=== PATIENT | female | born 1945 | race Caucasian/White ===

== ENCOUNTER 2016-10-12 08:23 | Emergency (ER) | payer OTHER, BC ==
[~2016-10-12] VITALS: Ht 165.1 cm; Wt 35.6 kg
[~2016-10-12 08:23] MED LIST: CEPH500C2 PO; FERR1TAB23 PO; LISI-461 PO; ONDA4TAB10 SL; VERA180T10 PO
[2016-10-12 08:28] VITALS: TEMP 36.6; Ht 165.1 cm; Wt 35.6 kg
--- NOTE | 2016-10-12 08:36 | EMERGENCY ROOM VISIT NOTE ---
ED Visit Note First contact with patient: 08:31 CHIEF COMPLAINT: Suture removal HISTORY OF PRESENT ILLNESS: This 70-year-old female patient returns to the ED today for removal of sutures that were placed 13 days ago. There has been no swelling, redness, or drainage from the wound. The patient feels like the laceration is healing well. REVIEW OF SYSTEMS: A 6 system review of systems was completed with positives and pertinent negatives listed in the HPI. PMH: Unchanged from previous visit. ALLERGIES: Codeine, watermelon PHYSICAL EXAM: Vital Signs: Reviewed Nurse's notes, vital signs stable. GENERAL : This is a 70-year-old female, in no acute distress. SKIN: There is a sutured wound on the finger with no signs of infection. There is no erythema, swelling, or tenderness. EMERGENCY DEPARTMENT COURSE: 6 sutures were removed without any difficulty and there was no separation of the wound edges. She did not follow-up with orthopedics. The wound is without erythema, discharge, warmth. She has full range of motion of the finger and good strength. There is no tenderness. The patient was discharged home in good condition. DIAGNOSIS: Healing laceration and suture removal DISCHARGE INSTRUCTIONS AND TREATMENT: Wash any remaining crusts off of the wound today and resume your normal activities. Problem List Medical Problems: (1) Anemia, Unspecified Status: Chronic (2) Hx-Bronchogenic Malignan Status: Resolved (3) Hypertension Nos Status: Chronic Current/Historical Medications Scheduled Cephalexin Monohydrate (Keflex), 500 MG PO QID Ferrous Sulfate (Iron), 2 TABS PO DAILY Lisinopril (Zestril), 10 MG PO DAILY Verapamil Hcl (Verapamil Hcl Sa), 2 TAB PO DAILY Scheduled PRN Ondasetron Odt (Zofran Odt), 4 MG SL Q6H PRN for Nausea or Vomiting Allergies Coded Allergies: Watermelon (Verified Allergy, Unknown, `, 09/30/16) Codeine (Verified Adverse Reaction, Unknown, UPSET STOMACH, 09/30/16) Vital Signs Date Time Temp Pulse Resp B/P Pulse Ox O2 Delivery O2 Flow Rate FiO2 10/12/16 08:46 86 18 98 10/12/16 08:28 36.6 86 18 156/91 98 Room Air Departure Information Impression Primary Impression: Encounter for removal of sutures Dispostion Home / Self-Care Condition GOOD Referrals No Doctor, Assigned (PCP) Patient Instructions A Signature Page, [facility] Additional Instructions Wash any remaining crusts off of the wound today and resume your normal activities.
[2016-10-12 08:46] VITALS: BP 156/91; PULSE 86; O2SAT 98
== END 2016-10-12 08:44 | disposition home or self-care (01) ==
LOC: C.EDB 08:24 → C.EDA 08:44
DX: Z48.02 Encounter for removal of sutures (principal); I10 Essential (primary) hypertension

== ENCOUNTER → 2017-07-06 | Outpatient (CLI) | payer BC ==
[~2017-07-06] MED LIST changes: -CEPH500C2 PO
[2017-07-06 12:45] LABS: BASO % 0.6 %; BASO ABS # 0.02 K/uL (0-0.2); COMPLETE YES; EOS % 1.4 %; HEMATOCRIT 37.4 % (37-47); LYMPH ABS # 0.88 K/uL (1.2-3.4); MEAN CORPUSCULAR HEMOGLOBIN 28.7 pg (25-34); MEAN CORPUSCULAR HGB CONC 32.6 g/dl (32-36); MONO % 11.1 %; NEUT % 61.9 %; PLATELET COUNT 214 K/uL (130-400); RED BLOOD COUNT 4.25 M/uL (4.2-5.4); WHITE BLOOD COUNT 3.52 K/uL (4.8-10.8)
[2017-07-06 13:21] LABS: ALT/SGPT 17 U/L (12-78); BLOOD UREA NITROGEN 13 mg/dl (7-18); BUN/CREATININE RATIO 13.2 (10-20); CALCIUM 9.5 mg/dl (8.5-10.1); CARBON DIOXIDE 31 mmol/L (21-32); CHLORIDE 103 mmol/L (98-107); CHOLESTEROL 237 mg/dl (0-200); CREATININE 0.97 mg/dl (0.60-1.20); GLUCOSE 92 mg/dl (70-99); POTASSIUM 4.5 mmol/L (3.5-5.1); SODIUM 140 mmol/L (136-145); TRIGLYCERIDES 108 mg/dl (0-150); VERY LOW DENSITY LIPOPROT CALC 22 mg/dl
[2017-07-06 13:31] LABS: ALB/GLOB RATIO 1.2 (0.9-2); ALKALINE PHOSPHATASE 56 U/L (45-117); AST/SGOT 20 U/L (15-37); HDL CHOLESTEROL 118 mg/dl; LDL CHOLESTEROL CALCULATED 97 mg/dl
--- NOTE | 2017-07-11 11:17 | CODING QUERY MEDICAL NECESSITY ---
SUPPORTING DIAGNOSIS NEEDED A supporting diagnosis is required for the test/procedure performed on this patient in order for us to be reimbursed by the patient's insurance. Please provide a supporting diagnosis for the following test/procedure listed below next to the test name along with your signature. *If there is no additional diagnosis for this patient that would support the following test/procedure please document that below next to the test/procedure. Test(s)/Procedure(s) that require a supporting diagnosis: * VITAMIN D, 25-HYDROXY DIAGNOSIS: Provider Signature: Date: Thank you Rebeca Gil [employer] Once completed, please kindly fax back to [phone] For questions please call [phone]
== END | disposition home or self-care (01) ==
LOC: C.LABBFT 07:52
PROVIDERS: ATTEND Internal Medicine
DX: E04.2 Nontoxic multinodular goiter (principal); Q23.0 Congenital stenosis of aortic valve; D72.819 Decreased white blood cell count, unspecified

== ENCOUNTER → 2017-07-25 | Outpatient (CLI) | payer BC ==
--- NOTE | 2017-07-25 10:38 | DIAGNOSTIC IMAGING REPORT ---
Thyroid ultrasonography CLINICAL HISTORY: E04.2 Nontoxic multinodular [id number] COMPARISON STUDY: January 2013 FINDINGS: The right of the thyroid measures 44 x 16 x 12 mm. There is a 10 x 9 x 5 mm upper pole cystic nodule. There is a 4 mm partially cystic mid pole nodule. There is a 2 mm cystic lower pole nodule. The left lobe measures 41 x 15 x 8 mm. There is a 4 mm upper pole cystic nodule, and 4 mm upper pole hypoechoic nodule. IMPRESSION: Multinodular thyroid gland. There are no architecturally suspicious nodules. Electronically signed by: Wai Bailey M.D. 07/25/2017 10:37 AM Dictated Date/Time: 07/25/2017 10:35 AM
== END | disposition home or self-care (01) ==
LOC: C.ULTR 09:57
PROVIDERS: ATTEND Internal Medicine
DX: E04.2 Nontoxic multinodular goiter (principal)

== ENCOUNTER → 2017-09-05 | Outpatient (CLI) | payer BC | END | disposition home or self-care (01) | LOC: C.LABBFT 07:15 | PROVIDERS: ATTEND Internal Medicine | DX: Q23.0 Congenital stenosis of aortic valve (principal); E55.9 Vitamin D deficiency, unspecified ==

== ENCOUNTER → 2018-05-15 | Outpatient (CLI) | payer BC ==
[2018-05-15 12:47] LABS: BASO % 0.6 %; BASO ABS # 0.02 K/uL (0-0.2); EOS % 1.1 %; EOS ABS # 0.04 K/uL (0-0.5); HEMATOCRIT 37.2 % (37-47); HEMOGLOBIN 12.2 g/dL (12.0-16.0); IG# 0.01 K/uL (0.00-0.02); LYMPH % 20.4 %; LYMPH ABS # 0.73 K/uL (1.2-3.4); MEAN CELL VOLUME 85.9 fL (80-100); MEAN CORPUSCULAR HEMOGLOBIN 28.2 pg (25-34); MEAN CORPUSCULAR HGB CONC 32.8 g/dl (32-36); MEAN PLATELET VOLUME 10.1 fL (7.4-10.4); MONO % 13.7 %; MONO ABS # 0.49 K/uL (0.11-0.59); NEUT % 63.9 %; NEUT ABS # 2.28 K/uL (1.4-6.5); PLATELET COUNT 227 K/uL (130-400); RED CELL DISTRIBUTION WIDTH CV 12.8 % (11.5-14.5); RED CELL DISTRIBUTION WIDTH SD 40.8 fL (36.4-46.3); WHITE BLOOD COUNT 3.57 K/uL (4.8-10.8)
[2018-05-15 13:25] LABS: ALBUMIN 3.9 gm/dl (3.4-5.0); ALKALINE PHOSPHATASE 58 U/L (45-117); ALT/SGPT 17 U/L (12-78); AST/SGOT 17 U/L (15-37); BLOOD UREA NITROGEN 13 mg/dl (7-18); CALCIUM 9.3 mg/dl (8.5-10.1); CARBON DIOXIDE 34 mmol/L (21-32); CHOLESTEROL 246 mg/dl (0-200); CREATININE 0.85 mg/dl (0.60-1.20); GLUCOSE 81 mg/dl (70-99); LDL CHOLESTEROL CALCULATED 113 mg/dl; POTASSIUM 3.8 mmol/L (3.5-5.1); SODIUM 139 mmol/L (136-145); TOTAL PROTEIN 7.2 gm/dl (6.4-8.2)
== END | disposition home or self-care (01) ==
LOC: C.LABBFT 07:21
PROVIDERS: ATTEND Internal Medicine
DX: E78.5 Hyperlipidemia, unspecified (principal); D72.819 Decreased white blood cell count, unspecified; E55.9 Vitamin D deficiency, unspecified

== ENCOUNTER 2020-04-21 10:56 | Observation (INO) ==
--- NOTE | 2020-04-21 11:33 | Emergency Department Note ---
History of Present Illness General Chief complaint: Illness Stated complaint: Chest discomfort Time Seen by Provider: 04/21/20 11:19 Source: patient, family, RN notes reviewed and old records reviewed Mode of arrival: ambulatory Limitations: no limitations History of Present Illness Provider complaint: Chest pressure Onset (ago): hour(s) 2 Location: chest Radiation: back Severity: mild Pain Consistency: + now resolved Maximum Pain Intensity: 0 Current Pain Intensity: 3 Quality: + aching Relieved By: + immobilization Exacerbated By: + movement Associated symptoms: + denies other symptoms; no diaphoresis, no fever/chills, no nausea/vomiting and no shortness of breath Treatments prior to arrival: none This is a 74-year-old female with a history of aortic stenosis who presents the emergency department complaining of chest pain that occurred approximately 2 hours ago. The patient reports the chest pain continued for approximately 2 hours and went away on its own. She reports moving around made the pain worse however rest made the pain better. She is pain-free upon arrival to the emergency department. She describes the pain as a pressure that radiated into her back. She currently has no complaints denies any shortness of breath any fevers chills or any exposure to the virus. Home Medications Home Medications Medication Instructions Recorded Confirmed Type verapamil 180 mg tablet,extended 360 mg PO DAILY #60 tab 04/28/19 04/21/20 Rx release aspirin 81 mg tablet,delayed 81 mg PO DAILY tab 05/06/19 04/21/20 History release ferrous sulfate 325 mg (65 mg 325 mg PO DAILY tab 05/06/19 04/21/20 History iron) tablet lisinopril 10 mg tablet 10 mg PO DAILY #30 tab 02/16/20 04/21/20 Rx albuterol sulfate 90 mcg/actuation 2 puffs INH Q6H PRN #8 gm 03/10/20 04/21/20 Rx aerosol inhaler mirtazapine 7.5 mg tablet 7.5 mg PO DAILY #30 tab 03/10/20 04/21/20 Rx tiotropium bromide 18 mcg capsule 1 cap INHALATION DAILY #30 puffs 03/10/20 04/21/20 Rx with inhalation device pravastatin 10 mg tablet 10 mg PO DAILY #30 tab 04/05/20 04/21/20 Rx Allergies Allergy/AdvReac Type Severity Reaction Status Date / Time watermelon Allergy Unknown ` Verified 04/21/20 12:17 bupropion [From Wellbutrin] Allergy Verified 04/21/20 12:17 simvastatin Allergy Verified 04/21/20 12:17 alendronate sodium AdvReac Intermediate Nausea Verified 04/21/20 12:17 codeine AdvReac Unknown UPSET Verified 04/21/20 12:17 STOMACH atorvastatin AdvReac Verified 04/21/20 12:17 doxycycline AdvReac Verified 04/21/20 12:17 Sulfa (Sulfonamide AdvReac Verified 04/21/20 12:17 Antibiotics) sulfamethoxazole AdvReac Nausea Verified 04/21/20 12:17 [From Bactrim] trimethoprim [From Bactrim] AdvReac Nausea Verified 04/21/20 12:17 Past Med/Surg History Medical History Aortic stenosis due to bicuspid aortic valve (Acute) Bicuspid aortic valve (Acute) BMI less than 19,adult (Acute) Carotid bruit (Acute) COPD (chronic obstructive pulmonary disease) (Chronic) Fatigue (Acute) History of adenocarcinoma of lung Hyperlipidemia (Acute) Hypertension (Acute) Leukopenia (Acute) Mitral regurgitation (Acute) Nontoxic multinodular goiter (Acute) Osteoporosis (Chronic) Tricuspid regurgitation (Acute) Vitamin D deficiency (Acute) Surgical History History of tubal ligation 1977 S/P lobectomy of lung 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 Family History Father Myocardial infarction Hypertension Mother Vascular disorder Mother of supranuclear palsy Hypertension Denies family history of Ovarian cancer Prostate cancer Diabetes Breast cancer Colorectal cancer Social History Smoking Status: Former smoker Age Started Using Tobacco: 21; packs per day: 1; Cigarettes Per Day: 20; Second Hand Exposure: No; Hx Alcohol Use: Yes Alcohol Intake Frequency Comment: socially Hx Substance Use: No Preferred Language: Indonesian Visual Impairment: Partially Limited Hearing Ability: Normal Water Meter Reader Required: No Beliefs That Will Affect Care: None marital status: / Current Living Situation: Alone current occupational status: employed current occupation: works at [employer] doing [employer] and [employer] Other Information That Helps Us Care for You: No Feels Safe at Home: Yes Safety Concerns: Feels Safe At This Time Childhood Exposure to Second-Hand Smoke: No caffeine: Yes (coffee daily) Dental Care, Regularly: No Physical Activity Frequency: Daily Seatbelt Use: always Sunscreen Use: No Review of Systems A total of 10 systems reviewed and were otherwise negative Physical Exam Vital Signs Vital Signs - 24 hr 04/21/20 12:39 Pulse Rate [Apical] 85 Respiratory Rate 16 Blood Pressure [Right Arm] 118/78 Blood Pressure Mean [Right Arm] 91 VITAL SIGNS - Vital signs and nursing notes were reviewed. GENERAL - 74-year-old female appearing stated age who is in no acute distress. Communicates well with provider and answers questions appropriately. SKIN - Without rashes. HEAD - NC/AT. EYES - PERRL with EOMI bilaterally. Sclera anicteric. Palpebral conjunctiva pin k and moist with no injection noted. EARS - No deformities of external structures noted on gross examination bilaterally. No pain elicited with palpation of the tragus bilaterally. External auditory canals without discharge or otorrhea. Tympanic membranes pearly hardy without retraction or bulging. No fluid or purulent material visualized behind the TM. Handle of malleus, umbo, cone of light, pars tensa/flaccid all easily visualized. NOSE - Midline and without cyanosis. No epistaxis or purulent drainage noted. Septum midline without deviation or septal hematoma noted. MOUTH/OROPHARYNX - Without perioral cyanosis. Buccal mucosa pink and moist and without leukoplakia. Tongue midline with equal elevation of palate bilaterally. No tonsillar hypertrophy, erythema, or exudates noted. dentition noted. NECK - Neck with FROM. Supple to palpation. lymphadenopathy noted. No nuchal rigidity. LUNGS - Chest wall symmetric without accessory muscle use, intercostals retractions, or central cyanosis. Normal vesicular breath sounds CTA B/L. No wheezes, rales, or rhonchi appreciated. CARDIAC - RRR with S1/S2. No murmur, rubs, or gallops appreciated. ABDOMEN - Abdominal contour without pulsations or visible masses. BS normoactive all four quadrants. No tenderness, palpable masses, hepatosp lenomegaly, or ascites noted. EXTREMITIES - No clubbing or peripheral cyanosis. No pretibial edema present. +3/5 radial, posterior tibial, and dorsalis pedis pulses palpated throughout. +5/5 strength noted in UE/LE bilaterally. NEUROLOGIC - Cranial nerves II through XII grossly intact. Sensory intact to light touch throughout. Patellar reflexes +2/4. PSYCH - A&Ox3 and cooperates fully with examiner. Pt is very pleasant and interacts well with examiner. Course Administered Medications Aspirin (Ecotrin Ectab) 81 mg PO DAILY [facility] Stop: 05/22/20 08:59 Last Admin: 04/22/20 10:03 Dose: 81 mg Documented by: [id number] Ferrous Sulfate (Feosol) 325 mg PO DAILY [facility] Stop: 05/22/20 08:59 Last Admin: 04/22/20 10:03 Dose: 325 mg Documented by: [id number] Lisinopril (Zestril) 10 mg PO DAILY [facility] Stop: 05/22/20 08:59 Last Admin: 04/22/20 10:03 Dose: 10 mg Documented by: [id number] Mirtazapine (Remeron) 7.5 mg PO DAILY [facility] Stop: 05/22/20 08:59 Last Admin: 04/22/20 10:11 Dose: Not Given Documented by: [id number] Pravastatin Sodium (Pravachol) 10 mg PO DAILY [facility] Stop: 05/22/20 08:59 Last Admin: 04/22/20 10:03 Dose: 10 mg Documented by: [id number] Umeclidinium [place] (Incruse Ellipta) 1 puffs INH DAILY [facility]; Protocol Stop: 05/22/20 08:59 Last Admin: 04/22/20 10:04 Dose: 1 puffs Documented by: [id number] Verapamil HCl (Calan Sr) 360 mg PO DAILY [facility] Stop: 05/22/20 08:59 Last Admin: 04/22/20 10:03 Dose: 360 mg Documented by: [id number] Medical Decision Making Differential Diagnosis Cardiac ischemia, aortic dissection, pulmonary embolism, pneumothorax, pneumonia, pericarditis, myocarditis, esophageal rupture, GERD, cholecystitis, pancreatitis, musculoskeletal, as well as other pathologies. Medical Records Attestation: I reviewed the patient's medical records. Home Medications Current Medication List: was personally reviewed by me Laboratory Data Attestation: I reviewed the patient's lab results. Result diagrams: 04/21/20 11:15 04/22/20 05:46 Lab Results 04/21/20 04/21/20 04/21/20 Range/Units 11:15 11:15 11:15 WBC 6.31 (4.8-10.8) K/uL RBC 4.62 (4.2-5.4) M/uL Hgb 13.6 (12.0-16.0) g/dL Hct 41.3 (37-47) % MCV 89.4 (80-100) fL MCH 29.4 (25-34) pg MCHC 32.9 (32-36) g/dL RDW Std Deviation 40.2 (36.4-46.3) fL RDW Coeff of Sarah 12.3 (11.5-14.5) % Plt Count 294 (130-400) K/uL MPV 9.6 (7.4-10.4) fL Immature Gran % (Auto) 0.2 % Neut % (Auto) 79.9 % Lymph % (Auto) 12.7 % [place] % (Auto) 6.8 % Eos % (Auto) 0.2 % Baso % (Auto) 0.2 % Neut # (Auto) 5.05 (1.4-6.5) K/uL Lymph # (Auto) 0.80 L (1.2-3.4) K/uL [place] # (Auto) 0.43 (0.11-0.59) K/uL Eos # (Auto) 0.01 (0-0.5) K/uL Baso # (Auto) 0.01 (0-0.2) K/uL Immature Gran # (Auto) 0.01 (0.00-0.02) K/uL PT 10.3 (9.0-12.0) Seconds INR 1.0 (0.9-1.1) APTT 24.1 (21.0-31.0) Seconds PTT Ratio 0.9 D-Dimer < 190 (0-500) ug/L FEU Sodium 139 (136-145) mmol/L Potassium 3.6 (3.5-5.1) mmol/L Chloride 101 (98-107) mmol/L Carbon Dioxide 32 (21-32) mmol/L Anion Gap 6.0 (3-11) BUN 8 (7-18) mg/dl Creatinine 0.98 (0.6-1.2) mg/dl Est Cr Clr Drug Dosing 29.4 ml/min Est GFR ( Amer) 65.9 Est GFR (Non-Af Amer) 56.8 BUN/Creatinine Ratio 8.3 L (10-20) Glucose 139 H (70-99) mg/dl Calcium 9.8 (8.5-10.1) mg/dl Total Bilirubin 0.8 (0.2-1) mg/dl AST 22 (15-37) U/L ALT 32 (12-78) U/L Alkaline Phosphatase 83 (45-117) U/L Total Creatine Kinase 55 (26-192) U/L CK-MB (CK-2) < 1.0 (0.5-3.6) ng/ml CK/CKMB % Calc TNP Troponin I < 0.015 (0-0.045) ng/ml Total Protein 8.5 H (6.4-8.2) gm/dl Albumin 4.5 (3.4-5.0) gm/dl Globulin 4.0 (2.5-4.0) gm/dl Albumin/Globulin Ratio 1.1 (0.9-2) Lipase 121 (73-393) U/L 04/21/20 Range/Units 13:10 WBC (4.8-10.8) K/uL RBC (4.2-5.4) M/uL Hgb (12.0-16.0) g/dL Hct (37-47) % MCV (80-100) fL MCH (25-34) pg MCHC (32-36) g/dL RDW Std Deviation (36.4-46.3) fL RDW Coeff of Sarah (11.5-14.5) % Plt Count (130-400) K/uL MPV (7.4-10.4) fL Immature Gran % (Auto) % Neut % (Auto) % Lymph % (Auto) % [place] % (Auto) % Eos % (Auto) % Baso % (Auto) % Neut # (Auto) (1.4-6.5) K/uL Lymph # (Auto) (1.2-3.4) K/uL [place] # (Auto) (0.11-0.59) K/uL Eos # (Auto) (0-0.5) K/uL Baso # (Auto) (0-0.2) K/uL Immature Gran # (Auto) (0.00-0.02) K/uL PT (9.0-12.0) Seconds INR (0.9-1.1) APTT (21.0-31.0) Seconds PTT Ratio D-Dimer (0-500) ug/L FEU Sodium (136-145) mmol/L Potassium (3.5-5.1) mmol/L Chloride (98-107) mmol/L Carbon Dioxide (21-32) mmol/L Anion Gap (3-11) BUN (7-18) mg/dl Creatinine (0.6-1.2) mg/dl Est Cr Clr Drug Dosing ml/min Est GFR ( Amer) Est GFR (Non-Af Amer) BUN/Creatinine Ratio (10-20) Glucose (70-99) mg/dl Calcium (8.5-10.1) mg/dl Total Bilirubin (0.2-1) mg/dl AST (15-37) U/L ALT (12-78) U/L Alkaline Phosphatase (45-117) U/L Total Creatine Kinase (26-192) U/L CK-MB (CK-2) (0.5-3.6) ng/ml CK/CKMB % Calc Troponin I < 0.015 (0-0.045) ng/ml Total Protein (6.4-8.2) gm/dl Albumin (3.4-5.0) gm/dl Globulin (2.5-4.0) gm/dl Albumin/Globulin Ratio (0.9-2) Lipase (73-393) U/L Imaging Data Radiologist's Impression: [facility], [facility] [phone] XRay Report Patient: REMINGTON FRIAS EAdmit Date: 04/21/20 MR#: [id number] PLUM Acct ID:[id number]: Date: [address] [place] [address] Zip: [id number] [id number] Age: 74Location: ED Sex: F Room/Bed: Att Phy:Diagnosis: Chest discomfort Priscila Phy: Shawn Garcia MDService Date: 04/21/20 Fam Phy:Interpreting Phy: Michael Franco Admit Phy: Ordering Phy: Jose Scruggs MD cc: ~ XR chest 1V portable HISTORY: 74 years-old Female Chest Pain acute atypical chest pain COMPARISON: Chest radiograph 09/14/2014 TECHNIQUE: Portable AP view of the chest FINDINGS: Cardiomediastinal and hilar silhouettes are unchanged. The patient is rotated towards the left. Chronic right lung volume loss with chronic pleural thickening of the right lung apex with findings suggestive of prior upper lobectomy. Calcific granuloma of the lateral left midlung. Mild chronic interstitial coarsening. Hazy opacity within the left perihilar distribution measures up to approximately 2.5 cm. Degenerative changes of the shoulders and spine. IMPRESSION: 1. Chronic findings as above without acute process. 2. 2.5 cm ill-defined opacity of the left perihilar distribution is suggestive of summation density. Airspace disease or pulmonary nodule are considered less likely. As a precautionary measure, a chest CT could be considered. ACT 112: Negative or not required by law. The above report was generated using voice recognition software. It may contain grammatical, syntax or spelling errors. Electronically signed by: Randall Franco M.D. 04/21/2020 12:03 PM Dictated: 04/21/20 1200 Transcribed: 04/21/20 1200 ECG Data Attestation: I personally reviewed and interpreted this ECG as follows: Indication: + chest pain Rate (beats per minute): 92 Rhythm: + normal sinus ECG [place]: + Normal ECG ST segments: no ST depression and no ST elevation ECG Findings: + Q waves (Septal) Comparison ECG Date: no prior available MDM Narrative Patient was seen and evaluated as above in room. Review was performed of nursing notes and vital signs. I did review pertinent previous visits and patient history. After obtaining a thorough history and physical examination the above w ork up was performed. This is a 74-year-old female who presents emergency department complaining of chest pain. The patient is currently pain-free however she is complicated with a bicuspid aortic valve and aortic stenosis. Based on these risk factors I did discuss the case with the hospitalist service who did agree to admit the patient. Patient and family are in agreement with the treatment plan. An order was placed for continuous cardiac monitoring. The monitor shows a rate of 106 with NS rhythm. The patient was evaluated during the global COVID-19 pandemic, and that diagnosis was suspected/considered upon their initial presentation. Their evaluation, treatment and testing was consistent with current guidelines for patients who present with complaints or symptoms that may be related to COVID- 19. Impression & Plan Chest pain, Bicuspid aortic valve, Aortic stenosis due to bicuspid aortic valve Discharge Plan Visit Data *Final* Discharge Date/Time: 04/21/20 15:04 Chief Complaint: Illness Stated Complaint: Chest discomfort ED Provider: Jose Scruggs Discharge Problem: Chest pain, Bicuspid aortic valve, Aortic stenosis due to bicuspid aortic valve Patient Disposition: Admitted As Inpatient Condition: Good Discharge Instructions Interventions: ED Discharge Assessment Last Done: 04/21/20 15:04 Discharge Problem: Chest pain Qualifiers: Chest pain type: unspecified Qualified Code(s): R07.9 - Chest pain, unspecified
[2020-04-21 11:44] LABS: Basophils # (auto) 0.01 K/uL (0-0.2); Basophils % (auto) 0.2 %; Eosinophils # (auto) 0.01 K/uL (0-0.5); Eosinophils % (auto) 0.2 %; Hematocrit (blood only) 41.3 % (37-47); Hemoglobin 13.6 g/dL (12.0-16.0); Immature Granulocytes # (auto) 0.01 K/uL (0.00-0.02); Immature Granulocytes % (auto) 0.2 %; Lymphocytes % (auto) 12.7 %; Mean Corpuscular Hemoglobin 29.4 pg (25-34); Mean Corpuscular Hgb Conc 32.9 g/dL (32-36); Mean Corpuscular Volume 89.4 fL (80-100); Mean Platelet Volume 9.6 fL (7.4-10.4); Monocytes # (auto) 0.43 K/uL (0.11-0.59); Monocytes % (auto) 6.8 %; Neutrophils # (auto) 5.05 K/uL (1.4-6.5); Neutrophils % (auto) 79.9 %; Platelet Count 294 K/uL (130-400); RDW Coefficient of Variation 12.3 % (11.5-14.5); RDW Standard Deviation 40.2 fL (36.4-46.3); Red Blood Count 4.62 M/uL (4.2-5.4); White Blood Count 6.31 K/uL (4.8-10.8)
[2020-04-21 11:54] LABS: Alanine Aminotransferase 32 U/L (12-78); Albumin Level 4.5 gm/dl (3.4-5.0); Aspartate Aminotransferase 22 U/L (15-37); BUN Creatinine Ratio 8.3 (10-20); Blood Urea Nitrogen 8 mg/dl (7-18); Calcium 9.8 mg/dl (8.5-10.1); Carbon Dioxide 32 mmol/L (21-32); Chloride 101 mmol/L (98-107); Creatinine Clr Calc Pharmacy 29.4 ml/min; Est GFR (African American) 65.9; Est GFR (Non-African American) 56.8; Glucose 139 mg/dl (70-99); Lipase 121 U/L (73-393); Potassium 3.6 mmol/L (3.5-5.1); Sodium 139 mmol/L (136-145)
[2020-04-21 11:56] LABS: D Dimer < 190 ug/L FEU (0-500); Partial Thromboplastin Ratio 0.9; Partial Thromboplastin Time 24.1 Seconds (21.0-31.0); Prothrombin Time 10.3 Seconds (9.0-12.0)
[2020-04-21 11:59] LABS: Albumin Globulin Ratio 1.1 (0.9-2); Alkaline Phosphatase 83 U/L (45-117); Bilirubin,Total 0.8 mg/dl (0.2-1); Creatine Kinase 55 U/L (26-192); Creatine Kinase MB < 1.0 ng/ml (0.5-3.6); Total Protein 8.5 gm/dl (6.4-8.2); Troponin I < 0.015 ng/ml (0-0.045)
--- NOTE | 2020-04-21 12:05 | XRay Report ---
XR chest 1V portable HISTORY: 74 years-old Female Chest Pain acute atypical chest pain COMPARISON: Chest radiograph 09/14/2014 TECHNIQUE: Portable AP view of the chest FINDINGS: Cardiomediastinal and hilar silhouettes are unchanged. The patient is rotated towards the left. Chron ic right lung volume loss with chronic pleural thickening of the right lung apex with findings sugges tive of prior upper lobectomy. Calcific granuloma of the lateral left midlung. Mild chronic interstit ial coarsening. Hazy opacity within the left perihilar distribution measures up to approximately 2.5 cm. Degenerative changes of the shoulders and spine. IMPRESSION: 1. Chronic findings as above without acute process. 2. 2.5 cm ill-defined opacity of the left perihilar distribution is suggestive of summation density. Airspace disease or pulmonary nodule are considered less likely. As a precautionary measure, a chest CT could be considered. ACT 112: Negative or not required by law. The above report was generated using voice recognition software. It may contain grammatical, syntax o r spelling errors. Electronically signed by: Randall Franco M.D. 04/21/2020 12:03 PM
--- NOTE | 2020-04-21 12:50 | Electrocardiogram Report ---
Test Reason : Blood Pressure : / mmHG Vent. Rate : 092 BPM Atrial Rate : 092 BPM P-R Int : 158 ms QRS Dur : 076 ms QT Int : 348 ms P-R-T Axes : 074 048 058 degrees QTc Int : 430 ms Poor data quality, interpretation may be adversely affected Normal sinus rhythm RSR' or QR pattern in V1 suggests right ventricular conduction delay Otherwise Normal ECG Confirmed by Leonard Phillip ([id number]) on 04/21/2020 12:49:28 PM Referred By: Confirmed By:Leonard Phillip
--- NOTE | 2020-04-21 14:07 | Electrocardiogram Report ---
Test Reason : Blood Pressure : / mmHG Vent. Rate : 077 BPM Atrial Rate : 077 BPM P-R Int : 158 ms QRS Dur : 076 ms QT Int : 410 ms P-R-T Axes : 076 059 066 degrees QTc Int : 463 ms Normal sinus rhythm RSR' or QR pattern in V1 suggests right ventricular conduction delay Otherwise Normal ECG When compared with ECG of 21-APR-2020 11:01, No significant change was found Confirmed by Leonard Phillip ([id number]) on 04/21/2020 2:07:18 PM Referred By: REFERRED SELF Confirmed By:Leonard Phillip
--- NOTE | 2020-04-21 14:30 | History & Physical Report ---
Date of Service April 21, 2020 Assessment & Plan (1) Chest pain, rule out acute myocardial infarction: d-dimer negative Since chest pain free at present, atypical chest pain and non-exertional will hold off full ACS treatment at present. If troponin at 9 PM negative no need for lipid panel and HbA1c in a.m. HEART score 5 Serial troponins EKG with dynamic changes in septal leads Repeat TTE given progression of aortic stenosis on that echocardiogram - aortic stenosis Consult cardiology (2) Aortic stenosis due to bicuspid aortic valve: ?cause of CP above Given lack of symptoms (CP, SOBOE, dizziness) outside of this episode suspect and non-exertional nature suspect this is unlikely (3) BMI less than 19,adult: No recent weight loss. Similar weight her whole life. Denies history of anorexia or bulimia. (4) Hypertension: Continue verapamil ER 360 mg p.o. daily, lisinopril 10 mg PO daily (5) COPD (chronic obstructive pulmonary disease): No acute exacerbation Continue usual maintenance inhalers tiotropium (6) Abnormal CXR: 2.5 cm ill-defined opacity in the left perihilar distribution suggestive of summation density. Given Hx lung cancer in 2002 recommend outpatient follow up with Dr Vu to determine follow-up CXR versus CT chest. I do not suspect this is related to her current chest pain. Admission and Anticipated Discharge Date Admission Date: 04/21/2020 History of Present Illness Chief Complaint: Chest pain Primary Care Provider: Shawn Garcia MD Helen Casarez is a 74-year-old female who presents to the ER with an episode of chest pressure which occurred at rest. Chest pressure severity 8/10, occurred at approximately 9 AM, lasted for 2 hours, sudden onset and suddenly resolved. Nonexertional. No worse with food. She does have occasional heartburn which she cannot really describe to me although she this chest pain is something completely new for her. Allergies Allergy/AdvReac Type Severity Reaction Status Date / Time watermelon Allergy Unknown ` Verified 04/21/20 12:17 bupropion [From Wellbutrin] Allergy Verified 04/21/20 12:17 simvastatin Allergy Verified 04/21/20 12:17 alendronate sodium AdvReac Intermediate Nausea Verified 04/21/20 12:17 codeine AdvReac Unknown UPSET Verified 04/21/20 12:17 STOMACH atorvastatin AdvReac Verified 04/21/20 12:17 doxycycline AdvReac Verified 04/21/20 12:17 Sulfa (Sulfonamide AdvReac Verified 04/21/20 12:17 Antibiotics) sulfamethoxazole AdvReac Nausea Verified 04/21/20 12:17 [From Bactrim] trimethoprim [From Bactrim] AdvReac Nausea Verified 04/21/20 12:17 Home Medications Home Medications Medication Instructions Recorded Confirmed Type verapamil 180 mg tablet,extended 360 mg PO DAILY #60 tab 04/28/19 04/21/20 Rx release aspirin 81 mg tablet,delayed 81 mg PO DAILY tab 05/06/19 04/21/20 History release ferrous sulfate 325 mg (65 mg 325 mg PO DAILY tab 05/06/19 04/21/20 History iron) tablet lisinopril 10 mg tablet 10 mg PO DAILY #30 tab 02/16/20 04/21/20 Rx albuterol sulfate 90 mcg/actuation 2 puffs INH Q6H PRN #8 gm 03/10/20 04/21/20 Rx aerosol inhaler mirtazapine 7.5 mg tablet 7.5 mg PO DAILY #30 tab 03/10/20 04/21/20 Rx tiotropium bromide 18 mcg capsule 1 cap INHALATION DAILY #30 puffs 03/10/20 04/21/20 Rx with inhalation device pravastatin 10 mg tablet 10 mg PO DAILY #30 tab 04/05/20 04/21/20 Rx Past Med/Surg History Medical History (Updated 04/21/20 @ 14:29 by Main Kenyon MD) Aortic stenosis due to bicuspid aortic valve (Acute) Bicuspid aortic valve (Acute) BMI less than 19,adult (Acute) Carotid bruit (Acute) COPD (chronic obstructive pulmonary disease) (Chronic) Fatigue (Acute) History of adenocarcinoma of lung Hyperlipidemia (Acute) Hypertension (Acute) Leukopenia (Acute) Mitral regurgitation (Acute) Nontoxic multinodular goiter (Acute) Osteoporosis (Chronic) Tricuspid regurgitation (Acute) Vitamin D deficiency (Acute) Surgical History (Updated 01/26/20 @ 12:27 by Kathie Siddiqui) History of tubal ligation 1976 S/P lobectomy of lung 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 Family History (Updated 01/26/20 @ 12:29 by Kathie Siddiqui) Father Myocardial infarction Hypertension Mother Vascular disorder Mother of supranuclear palsy Hypertension Denies family history of Ovarian cancer Prostate cancer Diabetes Breast cancer Colorectal cancer Social History (Updated 03/10/20 @ 15:09 by Vannesa Matias MA) Smoking Status: Former smoker Age Started Using Tobacco: 21; packs per day: 1; Cigarettes Per Day: 20; Second Hand Exposure: No; Hx Alcohol Use: Yes Alcohol Intake Frequency Comment: socially Hx Substance Use: No Preferred Language: Kyrgyz Visual Impairment: Partially Limited Hearing Ability: Normal Wrapper Selector Required: No Beliefs That Will Affect Care: None marital status: / Current Living Situation: Alone current occupational status: employed current occupation: works at [employer] doing [employer] and [employer] Other Information That Helps Us Care for You: No Feels Safe at Home: Yes Safety Concerns: Feels Safe At This Time Childhood Exposure to Second-Hand Smoke: No caffeine: Yes (coffee daily) Dental Care, Regularly: No Physical Activity Frequency: Daily Seatbelt Use: always Sunscreen Use: No Review of Systems Review of Systems: All systems reviewed & are unremarkable except as noted in HPI & below Physical Exam Constitutional: + thin and + frail appearing; no acute distress Eyes: PERRL, conjunctivae normal, anicteric sclerae ENMT: external ear and nose normal, oropharynx normal Neck: trachea midline Respiratory: normal respiratory effort, lungs clear to auscultation Cardiovascular: Rate/Rhythm: regular rate and regular rhythm Heart Sounds: + murmur (NAM) Extremities: normal capillary refill; no calf tenderness and no pedal edema Gastrointestinal (Abdomen): Inspection/Auscultation: abdomen normal to inspection and normal bowel sounds; abdomen not distended Percussion/Palpation: abdomen soft; abdomen nontender, no guarding and abdomen not rigid Musculoskeletal: no cyanosis or clubbing, extremities motor strength 5/5 Skin: no rashes, warm and dry Neurologic: moves all extremities and awake; not confused Psychiatric: A+Ox3, euthymic affect Genitourinary: no CVA tenderness Lymphatic: no cervical or axillary lymphadenopathy Results & Data Results & Data ([facility]) Vital Signs (Past 12 Hours) Vital Signs Temp Pulse Pulse Resp BP BP Pulse Ox 04/21/20 12:39 85 16 118/78 04/21/20 11:07 37.0 C 95 H 20 151/78 H 97 Diagnostic Findings XR chest 1V portable IMPRESSION: 1. Chronic findings as above without acute process. 2. 2.5 cm ill-defined opacity of the left perihilar distribution is suggestive of summation density. Airspace disease or pulmonary nodule are considered less likely. As a precautionary measure, a chest CT could be considered ECG Indication: chest pain Rate (beats per minute): 77 Rhythm: normal sinus Findings: + other (Right ventricular conduction delay) Comparison ECG Date: from (January 02, 2002) Change: no significant change Code Status & VTE Plan Code Status Full VTE Prophylaxis Plan VTE Prophylaxis will be ordered: No PG Care Time/CCT Total # of Minutes Spent Total Time Spent with Patient: Total time spent is greater than 50% in coordination of care (as documented) at patient's floor/unit and/or counseling patient: Coding Level of Care Code 80106 OBS Care - Level 3 Diagnoses Chest pain, rule out acute myocardial infarction R07.9 Aortic stenosis due to bicuspid aortic valve Q23.0; Q23.1 BMI less than 19,adult Z68.1 Hypertension I10 COPD (chronic obstructive pulmonary disease) J44.9 Abnormal CXR R93.89
[2020-04-22 06:41] LABS: BUN Creatinine Ratio 12.2 (10-20); Blood Urea Nitrogen 10 mg/dl (7-18); Calcium 9.5 mg/dl (8.5-10.1); Carbon Dioxide 32 mmol/L (21-32); Chloride 105 mmol/L (98-107); Creatinine Clr Calc Pharmacy 34.9 ml/min; Est GFR (African American) 84.2; Est GFR (Non-African American) 72.6; Glucose 95 mg/dl (70-99); Potassium 3.7 mmol/L (3.5-5.1); Sodium 142 mmol/L (136-145)
[2020-04-22 06:45] LABS: Troponin I < 0.015 ng/ml (0-0.045)
[2020-04-22] MEDS ORDERED: UMECLIDINIUM BROMIDE 62.5MCG/BLISTER 7 PUFFS/INHALER INH SCH (09:00)
[2020-04-22] MEDS ORDERED: FERROUS SULFATE 325 MG TAB PO SCH (09:00)
[2020-04-22] MEDS ORDERED: PRAVASTATIN SOD 10 MG TAB PO SCH (09:00)
[2020-04-22] MEDS ORDERED: MIRTAZAPINE TAB 15 MG TAB PO SCH (09:00)
[2020-04-22] MEDS ORDERED: ASPIRIN 81 MG ECTAB PO SCH (09:00)
[2020-04-22] MEDS ORDERED: VERAPAMIL HCL 180 MG TABCR PO SCH (09:00)
[2020-04-22] MEDS ORDERED: lisinopriL 10 MG TAB PO SCH (09:00)
--- NOTE | 2020-04-22 10:22 | XCELERA ---
[id number]
--- NOTE | 2020-04-22 15:58 | Discharge Summary ---
Date of Service April 22, 2020 Admission HPI Per Admitting Provider Helen Casarez is a 74-year-old female who presents to the ER with an episode of chest pressure which occurred at rest. Chest pressure severity 8/10, occurred at approximately 9 AM, lasted for 2 hours, sudden onset and suddenly resolved. Nonexertional. No worse with food. She does have occasional heartburn which she cannot really describe to me although she this chest pain is something completely new for her. Principal Diagnosis Atypical chest pain Discharge Exam Constitutional WD/WN, vitals as above Eyes PERRL, conjunctivae normal, anicteric sclerae ENMT external ear and nose normal, oropharynx normal Neck trachea midline, no thyromegaly Respiratory normal respiratory effort, lungs clear to auscultation Cardiovascular Rate/Rhythm: regular rhythm and + tachycardic Heart Sounds: normal S1 and normal S2; no murmur Vessels: no JVD Extremities: normal capillary refill; no edema Gastrointestinal (Abdomen) normal bowel sounds, soft, nontender, no hepatosplenomegaly Musculoskeletal no cyanosis or clubbing, extremities motor strength 5/5 Skin no rashes, warm and dry Neurologic patellar DTR's 2+ bilat, sensation intact and PERRL, EOMI, accommodation nl, no face palsy, no dysarthria Psychiatric A+Ox3, euthymic affect Lymphatic no cervical or axillary lymphadenopathy Discharge Data Allergies Allergy/AdvReac Type Severity Reaction Status Date / Time watermelon Allergy Unknown ` Verified 04/21/20 12:17 bupropion [From Wellbutrin] Allergy Verified 04/21/20 12:17 simvastatin Allergy Verified 04/21/20 12:17 alendronate sodium AdvReac Intermediate Nausea Verified 04/21/20 12:17 codeine AdvReac Unknown UPSET Verified 04/21/20 12:17 STOMACH atorvastatin AdvReac Verified 04/21/20 12:17 doxycycline AdvReac Verified 04/21/20 12:17 Sulfa (Sulfonamide AdvReac Verified 04/21/20 12:17 Antibiotics) sulfamethoxazole AdvReac Nausea Verified 04/21/20 12:17 [From Bactrim] trimethoprim [From Bactrim] AdvReac Nausea Verified 04/21/20 12:17 Consultations 04/21/20 12:14 ED Decision to Admit Stat Hospital Course (1) Chest pain, rule out acute myocardial infarction: d-dimer negative atypical chest pain and non-exertional, happened in the morning while at rest, last 2 hours troponin negative x 3 sets echocardiogram with moderate , preserved EF, no wall motion abnormalities patient wants to go home, she feels fine discussed that she should follow up with her PCP if stress test desired, cardiology recommends Lexiscan nuclear stress her LV is already hyperdynamic so stress echo would be difficult to interpret (2) Aortic stenosis due to bicuspid aortic valve: moderate on echo unlikely the cause of her symptoms monitor with routine echo (3) BMI less than 19,adult: No recent weight loss. Similar weight her whole life. Denies history of anorexia or bulimia. (4) Hypertension: Continue verapamil ER 360 mg p.o. daily, lisinopril 10 mg PO daily (5) COPD (chronic obstructive pulmonary disease): No acute exacerbation Continue usual maintenance inhalers tiotropium (6) Abnormal CXR: 2.5 cm ill-defined opacity in the left perihilar distribution suggestive of summation density patient says that this has been followed for years, she saw Dr Vu in the past defer any further testing to outpatient setting, she does not want CT chest at this time, just wants to go Total Time Total Time Spent Total Time Spent (In Minutes): 25 Total Time Includes: Examination of the Patient, Discharge Planning and Medication Reconciliation Discharge Plan Discharge Items Patient Disposition: Home - Self-Care Reason For Visit: chest pain Discharge Diagnosis: chest pain, no evidence of acute OR bicuspid aortic valve Condition on Discharge: Good Goals: follow up with PCP if symptoms persist consider outpatient stress test, cardiology would recommend nuclear stress test Activity: Resume your previous activity Non-emergency contact: Primary Care Provider Call non-emergency contact if: you have any medication questions and your symptoms worsen Follow-up/Referrals: Shane Garcia MD [Primary Care Provider] - (one week) Diet: Heart Healthy Addtl Attending Provider Instructions: Medications: no changes Chest pain: occurred at rest, atypical for angina type pain troponin negative for three sets, rules out acute coronary syndrome no ischemic changes on EKG echo with hyperdynamic left ventricle and moderate bicuspid aortic valve, similar to prior echo if you would have further chest pain, cardiology recommends a nuclear stress test, Lexiscan Chest x-ray abnormality: history of such follow up with Dr. Garcia, no need for further work up at this time Pending Studies at Discharge: No Stand-Alone Forms: My [facility], Smoking Cessation Medications and DC Order Prescriptions: Continued lisinopril 10 mg tablet 10 mg PO DAILY Qty: 30 RF: 5 pravastatin 10 mg tablet 10 mg PO DAILY Qty: 30 RF: 5 ferrous sulfate 325 mg (65 mg iron) tablet 325 mg PO DAILY RF: 0 aspirin 81 mg tablet,delayed release (DR/EC) 81 mg PO DAILY RF: 0 albuterol sulfate [Ventolin HFA] 90 mcg/actuation HFA aerosol inhaler 2 puffs INH Q6H PRN (Reason: shortness of breath or wheezing) Qty: 8 RF: 6 tiotropium bromide 18 mcg capsule, w/inhalation device 1 cap inhalation DAILY Qty: 30 RF: 11 mirtazapine 7.5 mg tablet 7.5 mg PO DAILY Qty: 30 RF: 6 No Action verapamil 180 mg tablet extended release 360 mg PO DAILY Qty: 180 RF: 3 Discharge Orders: Discharge Order (Routine); Ordered 04/22/20 Ordered By: Salvador Rodriguez Admission Data Admit Date/Time: 04/21/20 14:26 Attending Provider: Salvador Rodriguez Admit Provider: Main Kenyon Primary Care Provider: Shane Garcia Other Providers: Main Kenyon Other Interventions: Discharge Summary Assessment (RN) Last Done: 04/22/20 10:34 DC Date/Time DO NOT enter until pt leaves facility: 04/22/20 12:00 Coding Level of Care Code 11171 OBS Care - Discharge Diagnoses Chest pain, rule out acute myocardial infarction R07.9 Aortic stenosis due to bicuspid aortic valve Q23.0; Q23.1 BMI less than 19,adult Z68.1 Hypertension I10 COPD (chronic obstructive pulmonary disease) J44.9 Abnormal CXR R93.89
== END 2020-04-22 12:00 | disposition home or self-care (01) ==
LOC: ED 10:56 → 2E 10:56 → SUATTDRO 14:26 → 2E 15:04
DX: Z79.899 Other long term (current) drug therapy; Z90.2 Acquired absence of lung [part of]; J44.9 Chronic obstructive pulmonary disease, unspecified; Z88.8 Allergy status to other drugs, medicaments and biological substances; I10 Essential (primary) hypertension; R07.89 Other chest pain; I35.0 Nonrheumatic aortic (valve) stenosis; Z87.891 Personal history of nicotine dependence; Z88.1 Allergy status to other antibiotic agents; Z88.2 Allergy status to sulfonamides; M81.0 Age-related osteoporosis without current pathological fracture; Z85.118 Personal history of other malignant neoplasm of bronchus and lung; E78.5 Hyperlipidemia, unspecified; Z91.018 Allergy to other foods; Z79.82 Long term (current) use of aspirin; I34.0 Nonrheumatic mitral (valve) insufficiency

== ENCOUNTER 2022-08-17 04:21 | Inpatient (IN) ==
--- NOTE | 2022-08-17 05:10 | Emergency Department Note ---
Impression & Plan Lower gastrointestinal hemorrhage, External hemorrhoid, thrombosed ED Provider Note CHIEF COMPLAINT: Rectal bleeding HISTORY OF PRESENT ILLNESS: This 76-year-old female patient presents to the emergency department with complaints of rectal bleeding. The patient states that she has a history of a rectal prolapse but she is uncertain if this is a problem currently. She got up to go to the bathroom in the middle the night and did have a bowel movement. She noticed a lot of blood in the toilet after each urge to push. Patient denies any pain at the rectum or in the abdomen. She denies any nausea or vomiting. She has not had any recent fevers. Patient states she is a "blood cancer survivor" and is not currently taking chemotherapy. Patient does not currently take any anticoagulation. REVIEW OF SYSTEMS: A review of systems was performed with positives and pertinent negatives listed in the history of present illness. 10 systems were reviewed and are otherwise negative. ALLERGIES: see below MEDICATIONS: see below PMH: see below SOCIAL HISTORY: see below DDx: Diverticulosis, AVM, coagulopathy, colitis, inflammatory bowel disease, malignancy, Antoinette-Branham tear, esophagitis, peptic ulcer disease, variceal bleed, gastritis, epistaxis, fissure, hemorrhoids, as well as other pathologies. PHYSICAL EXAM: Vital signs reviewed. General: Chronically ill-appearing 76 yo female, in no significant distress. HEENT: No scleral icterus, PERRLA, neck supple. MMM Cardiovascular: Regular rate and rhythm, no extra sounds. Pulmonary: Clear to auscultation bilaterally, normal work of breathing. Abdomen: Soft, nontender, nondistended, positive bowel sounds. Musculoskeletal: Atraumatic, no peripheral edema. Neurologic: Patient awake alert and oriented x 3 Rectal: + external hemorrhoids, small thrombosed hemorrhoids x 2 w ulceration. Dark red venous blood on ИВАН, no clear melana, no pain or mass palpated Skin: Warm, dry, no rash EMERGENCY DEPARTMENT COURSE/MDM: This patient was evaluated and appeared to be in no significant distress. IV access was obtained and laboratory work was drawn. Patient's physical examination reveals a chronically debilitated older woman with positive blood on digital rectal exam. Patient did receive IV hydration. IV Protonix was initiated. CT imaging of the abdomen pelvis was performed. And reveals evidence of active extravasation of contrast into the rectum. Patient's hemoglobin is 12.5. Patient was informed of the findings. She will be evaluated by the hospitalist service for further management. Of note the patient was given her daily medications for markedly elevated blood pressure including losartan and verapamil. MONITORING: An order for cardiac monitoring was placed and the patient is noted to be in a sinus tachycardia at 112 beats per minute. RADIOLOGY: See below EKG: sinus tachycardia 108 bpm, biatrial enlargement, possible inferior infarct. ST and T wave abnormality, consider lateral infarct. When compared to April 21, 2020, borderline criteria for inferior infarct are now present, serial changes of evolving anterior infarct are present. 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 Family History Father Myocardial infarction Hypertension Mother Vascular disorder Mother of supranuclear palsy Hypertension Denies family history of Ovarian cancer Prostate cancer Diabetes Breast cancer Colorectal cancer Social History Smoking Status: Never smoker Age Started Using Tobacco: 21; Age Quit Using Tobacco: 55; packs per day: 1; Cigarettes Per Day: 20; Second Hand Exposure: No; Hx Alcohol Use: Yes Alcohol type: wine Alcohol Intake Frequency: Monthly or Less Alcohol Intake Frequency Comment: socially Hx Substance Use: No Preferred Language: Scottish Visual Impairment: Partially Limited Hearing Ability: Normal Booth Usher Required: No Beliefs That Will Affect Care: None marital status: / Current Living Situation: Alone current occupational status: employed 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 Feels Safe at Home: Yes Childhood Exposure to Second-Hand Smoke: No caffeine: No (Decaf Coffee ) Dental Care, Regularly: No Physical Activity Frequency: Does not Exercise Seatbelt Use: always Sunscreen Use: No Assistive Devices: Glasses Allergies Allergies Allergy/AdvReac Type Severity Reaction Status Date / Time watermelon Allergy Unknown ` Verified 08/17/22 06:41 bupropion [From Wellbutrin] Allergy Verified 08/17/22 06:41 simvastatin Allergy Verified 08/17/22 06:41 alendronate sodium AdvReac Intermediate Nausea Verified 08/17/22 06:41 ibandronate sodium AdvReac Mild Gastrointestinal Verified 08/17/22 06:41 [From Boniva] Upset codeine AdvReac Unknown UPSET Verified 08/17/22 06:41 STOMACH atorvastatin AdvReac Verified 08/17/22 06:41 doxycycline AdvReac Verified 08/17/22 06:41 Sulfa (Sulfonamide AdvReac Verified 08/17/22 06:41 Antibiotics) sulfamethoxazole AdvReac Nausea Verified 08/17/22 06:41 [From Bactrim] trimethoprim [From Bactrim] AdvReac Nausea Verified 08/17/22 06:41 Home Meds Home Medications Medication Instructions Recorded Confirmed aspirin 81 mg tablet,delayed 81 mg PO DAILY 05/06/19 08/17/22 release ascorbic acid (vitamin C) 500 mg 500 mg PO DAILY 08/17/22 08/17/22 tablet cholecalciferol (vitamin D3) 25 25 mcg PO DAILY 08/17/22 08/17/22 mcg (1,000 unit) tablet (Vitamin D3) ferrous sulfate 325 mg (65 mg 325 mg PO 2XWK 08/17/22 08/17/22 iron) tablet Previous Rx's Medication Instructions Recorded albuterol sulfate 90 mcg/actuation 2 puff inhalation Q6H PRN 03/11/21 aerosol inhaler (Ventolin HFA) shortness of breath or wheezing #8 grams tiotropium bromide 18 mcg capsule 1 cap inhalation DAILY #30 04/20/21 with inhalation device inhalations verapamil 180 mg tablet,extended 360 mg PO DAILY #180 tabs 04/05/22 release pravastatin 20 mg tablet 20 mg PO DAILY #90 tabs 06/16/22 valsartan 160 mg tablet 160 mg PO BID #60 tabs 07/20/22 Results & Data (ED) Vital Signs Vital Signs - 24 hr 08/17/22 04:24 08/17/22 05:16 08/17/22 04:45 Temperature 36.5 C Temperature Source Oral Pulse Rate 109 H 112 H 104 H Pulse Rate [Apical] Pulse Rate from SpO2 Sensor 104 H Respiratory Rate 16 30 H 38 H Respiratory Effort / Characteristics Non-Labored Spontaneous Respiratory Depth Normal Blood Pressure 194/102 H Blood Pressure [Right Arm] Blood Pressure Mean 132 Blood Pressure Mean [Right Arm] Pulse Oximetry 93 91 96 Oxygen Delivery Method Room Air Room Air Sepsis Recent Fever Within 48 Hours No Sepsis New/Unexplained Change in Mental Status No Sepsis Action Taken by Nursing No Action Required 08/17/22 05:32 08/17/22 05:50 08/17/22 06:21 Temperature Temperature Source Pulse Rate 113 H 98 H Pulse Rate [Apical] 109 H Pulse Rate from SpO2 Sensor 99 H Respiratory Rate 31 H 21 Respiratory Effort / Characteristics Non-Labored Spontaneous Respiratory Depth Normal Blood Pressure 182/107 H Blood Pressure [Right Arm] 192/105 H Blood Pressure Mean 132 Blood Pressure Mean [Right Arm] 134 Pulse Oximetry 93 96 Oxygen Delivery Method Room Air Sepsis Recent Fever Within 48 Hours Sepsis New/Unexplained Change in Mental Status Sepsis Action Taken by [facility] Medications Current Medication List: was personally reviewed by me Laboratory Data Attestation: I reviewed the patient's lab results. Result diagrams: 08/17/22 05:27 08/17/22 05:27 Lab Results 08/17/22 08/17/22 08/17/22 Range/Units 05:27 05:27 05:27 WBC 7.15 (4.8-10.8) K/ul RBC 4.21 (3.93-5.22) M/uL Hgb 12.5 (12.0-16.0) g/dl Hct 37.8 (34.1-44.9) % MCV 89.8 (80.0-100.0) fL MCH 29.7 (25.0-34.0) pg MCHC 33.1 (32.0-36.0) g/dL RDW Std Deviation 39.7 (36.4-46.3) fL RDW Coeff of Sarah 12.2 (11.5-14.5) % Plt Count 240 (130-400) K/uL MPV 9.3 L (9.4-12.3) fL Immature Gran % (Auto) 0.1 % Neut % (Auto) 87.5 % Lymph % (Auto) 6.6 % Faulk % (Auto) 5.5 % Eos % (Auto) 0.0 % Baso % (Auto) 0.3 % Neut # (Auto) 6.26 (1.4-6.5) K/uL Lymph # (Auto) 0.47 L (1.2-3.4) K/uL Faulk # (Auto) 0.39 (0.24-0.82) K/uL Eos # (Auto) 0.00 (0-0.50) K/uL Baso # (Auto) 0.02 (0-0.2) K/uL Immature Gran # (Auto) 0.01 (0.00-0.02) K/uL PT 10.3 (9.0-12.0) Seconds INR 1.0 (0.9-1.1) APTT 23.4 (21.0-31.0) Seconds PTT Ratio 0.9 Sodium (136-145) mmol/L Potassium (3.5-5.1) mmol/L Chloride (98-107) mmol/L Carbon Dioxide (21-32) mmol/L Anion Gap (3-11) BUN (6-23) mg/dl Creatinine (0.6-1.2) mg/dl Est Cr Clr Drug Dosing ml/min Est GFR ( Amer) ml/min Est GFR (Non-Af Amer) ml/min BUN/Creatinine Ratio (10-20) Glucose (70-99(Fasting)) mg/dl Calcium (8.5-10.1) mg/dl Total Bilirubin (0.2-1.0) mg/dl AST (13-39) U/L ALT (7-52) U/L Alkaline Phosphatase (34-104) U/L Total Protein (6.0-8.3) gm/dl Albumin (3.4-5.0) gm/dl Globulin (2.5-4.0) gm/dl Albumin/Globulin Ratio (0.9-2) SARS-CoV-2, RNA, NAAT (NEGATIVE) Blood Type B Positive Antibody Screen NEGATIVE Crossmatch See Detail 08/17/22 08/17/22 Range/Units 05:27 05:28 WBC (4.8-10.8) K/ul RBC (3.93-5.22) M/uL Hgb (12.0-16.0) g/dl Hct (34.1-44.9) % MCV (80.0-100.0) fL MCH (25.0-34.0) pg MCHC (32.0-36.0) g/dL RDW Std Deviation (36.4-46.3) fL RDW Coeff of Sarah (11.5-14.5) % Plt Count (130-400) K/uL MPV (9.4-12.3) fL Immature Gran % (Auto) % Neut % (Auto) % Lymph % (Auto) % Faulk % (Auto) % Eos % (Auto) % Baso % (Auto) % Neut # (Auto) (1.4-6.5) K/uL Lymph # (Auto) (1.2-3.4) K/uL Faulk # (Auto) (0.24-0.82) K/uL Eos # (Auto) (0-0.50) K/uL Baso # (Auto) (0-0.2) K/uL Immature Gran # (Auto) (0.00-0.02) K/uL PT (9.0-12.0) Seconds INR (0.9-1.1) APTT (21.0-31.0) Seconds PTT Ratio Sodium 138 (136-145) mmol/L Potassium 3.4 L (3.5-5.1) mmol/L Chloride 99 (98-107) mmol/L Carbon Dioxide 33 H (21-32) mmol/L Anion Gap 6 (3-11) BUN 11 (6-23) mg/dl Creatinine 0.55 L (0.6-1.2) mg/dl Est Cr Clr Drug Dosing 45.5 ml/min Est GFR ( Amer) 105.6 ml/min Est GFR (Non-Af Amer) 91.1 ml/min BUN/Creatinine Ratio 20.0 (10-20) Glucose 117 H (70-99(Fasting)) mg/dl Calcium 9.4 (8.5-10.1) mg/dl Total Bilirubin 0.6 (0.2-1.0) mg/dl AST 17 (13-39) U/L ALT 11 (7-52) U/L Alkaline Phosphatase 53 (34-104) U/L Total Protein 7.2 (6.0-8.3) gm/dl Albumin 4.4 (3.4-5.0) gm/dl Globulin 2.8 (2.5-4.0) gm/dl Albumin/Globulin Ratio 1.6 (0.9-2) SARS-CoV-2, RNA, NAAT NEGATIVE (NEGATIVE) Blood Type Antibody Screen Crossmatch Administered Medications Sodium Chloride (Nss 1000ml) 1,000 mls @ 125 mls/hr IV .Q8H STA Stop: 08/17/22 13:15 Last Admin: 08/17/22 05:36 Dose: 125 mls/hr Documented By: CATHLEEN Discontinued Medications Pantoprazole Sodium 80 mg/ (Dextrose) 100 mls @ 400 mls/hr IV NOW ONE Stop: 08/17/22 05:30 Last Infusion: 08/17/22 06:47 Dose: 0 mls/hr Documented By: Admin: 08/17/22 06:09 Dose: 400 mls/hr Documented By: CATHLEEN Pantoprazole Sodium 40 mg/ (Dextrose) 100 mls @ 20 mls/hr IV Q5H POLLY Stop: 08/17/22 10:29 Last Admin: 08/17/22 06:43 Dose: Not Given Documented By: CATHLEEN Ioversol (Optiray 350 100ml) 100 ml IV ONCE ONE Stop: 08/17/22 06:33 Last Admin: 08/17/22 06:32 Dose: 84 ml Documented By: ALE Valsartan (Valsartan 80 Mg Tab) 160 mg PO NOW STA Stop: 08/17/22 06:30 Last Admin: 08/17/22 06:45 Dose: 160 mg Documented By: CATHLEEN Verapamil HCl (Verapamil Hcl 180 Mg Tabcr) 360 mg PO NOW STA Stop: 08/17/22 06:28 Last Admin: 08/17/22 06:45 Dose: 360 mg Documented By: CATHLEEN Imaging Data Radiologist's Impression: Abdomen/Pelvis CT 08/17/22 05:17 CT abd pelvis IV con only CLINICAL HISTORY: GIB TECHNIQUE: Helical axial images of the abdomen and pelvis were obtained and displayed. Automated dose lowering techniques and/or adjustment according to patient size were utilized for this exam. This exam was performed with intravenous contrast. CT DOSE: 240.92 mGy.cm COMPARISON: Comparison is made to CT abdomen pelvis 03/05/2012 FINDINGS: Lower chest: Bibasilar atelectasis versus scarring is seen. Liver: Subcentimeter hypodensities in the liver are too small to characterize. Gallbladder and biliary tree: No calcified gallstones. Normal caliber wall. No intra- or extrahepatic biliary ductal dilation. Pancreas: Unremarkable, no focal lesions. Spleen: Unremarkable. Adrenals: Unremarkable. Kidneys and ureters: Multiple hypodensities are seen measuring up to 11 mm in the right kidney. This measures slightly greater than simple fluid density. Bladder: Unremarkable. Reproductive organs: Unremarkable. Bowel: Partially liquid contents are noted in the rectum. The appendix is not clearly seen. A few prominent foci of hyperdensity are noted in the rectum. Lymph nodes Retroperitoneal: Unremarkable. Pelvic: Unremarkable. Mesenteric: Unremarkable. Peritoneum: Normal. Vessels: Atherosclerotic calcifications are seen. Abdominal wall: Unremarkable. Bones: Degenerative changes in the visualized spine. Chronic deformity of the ribs noted. 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 IMPRESSION: 1. Within the limits of a nonangiographic study, there is a radiodensity in the rectum which may be due to extravasated IV contrast. The origin of active extravasation cannot be visualized 2. Multiple renal hypodensities are favored to represent cysts but demonstrate greater than simple fluid density, follow-up nonemergent renal ultrasound is recommended. 3. Additional findings as above. ACT 112: Negative or not required by law. Electronically signed by: Salvador Omalley M.D. 08/17/2022 7:24 AM Prescription Drug Monitoring [place] Drug Monitoring Program reviewed and no issues identified Blood Pressure Blood Pressure Findings: Elevated blood pressure Blood Pressure Disposition: further management by hospitalist Head Trauma GCS Score: 15 Discharge Plan Visit Data Chief Complaint: Rectal Bleed Stated Complaint: RECTAL BLEEDING ED Provider: Savana Bautista Discharge Problem: Lower gastrointestinal hemorrhage, External hemorrhoid, thrombosed Forms Stand Alone Forms: [facility] Prescriptions Prescriptions: No Action tiotropium bromide 18 mcg capsule, w/inhalation device 1 cap inhalation DAILY Qty: 30 5RF verapamil 180 mg tablet extended release 360 mg PO DAILY Qty: 180 3RF pravastatin 20 mg tablet 20 mg PO DAILY Qty: 90 3RF albuterol sulfate [Ventolin HFA] 90 mcg/actuation HFA aerosol inhaler 2 puff INH Q6H PRN (Reason: shortness of breath or wheezing) Qty: 8 6RF aspirin 81 mg tablet,delayed release (DR/EC) 81 mg PO DAILY valsartan 160 mg tablet 160 mg PO BID Qty: 60 5RF ascorbic acid (vitamin C) 500 mg Tablet 500 mg PO DAILY ferrous sulfate 325 mg (65 mg iron) Tablet 325 mg PO 2XWK cholecalciferol (vitamin D3) [Vitamin D3] 25 mcg (1,000 unit) Tablet 25 mcg PO DAILY Referrals Referrals: Shawn Garcia MD [Primary Care Provider] -
[2022-08-17] MEDS ORDERED: SODIUM CHLORIDE 0.9% 1000ML 1,000 ML IV STA (05:16)
[2022-08-17] MEDS ORDERED: PANTOprazole 80 MG in DEXTROSE 5% 100 ML IV ONE (05:16)
[2022-08-17] MEDS ORDERED: PANTOprazole 40 MG in DEXTROSE 5% 100 ML IV SCH (05:30)
[2022-08-17 05:44] LABS: Basophils # (auto) 0.02 K/uL (0-0.2); Basophils % (auto) 0.3 %; Hematocrit (blood only) 37.8 % (34.1-44.9); Hemoglobin 12.5 g/dl (12.0-16.0); Immature Granulocytes # (auto) 0.01 K/uL (0.00-0.02); Immature Granulocytes % (auto) 0.1 %; Lymphocytes # (auto) 0.47 K/uL (1.2-3.4); Lymphocytes % (auto) 6.6 %; Mean Corpuscular Hemoglobin 29.7 pg (25.0-34.0); Mean Corpuscular Hgb Conc 33.1 g/dL (32.0-36.0); Mean Corpuscular Volume 89.8 fL (80.0-100.0); Mean Platelet Volume 9.3 fL (9.4-12.3); Monocytes # (auto) 0.39 K/uL (0.24-0.82); Monocytes % (auto) 5.5 %; Neutrophils # (auto) 6.26 K/uL (1.4-6.5); Neutrophils % (auto) 87.5 %; Platelet Count 240 K/uL (130-400); RDW Coefficient of Variation 12.2 % (11.5-14.5); RDW Standard Deviation 39.7 fL (36.4-46.3); Red Blood Count 4.21 M/uL (3.93-5.22); White Blood Count 7.15 K/ul (4.8-10.8)
[2022-08-17 06:02] LABS: Partial Thromboplastin Ratio 0.9; Partial Thromboplastin Time 23.4 Seconds (21.0-31.0); Prothrombin Time 10.3 Seconds (9.0-12.0)
[2022-08-17 06:12] LABS: Albumin Globulin Ratio 1.6 (0.9-2); Albumin Level 4.4 gm/dl (3.4-5.0); Bilirubin,Total 0.6 mg/dl (0.2-1.0); Calcium 9.4 mg/dl (8.5-10.1); Creatinine Clr Calc Pharmacy 45.5 ml/min; Est GFR (African American) 105.6 ml/min; Est GFR (Non-African American) 91.1 ml/min; Globulin 2.8 gm/dl (2.5-4.0); Potassium 3.4 mmol/L (3.5-5.1); Total Protein 7.2 gm/dl (6.0-8.3)
[2022-08-17] MEDS ORDERED: VERAPAMIL HCL 180 MG TABCR PO STA (06:27)
[2022-08-17] MEDS ORDERED: VALSARTAN 80 MG TAB PO STA (06:29)
[2022-08-17] MEDS ORDERED: OPTIRAY 350 100ml IV ONE ×2 (06:32→17:40)
--- NOTE | 2022-08-17 07:26 | CT Scan Report ---
CT abd pelvis IV con only CLINICAL HISTORY: GIB TECHNIQUE: Helical axial images of the abdomen and pelvis were obtained and displayed. Automated dose lowering techniques and/or adjustment according to patient size were utilized for this exam. This e xam was performed with intravenous contrast. CT DOSE: 240.92 mGy.cm COMPARISON: Comparison is made to CT abdomen pelvis 03/05/2012 FINDINGS: Lower chest: Bibasilar atelectasis versus scarring is seen. Liver: Subcentimeter hypodensities in the liver are too small to characterize. Gallbladder and biliary tree: No calcified gallstones. Normal caliber wall. No intra- or extrahepatic biliary ductal dilation. Pancreas: Unremarkable, no focal lesions. Spleen: Unremarkable. Adrenals: Unremarkable. Kidneys and ureters: Multiple hypodensities are seen measuring up to 11 mm in the right kidney. This measures slightly greater than simple fluid density. Bladder: Unremarkable. Reproductive organs: Unremarkable. Bowel: Partially liquid contents are noted in the rectum. The appendix is not clearly seen. A few pro minent foci of hyperdensity are noted in the rectum. Lymph nodes Retroperitoneal: Unremarkable. Pelvic: Unremarkable. Mesenteric: Unremarkable. Peritoneum: Normal. Vessels: Atherosclerotic calcifications are seen. Abdominal wall: Unremarkable. Bones: Degenerative changes in the visualized spine. Chronic deformity of the ribs noted. 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 IMPRESSION: 1. Within the limits of a nonangiographic study, there is a radiodensity in the rectum which may be due to extravasated IV contrast. The origin of active extravasation cannot be visualized 2. Multiple renal hypodensities are favored to represent cysts but demonstrate greater than simple f luid density, follow-up nonemergent renal ultrasound is recommended. 3. Additional findings as above. ACT 112: Negative or not required by law. Electronically signed by: Salvador Omalley M.D. 08/17/2022 7:24 AM
[2022-08-17] MEDS ORDERED: SODIUM CHLORIDE 0.9% 250 ML IV PRN (07:31)
--- NOTE | 2022-08-17 08:39 | History & Physical Report ---
Date of Service August 17, 2022 Assessment & Plan (1) Lower gastrointestinal hemorrhage: Plan: 76 yo F Hx NSCLC s/p RUL resection, HTN, HLD, severe aortic stenosis, COPD admitted for lower GI bleed. Presented with several bloody BMs since 1am today. Hemodynamically stable, mildly tachycardic. Hgb 12.5; trend H/H q6h. Patient typed and screened, consented. GIB nuclear medicine scan performed: focal uptake in the rectum compatible with active GI bleed. GI consulted and appreciate recommendations -> sigmoidoscopy performed which revealed partially obstructive bleeding recto-sigmoid mass, likely malignant. General Surgery consulted for evaluation for possible tumor resection. CT Chest ordered to evaluate for metastasis. NSS at 80cc/hr (patient's BMI is 13.5 so this would be maintenance rate). Tele for cardiac monitoring. H/H q6h; transfuse if large volume blood loss or Hgb <7. (2) Severe aortic stenosis: Plan: History of, as such patient is fairly preload dependent. IV fluids as above for GIB. (3) Hypertension: Plan: Holding antihypertensives for now in the setting of acute GI bleed; normotensive at this time regardless. (4) Hyperlipidemia: Plan: Continue pravastatin. (5) COPD (chronic obstructive pulmonary disease): Plan: Continue daily tiotropium bromide with albuterol INH as needed for wheezing/SOB. Plan FULL CODE Clear liquid diet holding chemoppx for DVT given low risk and active GI bleeding TELE status History of Present Illness Chief Complaint: rectal bleeding Primary Care Provider: Shawn Garcia MD 76 yo F Hx NSCLC s/p RUL resection, HTN, HLD, severe aortic stenosis, COPD presented to ER for BRBPR large volume in toilet around 1am this morning. Hemodynamically stable in ER with Hgb 12.5. CTAP revealed evidence of active extravasation of contrast into the rectum. ИВАН in ER with large volume of venous blood, noted external hemorrhoids. Patient was given Protonix and IV fluids and type/crossed. Hospitalist service consulted for probably lower GI bleed. On my interview patient reports history of hemorrhoids with some scant blood on toilet paper in the past. She denies having colonoscopy in the past. She denies any complaints in hospital bed during interview save for rectal bleeding. Allergies Allergy/AdvReac Type Severity Reaction Status Date / Time watermelon Allergy Unknown ` Verified 08/17/22 06:41 bupropion [From Wellbutrin] Allergy Verified 08/17/22 06:41 simvastatin Allergy Verified 08/17/22 06:41 alendronate sodium AdvReac Intermediate Nausea Verified 08/17/22 06:41 ibandronate sodium AdvReac Mild Gastrointestinal Verified 08/17/22 06:41 [From Boniva] Upset codeine AdvReac Unknown UPSET Verified 08/17/22 06:41 STOMACH atorvastatin AdvReac Verified 08/17/22 06:41 doxycycline AdvReac Verified 08/17/22 06:41 Sulfa (Sulfonamide AdvReac Verified 08/17/22 06:41 Antibiotics) sulfamethoxazole AdvReac Nausea Verified 08/17/22 06:41 [From Bactrim] trimethoprim [From Bactrim] AdvReac Nausea Verified 08/17/22 06:41 Home Medications Medication Instructions Recorded Confirmed Type aspirin 81 mg tablet,delayed 81 mg PO DAILY 05/06/19 08/17/22 History release albuterol sulfate 90 mcg/actuation 2 puff inhalation Q6H PRN 03/11/21 08/17/22 Rx aerosol inhaler (Ventolin HFA) shortness of breath or wheezing #8 grams tiotropium bromide 18 mcg capsule 1 cap inhalation DAILY #30 04/20/21 08/17/22 Rx with inhalation device inhalations verapamil 180 mg tablet,extended 360 mg PO DAILY #180 tabs 04/05/22 08/17/22 Rx release pravastatin 20 mg tablet 20 mg PO DAILY #90 tabs 06/16/22 08/17/22 Rx valsartan 160 mg tablet 160 mg PO BID #60 tabs 07/20/22 08/17/22 Rx ascorbic acid (vitamin C) 500 mg 500 mg PO DAILY 08/17/22 08/17/22 History tablet cholecalciferol (vitamin D3) 25 25 mcg PO DAILY 08/17/22 08/17/22 History mcg (1,000 unit) tablet (Vitamin D3) ferrous sulfate 325 mg (65 mg 325 mg PO 2XWK 08/17/22 08/17/22 History iron) tablet Past Med/Surg History Medical History Aortic stenosis due to bicuspid aortic valve BMI less than 19,adult Carotid artery plaque Carotid bruit COPD (chronic obstructive pulmonary disease) Fatigue History of adenocarcinoma of lung Hyperlipidemia Hypertension Insomnia Leukopenia Mitral regurgitation Nontoxic multinodular goiter Osteoporosis Tricuspid regurgitation Upper respiratory infection Vitamin D deficiency Surgical History History of tubal ligation 1976 S/P lobectomy of lung 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 Family History Father Myocardial infarction Hypertension Mother Vascular disorder Mother of supranuclear palsy Hypertension Denies family history of Ovarian cancer Prostate cancer Diabetes Breast cancer Colorectal cancer Social History (Updated 08/17/22 @ 13:29 by Nga Calle DO) Smoking Status: Former smoker Age Started Using Tobacco: 21; Age Quit Using Tobacco: 55; packs per day: 1; Cigarettes Per Day: 20; Second Hand Exposure: No; Do You Dip or Chew Tobacco: No; Tobacco Cessation Education Requested by Patient: No Hx Alcohol Use: No Hx Substance Use: No Preferred Language: Argentine Communication Ability: Effective Visual Impairment: Partially Limited Hearing Ability: Normal Academic Department Chair Required: No Beliefs That Will Affect Care: None marital status: / Current Living Situation: Alone current occupational status: employed current occupation: works at [employer] doing [employer] and [employer] Other Information That Helps Us Care for You: No Feels Safe at Home: Yes Safety Concerns: Feels Safe At This Time Childhood Exposure to Second-Hand Smoke: No caffeine: No (Decaf Coffee ) Dental Care, Regularly: No Physical Activity Frequency: Does not Exercise Seatbelt Use: always Sunscreen Use: No Assistive Devices: None Review of Systems Review of Systems: All systems reviewed & are unremarkable except as noted in HPI & below Constitutional: no fever, no chills and no malaise Eyes: no blind spots and no diplopia Ear, Nose, Mouth, Throat: no nasal congestion and no epistaxis Respiratory: no cough and no dyspnea Cardiovascular: no chest pain, no palpitations and no edema Gastrointestinal: + blood in stools; no abdominal pain, no constipation and no diarrhea/loose stools Genitourinary: no dysuria and no hematuria Musculoskeletal: no back pain and no neck pain Integumentary: no rash and no skin ulcer Neurologic: no localized weakness and no loss of sensation Psychiatric: no behavioral changes and no confusion Endocrine: no fatigue, no polydipsia and no polyuria Hematologic / Lymphatic: no easy bleeding and no easy bruising Physical Exam Constitutional: well developed and + thin; no acute distress Eyes: PERRL, conjunctivae normal, anicteric sclerae ENMT: external ear and nose normal, oropharynx normal Neck: trachea midline, no thyromegaly Respiratory: normal respiratory effort lungs clear to auscultation in all ibrahim with breath sounds absent in right upper lung field Cardiovascular: RRR, no murmur, no edema Gastrointestinal (Abdomen): normal bowel sounds, soft, nontender, no hepatosplenomegaly Musculoskeletal: no cyanosis or clubbing, extremities motor strength 5/5 Skin: no rashes, warm and dry Neurologic: AAOx3, normal speech. Bilateral UE, LE, and face without sensory or motor deficits. No pronator drift. No tremor. Psychiatric: A+Ox3, euthymic affect Results & Data Results & Data ([facility]) Vital Signs (Past 12 Hours) Vital Signs Temp Pulse Pulse Resp BP BP Pulse Ox 08/17/22 06:21 109 H 21 192/105 H 96 08/17/22 05:50 98 H 31 H 182/107 H 93 08/17/22 05:32 113 H 08/17/22 04:45 104 H 38 H 96 08/17/22 05:16 112 H 30 H 91 08/17/22 04:24 36.5 C 109 H 16 194/102 H 93 O2 Del Method 08/17/22 06:21 Room Air 08/17/22 05:50 08/17/22 05:32 08/17/22 04:45 08/17/22 05:16 Room Air 08/17/22 04:24 Room Air PG Care Time/CCT Total # of Minutes Spent Total Time Spent with Patient: Total time spent is greater than 50% in coordination of care (as documented) at patient's floor/unit and/or counseling patient: Coding Level of Care Code 63725 Initial Inpt Care Lvl 3 Diagnoses Lower gastrointestinal hemorrhage K92.2 Severe aortic stenosis I35.0 Hypertension I10 Hyperlipidemia E78.5 COPD (chronic obstructive pulmonary disease) J44.9
[2022-08-17] MEDS ORDERED: ACETAMINOPHEN 325 MG TAB PO PRN (08:57)
[2022-08-17 09:25] LABS: Hematocrit (blood only) 37.9 % (34.1-44.9); Hemoglobin 12.5 g/dl (12.0-16.0)
--- NOTE | 2022-08-17 09:34 | Gastrointestinal Consultation ---
Date of Consultation August 17, 2022 Assessment & Plan (1) Lower gastrointestinal hemorrhage: Diff dx: hemorrhoids vs stasis ulcer vs diverticular bleed vs mass vs other. -NPO. -GIB scan for further evaluation. -Monitor H&H. -If no acute findings or significant drop in H&H, will arrange outpatient colonoscopy. Thank you for allowing us to participate in the care of this patient. If you have any questions or concerns, please do not hesitate to contact us. Supervising Physician Co-Signing Physician Notes I personally evaluated the patient and agree with the findings as documented by YOKASTA Mcnally Exam: Constitutional: WD/WN, vitals as above General: EOM intact bilaterally Neck: normal visual inspection Respiratory: normal respiratory effort, lungs clear to auscultation Cardiovascular: RRR, no murmur, no edema Gastrointestinal: abdomennormal to inspection, nondistended, soft, nontender, no hepatosplenomegaly Musculoskeletal: no cyanosis, head normal to inspection Skin: no rashes, warm and dry Neurologic: moves all extremities Psychiatric: A and O x3, euthymic affect bleeding scan is positive localizing to rectum. plan for flex sig today to further evaluate, fleet enema x 1 now. History of Present Illness Reason for Consultation: GIB Requesting Physician: Dr. Calle Attending Physician: Nga Calle DO History of Present Illness Patient is a 76 y.o. female with a history of lung CA, COPD HTN, HLD and Depression admitted with bright red blood per rectum. She was evaluated in the [facility] on 06/21/22 with similar complaints. At that time, she was found to have a rectal prolapse that was reduced in the ER. She reports she was doing well after that visit with the exception that she chronically suffers from constipation. She returned the hospital with bright red blood per rectum that was dripping in the bowl. No rectal pain. Denies any n/v, abdominal pain, f/c or other GI complaints. She is hemodynamically stable. CT a/p reviewed and question of IV contrast extravasation within the rectum. She has never had a screening or diagnostic colonoscopy in the past. Allergies Allergy/AdvReac Type Severity Reaction Status Date / Time watermelon Allergy Unknown ` Verified 08/17/22 06:41 bupropion [From Wellbutrin] Allergy Verified 08/17/22 06:41 simvastatin Allergy Verified 08/17/22 06:41 alendronate sodium AdvReac Intermediate Nausea Verified 08/17/22 06:41 ibandronate sodium AdvReac Mild Gastrointestinal Verified 08/17/22 06:41 [From Boniva] Upset codeine AdvReac Unknown UPSET Verified 08/17/22 06:41 STOMACH atorvastatin AdvReac Verified 08/17/22 06:41 doxycycline AdvReac Verified 08/17/22 06:41 Sulfa (Sulfonamide AdvReac Verified 08/17/22 06:41 Antibiotics) sulfamethoxazole AdvReac Nausea Verified 08/17/22 06:41 [From Bactrim] trimethoprim [From Bactrim] AdvReac Nausea Verified 08/17/22 06:41 Home Medications Medication Instructions Recorded Confirmed Type aspirin 81 mg tablet,delayed 81 mg PO DAILY 05/06/19 08/17/22 History release albuterol sulfate 90 mcg/actuation 2 puff inhalation Q6H PRN 03/11/21 08/17/22 Rx aerosol inhaler (Ventolin HFA) shortness of breath or wheezing #8 grams tiotropium bromide 18 mcg capsule 1 cap inhalation DAILY #30 04/20/21 08/17/22 Rx with inhalation device inhalations verapamil 180 mg tablet,extended 360 mg PO DAILY #180 tabs 04/05/22 08/17/22 Rx release pravastatin 20 mg tablet 20 mg PO DAILY #90 tabs 06/16/22 08/17/22 Rx valsartan 160 mg tablet 160 mg PO BID #60 tabs 07/20/22 08/17/22 Rx ascorbic acid (vitamin C) 500 mg 500 mg PO DAILY 08/17/22 08/17/22 History tablet cholecalciferol (vitamin D3) 25 25 mcg PO DAILY 08/17/22 08/17/22 History mcg (1,000 unit) tablet (Vitamin D3) ferrous sulfate 325 mg (65 mg 325 mg PO 2XWK 08/17/22 08/17/22 History iron) tablet Patient History Medical History Aortic stenosis due to bicuspid aortic valve BMI less than 19,adult Carotid artery plaque Carotid bruit COPD (chronic obstructive pulmonary disease) Fatigue History of adenocarcinoma of lung Hyperlipidemia Hypertension Insomnia Leukopenia Mitral regurgitation Nontoxic multinodular goiter Osteoporosis Tricuspid regurgitation Upper respiratory infection Vitamin D deficiency Surgical History History of tubal ligation 1977 S/P lobectomy of lung 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 Family History Father Myocardial infarction Hypertension Mother Vascular disorder Mother of supranuclear palsy Hypertension Denies family history of Ovarian cancer Prostate cancer Diabetes Breast cancer Colorectal cancer Social History (Updated 08/17/22 @ 13:29 by Nga Calle DO) Smoking Status: Former smoker Age Started Using Tobacco: 21; Age Quit Using Tobacco: 55; packs per day: 1; Cigarettes Per Day: 20; Second Hand Exposure: No; Do You Dip or Chew Tobacco: No; Tobacco Cessation Education Requested by Patient: No Hx Alcohol Use: No Hx Substance Use: No Preferred Language: Bruneian Communication Ability: Effective Visual Impairment: Partially Limited Hearing Ability: Normal 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 Beliefs That Will Affect Care: None marital status: / Current Living Situation: Alone current occupational status: employed current occupation: works at [employer] doing [employer] and [employer] Other Information That Helps Us Care for You: No Feels Safe at Home: Yes Safety Concerns: Feels Safe At This Time Childhood Exposure to Second-Hand Smoke: No caffeine: No (Decaf Coffee ) Dental Care, Regularly: No Physical Activity Frequency: Does not Exercise Seatbelt Use: always Sunscreen Use: No Assistive Devices: None Review of Systems Constitutional: as per Subjective / HPI Respiratory: no cough and no dyspnea Cardiovascular: no chest pain and no palpitations Gastrointestinal: as per Subjective / HPI Physical Exam Constitutional: WD/WN, vitals as above + thin Eyes: EOM intact bilaterally Neck: normal visual inspection Respiratory: normal respiratory effort; no cough Auscultation: + breath sounds absent (right upper lobe, CTA in remainder of lobes) Gastrointestinal (Abdomen): Inspection/Auscultation: normal bowel sounds; abdomen not distended Percussion/Palpation: abdomen soft; abdomen nontender Musculoskeletal: Extremities: extremities normal to inspection Skin: warm and dry Psychiatric: A+Ox3, euthymic affect Results & Data ([facility]) Vital Signs (Past 12 Hours) Vital Signs Temp Pulse Pulse Resp BP BP Pulse Ox 08/17/22 09:20 08/17/22 08:00 132/73 08/17/22 07:31 186/129 H 08/17/22 06:51 112 H 18 08/17/22 06:50 109 H 08/17/22 06:40 103 H 96 08/17/22 06:38 192/105 H 08/17/22 06:38 108 H 21 95 08/17/22 06:36 85 L 08/17/22 06:00 95 H 95 08/17/22 06:00 178/106 H 08/17/22 06:21 109 H 21 192/105 H 96 08/17/22 05:50 98 H 31 H 182/107 H 93 08/17/22 05:32 113 H 08/17/22 04:45 104 H 38 H 96 08/17/22 05:16 112 H 30 H 91 08/17/22 04:24 36.5 C 109 H 16 194/102 H 93 O2 Del Method 08/17/22 09:20 Room Air 08/17/22 08:00 08/17/22 07:31 08/17/22 06:51 08/17/22 06:50 08/17/22 06:40 08/17/22 06:38 08/17/22 06:38 08/17/22 06:36 08/17/22 06:00 08/17/22 06:00 08/17/22 06:21 Room Air 08/17/22 05:50 08/17/22 05:32 08/17/22 04:45 08/17/22 05:16 Room Air 08/17/22 04:24 Room Air Diagnostic Findings Laboratory Results WBC 7.15 K/ul (4.8-10.8) 08/17/22 05:27 RBC 4.21 M/uL (3.93-5.22) 08/17/22 05:27 Hgb 12.5 g/dl (12.0-16.0) 08/17/22 08:56 Hct 37.9 % (34.1-44.9) 08/17/22 08:56 MCV 89.8 fL (80.0-100.0) 08/17/22 05:27 MCH 29.7 pg (25.0-34.0) 08/17/22 05:27 MCHC 33.1 g/dL (32.0-36.0) 08/17/22 05:27 RDW Std Deviation 39.7 fL (36.4-46.3) 08/17/22 05:27 RDW Coeff of Sarah 12.2 % (11.5-14.5) 08/17/22 05:27 Plt Count 240 K/uL (130-400) 08/17/22 05:27 MPV 9.3 fL (9.4-12.3) L 08/17/22 05:27 Immature Gran % (Auto) 0.1 % 08/17/22 05:27 Neut % (Auto) 87.5 % 08/17/22 05:27 Lymph % (Auto) 6.6 % 08/17/22 05:27 Cooke % (Auto) 5.5 % 08/17/22 05:27 Eos % (Auto) 0.0 % 08/17/22 05:27 Baso % (Auto) 0.3 % 08/17/22 05:27 Neut # (Auto) 6.26 K/uL (1.4-6.5) 08/17/22 05:27 Lymph # (Auto) 0.47 K/uL (1.2-3.4) L 08/17/22 05:27 Cooke # (Auto) 0.39 K/uL (0.24-0.82) 08/17/22 05:27 Eos # (Auto) 0.00 K/uL (0-0.50) 08/17/22 05:27 Baso # (Auto) 0.02 K/uL (0-0.2) 08/17/22 05:27 Immature Gran # (Auto) 0.01 K/uL (0.00-0.02) 08/17/22 05:27 PT 10.3 Seconds (9.0-12.0) 08/17/22 05:27 INR 1.0 (0.9-1.1) 08/17/22 05:27 APTT 23.4 Seconds (21.0-31.0) 08/17/22 05:27 PTT Ratio 0.9 08/17/22 05:27 Sodium 138 mmol/L (136-145) 08/17/22 05:27 Potassium 3.4 mmol/L (3.5-5.1) L 08/17/22 05:27 Chloride 99 mmol/L (98-107) 08/17/22 05:27 Carbon Dioxide 33 mmol/L (21-32) H 08/17/22 05:27 Anion Gap 6 (3-11) 08/17/22 05:27 BUN 11 mg/dl (6-23) 08/17/22 05:27 Creatinine 0.55 mg/dl (0.6-1.2) L 08/17/22 05:27 Est Cr Clr Drug Dosing 45.5 ml/min 08/17/22 05:27 Est GFR ( Amer) 105.6 ml/min 08/17/22 05:27 Est GFR (Non-Af Amer) 91.1 ml/min 08/17/22 05:27 BUN/Creatinine Ratio 20.0 (10-20) 08/17/22 05:27 Glucose 117 mg/dl (70-99(Fasting)) H 08/17/22 05:27 Calcium 9.4 mg/dl (8.5-10.1) 08/17/22 05:27 Total Bilirubin 0.6 mg/dl (0.2-1.0) 08/17/22 05:27 AST 17 U/L (13-39) 08/17/22 05:27 ALT 11 U/L (7-52) 08/17/22 05:27 Alkaline Phosphatase 53 U/L (34-104) 08/17/22 05:27 Total Protein 7.2 gm/dl (6.0-8.3) 08/17/22 05:27 Albumin 4.4 gm/dl (3.4-5.0) 08/17/22 05:27 Globulin 2.8 gm/dl (2.5-4.0) 08/17/22 05:27 Albumin/Globulin Ratio 1.6 (0.9-2) 08/17/22 05:27 SARS-CoV-2, RNA, NAAT NEGATIVE (NEGATIVE) 08/17/22 05:28 Blood Type B Positive 08/17/22 05:27 Antibody Screen NEGATIVE 08/17/22 05:27 Crossmatch See Detail 08/17/22 05:27 Impressions Abdomen/Pelvis CT 08/17/22 05:17 CT abd pelvis IV con only CLINICAL HISTORY: GIB TECHNIQUE: Helical axial images of the abdomen and pelvis were obtained and displayed. Automated dose lowering techniques and/or adjustment according to patient size were utilized for this exam. This exam was performed with intravenous contrast. CT DOSE: 240.92 mGy.cm COMPARISON: Comparison is made to CT abdomen pelvis 03/05/2012 FINDINGS: Lower chest: Bibasilar atelectasis versus scarring is seen. Liver: Subcentimeter hypodensities in the liver are too small to characterize. Gallbladder and biliary tree: No calcified gallstones. Normal caliber wall. No intra- or extrahepatic biliary ductal dilation. Pancreas: Unremarkable, no focal lesions. Spleen: Unremarkable. Adrenals: Unremarkable. Kidneys and ureters: Multiple hypodensities are seen measuring up to 11 mm in the right kidney. This measures slightly greater than simple fluid density. Bladder: Unremarkable. Reproductive organs: Unremarkable. Bowel: Partially liquid contents are noted in the rectum. The appendix is not c learly seen. A few prominent foci of hyperdensity are noted in the rectum. Lymph nodes Retroperitoneal: Unremarkable. Pelvic: Unremarkable. Mesenteric: Unremarkable. Peritoneum: Normal. Vessels: Atherosclerotic calcifications are seen. Abdominal wall: Unremarkable. Bones: Degenerative changes in the visualized spine. Chronic deformity of the ribs noted. 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 IMPRESSION: 1. Within the limits of a nonangiographic study, there is a radiodensity in the rectum which may be due to extravasated IV contrast. The origin of active extravasation cannot be visualized 2. Multiple renal hypodensities are favored to represent cysts but demonstrate greater than simple fluid density, follow-up nonemergent renal ultrasound is recommended. 3. Additional findings as above. ACT 112: Negative or not required by law. Electronically signed by: Salvador Omalley M.D. 08/17/2022 7:24 AM PG Care Time/CCT Total # of Minutes Spent Total Time Spent with Patient: Total time spent is greater than 50% in coordination of care (as documented) at patient's floor/unit and/or counseling patient: Coding Level of Care Code 94078 Initial Inpt Care Lvl 3 Diagnoses Lower gastrointestinal hemorrhage K92.2
--- NOTE | 2022-08-17 12:20 | Electrocardiogram Report ---
Test Reason : Blood Pressure : / mmHG Vent. Rate : 108 BPM Atrial Rate : 108 BPM P-R Int : 152 ms QRS Dur : 072 ms QT Int : 366 ms P-R-T Axes : 073 030 064 degrees QTc Int : 490 ms Poor data quality, interpretation may be adversely affected Sinus tachycardia Biatrial enlargement Abnormal ECG When compared with ECG of 21-APR-2020 13:15, HR has increased by 31 bpm Incomplete right bundle branch block no longer present Confirmed by Josue Arriaga ([id number]) on 08/17/2022 12:20:06 PM Referred By: REFERRED SELF Confirmed By:Josue Arriaga
--- NOTE | 2022-08-17 12:51 | Nuclear Medicine Report ---
NM GI bleeding CLINICAL HISTORY: Rectal bleeding TECHNIQUE: Following the intravenous injection of 26.6 mCi of Tc-99m tagged autologous RBCs, planar i mages of the abdomen were obtained over the course of one hour. COMPARISON: Comparison is made to CT abdomen pelvis 08/17/2022 FINDINGS: Expected radiopharmaceutical uptake is seen in the liver, spleen and blood pool. There is accumulation of radiotracer in the rectum. No more proximal accumulation is seen. IMPRESSION: Focal uptake in the rectum compatible with active GI bleed. ACT 112: Negative or not required by law. Electronically signed by: Salvador Omalley M.D. 08/17/2022 12:48 PM
[2022-08-17] MEDS ORDERED: ALBUTEROL HFA 8 GM INHALER INH PRN (13:15)
[2022-08-17] MEDS: SODIUM CHLORIDE 0.9% 1000ML 1,000 ML IV SCH (13:29)
[2022-08-17] MEDS ORDERED: SOD PHOSPHATE/SOD BIPHOSPHATE ENEMA 132 ML BTL PR STA (14:18)
[2022-08-17] MEDS ORDERED: PROPOFOL IV EMULSION 10 MG/ML 20 ML VIAL IV ONE (15:39)
[2022-08-17] MEDS ORDERED: LIDOCAINE 2% MPF LOCAL 5 ML VIAL INFIL ONE (15:40)
--- NOTE | 2022-08-17 16:01 | Anesthesiology Consultation ---
Date of Service August 17, 2022 Assessment & Plan (1) Encounter for pre-operative examination: Chart Review Chart Review: Acceptable Risk for Surgery and Patient NOT seen in Pre Admission Testing Consults Requested none History Surgery Operation Date: 08/17/22 18:00 Proposed Procedures p Flexible Sigmoidoscopy Dr. Suha Borden MD Height/Weight Height: 5 ft 5 in Weight: 36.7 kg Allergies Allergy/AdvReac Type Severity Reaction Status Date / Time watermelon Allergy Unknown ` Verified 08/17/22 06:41 bupropion [From Wellbutrin] Allergy Verified 08/17/22 06:41 simvastatin Allergy Verified 08/17/22 06:41 alendronate sodium AdvReac Intermediate Nausea Verified 08/17/22 06:41 ibandronate sodium AdvReac Mild Gastrointestinal Verified 08/17/22 06:41 [From Boniva] Upset codeine AdvReac Unknown UPSET Verified 08/17/22 06:41 STOMACH atorvastatin AdvReac Verified 08/17/22 06:41 doxycycline AdvReac Verified 08/17/22 06:41 Sulfa (Sulfonamide AdvReac Verified 08/17/22 06:41 Antibiotics) sulfamethoxazole AdvReac Nausea Verified 08/17/22 06:41 [From Bactrim] trimethoprim [From Bactrim] AdvReac Nausea Verified 08/17/22 06:41 Medications Home Medications Medication Instructions Recorded Confirmed Last Taken aspirin 81 mg tablet,delayed 81 mg PO DAILY 05/06/19 08/17/22 08/16/22 release albuterol sulfate 90 mcg/actuation 2 puff inhalation Q6H PRN 03/11/21 08/17/22 Unknown aerosol inhaler (Ventolin HFA) shortness of breath or wheezing #8 grams tiotropium bromide 18 mcg capsule 1 cap inhalation DAILY #30 04/20/21 08/17/22 08/16/22 with inhalation device inhalations verapamil 180 mg tablet,extended 360 mg PO DAILY #180 tabs 04/05/22 08/17/22 08/16/22 release pravastatin 20 mg tablet 20 mg PO DAILY #90 tabs 06/16/22 08/17/22 08/16/22 valsartan 160 mg tablet 160 mg PO BID #60 tabs 07/20/22 08/17/22 08/16/22 ascorbic acid (vitamin C) 500 mg 500 mg PO DAILY 08/17/22 08/17/22 08/16/22 tablet cholecalciferol (vitamin D3) 25 25 mcg PO DAILY 08/17/22 08/17/22 08/16/22 mcg (1,000 unit) tablet (Vitamin D3) ferrous sulfate 325 mg (65 mg 325 mg PO 2XWK 08/17/22 08/17/22 08/14/22 iron) tablet Active Medications Generic Name Dose Route Start Last Admin Trade Name Milton PRN Reason Stop Dose Admin Sodium Chloride 1,000 mls @ 80 mls/hr 08/17/22 13:30 08/17/22 13:29 Nss 1000ml IV 09/18/22 13:29 80 mls/hr .[id number] POLLY Administration Past Medical History Medical History Aortic stenosis due to bicuspid aortic valve BMI less than 19,adult Carotid artery plaque Carotid bruit COPD (chronic obstructive pulmonary disease) Fatigue History of adenocarcinoma of lung Hyperlipidemia Hypertension Insomnia Leukopenia Mitral regurgitation Nontoxic multinodular goiter Osteoporosis Tricuspid regurgitation Upper respiratory infection Vitamin D deficiency Past Family History Family History Father Myocardial infarction Hypertension Mother Vascular disorder Mother of supranuclear palsy Hypertension Denies family history of Ovarian cancer Prostate cancer Diabetes Breast cancer Colorectal cancer Past Surgical History Surgical History History of tubal ligation 1977 S/P lobectomy of lung 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 Social History Smoking Status: Former smoker tobacco type: cigarettes Smoking cigarettes per day: 20 Do You Dip or Chew Tobacco: No Hx Alcohol Use: No Alcohol type: wine alcohol intake frequency: holidays/special occasions only Hx Substance Use: No Physical Exam Vital Signs Last Vital Signs Temp 36.8 C 08/17/22 15:42 Pulse 77 08/17/22 15:42 Resp 20 08/17/22 15:42 BP 135/75 08/17/22 15:42 Pulse Ox 95 08/17/22 15:42 O2 Del Method 08/17/22 15:42 FiO2 21 08/17/22 12:46 Testing Laboratory Results 08/17/22 08:56 08/17/22 05:27 PT 10.3 Seconds (9.0-12.0) 08/17/22 05:27 INR 1.0 (0.9-1.1) 08/17/22 05:27 APTT 23.4 Seconds (21.0-31.0) 08/17/22 05:27 Blood Type B Positive 08/17/22 05:27 Antibody Screen NEGATIVE 08/17/22 05:27 Electrocardiogram Date: 08/17/22 DICTATED BY:Josue Arriaga MD Test Reason : Blood Pressure : / mmHG Vent. Rate : 108 BPM Atrial Rate : 108 BPM P-R Int : 152 ms QRS Dur : 072 ms QT Int : 366 ms P-R-T Axes : 073 030 064 degrees QTc Int : 490 ms Poor data quality, interpretation may be adversely affected Sinus tachycardia Biatrial enlargement Abnormal ECG When compared with ECG of 21-APR-2020 13:15, HR has increased by 31 bpm Incomplete right bundle branch block no longer presen Echocardiogram Echo: EF > 70% No RWMA Moderate
[2022-08-17] MEDS ORDERED: ONDANSETRON INJ 2 MG/ML 2 ML VIAL ONE (16:26)
--- NOTE | 2022-08-17 16:29 | GI REPORT ---
Patient Name: Helen Casarez Procedure Date: 08/17/2022 4:12 PM Date of : 1945 Admit Type: Inpatient Age: 76 Gender: Female Attending MD: Deepak Borden MD, Procedure: Flexible Sigmoidoscopy Providers: Deepak Borden MD Referring MD: Nga Calle Do Indications: Hematochezia, Abnormal CT of the GI tract Medicines: Monitored Anesthesia Care Complications: No immediate complications. Estimated blood loss: None. Estimated Blood Loss: Estimated blood loss: none. Procedure: Pre-Anesthesia Assessment: - Prior Anticoagulants: The patient has taken no anticoagulant or antiplatelet agents. - ASA Grade Assessment: II - A patient with mild systemic disease. After obtaining informed consent, the endoscope was passed under direct vision. Throughout the procedure, the patient's blood pressure, pulse, and oxygen saturations were monitored continuously. The Endoscope was introduced through the anus and advanced to the sigmoid colon. The flexible sigmoidoscopy was accomplished without difficulty. The patient tolerated the procedure well. The quality of the bowel preparation was fair. Findings: A frond-like/villous partially obstructing large mass was found in the recto-sigmoid colon. Oozing was present. Red blood was found in the rectum and rectosigmoid but not in the sigmoid colon proximal to the mass, consistent with the mass as being the source of the bleeding. Impression: - Preparation of the colon was fair. - Likely malignant partially obstructing tumor in the recto-sigmoid colon. - Blood in the rectum. - No specimens collected. Recommendation: - [facility]. - Clear liquid diet today. -surgery consult for resection -obtain CT chest to further evaluate for metastatic disease - Await pathology results. Deepak Borden MD 08/17/2022 4:28:51 PM This report has been signed electronically. Note Initiated On: 08/17/2022 4:12 PM Number of Addenda: 0 I attest to the content of the Intraoperative Record and orders documented therein, exceptions below {[id number]}
[2022-08-17 18:07] LABS: Hematocrit (blood only) 33.4 % (34.1-44.9); Hemoglobin 10.9 g/dl (12.0-16.0)
--- NOTE | 2022-08-17 18:16 | Anesthesiology Progress Note ---
Date of Service August 17, 2022 Anesthesia Post Procedure Vital Signs Vital Signs: Temp Pulse Pulse Resp BP BP BP 08/17/22 17:00 72 20 134/72 08/17/22 16:43 73 18 132/72 104/62 08/17/22 16:29 75 16 104/62 104/62 08/17/22 15:58 37 C 18 156/67 H 08/17/22 15:42 36.8 C 77 20 135/75 08/17/22 15:14 82 08/17/22 12:46 36.8 C 22 115/77 08/17/22 09:48 91 H 08/17/22 09:20 08/17/22 09:04 36.8 C 100 H 18 127/87 08/17/22 08:00 132/73 08/17/22 07:31 186/129 H 08/17/22 06:51 112 H 18 08/17/22 06:50 109 H 08/17/22 06:40 103 H 08/17/22 06:38 192/105 H 08/17/22 06:38 108 H 21 08/17/22 06:36 08/17/22 06:00 95 H 08/17/22 06:00 178/106 H 08/17/22 06:21 109 H 21 192/105 H 08/17/22 05:50 98 H 31 H 182/107 H 08/17/22 05:32 113 H 08/17/22 04:45 104 H 38 H 08/17/22 05:16 112 H 30 H 08/17/22 04:24 36.5 C 109 H 16 194/102 H Pulse Ox O2 Del Method FiO2 08/17/22 17:00 93 Room Air 08/17/22 16:43 95 Room Air 08/17/22 16:29 95 Room Air 08/17/22 15:58 93 Room Air 08/17/22 15:42 95 Room Air 08/17/22 15:14 08/17/22 12:46 95 Room Air 21 08/17/22 09:48 08/17/22 09:20 Room Air 08/17/22 09:04 94 Room Air 08/17/22 08:00 08/17/22 07:31 08/17/22 06:51 08/17/22 06:50 08/17/22 06:40 96 08/17/22 06:38 08/17/22 06:38 95 08/17/22 06:36 85 L 08/17/22 06:00 95 08/17/22 06:00 08/17/22 06:21 96 Room Air 08/17/22 05:50 93 08/17/22 05:32 08/17/22 04:45 96 08/17/22 05:16 91 Room Air 08/17/22 04:24 93 Room Air Transfer of Care Handoff Completed per policy Notes Mental Status: alert / awake / arousable and participated in evaluation Patient Amnestic to Procedure: Yes Nausea / Vomiting: adequately controlled Pain: adequately controlled Airway Patency, RR, SpO2: stable & adequate BP & HR: stable & adequate Hydration State: stable & adequate Anesthetic Complications: no major complications apparent and Pt Satisfied with anesthetic care
--- NOTE | 2022-08-18 00:45 | Surgery Consultation ---
Date of Consultation August 18, 2022 Assessment & Plan (1) Colonic mass: Plan Partially obstructing mass in recto-sigmoid colon with evidence of active bleeding. 1. Will obtain pre-albumin due to patient's low body weight, poor appetite, to asses for ability to heal from surgery 2. Case reviewed with Dr. Sigala, he will evaluate her later this morning. The patient will need additional workup. Supervising Physician Co-Signing Physician Notes Patient seen and examined, labs image reviewed, agree with above. 76-year-old female with history of lung cancer status post right upper lobectomy, severe presented with lower GI bleed. CT scan showed extravasation and nuclear med study showed extravasation as well. She had sigmoidoscopy which showed a rectosigmoid cancer. Her CT of the abdomen was somewhat limited due to lack of oral contrast, however did not show any metastatic disease. CT of the chest did show a spiculated mass highly concerning for neoplasm. She has a BMI of 14, however she states that she has always been like this and her nutritional labs are surprisingly good. On exam she is afebrile with stable vitals. Her abdomen is soft, nontender, nondistended. She is cachectic appearing. Digital rectal exam with palpable tumor approximately 6 cm into the rectum at the rectal fold. Slight downtrend in hematocrit but likely dilutional with fluids following her initial bleeding. Nutrition labs normal. Personally reviewed and interpreted the CT scan and agree with the assessment of some extravasation of contrast and believe I can see the tumor in the mid to upper rectum. No evidence of metastatic disease at this time. But she does have a spiculated lesion in her lung which could be primary or metastatic. 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 May not be a candidate for surgery at this facility Patient is hesitant to go home as she is concerned she will bleed again Surgery will follow peripherally, Dr. Baxter covering over the weekend History of Present Illness Attending Physician: Nga Calle, DO History of Present Illness Helen is being seen in consultation for likely malignant partially obstructing tumor in the recto-sigmoid colon that was seen today on flexible sigmoidoscopy. She presented to the ED today with concerns of bright red rectal bleeding. She notes her symptoms started in the middle of the night, when she noticed significant blood on the toilet paper when wiping and in the toilet. She has been seen in the ED with similar complaints in the past, treated for rectal prolapse. She reports no rectal pain and denies any n/v, abdominal pain, f/c or other GI complaints. She is hemodynamically stable. CT a/p reviewed and question of IV contrast extravasation within the rectum. She has never had a colonoscopy. She denies any change in bowel habits, weight loss or change in appetite. She does admit to poor appetite due to living alone. 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 She has past history of tobacco abuse, quit age 55. Allergies Allergy/AdvReac Type Severity Reaction Status Date / Time watermelon Allergy Unknown ` Verified 08/17/22 06:41 bupropion [From Wellbutrin] Allergy Verified 08/17/22 06:41 simvastatin Allergy Verified 08/17/22 06:41 alendronate sodium AdvReac Intermediate Nausea Verified 08/17/22 06:41 ibandronate sodium AdvReac Mild Gastrointestinal Verified 08/17/22 06:41 [From Boniva] Upset codeine AdvReac Unknown UPSET Verified 08/17/22 06:41 STOMACH atorvastatin AdvReac Verified 08/17/22 06:41 doxycycline AdvReac Verified 08/17/22 06:41 Sulfa (Sulfonamide AdvReac Verified 08/17/22 06:41 Antibiotics) sulfamethoxazole AdvReac Nausea Verified 08/17/22 06:41 [From Bactrim] trimethoprim [From Bactrim] AdvReac Nausea Verified 08/17/22 06:41 Home Medications Medication Instructions Recorded Confirmed Type aspirin 81 mg tablet,delayed 81 mg PO DAILY 05/06/19 08/17/22 History release albuterol sulfate 90 mcg/actuation 2 puff inhalation Q6H PRN 03/11/21 08/17/22 Rx aerosol inhaler (Ventolin HFA) shortness of breath or wheezing #8 grams tiotropium bromide 18 mcg capsule 1 cap inhalation DAILY #30 04/20/21 08/17/22 Rx with inhalation device inhalations verapamil 180 mg tablet,extended 360 mg PO DAILY #180 tabs 04/05/22 08/17/22 Rx release pravastatin 20 mg tablet 20 mg PO DAILY #90 tabs 06/16/22 08/17/22 Rx valsartan 160 mg tablet 160 mg PO BID #60 tabs 07/20/22 08/17/22 Rx ascorbic acid (vitamin C) 500 mg 500 mg PO DAILY 08/17/22 08/17/22 History tablet cholecalciferol (vitamin D3) 25 25 mcg PO DAILY 08/17/22 08/17/22 History mcg (1,000 unit) tablet (Vitamin D3) ferrous sulfate 325 mg (65 mg 325 mg PO 2XWK 08/17/22 08/17/22 History iron) tablet Patient History Medical History Aortic stenosis due to bicuspid aortic valve BMI less than 19,adult Carotid artery plaque Carotid bruit COPD (chronic obstructive pulmonary disease) Fatigue History of adenocarcinoma of lung Hyperlipidemia Hypertension Insomnia Leukopenia Mitral regurgitation Nontoxic multinodular goiter Osteoporosis Tricuspid regurgitation Upper respiratory infection Vitamin D deficiency Surgical History History of tubal ligation 1977 S/P lobectomy of lung 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 Family History Father Myocardial infarction Hypertension Mother Vascular disorder Mother of supranuclear palsy Hypertension Denies family history of Ovarian cancer Prostate cancer Diabetes Breast cancer Colorectal cancer Social History (Updated 08/17/22 @ 13:29 by Nga Calle DO) Smoking Status: Former smoker Age Started Using Tobacco: 21; Age Quit Using Tobacco: 55; packs per day: 1; Cigarettes Per Day: 20; Second Hand Exposure: No; Do You Dip or Chew Tobacco: No; Tobacco Cessation Education Requested by Patient: No Hx Alcohol Use: No Hx Substance Use: No Preferred Language: Swedish Communication Ability: Effective Visual Impairment: Partially Limited Hearing Ability: Normal 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 Internship Required: No Beliefs That Will Affect Care: None marital status: / Current Living Situation: Alone current occupational status: employed current occupation: works at [employer] doing [employer] and [employer] Other Information That Helps Us Care for You: No Feels Safe at Home: Yes Safety Concerns: Feels Safe At This Time Childhood Exposure to Second-Hand Smoke: No caffeine: No (Decaf Coffee ) Dental Care, Regularly: No Physical Activity Frequency: Does not Exercise Seatbelt Use: always Sunscreen Use: No Assistive Devices: None Review of Systems Review of Systems: All systems reviewed & are unremarkable except as noted in HPI & below Physical Exam Physical Exam: Temp Pulse Resp BP Pulse Ox O2 Del Method FiO2 36.5 C 78 18 133/75 98 21 08/18/22 02:54 08/18/22 02:54 08/18/22 02:54 08/18/22 02:54 08/18/22 02:54 08/18/22 02:54 08/17/22 12:46 Constitutional: + thin and + frail appearing; no acute distress Eyes: PERRL, conjunctivae normal, anicteric sclerae Respiratory: normal respiratory effort, lungs clear to auscultation Cardiovascular: RRR, no murmur, no edema Gastrointestinal (Abdomen): normal bowel sounds, soft, nontender, no hepatosplenomegaly Musculoskeletal: no cyanosis or clubbing, extremities motor strength 5/5 Psychiatric: A+Ox3, euthymic affect Results & Data ([facility]) Vital Signs (Past 12 Hours) Vital Signs Temp Pulse Pulse Resp BP BP Pulse Ox 08/17/22 23:41 80 08/17/22 19:35 08/17/22 22:27 36.7 C 79 18 138/76 90 08/17/22 19:27 36.6 C 72 18 150/81 H 93 08/17/22 17:00 72 20 134/72 93 08/17/22 16:43 73 18 132/72 104/62 95 08/17/22 16:29 75 16 104/62 104/62 95 08/17/22 15:58 37 C 18 156/67 H 93 08/17/22 15:42 36.8 C 77 20 135/75 95 08/17/22 15:14 82 08/17/22 12:46 36.8 C 22 115/77 95 O2 Del Method FiO2 08/17/22 23:41 08/17/22 19:35 Room Air 08/17/22 22:27 Room Air 08/17/22 19:27 Room Air 08/17/22 17:00 Room Air 08/17/22 16:43 Room Air 08/17/22 16:29 Room Air 08/17/22 15:58 Room Air 08/17/22 15:42 Room Air 08/17/22 15:14 08/17/22 12:46 Room Air 21 Laboratory Results Lab Results 08/17/22 08/17/22 08/17/22 Range/Units 05:16 05:27 05:27 WBC 7.15 (4.8-10.8) K/ul RBC 4.21 (3.93-5.22) M/uL Hgb 12.5 (12.0-16.0) g/dl Hct 37.8 (34.1-44.9) % MCV 89.8 (80.0-100.0) fL MCH 29.7 (25.0-34.0) pg MCHC 33.1 (32.0-36.0) g/dL RDW Std Deviation 39.7 (36.4-46.3) fL RDW Coeff of Sarah 12.2 (11.5-14.5) % Plt Count 240 (130-400) K/uL MPV 9.3 L (9.4-12.3) fL Immature Gran % (Auto) 0.1 % Neut % (Auto) 87.5 % Lymph % (Auto) 6.6 % [place] % (Auto) 5.5 % Eos % (Auto) 0.0 % Baso % (Auto) 0.3 % Neut # (Auto) 6.26 (1.4-6.5) K/uL Lymph # (Auto) 0.47 L (1.2-3.4) K/uL [place] # (Auto) 0.39 (0.24-0.82) K/uL Eos # (Auto) 0.00 (0-0.50) K/uL Baso # (Auto) 0.02 (0-0.2) K/uL Immature Gran # (Auto) 0.01 (0.00-0.02) K/uL PT (9.0-12.0) Seconds INR (0.9-1.1) APTT (21.0-31.0) Seconds PTT Ratio Sodium (136-145) mmol/L Potassium (3.5-5.1) mmol/L Chloride (98-107) mmol/L Carbon Dioxide (21-32) mmol/L Anion Gap (3-11) BUN (6-23) mg/dl Creatinine (0.6-1.2) mg/dl Est Cr Clr Drug Dosing ml/min Est GFR ( Amer) ml/min Est GFR (Non-Af Amer) ml/min BUN/Creatinine Ratio (10-20) Glucose (70-99(Fasting)) mg/dl Calcium (8.5-10.1) mg/dl Total Bilirubin (0.2-1.0) mg/dl AST (13-39) U/L ALT (7-52) U/L Alkaline Phosphatase (34-104) U/L Total Protein (6.0-8.3) gm/dl Albumin (3.4-5.0) gm/dl Globulin (2.5-4.0) gm/dl Albumin/Globulin Ratio (0.9-2) POC Stool Occult Blood Cancelled SARS-CoV-2, RNA, NAAT (NEGATIVE) Blood Type B Positive Blood Type Recheck Antibody Screen NEGATIVE Crossmatch See Detail 08/17/22 08/17/22 08/17/22 Range/Units 05:27 05:27 05:28 WBC (4.8-10.8) K/ul RBC (3.93-5.22) M/uL Hgb (12.0-16.0) g/dl Hct (34.1-44.9) % MCV (80.0-100.0) fL MCH (25.0-34.0) pg MCHC (32.0-36.0) g/dL RDW Std Deviation (36.4-46.3) fL RDW Coeff of Sarah (11.5-14.5) % Plt Count (130-400) K/uL MPV (9.4-12.3) fL Immature Gran % (Auto) % Neut % (Auto) % Lymph % (Auto) % [place] % (Auto) % Eos % (Auto) % Baso % (Auto) % Neut # (Auto) (1.4-6.5) K/uL Lymph # (Auto) (1.2-3.4) K/uL [place] # (Auto) (0.24-0.82) K/uL Eos # (Auto) (0-0.50) K/uL Baso # (Auto) (0-0.2) K/uL Immature Gran # (Auto) (0.00-0.02) K/uL PT 10.3 (9.0-12.0) Seconds INR 1.0 (0.9-1.1) APTT 23.4 (21.0-31.0) Seconds PTT Ratio 0.9 Sodium 138 (136-145) mmol/L Potassium 3.4 L (3.5-5.1) mmol/L Chloride 99 (98-107) mmol/L Carbon Dioxide 33 H (21-32) mmol/L Anion Gap 6 (3-11) BUN 11 (6-23) mg/dl Creatinine 0.55 L (0.6-1.2) mg/dl Est Cr Clr Drug Dosing 45.5 ml/min Est GFR ( Amer) 105.6 ml/min Est GFR (Non-Af Amer) 91.1 ml/min BUN/Creatinine Ratio 20.0 (10-20) Glucose 117 H (70-99(Fasting)) mg/dl Calcium 9.4 (8.5-10.1) mg/dl Total Bilirubin 0.6 (0.2-1.0) mg/dl AST 17 (13-39) U/L ALT 11 (7-52) U/L Alkaline Phosphatase 53 (34-104) U/L Total Protein 7.2 (6.0-8.3) gm/dl Albumin 4.4 (3.4-5.0) gm/dl Globulin 2.8 (2.5-4.0) gm/dl Albumin/Globulin Ratio 1.6 (0.9-2) POC Stool Occult Blood SARS-CoV-2, RNA, NAAT NEGATIVE (NEGATIVE) Blood Type Blood Type Recheck Antibody Screen Crossmatch 08/17/22 08/17/22 08/17/22 Range/Units 08:56 08:56 17:57 WBC (4.8-10.8) K/ul RBC (3.93-5.22) M/uL Hgb 12.5 10.9 L (12.0-16.0) g/dl Hct 37.9 33.4 L (34.1-44.9) % MCV (80.0-100.0) fL MCH (25.0-34.0) pg MCHC (32.0-36.0) g/dL RDW Std Deviation (36.4-46.3) fL RDW Coeff of Sarah (11.5-14.5) % Plt Count (130-400) K/uL MPV (9.4-12.3) fL Immature Gran % (Auto) % Neut % (Auto) % Lymph % (Auto) % [place] % (Auto) % Eos % (Auto) % Baso % (Auto) % Neut # (Auto) (1.4-6.5) K/uL Lymph # (Auto) (1.2-3.4) K/uL [place] # (Auto) (0.24-0.82) K/uL Eos # (Auto) (0-0.50) K/uL Baso # (Auto) (0-0.2) K/uL Immature Gran # (Auto) (0.00-0.02) K/uL PT (9.0-12.0) Seconds INR (0.9-1.1) APTT (21.0-31.0) Seconds PTT Ratio Sodium (136-145) mmol/L Potassium (3.5-5.1) mmol/L Chloride (98-107) mmol/L Carbon Dioxide (21-32) mmol/L Anion Gap (3-11) BUN (6-23) mg/dl Creatinine (0.6-1.2) mg/dl Est Cr Clr Drug Dosing ml/min Est GFR ( Amer) ml/min Est GFR (Non-Af Amer) ml/min BUN/Creatinine Ratio (10-20) Glucose (70-99(Fasting)) mg/dl Calcium (8.5-10.1) mg/dl Total Bilirubin (0.2-1.0) mg/dl AST (13-39) U/L ALT (7-52) U/L Alkaline Phosphatase (34-104) U/L Total Protein (6.0-8.3) gm/dl Albumin (3.4-5.0) gm/dl Globulin (2.5-4.0) gm/dl Albumin/Globulin Ratio (0.9-2) POC Stool Occult Blood SARS-CoV-2, RNA, NAAT (NEGATIVE) Blood Type Blood Type Recheck B Positive Antibody Screen Crossmatch 08/18/22 Range/Units 00:43 WBC (4.8-10.8) K/ul RBC (3.93-5.22) M/uL Hgb 10.1 L (12.0-16.0) g/dl Hct 31.1 L (34.1-44.9) % MCV (80.0-100.0) fL MCH (25.0-34.0) pg MCHC (32.0-36.0) g/dL RDW Std Deviation (36.4-46.3) fL RDW Coeff of Sarah (11.5-14.5) % Plt Count (130-400) K/uL MPV (9.4-12.3) fL Immature Gran % (Auto) % Neut % (Auto) % Lymph % (Auto) % [place] % (Auto) % Eos % (Auto) % Baso % (Auto) % Neut # (Auto) (1.4-6.5) K/uL Lymph # (Auto) (1.2-3.4) K/uL [place] # (Auto) (0.24-0.82) K/uL Eos # (Auto) (0-0.50) K/uL Baso # (Auto) (0-0.2) K/uL Immature Gran # (Auto) (0.00-0.02) K/uL PT (9.0-12.0) Seconds INR (0.9-1.1) APTT (21.0-31.0) Seconds PTT Ratio Sodium (136-145) mmol/L Potassium (3.5-5.1) mmol/L Chloride (98-107) mmol/L Carbon Dioxide (21-32) mmol/L Anion Gap (3-11) BUN (6-23) mg/dl Creatinine (0.6-1.2) mg/dl Est Cr Clr Drug Dosing ml/min Est GFR ( Amer) ml/min Est GFR (Non-Af Amer) ml/min BUN/Creatinine Ratio (10-20) Glucose (70-99(Fasting)) mg/dl Calcium (8.5-10.1) mg/dl Total Bilirubin (0.2-1.0) mg/dl AST (13-39) U/L ALT (7-52) U/L Alkaline Phosphatase (34-104) U/L Total Protein (6.0-8.3) gm/dl Albumin (3.4-5.0) gm/dl Globulin (2.5-4.0) gm/dl Albumin/Globulin Ratio (0.9-2) POC Stool Occult Blood SARS-CoV-2, RNA, NAAT (NEGATIVE) Blood Type Blood Type Recheck Antibody Screen Crossmatch Diagnostic Findings Flexible Sigmoidoscopy A frond-like/villous partially obstructing large mass was found in the recto-sigmoid colon. Oozing was present. Red blood was found in the rectum and rectosigmoid but not in the sigmoid colon proximal to the mass, consistent with the mass as being the source of the bleeding. NM GI Bleed: IMPRESSION: Focal uptake in the rectum compatible with active GI bleed. ABD/Pelvis CT IMPRESSION: 1. Within the limits of a nonangiographic study, there is a radiodensity in the rectum which may be due to extravasated IV contrast. The origin of active extravasation cannot be visualized 2. Multiple renal hypodensities are favored to represent cysts but demonstrate greater than simple fluid density, follow-up nonemergent renal ultrasound is recommended. 3. Additional findings as above. PG Care Time/CCT Total # of Minutes Spent Total Time Spent with Patient: Total time spent is greater than 50% in coordination of care (as documented) at patient's floor/unit and/or counseling patient: Coding Level of Care Code 63284 Inpt Consult Level 4 Diagnoses Colonic mass K63.89
[2022-08-18] MEDS: SODIUM CHLORIDE 0.9% 1000ML 1,000 ML IV SCH ×2 (00:54→15:37)
[2022-08-18 01:40] LABS: Hematocrit (blood only) 31.1 % (34.1-44.9); Hemoglobin 10.1 g/dl (12.0-16.0)
[2022-08-18 06:28] LABS: Basophils # (auto) 0.01 K/uL (0-0.2); Basophils % (auto) 0.2 %; Eosinophils # (auto) 0.01 K/uL (0-0.50); Eosinophils % (auto) 0.2 %; Hematocrit (blood only) 31.5 % (34.1-44.9); Hemoglobin 10.3 g/dl (12.0-16.0); Immature Granulocytes # (auto) 0.01 K/uL (0.00-0.02); Immature Granulocytes % (auto) 0.2 %; Lymphocytes # (auto) 0.57 K/uL (1.2-3.4); Lymphocytes % (auto) 11.4 %; Mean Corpuscular Hemoglobin 29.9 pg (25.0-34.0); Mean Corpuscular Hgb Conc 32.7 g/dL (32.0-36.0); Mean Corpuscular Volume 91.3 fL (80.0-100.0); Mean Platelet Volume 9.2 fL (9.4-12.3); Monocytes # (auto) 0.46 K/uL (0.24-0.82); Monocytes % (auto) 9.2 %; Neutrophils # (auto) 3.95 K/uL (1.4-6.5); Neutrophils % (auto) 78.8 %; Platelet Count 209 K/uL (130-400); RDW Coefficient of Variation 12.4 % (11.5-14.5); RDW Standard Deviation 41.1 fL (36.4-46.3); Red Blood Count 3.45 M/uL (3.93-5.22); White Blood Count 5.01 K/ul (4.8-10.8)
--- NOTE | 2022-08-18 07:21 | Hospitalist Progress Note ---
Date of Service August 18, 2022 Assessment & Plan (1) Lower gastrointestinal hemorrhage: Plan: 76 yo F Hx NSCLC s/p RUL resection, HTN, HLD, severe aortic stenosis, COPD admitted for lower GI bleed. Presented with several bloody BMs since 1am today. Hemodynamically stable, mildly tachycardic. Hgb 12.5 ->10.3; trend H/H daily. Patient typed and screened, consented. Transfuse if large volume blood loss or Hgb <7. GIB nuclear medicine scan performed: focal uptake in the rectum compatible with active GI bleed. GI consulted and appreciate recommendations -> sigmoidoscopy performed which revealed partially obstructive bleeding recto-sigmoid mass, likely malignant. NSS at 80cc/hr stopped as she is tolerating PO intake well and no further bleeding. Tele for cardiac monitoring. Daily CBC. (2) Colonic mass: Plan: Likely cause of #1, see above. Sigmoidoscopy with partially obstructing recto-sigmoid mass. Biopsy performed with pathology pending. General Surgery consulted for evaluation for possible tumor resection -> suspect patient may need neoadjuvant therapy before resection of tumor. [facility] [place]; no indication for transfer at this time as not emergent, follow up outpatient. CT Chest ordered to evaluate for metastasis -> likely no mets, however see problem #3. Heme/Onc and Rad/Onc consulted for problems #2 and #3. CEA level pending. MRI Pelvis pending. (3) Lung mass: Plan: Patient has a history of NSCLC in remission since RUL resection in 2003. CT Chest this admission to evaluate for metastasis revealed 3.2 cm spiculated LLL mass. Will ultimately need need biopsy of mass for further clarification if primary cancer vs. resurgence of previous NSCLC. (4) NSCLC of right lung: Plan: History of RUL NSCLC s/p resection in 2003; remission since that time. see above (5) Severe aortic stenosis: Plan: History of, as such patient is fairly preload dependent. Cardiology consulted given possible upcoming surgery and appreciate recommendations: Will need repeat Echo prior to surgery, however, as patient is asymptomatic and aortic valve area is 0.7 cm, unlikely to recommend an aortic valve replacement surgery prior to colorectal surgery. (6) Hypertension: Plan: On admit antihypertensives were held for acute GI bleed; resumed valsartan and verapamil today. (7) Hyperlipidemia: Plan: Continue pravastatin. (8) COPD (chronic obstructive pulmonary disease): Plan: Continue daily tiotropium bromide with albuterol INH as needed for wheezing/SOB. Plan FULL CODE Clear liquid diet holding chemoppx given GI bleeding; ambulate on demand TELE status Admission and Anticipated Discharge Date Admission Date: August 17, 2022 Subjective Patient without any acute events overnight, and did not have any bloody bowel movements since admission. In fact, she denies having had any bowel movements since admission. She is extremely fearful of going home without some resolution of her colonic mass, as she is worried that she will go home, start bleeding, and end right back up in the hospital undergoing the same evaluation and treatment. Review of Systems Constitutional: no fever, no chills and no malaise Respiratory: no cough and no dyspnea Cardiovascular: no chest pain, no palpitations and no edema Gastrointestinal: + blood in stools; no abdominal pain, no constipation and no diarrhea/loose stools Genitourinary: no dysuria and no hematuria Neurologic: no localized weakness and no loss of sensation Psychiatric: no behavioral changes and no confusion Physical Exam Constitutional: well developed and + thin; no acute distress Eyes: PERRL, conjunctivae normal, anicteric sclerae ENMT: external ear and nose normal, oropharynx normal Neck: trachea midline, no thyromegaly Respiratory: normal respiratory effort, lungs clear to auscultation Cardiovascular: RRR, no murmur, no edema Gastrointestinal (Abdomen): normal bowel sounds, soft, nontender, no hepatosplenomegaly Musculoskeletal: no cyanosis or clubbing, extremities motor strength 5/5 Skin: no rashes, warm and dry Psychiatric: A+Ox3, euthymic affect Results & Data Results & Data ([facility]) Vital Signs (Past 12 Hours) Vital Signs Temp Pulse Pulse Resp BP Pulse Ox O2 Del Method 08/18/22 02:54 36.5 C 78 18 133/75 98 Room Air 08/17/22 23:41 80 08/17/22 19:35 Room Air 08/17/22 22:27 36.7 C 79 18 138/76 90 Room Air 08/17/22 19:27 36.6 C 72 18 150/81 H 93 Room Air PG Care Time/CCT Total # of Minutes Spent Total Time Spent with Patient: Total time spent is greater than 50% in coordination of care (as documented) at patient's floor/unit and/or counseling patient: Coding Level of Care Code 42999 Subseq Hosp Care Lvl 3 Diagnoses Lower gastrointestinal hemorrhage K92.2 Colonic mass K63.89 Lung mass R91.8 NSCLC of right lung C34.91 Severe aortic stenosis I35.0 Hypertension I10 Hyperlipidemia E78.5 COPD (chronic obstructive pulmonary disease) J44.9
[2022-08-18] MEDS: ASCORBIC ACID 500 MG TAB PO SCH (07:30)
[2022-08-18] MEDS: PRAVASTATIN SOD 20 MG TAB PO SCH (07:30)
[2022-08-18] MEDS: CHOLECALCIFEROL 1,000 UNITS 25 MCG TAB PO SCH (07:30)
[2022-08-18] MEDS: UMECLIDINIUM BROMIDE 62.5MCG/BLISTER 7 PUFFS/INHALER INH SCH (07:31)
[2022-08-18 07:56] LABS: BUN Creatinine Ratio 15.9 (10-20); Calcium 8.6 mg/dl (8.5-10.1); Creatinine Clr Calc Pharmacy 45.9 ml/min; Est GFR (Non-African American) 87.1 ml/min; Potassium 3.6 mmol/L (3.5-5.1)
[2022-08-18] MEDS ORDERED: hydrALAZINE HCL 20 MG/ML VIAL IV PRN (08:09)
[2022-08-18] MEDS ORDERED: VALSARTAN 80 MG TAB PO STA (08:25)
--- NOTE | 2022-08-18 08:26 | CT Scan Report ---
CT SCAN OF THE CHEST WITH IV CONTRAST CLINICAL HISTORY: Metastatic survey. History of lung cancer. COMPARISON STUDY: Chest x-ray dated 06/11/2020. Chest CT dated 03/05/2012. TECHNIQUE: Following the IV administration of 98 cc of Optiray 350, CT scan of the thorax was perform ed from the thoracic inlet to the upper abdomen. Images are reviewed in the axial, sagittal, and james nal planes. IV contrast was administered without complication. A dose lowering technique was utilize d adhering to the principles of ALARA. CT DOSE: 172.63 mGy.cm FINDINGS: Thyroid: Imaged portions of the thyroid gland are normal in size and attenuation. Thoracic aorta: There is atherosclerotic calcification of the thoracic aorta, which is normal in timoteo erlinda and demonstrates standard 3-vessel arch anatomy. No dissection is seen. Pulmonary vasculature: The main pulmonary arteries are dilated suggesting pulmonary artery hypertensi on. There are no filling defects identified in the central pulmonary vessels to indicate pulmonary em bolus. Note that this examination was not protocoled for evaluation of the pulmonary arteries. Heart: The heart is mildly enlarged and without pericardial effusion. Lungs and pleural spaces: Advanced emphysema is noted. Fibrotic change in loculated fluid is again se en in the right apex. There is volume loss in the right lung. The trachea and central airways are bean ar. There is a 3.2 x 2.3 x 2.9 cm spiculated mass in the superior segment of the left lower lobe seen on image #73. No additional pulmonary lesion is identified. There are scattered calcified granulomas . Mediastinum: There is no mediastinal lymphadenopathy. Meche: Clear. Axillae: There is no axillary lymphadenopathy. Upper abdomen: Partially visualized upper abdominal viscera is within normal limits. Skeletal structures: The skeletal structures are osteopenic. Chronic deformity of the right-sided rib s is similar to previous. Degenerative change and scoliosis is noted in the thoracic spine. No lytic or blastic bony lesions are seen. Soft tissues: The patient is cachectic. IMPRESSION: 1. There is a 3.2 cm spiculated mass in the superior segment of the left lower lobe. Neoplasm is the diagnosis of exclusion. 2. No additional findings are identified to suggest metastatic disease in the thorax. 3. Emphysema and chronic parenchymal changes as above. 4. There is no airspace consolidation typical for pneumonia. 5. Additional findings as above. ACT 112: Positive. There are findings on this exam that require communication between the performing entity and the patient following Patient Test Result Information Act ([place] Act 112) guidelines. Electronically signed by: Gwyn Cline M.D. 08/18/2022 8:24 AM
[2022-08-18] MEDS ORDERED: LORazepam 0.5 MG TAB PO ONE (13:16)
--- NOTE | 2022-08-18 14:56 | Cardiology Consultation ---
Date of Consultation August 18, 2022 Assessment & Plan (1) Severe aortic stenosis: (2) Carotid artery plaque: (3) Hyperlipidemia: (4) Hypertension: Plan 1. Severe aortic stenosis: On her echocardiogram several months ago her aortic valve area was about 0.7 cm but she had no symptoms to suggest symptomatic disease. At this point I do not see any reason to alter our approach, if she needs surgery in the near future we can get another echocardiogram but from the chart I cannot tell when that might be planned. I do not think we need another echocardiogram now but we should do one preop. Unless changes are seen on the echocardiogram or she has development of symptoms I do not think invasive evaluation is necessary at this time. 2. Carotid disease: She does have documented but nonobstructive carotid disease suggesting that she does have atherosclerosis. She has other risk factors for atherosclerosis. She could have coronary disease but does not have any symptoms, we could consider catheterization for evaluation of her coronary anatomy and her valve prior to surgery but that might depend on the timing of the surgery and unless we anticipate aortic valve surgery in the near future I do not think we should do that. For now I would continue risk factor modifi cation for atherosclerosis. That would include aspirin and pravastatin as well as blood pressure control. 3. Dyslipidemia: The last LDL that I see was in March of this year and it was just over 100, her HDL was 100. Her non-HDL cholesterol was 133. Although perhaps not ideal control with her documented atherosclerosis I would probably continue her current regimen for now. 4. Hypertension: Her blood pressure is markedly elevated, at home she takes losartan 160 mg twice daily and verapamil 360 mg daily, here these appear to have been ordered and then discontinued. They will be restarted now. History of Present Illness Reason for Consultation: Severe Attending Physician: Nga Calle, History of Present Illness This is a 78-year-old woman who is followed in our office by Dr. Rainey for aortic stenosis. She also has a history of lung cancer and has had a right upper lobectomy. In 2007 she was identified as having a bicuspid aortic valve and has had echocardiography every several years since. In 2019 she had hyperdynamic left ventricular systolic function and a valve area of 1.1 cm and a mean aortic valve gradient of 26 mmHg. A more recent echocardiogram done May 15, 2022 showed normal left ventricular function, moderate left ventricular hypertrophy and a calculated aortic valve area of 0.71 cm. When last seen in the office on June 15, 2022 she had no symptoms related to the aortic stenosis and no signs of heart failure. At that time Dr. Rainey discussed treatment options including surgical or transaortic valve replacement however with no symptoms it was felt that it should not be performed at that time. She has been seen several times in the emergency room since June for GI bleeding. She presented on August 17, 2022 with rectal bleeding, she was hemodynamically stable and her hemoglobin was 12.5 on presentation. A nuclear bleeding scan noted focal uptake in the rectum compatible with active GI bleed. Sigmoidoscopy suggested a rectosigmoid mass which was likely malignant and appeared to be the cause of bleeding. Surgical consultation was performed and was felt that she did not need urgent surgery. At the time of my evaluation she reiterated that she felt well, having no symptoms of dyspnea on exertion, exertional chest discomfort, lightheadedness, dizziness, presyncope or syncope. She has noticed no change in her exercise ability. Allergies Allergy/AdvReac Type Severity Reaction Status Date / Time watermelon Allergy Unknown ` Verified 08/17/22 06:41 bupropion [From Wellbutrin] Allergy Verified 08/17/22 06:41 simvastatin Allergy Verified 08/17/22 06:41 alendronate sodium AdvReac Intermediate Nausea Verified 08/17/22 06:41 ibandronate sodium AdvReac Mild Gastrointestinal Verified 08/17/22 06:41 [From Boniva] Upset codeine AdvReac Unknown UPSET Verified 08/17/22 06:41 STOMACH atorvastatin AdvReac Verified 08/17/22 06:41 doxycycline AdvReac Verified 08/17/22 06:41 Sulfa (Sulfonamide AdvReac Verified 08/17/22 06:41 Antibiotics) sulfamethoxazole AdvReac Nausea Verified 08/17/22 06:41 [From Bactrim] trimethoprim [From Bactrim] AdvReac Nausea Verified 08/17/22 06:41 Home Medications Medication Instructions Recorded Confirmed Type aspirin 81 mg tablet,delayed 81 mg PO DAILY 05/06/19 08/17/22 History release albuterol sulfate 90 mcg/actuation 2 puff inhalation Q6H PRN 03/11/21 08/17/22 Rx aerosol inhaler (Ventolin HFA) shortness of breath or wheezing #8 grams tiotropium bromide 18 mcg capsule 1 cap inhalation DAILY #30 04/20/21 08/17/22 Rx with inhalation device inhalations verapamil 180 mg tablet,extended 360 mg PO DAILY #180 tabs 04/05/22 08/17/22 Rx release pravastatin 20 mg tablet 20 mg PO DAILY #90 tabs 06/16/22 08/17/22 Rx valsartan 160 mg tablet 160 mg PO BID #60 tabs 07/20/22 08/17/22 Rx ascorbic acid (vitamin C) 500 mg 500 mg PO DAILY 08/17/22 08/17/22 History tablet cholecalciferol (vitamin D3) 25 25 mcg PO DAILY 08/17/22 08/17/22 History mcg (1,000 unit) tablet (Vitamin D3) ferrous sulfate 325 mg (65 mg 325 mg PO 2XWK 08/17/22 08/17/22 History iron) tablet Patient History Medical History Aortic stenosis due to bicuspid aortic valve BMI less than 19,adult Carotid artery plaque Carotid bruit COPD (chronic obstructive pulmonary disease) Fatigue History of adenocarcinoma of lung Hyperlipidemia Hypertension Insomnia Leukopenia Mitral regurgitation Nontoxic multinodular goiter Osteoporosis Tricuspid regurgitation Upper respiratory infection Vitamin D deficiency Surgical History History of tubal ligation 1977 S/P lobectomy of lung 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 Family History Father Myocardial infarction Hypertension Mother Vascular disorder Mother of supranuclear palsy Hypertension Denies family history of Ovarian cancer Prostate cancer Diabetes Breast cancer Colorectal cancer Social History Smoking Status: Former smoker Age Started Using Tobacco: 21; Age Quit Using Tobacco: 55; packs per day: 1; Cigarettes Per Day: 20; Second Hand Exposure: No; Do You Dip or Chew Tobacco: No; Tobacco Cessation Education Requested by Patient: No Hx Alcohol Use: No Hx Substance Use: No Preferred Language: Guinean Communication Ability: Effective Visual Impairment: Partially Limited Hearing Ability: Normal Decker Operator Required: No Beliefs That Will Affect Care: None marital status: / Current Living Situation: Alone current occupational status: employed current occupation: works at [employer] doing [employer] and [employer] Other Information That Helps Us Care for You: No Feels Safe at Home: Yes Safety Concerns: Feels Safe At This Time Childhood Exposure to Second-Hand Smoke: No caffeine: No (Decaf Coffee ) Dental Care, Regularly: No Physical Activity Frequency: Does not Exercise Seatbelt Use: always Sunscreen Use: No Assistive Devices: None Review of Systems Review of Systems: All systems reviewed & are unremarkable except as noted in HPI & below Physical Exam Physical Exam: Constitutional: Alert, cooperative and in no distress. HEENT: Unremarkable Neck: No jugular venous distention, carotid pulses are normal and equal bilaterally with bilateral transmitted murmur. Pulmonary: Crackles at bases on auscultation bilaterally. Cardiac: Regular rhythm with a grade 3/6 crescendo decrescendo murmur at the base, no gallop or rub. Abdomen: Soft, nontender with normal bowel sounds. Extremities: No edema. Distal pulses intact. Neurologic: No focal findings. Gait was not tested. Skin: No rash, ecchymoses or petechiae. Results & Data ([facility]) Vital Signs (Past 12 Hours) Vital Signs Temp Pulse Pulse Resp BP BP Pulse Ox 08/18/22 11:47 36.7 C 93 H 18 171/103 H 93 08/18/22 09:38 89 08/18/22 08:28 08/18/22 08:27 87 187/98 H 08/18/22 07:33 37.3 C 95 H 18 174/96 H 93 08/18/22 02:54 36.5 C 78 18 133/75 98 O2 Del Method 08/18/22 11:47 Room Air 08/18/22 09:38 08/18/22 08:28 Room Air 08/18/22 08:27 08/18/22 07:33 Room Air 08/18/22 02:54 Room Air Laboratory Results CBC 08/17/22 08/18/22 08/18/22 Range/Units 17:57 00:43 06:09 WBC 5.01 (4.8-10.8) K/ul RBC 3.45 L (3.93-5.22) M/uL Hgb 10.9 L 10.1 L 10.3 L (12.0-16.0) g/dl Hct 33.4 L 31.1 L 31.5 L (34.1-44.9) % Plt Count 209 (130-400) K/uL Neut # (Auto) 3.95 (1.4-6.5) K/uL Lymph # (Auto) 0.57 L (1.2-3.4) K/uL [place] # (Auto) 0.46 (0.24-0.82) K/uL Eos # (Auto) 0.01 (0-0.50) K/uL Baso # (Auto) 0.01 (0-0.2) K/uL Comprehensive Metabolic Panel 08/18/22 Range/Units 06:12 Sodium 139 (136-145) mmol/L Potassium 3.6 (3.5-5.1) mmol/L Chloride 103 (98-107) mmol/L Carbon Dioxide 32 (21-32) mmol/L BUN 10 (6-23) mg/dl Creatinine 0.63 (0.6-1.2) mg/dl Glucose 103 H (70-99(Fasting)) mg/dl Calcium 8.6 (8.5-10.1) mg/dl Intake and Output 08/17/22 08/18/22 08/18/22 22:59 06:59 14:59 Intake Total 400 / 2396.666 1013.333 / 2396.666 1418 / 1418 Output Total Balance 399 / 2395.666 1013.333 / 2395.666 1418 / 1418 Intake: IV 913.333 / 1896.666 528 / 528 Sodium Chloride 0.9% 1000ML 1, 913.333 / 913.333 528 / 528 000 ml @ 80 mls/hr IV .[id number] POLLY Rx#:[id number] Oral 400 / 500 100 / 500 890 / 890 Output: # Bowel Movements Other: # Unmeasured Voids 1 6 Weight 36.7 kg 38.3 kg Weight Measurement Method Built in [facility] PG Care Time/CCT Total # of Minutes Spent Total Time Spent with Patient: Total time spent is greater than 50% in coordination of care (as documented) at patient's floor/unit and/or counseling patient: Coding Level of Care Code 74185 Initial Inpt Care Lvl 3 Diagnoses Severe aortic stenosis I35.0 Carotid artery plaque I65.29 Hyperlipidemia E78.5 Hypertension I10
--- NOTE | 2022-08-18 15:19 | Radiation OncologyConsultation ---
Date of Consultation August 18, 2022 Assessment & Plan (1) Lung mass: Assessment: 76-year-old female with a prior history of adenocarcinoma of the right upper lobe status post right upper lobectomy by Dr. Rodriguez in 2001. She has a long smoking history but quit in 2001. She now has a new lesion in the left lower lobe measuring 3.2 x 2.3 x 2.9 cm consistent with a probable lung primary. Recommendations: 1. Recommend pulmonary referral for evaluation and recommendations on obtaining tissue verification and evaluation of mediastinum and hilar status. 2. Recommend MRI of the brain if lung biopsy positive. 3. Recommend evaluation by pulmonary surgeon to see if lobectomy is an option assuming cancer diagnosis is obtained. 4. Recommend referral to medical oncology. Treatment Options: 1. If this is a lung primary and there is evidence of either a mediastinal lymph node patient could be treated by either surgery or chemoradiation. 2. If this is a lung primary with no evidence of mediastinal or hilar lymph nodes the patient could potentially be treated by surgery or stereotactic radiation. (2) Colonic mass: Assessment: 76-year-old female who presented with rectal bleeding. On s igmoidoscopy she was found to have a rectosigmoid mass that reportedly was clinically palpable at 6 cm. Biopsy was taken and results are pending. Clinically consistent with a rectosigmoid carcinoma. Recommendations: 1. Medical oncology referral for treatment recommendations and staging work-up. 2. MRI of the liver which has been ordered and pending. 3. Colonoscopy to evaluate remainder of the colon. 4. Consideration of staging PET CT scan. Treatment Options: 1. Assuming rectal cancer diagnosis treatment options would include preoper ative chemoradiation. 2. This would be followed by surgical evaluation for possible low anterior resection. History of Present Illness Reason for Consultation: Rectal sigmoid mass with rectal bleeding Attending Physician: Nga Calle DO History of Present Illness Ms. Araujo is a 76-year-old female who presented yesterday morning with rectal bleeding. She has a prior history of right lung cancer treated with s urgery. She was a smoker for many years but quit at the time of her lung surgery. 12/19/2001. Dr. Rodriguez and FNA of a right upper lobe lung mass following presentation of an enlarging spiculated right upper lobe lung mass. Pathology revealed malignant cells consistent with poorly differentiated non-small cell carcinoma favoring adenocarcinoma. 01/30/2002. Dr. Rodriguez performed a right upper lobectomy. Final path confirmed a 3.3 x 2.0 cm adenocarcinoma intermediate grade with no invasion of the pleura and no evidence of lymph node involvement with benign hilar lymph node. 11 lymph nodes were sampled and negative. Pathologic stage was stage I. No adjuvant therapy was recommended. 06/21/2022. Patient presented to the emergency department with complaint of rectal bleeding. Examination at that time revealed soft flesh-colored hemorrhoids present with no active bleeding. A rectal prolapse was present and was easily manually reduced. 08/17/2022. Patient presented to the emergency department with complaint of significant rectal bleeding having Woken up early in the morning. She relayed having to have a bowel movement and noted a lot of blood in the toilet bowl after feeling an urge to push. She denied any abdominal pain. Rectal exam at that time showed external hemorrhoids, small thrombosed hemorrhoids x2 with ulceration. There was dark red venous blood on ИВАН with no mass palpable. 08/17/2022. Patient undergoes CT of the abdomen and pelvis. This revealed partially liquid contents noted in the rectum with a few prominent foci of hyperdensity within the rectum. Patient was admitted for further evaluation. Patient underwent a nuclear medicine GI bleeding study which showed focal uptake in the rectum compatible bowl with a active GI bleed.. 08/17/2022. Patient undergoes a flexible sigmoidoscopy. This revealed a frond- like villous partially obstructing large mass at the rectosigmoid colon. Oozing was present. Red blood was found in the rectum and rectosigmoid but not in the sigmoid colon proximal to the mass. This was consistent with the mass as being the source of the bleeding. This was felt to be a malignant partially obstructing tumor. Biopsies were taken and results are pending. CT of the chest was recommended for further staging. 08/17/2022. Patient undergoes CT of the chest with IV contrast. This revealed a 3.2 x 2.3 x 2.9 cm spiculated mass in the superior segment of the left lower lobe no additional pulmonary lesions were appreciated. No obvious mediastinal lymphadenopathy was noted. No axillary lymphadenopathy was noted. The shira were clear. The skeletal structures are osteopenic with a chronic deformity of the right sided ribs but no lytic or blastic lesions appreciated. This was felt to be neoplasm until excluded. 08/18/2022. Patient is seen by Dr. Sigala. Digital rectal examination was performed. This revealed a palpable tumor at approximately 6 cm into the rectum at the rectal fold. Clinically consistent with a rectal cancer. The patient's hemoglobin was stable and there was no need for emergency surgery or for transfusion at this time. Given the patient's status he felt the patient may be better served by transfer to a [facility] and recommended additional staging procedures. 08/18/2022. Patient seen in radiation oncology for evaluation and discussion of potential treatment options and further staging work-up. This chart was completed in part utilizing [employer] Speech Voice Recognition software. Grammatical errors, random word insertions, pronoun errors and incomplete sentences are occasional consequence of this system due to software limitations, ambient noise and hardware issues. Any formal questions or concerns about the content, text or information contained within the body of this dictation should be directly addressed to the provider for clarification. Jose Rafael Velasquez MD Department of Radiation Oncology [facility] and [facility] Allergies Allergy/AdvReac Type Severity Reaction Status Date / Time watermelon Allergy Unknown ` Verified 08/17/22 06:41 bupropion [From Wellbutrin] Allergy Verified 08/17/22 06:41 simvastatin Allergy Verified 08/17/22 06:41 alendronate sodium AdvReac Intermediate Nausea Verified 08/17/22 06:41 ibandronate sodium AdvReac Mild Gastrointestinal Verified 08/17/22 06:41 [From Boniva] Upset codeine AdvReac Unknown UPSET Verified 08/17/22 06:41 STOMACH atorvastatin AdvReac Verified 08/17/22 06:41 doxycycline AdvReac Verified 08/17/22 06:41 Sulfa (Sulfonamide AdvReac Verified 08/17/22 06:41 Antibiotics) sulfamethoxazole AdvReac Nausea Verified 08/17/22 06:41 [From Bactrim] trimethoprim [From Bactrim] AdvReac Nausea Verified 08/17/22 06:41 Home Medications Medication Instructions Recorded Confirmed Type aspirin 81 mg tablet,delayed 81 mg PO DAILY 05/06/19 08/17/22 History release albuterol sulfate 90 mcg/actuation 2 puff inhalation Q6H PRN 03/11/21 08/17/22 Rx aerosol inhaler (Ventolin HFA) shortness of breath or wheezing #8 grams tiotropium bromide 18 mcg capsule 1 cap inhalation DAILY #30 04/20/21 08/17/22 Rx with inhalation device inhalations verapamil 180 mg tablet,extended 360 mg PO DAILY #180 tabs 04/05/22 08/17/22 Rx release pravastatin 20 mg tablet 20 mg PO DAILY #90 tabs 06/16/22 08/17/22 Rx valsartan 160 mg tablet 160 mg PO BID #60 tabs 07/20/22 08/17/22 Rx ascorbic acid (vitamin C) 500 mg 500 mg PO DAILY 08/17/22 08/17/22 History tablet cholecalciferol (vitamin D3) 25 25 mcg PO DAILY 08/17/22 08/17/22 History mcg (1,000 unit) tablet (Vitamin D3) ferrous sulfate 325 mg (65 mg 325 mg PO 2XWK 08/17/22 08/17/22 History iron) tablet Patient History Medical History Aortic stenosis due to bicuspid aortic valve BMI less than 19,adult Carotid artery plaque Carotid bruit COPD (chronic obstructive pulmonary disease) Fatigue History of adenocarcinoma of lung Hyperlipidemia Hypertension Insomnia Leukopenia Mitral regurgitation Nontoxic multinodular goiter Osteoporosis Tricuspid regurgitation Upper respiratory infection Vitamin D deficiency Surgical History History of tubal ligation 1977 S/P lobectomy of lung 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 Family History Father Myocardial infarction Hypertension Mother Vascular disorder Mother of supranuclear palsy Hypertension Denies family history of Ovarian cancer Prostate cancer Diabetes Breast cancer Colorectal cancer Social History Smoking Status: Former smoker Age Started Using Tobacco: 21; Age Quit Using Tobacco: 55; packs per day: 1; Cigarettes Per Day: 20; Second Hand Exposure: No; Do You Dip or Chew Tobacco: No; Tobacco Cessation Education Requested by Patient: No Hx Alcohol Use: No Hx Substance Use: No Preferred Language: Croatian Communication Ability: Effective Visual Impairment: Partially Limited Hearing Ability: Normal Mobile Marketing Specialist Required: No Beliefs That Will Affect Care: None marital status: / Current Living Situation: Alone current occupational status: employed current occupation: works at [employer] doing [employer] Other Information That Helps Us Care for You: No Feels Safe at Home: Yes Safety Concerns: Feels Safe At This Time Childhood Exposure to Second-Hand Smoke: No caffeine: No (Decaf Coffee ) Dental Care, Regularly: No Physical Activity Frequency: Does not Exercise Seatbelt Use: always Sunscreen Use: No Assistive Devices: None Review of Systems Review of Systems: All systems reviewed & are unremarkable except as noted in HPI & below Physical Exam Constitutional: Patient is an extremely thin 76-year-old female who is lying at rest in the bed and appears to be in no acute distress. Eyes: Sclera white conjunctive a pink. ENMT: Oral cavity unremarkable. Neck: No palpable cervical or supraclavicular adenopathy. Trachea is midline no thyroid enlargement noted. Respiratory: Patient had adequate air movement which is clear to auscultation and percussion. Cardiovascular: Patient has regular rhythm with a grade 4 holosystolic murmur. Gastrointestinal (Abdomen): Abdomen is soft nontender no masses and no organomegaly appreciated. Musculoskeletal: Patient is has full range of motion with no extremity weakness appreciated. Skin: Warm and dry with no rashes appreciated. Neurologic: PERRL, EOMI, accommodation nl, no face palsy, no dysarthria Psychiatric: A+Ox3, euthymic affect Lymphatic: There is no palpable cervical, supraclavicular, axillary or inguinal adenopathy appreciated. Results (Rad Onc) Laboratory Results: were reviewed and pertinent findings noted in HPI Pathology Results: were reviewed and pertinent findings noted in HPI Imaging Studies: were reviewed and pertinent findings noted in HPI Time Spent Attending This documentation has been prepared in full by Dr. Velasquez. I have personally reviewed the services described and have reviewed the documentation to ensure its accuracy. I spent 35 minutes with direct face to face interaction with the patient which included obtaining clinical information, recommending a plan of action and answering questions. I spent 30 minutes reviewing her chart, pathology and preparation of this document. PHILLIP
[2022-08-18] MEDS ORDERED: LORazepam 0.5 MG TAB ONE (17:48)
[2022-08-18] MEDS ORDERED: GADOBUTROL 65ML VIAL IV ONE (19:13)
[2022-08-18] MEDS: VALSARTAN 80 MG TAB PO SCH (20:10)
[2022-08-19 06:38] LABS: Basophils # (auto) 0.03 K/uL (0-0.2); Basophils % (auto) 0.6 %; Eosinophils # (auto) 0.03 K/uL (0-0.50); Eosinophils % (auto) 0.6 %; Hematocrit (blood only) 34.4 % (34.1-44.9); Hemoglobin 11.5 g/dl (12.0-16.0); Immature Granulocytes # (auto) 0.01 K/uL (0.00-0.02); Immature Granulocytes % (auto) 0.2 %; Lymphocytes # (auto) 0.59 K/uL (1.2-3.4); Lymphocytes % (auto) 11.8 %; Mean Corpuscular Hemoglobin 30.3 pg (25.0-34.0); Mean Corpuscular Hgb Conc 33.4 g/dL (32.0-36.0); Mean Corpuscular Volume 90.8 fL (80.0-100.0); Neutrophils # (auto) 3.92 K/uL (1.4-6.5); Neutrophils % (auto) 78.8 %; Platelet Count 226 K/uL (130-400); RDW Coefficient of Variation 12.1 % (11.5-14.5); RDW Standard Deviation 40.2 fL (36.4-46.3); Red Blood Count 3.79 M/uL (3.93-5.22); White Blood Count 4.98 K/ul (4.8-10.8)
[2022-08-19 07:10] LABS: BUN Creatinine Ratio 14.5 (10-20); Creatinine Clr Calc Pharmacy 51.9 ml/min; Est GFR (African American) 105.6 ml/min; Est GFR (Non-African American) 91.1 ml/min; Potassium 3.3 mmol/L (3.5-5.1)
--- NOTE | 2022-08-19 07:58 | Billing Data ---
Date of Service August 18, 2022 Coding Level of Care Code 11139 Prolonged Care (int'l)
--- NOTE | 2022-08-19 08:00 | Communication Note ---
Date of Service: August 18, 2022 To clarify progress note from today 08/18/2022: Over 60 minutes of time spent between 8:00AM and 2:00PM spent in collaboration of care including speaking with [facility] transfer center, communicating with general surgery and heme/onc consult services, and communicating test results and planning with patient.
[2022-08-19] MEDS: VALSARTAN 80 MG TAB PO SCH (08:03)
--- NOTE | 2022-08-19 08:03 | Hospitalist Progress Note ---
Date of Service August 19, 2022 Assessment & Plan (1) Lower gastrointestinal hemorrhage: Plan: 76 yo F Hx NSCLC s/p RUL resection, HTN, HLD, severe aortic stenosis, COPD admitted for lower GI bleed. Presented with several bloody BMs since 1am on 08/17. Has become tachycardic overnight, though no other symptoms save for continued bloody BMs. Hgb 12.5 ->10.3 on day of transfer. GIB nuclear medicine scan performed: focal uptake in the rectum compatible with active GI bleed. GI consulted and appreciate recommendations -> sigmoidoscopy performed which revealed partially obstructive bleeding recto-sigmoid mass, likely malignant. Tele for cardiac monitoring. Daily CBC. (2) Colonic mass: Plan: Likely cause of #1, see above. Sigmoidoscopy with partially obstructing recto-sigmoid mass. Biopsy performed with pathology pending. General Surgery consulted for evaluation for possible tumor resection -> suspect patient may need neoadjuvant therapy before resection of tumor given location. CT Chest ordered to evaluate for metastasis -> likely no mets, however see problem #3. Heme/Onc and Rad/Onc consulted for problems #2 and #3. CEA level elevated to 3.1. MRI Pelvis shows mass lesion in the upper rectum as detailed above. This likely involves the muscularis propria without clear extension into the mesorectal fascia (3) Lung mass: Plan: Patient has a history of NSCLC in remission since RUL resection in 2003. CT Chest this admission to evaluate for metastasis revealed 3.2 cm spiculated LLL mass. Will ultimately need need biopsy of mass for further clarification if primary cancer vs. resurgence of previous NSCLC. (4) NSCLC of right lung: Plan: History of RUL NSCLC s/p resection in 2003; remission since that time. see above (5) Severe aortic stenosis: Plan: History of, as such patient is fairly preload dependent. Cardiology consulted given possible upcoming surgery and appreciate recommendations: Will need repeat Echo prior to surgery, however, as patient is asymptomatic and aortic valve area is 0.7 cm, unlikely to recommend an aortic valve replacement surgery prior to colorectal surgery. (6) Hypertension: Plan: On admit antihypertensives were held for acute GI bleed; resumed valsartan and verapamil today. (7) Hyperlipidemia: Plan: Continue pravastatin. (8) COPD (chronic obstructive pulmonary disease): Plan: Continue daily tiotropium bromide with albuterol INH as needed for wheezing/SOB. Plan FULL CODE Clear liquid diet holding chemoppx given GI bleeding; ambulate on demand TELE status Admission and Anticipated Discharge Date Admission Date: August 17, 2022 Subjective Overnight patient had 2 bowel movements with blood with some clots passed. She was sinus in the 80s with blood pressures in the 150-160s systolic range. With some mild tachycardia overnight as well. Patient has no other complaints, such as shortness of breath, chest pain, abdominal pain, nausea, vomiting. She is tolerating a full liquid diet okay this morning. Review of Systems Constitutional: + malaise; no fever and no chills Eyes: no blind spots and no diplopia Ear, Nose, Mouth, Throat: no nasal congestion and no epistaxis Respiratory: no cough and no dyspnea Cardiovascular: no chest pain, no palpitations and no edema Gastrointestinal: + blood in stools; no abdominal pain, no constipation and no diarrhea/loose stools Genitourinary: no dysuria and no hematuria Musculoskeletal: no back pain and no neck pain Integumentary: no rash and no skin ulcer Neurologic: no localized weakness and no loss of sensation Psychiatric: no behavioral changes and no confusion Endocrine: no fatigue, no polydipsia and no polyuria Hematologic / Lymphatic: no easy bleeding and no easy bruising Physical Exam Constitutional: well developed and + thin; no acute distress Eyes: PERRL, conjunctivae normal, anicteric sclerae ENMT: external ear and nose normal, oropharynx normal Neck: trachea midline, no thyromegaly Respiratory: normal respiratory effort, lungs clear to auscultation Cardiovascular: RRR, no murmur, no edema Gastrointestinal (Abdomen): normal bowel sounds, soft, nontender, no hepatosplenomegaly Musculoskeletal: no cyanosis or clubbing, extremities motor strength 5/5 Skin: no rashes, warm and dry Psychiatric: A+Ox3, euthymic affect Results & Data Results & Data ([facility]) Vital Signs (Past 12 Hours) Vital Signs Temp Pulse Resp BP Pulse Ox O2 Del Method 08/19/22 07:06 36.7 C 89 18 166/100 H 94 Room Air 08/19/22 03:26 36.8 C 89 18 173/100 H 94 Room Air 08/18/22 22:59 36.9 C 85 18 159/91 H 91 Room Air 08/18/22 20:08 37.0 C 90 18 150/98 H 92 Room Air PG Care Time/CCT Total # of Minutes Spent Total Time Spent with Patient: Total time spent is greater than 50% in coordination of care (as documented) at patient's floor/unit and/or counseling patient: Coding Diagnoses Lower gastrointestinal hemorrhage K92.2 Colonic mass K63.89 Lung mass R91.8 NSCLC of right lung C34.91 Severe aortic stenosis I35.0 Hypertension I10 Hyperlipidemia E78.5 COPD (chronic obstructive pulmonary disease) J44.9
[2022-08-19] MEDS: ASCORBIC ACID 500 MG TAB PO SCH (08:04)
[2022-08-19] MEDS: PRAVASTATIN SOD 20 MG TAB PO SCH (08:04)
[2022-08-19] MEDS: CHOLECALCIFEROL 1,000 UNITS 25 MCG TAB PO SCH (08:04)
[2022-08-19] MEDS: UMECLIDINIUM BROMIDE 62.5MCG/BLISTER 7 PUFFS/INHALER INH SCH (08:04)
--- NOTE | 2022-08-19 08:27 | Magnetic Resonance Report ---
MRI OF THE PELVIS COMBO CLINICAL HISTORY: Rectal carcinoma. COMPARISON STUDY: Pelvic CT dated 08/17/2022. TECHNIQUE: MRI of the pelvis is performed utilizing various T1 and T2-weighted sequences in the axial , sagittal, and coronal planes. Contrast enhanced sequences are acquired following the IV administrat ion of 3.8 cc of Gadavist. The examination is compromised by motion artifact. FINDINGS: There is approximately 3.5 cm mass lesion suggested in the upper rectum, best seen on axial image #21 and coronal image #22. This is located approximately 8 cm above the anal verge. This likel y extends into the muscularis propria. This does not clearly extend beyond the rectum into the mesore ctal fossa. No perirectal lymphadenopathy is seen. There is no evidence of upstream colonic obstructi on. No destructive bony lesions are seen in the pelvis. The bladder, uterus, and adnexa are normal as visualized. 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 There is no free fluid in the cul-de-sac. IMPRESSION: 1. Motion compromised examination. 2. Mass lesion in the upper rectum as detailed above. This likely involves the muscularis propria wit hout clear extension into the mesorectal fascia. No surrounding lymphadenopathy is identified. Electronically signed by: Gwyn Cline M.D. 08/19/2022 8:25 AM
[2022-08-19] MEDS ORDERED: VERAPAMIL HCL 180 MG TABCR PO SCH (09:00)
--- NOTE | 2022-08-19 09:00 | Oncology Consultation ---
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 Colonoscopy revealed sigmoid colon mass for which pathology is pending. CEA was 3.1. Staging CT chest incidentally revealed 3.2 cm spiculated left lower lobe mass. Based on imaging, suspect that she has 2 separate primary malignancies. -If sigmoid colon biopsy confirms malignancy as expected, she will need surgical evaluation for colon resection. Final pathology from colon resection will determine whether or not she would benefit from adjuvant systemic therapy -She will also need tissue sampling of left lower lobe lung mass to determine if this is a separate lung malignancy or less likely metastatic disease from colon malignancy. Based on imaging, would suspect that CT-guided biopsy would be higher yield for tissue sampling. Will defer to pulmonology regarding whether tissue sample via bronchoscopy/EBUS would be beneficial. If biopsy of lung lesion confirms primary lung malignancy, she would need evaluation by thoracic surgeon to determine whether she would be a good candidate for surgery in the setting of severe aortic stenosis and prior history of right upper lobectomy. If she is not a candidate for surgery, options would be SBRT or chemoradiation treatment for lung primary. On the other hand, if she has metastatic colon cancer, she would benefit from systemic therapy as well as resection of oligometastatic disease. -If patient is deemed too high surgical risk at [facility] and bleeding persists, she will benefit from transfer to tertiary center for surgical resection of colon mass as well as IR guided lung biopsy. -Recommend checking iron studies and if this demonstrates iron deficiency, she would benefit from IV Venofer to optimize labs prior to surgery. Discussed the above with patient. She was given the opportunity to ask questions which indicated were answered to her satisfaction. Oncology will continue following patient peripherally while in the hospital. Please feel free to call if you have any further questions History of Present Illness Reason for Consultation: Likely primary colon and primary lung ca Attending Physician: Nga Calle, DO History of Present Illness Ms. Araujo is a very pleasant 76-year-old female with medical history of adenocarcinoma of the right lung for which she is s/p right upper lobectomy in 2001. She also has a history of severe aortic stenosis. She presented to [facility] with GI bleeding. CT abdomen and pelvis on 08/17/2022 revealed radiodensity in the rectum as well as multiple renal hypodensities favored to represent cysts. CT chest also obtained on 08/17/2022 revealed 3.2 cm spiculated mass in the superior segment of the left lower lobe with no additional findings to suggest metastatic disease in the thorax. Sigmoidoscopy performed by Dr. Borden on 08/17/2022 revealed Likely malignant partially obstructing tumor in the recto-sigmoid colon which was biopsied with pathology pending at the time of today's evaluation. Pelvic MRI on 08/18/2022 revealed mass lesion in the upper rectum likely involving the muscularis propria without clear extension into the mesorectal fascia with no surrounding lymphadenopathy identified. She complains of hematochezia and constipation. Denies chest pain, shortness of breath, abdominal pain, nausea, vomiting, significant weight loss, palpable lymphadenopathy or any other issues. She states that she quit smoking in 2001. Denies family history of malignancy Allergies Allergy/AdvReac Type Severity Reaction Status Date / Time watermelon Allergy Unknown ` Verified 08/17/22 06:41 bupropion [From Wellbutrin] Allergy Verified 08/17/22 06:41 simvastatin Allergy Verified 08/17/22 06:41 alendronate sodium AdvReac Intermediate Nausea Verified 08/17/22 06:41 ibandronate sodium AdvReac Mild Gastrointestinal Verified 08/17/22 06:41 [From Boniva] Upset codeine AdvReac Unknown UPSET Verified 08/17/22 06:41 STOMACH atorvastatin AdvReac Verified 08/17/22 06:41 doxycycline AdvReac Verified 08/17/22 06:41 Sulfa (Sulfonamide AdvReac Verified 08/17/22 06:41 Antibiotics) sulfamethoxazole AdvReac Nausea Verified 08/17/22 06:41 [From Bactrim] trimethoprim [From Bactrim] AdvReac Nausea Verified 08/17/22 06:41 Home Medications Medication Instructions Recorded Confirmed Type aspirin 81 mg tablet,delayed 81 mg PO DAILY 05/06/19 08/17/22 History release albuterol sulfate 90 mcg/actuation 2 puff inhalation Q6H PRN 03/11/21 08/17/22 Rx aerosol inhaler (Ventolin HFA) shortness of breath or wheezing #8 grams tiotropium bromide 18 mcg capsule 1 cap inhalation DAILY #30 04/20/21 08/17/22 Rx with inhalation device inhalations verapamil 180 mg tablet,extended 360 mg PO DAILY #180 tabs 04/05/22 08/17/22 Rx release pravastatin 20 mg tablet 20 mg PO DAILY #90 tabs 06/16/22 08/17/22 Rx valsartan 160 mg tablet 160 mg PO BID #60 tabs 07/20/22 08/17/22 Rx ascorbic acid (vitamin C) 500 mg 500 mg PO DAILY 08/17/22 08/17/22 History tablet cholecalciferol (vitamin D3) 25 25 mcg PO DAILY 08/17/22 08/17/22 History mcg (1,000 unit) tablet (Vitamin D3) ferrous sulfate 325 mg (65 mg 325 mg PO 2XWK 08/17/22 08/17/22 History iron) tablet Patient History Medical History Aortic stenosis due to bicuspid aortic valve BMI less than 19,adult Carotid artery plaque Carotid bruit COPD (chronic obstructive pulmonary disease) Fatigue History of adenocarcinoma of lung Hyperlipidemia Hypertension Insomnia Leukopenia Mitral regurgitation Nontoxic multinodular goiter Osteoporosis Tricuspid regurgitation Upper respiratory infection Vitamin D deficiency Surgical History History of tubal ligation 1977 S/P lobectomy of lung 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 Family History Father Myocardial infarction Hypertension Mother Vascular disorder Mother of supranuclear palsy Hypertension Denies family history of Ovarian cancer Prostate cancer Diabetes Breast cancer Colorectal cancer Social History Smoking Status: Former smoker Age Started Using Tobacco: 21; Age Quit Using Tobacco: 55; packs per day: 1; Cigarettes Per Day: 20; Second Hand Exposure: No; Do You Dip or Chew Tobacco: No; Tobacco Cessation Education Requested by Patient: No Hx Alcohol Use: No Hx Substance Use: No Preferred Language: Palestinian Communication Ability: Effective Visual Impairment: Partially Limited Hearing Ability: Normal Banana Loader Required: No Beliefs That Will Affect Care: None marital status: / Current Living Situation: Alone current occupational status: employed current occupation: works at [employer] doing [address] and [employer] Other Information That Helps Us Care for You: No Feels Safe at Home: Yes Safety Concerns: Feels Safe At This Time Childhood Exposure to Second-Hand Smoke: No caffeine: No (Decaf Coffee ) Dental Care, Regularly: No Physical Activity Frequency: Does not Exercise Seatbelt Use: always Sunscreen Use: No Assistive Devices: None Review of Systems Review of Systems: All systems reviewed & are unremarkable except as noted in HPI & below Physical Exam Constitutional: WD/WN, vitals as above Eyes: PERRL, conjunctivae normal, anicteric sclerae Respiratory: normal respiratory effort, lungs clear to auscultation Cardiovascular: Rate/Rhythm: regular rate and regular rhythm Heart Sounds: + murmur Gastrointestinal (Abdomen): normal bowel sounds, soft, nontender, no hepatosplenomegaly Musculoskeletal: no cyanosis or clubbing, extremities motor strength 5/5 Skin: no rashes, warm and dry Results & Data ([facility]) Vital Signs (Past 12 Hours) Vital Signs Temp Pulse Resp BP Pulse Ox O2 Del Method 08/19/22 08:00 Room Air 08/19/22 07:06 36.7 C 89 18 166/100 H 94 Room Air 08/19/22 03:26 36.8 C 89 18 173/100 H 94 Room Air 08/18/22 22:59 36.9 C 85 18 159/91 H 91 Room Air Laboratory Results CEA of 3.1 Results Complete Blood Count Results: RBC 3.79 M/uL (3.93-5.22) L 08/19/22 WBC 4.98 K/ul (4.8-10.8) 08/19/22 Hgb 11.5 g/dl (12.0-16.0) L 08/19/22 Hct 34.4 % (34.1-44.9) 08/19/22 Plt Count 226 K/uL (130-400) 08/19/22
--- NOTE | 2022-08-19 09:01 | Pulmonary Consultation ---
Date of Consultation August 19, 2022 Assessment & Plan (1) Lung mass: (2) Colonic mass: (3) NSCLC of right lung: (4) COPD (chronic obstructive pulmonary disease): Plan CT chest 08/17/2022 personally reviewed: 2.3 x 2.9 x 3.2 cm left lower lobe superior segment opacity, centrilobular emphysema Right apical pleural scarring, bronchiectasis of the right middle lobe Mediastinal shift to the right No significant mediastinal lymphadenopathy -- Left lower lobe pulmonary mass No mediastinal lymphadenopathy appreciated on the CT chest Patient also has rectal mass It could be mets from the rectal mass or it could be primary lung cancer especially in a patient who was a smoker -- COPD Not in exacerbation Continue with Anoro Plan: Given no mediastinal lymph adenopathy and the mass seeming to be easily accessible with CT. CT-guided biopsy would be preferred There is a small airway going into the pulmonary mass, navigational bronchoscopy could be thought of but it will be difficult to reach I did speak with Dr Stoner from Anesthesiology who said it would be okay if need be for the patient to be under general anesthesia with patient's severe aortic stenosis MRI of the brain ordered to rule out mets Case was discussed with Dr. Garcia Please note the above document was generated using voice recognition software. It may contain grammatical, syntax or spelling errors.Any formal questions or concerns about the content, text or information contained within the body of this dictation should be directly addressed to the provider for clarification. History of Present Illness Attending Physician: Nga Calle DO History of Present Illness 76-year-old female presented to the hospital because of bright red blood per rectum Past medical history: Non-small cell lung cancer status post right upper lobe resection, hypertension, dyslipidemia, severe aortic stenosis, COPD At the time of examination patient was not in any acute distress She denied any chest pain, no shortness of breath Denies any coughing. No hemoptysis Has been compliant with her inhalers. Denies any fever or chills No unintentional weight loss No headache, no blurry vision No nausea vomiting She did have a bowel movement today with very minimal hematochezia. No dysuria. Social history: Greater than [id number] smoking history quit in 2001 which is 20 years ago Allergies Allergy/AdvReac Type Severity Reaction Status Date / Time watermelon Allergy Unknown ` Verified 08/17/22 06:41 bupropion [From Wellbutrin] Allergy Verified 08/17/22 06:41 simvastatin Allergy Verified 08/17/22 06:41 alendronate sodium AdvReac Intermediate Nausea Verified 08/17/22 06:41 ibandronate sodium AdvReac Mild Gastrointestinal Verified 08/17/22 06:41 [From Boniva] Upset codeine AdvReac Unknown UPSET Verified 08/17/22 06:41 STOMACH atorvastatin AdvReac Verified 08/17/22 06:41 doxycycline AdvReac Verified 08/17/22 06:41 Sulfa (Sulfonamide AdvReac Verified 08/17/22 06:41 Antibiotics) sulfamethoxazole AdvReac Nausea Verified 08/17/22 06:41 [From Bactrim] trimethoprim [From Bactrim] AdvReac Nausea Verified 08/17/22 06:41 Home Medications Medication Instructions Recorded Confirmed Type aspirin 81 mg tablet,delayed 81 mg PO DAILY 05/06/19 08/17/22 History release albuterol sulfate 90 mcg/actuation 2 puff inhalation Q6H PRN 03/11/21 08/17/22 Rx aerosol inhaler (Ventolin HFA) shortness of breath or wheezing #8 grams tiotropium bromide 18 mcg capsule 1 cap inhalation DAILY #30 04/20/21 08/17/22 Rx with inhalation device inhalations verapamil 180 mg tablet,extended 360 mg PO DAILY #180 tabs 04/05/22 08/17/22 Rx release pravastatin 20 mg tablet 20 mg PO DAILY #90 tabs 06/16/22 08/17/22 Rx valsartan 160 mg tablet 160 mg PO BID #60 tabs 07/20/22 08/17/22 Rx ascorbic acid (vitamin C) 500 mg 500 mg PO DAILY 08/17/22 08/17/22 History tablet cholecalciferol (vitamin D3) 25 25 mcg PO DAILY 08/17/22 08/17/22 History mcg (1,000 unit) tablet (Vitamin D3) ferrous sulfate 325 mg (65 mg 325 mg PO 2XWK 08/17/22 08/17/22 History iron) tablet Patient History Medical History Aortic stenosis due to bicuspid aortic valve BMI less than 19,adult Carotid artery plaque Carotid bruit COPD (chronic obstructive pulmonary disease) Fatigue History of adenocarcinoma of lung Hyperlipidemia Hypertension Insomnia Leukopenia Mitral regurgitation Nontoxic multinodular goiter Osteoporosis Tricuspid regurgitation Upper respiratory infection Vitamin D deficiency Surgical History History of tubal ligation 1977 S/P lobectomy of lung 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 Family History Father Myocardial infarction Hypertension Mother Vascular disorder Mother of supranuclear palsy Hypertension Denies family history of Ovarian cancer Prostate cancer Diabetes Breast cancer Colorectal cancer Social History Smoking Status: Former smoker Age Started Using Tobacco: 21; Age Quit Using Tobacco: 55; packs per day: 1; Cigarettes Per Day: 20; Second Hand Exposure: No; Do You Dip or Chew Tobacco: No; Tobacco Cessation Education Requested by Patient: No Hx Alcohol Use: No Hx Substance Use: No Preferred Language: New Zealander Communication Ability: Effective Visual Impairment: Partially Limited Hearing Ability: Normal Check Cashier Required: No Beliefs That Will Affect Care: None marital status: / Current Living Situation: Alone current occupational status: employed current occupation: works at [employer] doing [employer] and [employer] Other Information That Helps Us Care for You: No Feels Safe at Home: Yes Safety Concerns: Feels Safe At This Time Childhood Exposure to Second-Hand Smoke: No caffeine: No (Decaf Coffee ) Dental Care, Regularly: No Physical Activity Frequency: Does not Exercise Seatbelt Use: always Sunscreen Use: No Assistive Devices: None Review of Systems Review of Systems: All systems reviewed & are unremarkable except as noted in HPI & below Physical Exam Physical Exam: Constitutional: No acute distress HEENT: EOMI, PERRLA, frail-appearing Respiratory system: Decreased air entry bilaterally, no wheeze, rhonchi, mild crackles bilateral lower lobes CVS: S1-S2 positive, 3 out of 6 systolic murmur appreciated best at aorta Abdomen: Soft, nontender, nondistended, positive bowel sounds x4 Extremities: +2 pulses bilaterally radialis/ dorsalis pedis, no cyanosis, no edema Neuro: Awake alert oriented x3 Psych: Normal mood and affect G/U: No [place] Skin: no rashes, warm and dry Lymphatic: no cervical or axillary lymphadenopathy Results & Data Results & Data ([facility]) Vital Signs (Past 12 Hours) Vital Signs Temp Pulse Resp BP Pulse Ox O2 Del Method 08/19/22 08:00 Room Air 08/19/22 07:06 36.7 C 89 18 166/100 H 94 Room Air 08/19/22 03:26 36.8 C 89 18 173/100 H 94 Room Air 08/18/22 22:59 36.9 C 85 18 159/91 H 91 Room Air Laboratory Results 08/19/22 06:29 08/19/22 06:29 PG Care Time/CCT Total # of Minutes Spent Total Time Spent with Patient: Total time spent is greater than 50% in coordination of care (as documented) at patient's floor/unit and/or counseling patient: Coding Level of Care Code 07976 Initial Inpt Care Lvl 3 Diagnoses Lung mass R91.8 Colonic mass K63.89 NSCLC of right lung C34.91 COPD (chronic obstructive pulmonary disease) J44.9
[2022-08-19] MEDS ORDERED: POTASSIUM CHLORIDE CRTAB 20 MEQ TABCR PO STA (09:54)
[2022-08-19 11:33] LABS: Ferritin 47.1 ng/ml (8-388)
[2022-08-19 11:34] VITALS: BP 163/96; PULSE 93; TEMP 98.8; O2SAT 92
--- NOTE | 2022-08-19 17:36 | Discharge Summary ---
Discharge Summary Date of Service August 19, 2022 Admission HPI Per Admitting Provider 76 yo F Hx NSCLC s/p RUL resection, HTN, HLD, severe aortic stenosis, COPD presented to ER for BRBPR large volume in toilet around 1am this morning. Hemodynamically stable in ER with Hgb 12.5. CTAP revealed evidence of active extravasation of contrast into the rectum. ИВАН in ER with large volume of venous blood, noted external hemorrhoids. Patient was given Protonix and IV fluids and type/crossed. Hospitalist service consulted for probably lower GI bleed. On my interview patient reports history of hemorrhoids with some scant blood on toilet paper in the past. She denies having colonoscopy in the past. She denies any complaints in hospital bed during interview save for rectal bleeding. Admission Exam Per Admitting Provider Constitutional: well developed and + thin; no acute distress Eyes: PERRL, conjunctivae normal, anicteric sclerae ENMT: external ear and nose normal, oropharynx normal Neck: trachea midline, no thyromegaly Respiratory: normal respiratory effort lungs clear to auscultation in all ibrahim with breath sounds absent in right upper lung field Cardiovascular: RRR, no murmur, no edema Gastrointestinal (Abdomen): normal bowel sounds, soft, nontender, no hepatosplenomegaly Musculoskeletal: no cyanosis or clubbing, extremities motor strength 5/5 Skin: no rashes, warm and dry Neurologic: AAOx3, normal speech. Bilateral UE, LE, and face without sensory or motor deficits. No pronator drift. No tremor. Psychiatric: A+Ox3, euthymic affect Principal Dx & Hospital Course #1 = Principal Diagnosis (1) Lower gastrointestinal hemorrhage: 76 yo F Hx NSCLC s/p RUL resection, HTN, HLD, severe aortic stenosis, COPD admitted for lower GI bleed. Lower gastrointestinal hemorrhage: Presented with several bloody BMs since 1am on 08/17. Has become tachycardic overnight, though no other symptoms save for continued bloody BMs. Hgb baseline ~13 ->10.3 on day of transfer. Iron and ferritin levels normal. GIB nuclear medicine scan performed: focal uptake in the rectum compatible with active GI bleed. GI consulted and appreciate recommendations -> sigmoidoscopy performed which revealed partially obstructive bleeding recto-sigmoid mass, likely malignancy. Due to continued bleeding with blood clots, and now some compensatory tachycardia despite conservative measures, and given bleeding is secondary to rectal mass, requires transfer to tertiary care for colorectal intervention to stop the bleeding. Telemetry for cardiac monitoring. (2) Colonic mass: Cause of #1, see above. Sigmoidoscopy with partially obstructing recto-sigmoid mass. Biopsy performed with pathology pending. CEA level elevated to 3.1. CT Chest ordered to evaluate for metastasis -> likely no mets, however see problem #3. MRI Pelvis shows mass lesion in the upper rectum with involvement of the muscularis propria without clear extension into the mesorectal fascia. Heme/Onc and Rad/Onc consulted for problems #2 and #[address]. Dr[address] Gillian Garcia aware of patient and will follow in outpatient setting; will need appointment on discharge from tertiary center. General Surgery consulted for evaluation for possible tumor resection -> due to location of mass and comorbidities, surgical recommends colorectal surgery evaluation and higher level of care at tertiary center. [facility] accepted patient for transfer, accepting physician Dr. Mendez with Hospitalist service. (3) Lung mass: Patient has a history of NSCLC in remission since RUL resection in 2003. CT Chest this admission to evaluate for metastasis revealed 3.2 cm spiculated LLL mass, with malignancy the diagnosis of exclusion. Will ultimately need need biopsy of mass for further clarification if primary cancer vs. resurgence of previous NSCLC; likely core biopsy by IR in the future. MRI Brain can be considered to rule out metastasis. (4) NSCLC of right lung: History of RUL NSCLC s/p resection in 2003; remission since that time. see above (5) Severe aortic stenosis: History of, as such patient is fairly preload dependent. Cardiology consulted given possible upcoming surgery and appreciate recommendations: Echocardiogram 05/2022 showed severe valvular aortic stenosis with moderate aortic calcification, aortic valve area of 0.7 cm. Given that patient is asymptomatic and aortic valve area is 0.7 cm, Cardiology is unlikely to recommend an aortic valve replacement surgery prior to colorectal surgery, especially given that the colorectal surgery for actively bleeding mass is an urgent problem at this time. (6) Hypertension: On admit antihypertensives were held for acute GI bleed. (7) Hyperlipidemia: Continue pravastatin. (8) COPD (chronic obstructive pulmonary disease): Continue daily tiotropium bromide with albuterol INH as needed for wheezing/SOB. Plan Plan- Transfer to [facility] for evaluation by colorectal surgery and continued care Patient is FULL CODE Discharge Exam Constitutional well developed and + thin; no acute distress Respiratory normal respiratory effort, lungs clear to auscultation Cardiovascular RRR, no murmur, no edema Gastrointestinal (Abdomen) normal bowel sounds, soft, nontender, no hepatosplenomegaly Skin no rashes, warm and dry Psychiatric A+Ox3, euthymic affect Updated Medication List Medication Instructions Recorded Confirmed Type aspirin 81 mg tablet,delayed 81 mg PO DAILY 05/06/19 08/17/22 History release albuterol sulfate 90 mcg/actuation 2 puff inhalation Q6H PRN 03/11/21 08/17/22 Rx aerosol inhaler (Ventolin HFA) shortness of breath or wheezing #8 grams tiotropium bromide 18 mcg capsule 1 cap inhalation DAILY #30 04/20/21 08/17/22 Rx with inhalation device inhalations verapamil 180 mg tablet,extended 360 mg PO DAILY #180 tabs 04/05/22 08/17/22 Rx release pravastatin 20 mg tablet 20 mg PO DAILY #90 tabs 06/16/22 08/17/22 Rx valsartan 160 mg tablet 160 mg PO BID #60 tabs 07/20/22 08/17/22 Rx ascorbic acid (vitamin C) 500 mg 500 mg PO DAILY 08/17/22 08/17/22 History tablet cholecalciferol (vitamin D3) 25 25 mcg PO DAILY 08/17/22 08/17/22 History mcg (1,000 unit) tablet (Vitamin D3) ferrous sulfate 325 mg (65 mg 325 mg PO 2XWK 08/17/22 08/17/22 History iron) tablet Hospital Stay Data Consultations 08/17/22 07:41 ED Decision to Admit Stat 08/17/22 07:50 Consult Gastroenterology Routine 08/17/22 17:02 Consult General Surgery Routine 08/18/22 13:09 Consult Cardiology Routine 08/18/22 13:10 Consult Radiation Oncology Routine 08/19/22 07:11 Consult Oncology Routine 08/19/22 08:03 Consult Pulmonology Routine 08/19/22 13:10 Burn CD for patient Stat Procedures Performed Operation Date: 08/17/22 18:00 Actual Procedures p Colonoscopy Biopsy Cytology - Deepak Borden MD Diagnostic Imagining Performed 08/17/22 05:17 CT Abd and Pelvis [CT abd pelvis IV con only] Stat 08/17/22 17:01 CT chest diagnostic w con Routine 08/18/22 12:50 MRI Pelvis [MR pelvis wo/w con] Routine Pending Results Patient Have Any Pending Studies at Discharge: Yes (recctosigmoid mass biopsy pathology) Discharge Instructions Given to Patient (Per Discharging Provider) 76 yo F Hx NSCLC s/p RUL resection, HTN, HLD, severe aortic stenosis, COPD adm itted for lower GI bleed. Lower gastrointestinal hemorrhage: Presented with several bloody BMs since 1am on 08/17. CTAP showed active extravasation of contrast into rectum consistent with active GI bleed. Hemodynamically stable at time of transfer, save for mild tachycardic. Hgb baseline ~13 ->10.3 on day of transfer. GIB nuclear medicine scan performed: focal uptake in the rectum compatible with active GI bleed. GI consulted and appreciate recommendations -> sigmoidoscopy performed which revealed partially obstructive bleeding recto-sigmoid mass, likely malignancy. Due to continued bleeding despite conservative measures, and given bleeding is secondary to mass/local infiltration, requires transfer to tertiary care for colorectal intervention to stop the bleeding. Tele for cardiac monitoring. Daily CBC. Colonic mass: Cause of #1, see above. Sigmoidoscopy with partially obstructing recto-sigmoid mass. Biopsy performed with pathology pending. CEA level elevated to 3.1. CT Chest ordered to evaluate for metastasis -> likely no mets, however see problem #3. MRI Pelvis shows mass lesion in the upper rectum with involvement of the muscularis propria without clear extension into the mesorectal fascia. Heme/Onc and Rad/Onc consulted for problems #2 and #3. Dr. Gillian Garcia aware of patient and will follow in outpatient setting; will need appointment. General Surgery consulted for evaluation for possible tumor resection -> due to location, comorbidities, service feels patient needs colorectal surgery and higher level of care at tertiary center. Lung mass: Patient has a history of NSCLC in remission since RUL resection in 2003. CT Chest this admission to evaluate for metastasis revealed 3.2 cm spiculated LLL mass, with malignancy the diagnosis of exclusion. Will ultimately need need biopsy of mass for further clarification if primary cancer vs. resurgence of previous NSCLC; likely core biopsy by IR in the future. NSCLC of right lung: History of RUL NSCLC s/p resection in 2003; remission since that time. see above Severe aortic stenosis: History of, as such patient is fairly preload dependent. Cardiology consulted given possible upcoming surgery and appreciate recomm endations: Echocardiogram 05/2022 showed severe valvular aortic stenosis with moderate aortic calcification, aortic valve area of 0.7 cm. May need repeat Echo prior to surgery, however, as patient is asymptomatic and aortic valve area is 0.7 cm, unlikely to recommend an aortic valve replacement surgery prior to colorectal surgery, especially given that the colorectal surgery for actively bleeding mass is an urgent problem at this time. Hypertension: On admit antihypertensives were held for acute GI bleed. Hyperlipidemia: Continue pravastatin. COPD (chronic obstructive pulmonary disease): Continue daily tiotropium bromide with albuterol INH as needed for wheezing/SOB. Plan- Transfer to [facility] for evaluation by colorectal surgery and continued care Patient is FULL CODE Total Time Total Time Spent Total Time Spent (In Minutes): 45 min Coding Level of Care Code D/C DAY MANAGEMENT >30 MINS Diagnoses Lower gastrointestinal hemorrhage K92.2 Colonic mass K63.89 Lung mass R91.8 NSCLC of right lung C34.91 Severe aortic stenosis I35.0 Hypertension I10 Hyperlipidemia E78.5 COPD (chronic obstructive pulmonary disease) J44.9
== END 2022-08-19 14:51 | disposition short-term general hospital (02) | DRG 375 ==
LOC: ED 04:21 → 2E 07:50

== ENCOUNTER 2022-10-05 08:31 | Inpatient (IN) ==
[2022-10-05] MEDS ORDERED: ALBUT/IPRATROP 3MG/0.5MG NEB 3 ML VIAL NEB STA (08:59)
[2022-10-05 09:23] LABS: Basophils # (auto) 0.03 K/uL (0-0.2); Basophils % (auto) 0.4 %; Eosinophils # (auto) 0.01 K/uL (0-0.50); Eosinophils % (auto) 0.1 %; Hematocrit (blood only) 38.6 % (34.1-44.9); Hemoglobin 12.3 g/dl (12.0-16.0); Immature Granulocytes # (auto) 0.03 K/uL (0.00-0.02); Immature Granulocytes % (auto) 0.4 %; Lymphocytes % (auto) 3.6 %; Mean Corpuscular Hgb Conc 31.9 g/dL (32.0-36.0); Mean Corpuscular Volume 94.1 fL (80.0-100.0); Mean Platelet Volume 9.4 fL (9.4-12.3); Monocytes # (auto) 1.05 K/uL (0.24-0.82); Monocytes % (auto) 12.6 %; Neutrophils # (auto) 6.92 K/uL (1.4-6.5); Neutrophils % (auto) 82.9 %; Platelet Count 248 K/uL (130-400); RDW Coefficient of Variation 12.9 % (11.5-14.5); RDW Standard Deviation 44.5 fL (36.4-46.3); White Blood Count 8.34 K/ul (4.8-10.8)
--- NOTE | 2022-10-05 09:25 | XRay Report ---
XR chest 1V portable CLINICAL HISTORY: Dyspnea. Lung cancer. COMPARISON STUDY: Chest radiograph June 11, 2020. Chest CT August 17, 2022. FINDINGS: Left suprahilar mass-like abnormality corresponds to the suspicious lesion on chest CT of N ember 2021. Right apical airspace opacity and volume loss is chronic. There are small bilateral pleural effusions. No pneumothorax. Mild interstitial pulmonary edema is present. There is moderate cardiomegaly. Calcified lingular granuloma is incidentally noted. IMPRESSION: 1. Interstitial pulmonary edema with small bilateral pleural effusions. Cardiomegaly. 2. Left suprahilar mass-like abnormality which corresponds to [facility] This is likely malignant. ACT 112: Negative or not required by law. Electronically signed by: Jose Manuel Bhagat M.D. 10/05/2022 9:24 AM
[2022-10-05 10:08] LABS: Albumin Globulin Ratio 1.3 (0.9-2); Albumin Level 4.1 gm/dl (3.4-5.0); BUN Creatinine Ratio 14.5 (10-20); Bilirubin,Total 0.9 mg/dl (0.2-1.0); Calcium 9.3 mg/dl (8.5-10.1); Creatinine Clr Calc Pharmacy 50.9 ml/min; Est GFR (African American) 101.5 ml/min; Est GFR (Non-African American) 87.6 ml/min; Globulin 3.1 gm/dl (2.5-4.0); Potassium 2.8 mmol/L (3.5-5.1); Total Protein 7.2 gm/dl (6.0-8.3)
[2022-10-05 10:38] LABS: Influenza A virus by PCR Negative (Neg); Influenza B virus by PCR Negative (Neg); RSV by PCR Negative (Neg)
[2022-10-05] MEDS ORDERED: POTASSIUM CHLORIDE CRTAB 20 MEQ TABCR PO ONE (10:45)
[2022-10-05 10:55] LABS: SARS CoV2 RNA(COVID-19) Ceph POSITIVE (Negative)
[2022-10-05] MEDS ORDERED: dexAMETHasone 6 MG in SYRINGE 0 ML IV ONE (11:15)
--- NOTE | 2022-10-05 11:23 | History & Physical Report ---
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 Allergies Allergy/AdvReac Type Severity Reaction Status Date / Time watermelon Allergy Unknown ` Verified 09/28/22 09:49 bupropion [From Wellbutrin] Allergy Verified 09/28/22 09:49 simvastatin Allergy Verified 09/28/22 09:49 alendronate sodium AdvReac Intermediate Nausea Verified 09/28/22 09:49 ibandronate sodium AdvReac Mild Gastrointestinal Verified 09/28/22 09:49 [From Boniva] Upset codeine AdvReac Unknown UPSET Verified 09/28/22 09:49 STOMACH atorvastatin AdvReac Verified 09/28/22 09:49 doxycycline AdvReac Verified 09/28/22 09:49 Sulfa (Sulfonamide AdvReac Verified 09/28/22 09:49 Antibiotics) sulfamethoxazole AdvReac Nausea Verified 09/28/22 09:49 [From Bactrim] trimethoprim [From Bactrim] AdvReac Nausea Verified 09/28/22 09:49 Home Medications Medication Instructions Recorded Confirmed Type aspirin 81 mg tablet,delayed 81 mg PO DAILY 05/06/19 09/28/22 History release verapamil 180 mg tablet,extended 360 mg PO DAILY #180 tabs 04/05/22 09/28/22 Rx release pravastatin 20 mg tablet 20 mg PO DAILY #90 tabs 06/16/22 09/28/22 Rx valsartan 160 mg tablet 160 mg PO BID #60 tabs 07/20/22 09/28/22 Rx ascorbic acid (vitamin C) 500 mg 500 mg PO DAILY 08/17/22 09/28/22 History tablet cholecalciferol (vitamin D3) 25 25 mcg PO DAILY 08/17/22 09/28/22 History mcg (1,000 unit) tablet (Vitamin D3) ferrous sulfate 325 mg (65 mg 325 mg PO 2XWK 08/17/22 09/28/22 History iron) tablet mupirocin 2 % topical ointment 1 applic topical DAILY #22 grams 09/18/22 09/28/22 Rx albuterol sulfate 90 mcg/actuation 2 puff inhalation Q6H PRN 09/28/22 09/28/22 Rx aerosol inhaler (Ventolin HFA) shortness of breath or wheezing #8 grams tiotropium bromide 18 mcg capsule 1 cap inhalation DAILY #30 09/28/22 09/28/22 Rx with inhalation device inhalations Past Med/Surg History Medical History Aortic stenosis due to bicuspid aortic valve BMI less than 19,adult Carotid artery plaque Carotid bruit COPD (chronic obstructive pulmonary disease) Fatigue History of adenocarcinoma of lung Hyperlipidemia Hypertension Insomnia Leukopenia Mitral regurgitation Nontoxic multinodular goiter Osteoporosis Tricuspid regurgitation Upper respiratory infection Vitamin D deficiency Surgical History History of tubal ligation 1977 S/P lobectomy of lung 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 Family History Father Myocardial infarction Hypertension Mother Vascular disorder Mother of supranuclear palsy Hypertension Denies family history of Ovarian cancer Prostate cancer Diabetes Breast cancer Colorectal cancer Social History Smoking Status: Former smoker Age Started Using Tobacco: 21; Age Quit Using Tobacco: 55; packs per day: 1; Cigarettes Per Day: 20; Second Hand Exposure: No; Hx Alcohol Use: No Hx Substance Use: No Preferred Language: E[place] Communication Ability: Effective Visual Impairment: Partially Limited Hearing Ability: Normal Splitter Head Required: No Beliefs That Will Affect Care: None marital status: / Current Living Situation: Alone current occupational status: employed 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 Feels Safe at Home: Yes Childhood Exposure to Second-Hand Smoke: No caffeine: No (Decaf Coffee ) Dental Care, Regularly: No Physical Activity Frequency: Does not Exercise Seatbelt Use: always Sunscreen Use: No Assistive Devices: None Results & Data Results & Data ([facility]) Vital Signs (Past 12 Hours) Vital Signs Temp Pulse Resp BP Pulse Ox O2 Del Method O2 Flow Rate 10/05/22 09:47 87 L Room Air 10/05/22 08:52 97 Nasal Cannula 3 10/05/22 08:46 97 Nasal Cannula 3 10/05/22 08:46 Nasal Cannula 3 10/05/22 08:46 37.1 C 99 H 16 132/80 80 L Room Air PG Care Time/CCT Total # of Minutes Spent Total Time Spent with Patient: Total time spent is greater than 50% in coordination of care (as documented) at patient's floor/unit and/or counseling patient: Coding
--- NOTE | 2022-10-05 11:28 | History & Physical Report ---
Date of Service October 05, 2022 Assessment & Plan (1) COVID-19: Plan: - 1 day of SOB, dry cough, tested positive 10/05 in ED. - Hypoxic to 80s on RA, now > 95% on RA. - CXR: Interstitial pulmonary edema with small bilateral pleural effusions. Cardiomegaly. Left suprahilar mass-like abnormality which corresponds to the suspicious lesion on chest CT of August 17, 2022. This is likely malignant. - Will treat with IV dexamethasone and remdesivir given her hypoxia, onset of symptoms < 5 days ago. - 20 mg IV Lasix ordered for interstitial edema noted. - D dimer ordered given hypoxia, tachycardia, elevated trop, and history fo cancer making PE within the differential--if wnl, will defer further workup. However, if elevated will obtain chest CT per PE protocol. - Isolation precautions. - Supportive care. (2) Elevated troponin: Plan: - HS trop 49, patient without chest pain/pressure and EKG without St segment or T wave changes--suspect demand ischemia from hypoxia, underlying mod/severe . - Will trend, obtain limited view echo for wma. (3) Hypokalemia: Plan: - 2.8, will replete and recheck in AM. (4) Severe aortic stenosis: Plan: - Echo 05/22: LV size, wall motion, systolic function normal. moderate LVH. diastolic dysfunction grade II. mod-severe . - CXR with interstitial edema, small b/l effusions. - 20 IV Lasix ordered, as above. - Watch volume status closely. - limited view echo ordered given elevated troponin. (5) Adenocarcinoma of left lung: Plan: - History fo R lobe adenocarcinoma s/p lobectomy in 2001, now with new adenocarcinoma in left lung. - [place] not to be a candidate for surgery given prior lobectomy, emphysema, severe . - Has seen dr. Garcia. PET scan scheduled for next Sunday, 10/11 and brain MRI 10/19. (6) COPD (chronic obstructive pulmonary disease): Plan: - Continue home inhalers, home O2. - DuoNeb scheduled/prn for COVID supportive care. (7) Hypertension: Plan: - Continue valsartan, verapamil. (8) Hyperlipidemia: Plan: - Continue pravastatin. Plan - Admit to medicine with telemetry. - SCDs, Lovenox for VTE ppx. - Full Code. History of Present Illness Chief Complaint: SOB x 1 day Primary Care Provider: Shawn Garcia MD Helen Araujo is a 76-year-old female with a past medical history significant for COPD, adenocarcinoma of right lung s/p right upper lobectomy in 2001, newly diagnosed left lung adenocarcinoma, severe , hypertension, hyperlipidemia, iron deficiency anemia who is presenting today with worsening SOB and a dry cough over the past day. She has no other complaints. She does have a history of COPD and recently diagnosed left lung cancer, but has previously been able to do her daily activities without any shortness of breath as long as she uses her inhalers as prescribed. She works part-time at a local grocery store, but has no known sick contacts. She did not have any chest pain, palpitations, fever/chills, myalgias, fatigue, weakness, headache. On presentation, SpO2 is in the 80s on room air, borderline tachycardic at 99, otherwise vital signs within normal limits. Positive for COVID-19. Labs notable for potassium of 2.8 troponin 49. CXR shows interstitial pulmonary edema with small bilateral pleural effusions, cardiomegaly, and a left suprahilar masslike abnormality which corresponds to a suspicious lesion seen on chest CT from August 2022, likely malignant. Allergies Allergy/AdvReac Type Severity Reaction Status Date / Time watermelon Allergy Unknown ` Verified 09/28/22 09:49 bupropion [From Wellbutrin] Allergy Verified 09/28/22 09:49 simvastatin Allergy Verified 09/28/22 09:49 alendronate sodium AdvReac Intermediate Nausea Verified 09/28/22 09:49 ibandronate sodium AdvReac Mild Gastrointestinal Verified 09/28/22 09:49 [From Boniva] Upset codeine AdvReac Unknown UPSET Verified 09/28/22 09:49 STOMACH atorvastatin AdvReac Verified 09/28/22 09:49 doxycycline AdvReac Verified 09/28/22 09:49 Sulfa (Sulfonamide AdvReac Verified 09/28/22 09:49 Antibiotics) sulfamethoxazole AdvReac Nausea Verified 09/28/22 09:49 [From Bactrim] trimethoprim [From Bactrim] AdvReac Nausea Verified 09/28/22 09:49 Home Medications Medication Instructions Recorded Confirmed Type aspirin 81 mg tablet,delayed 81 mg PO DAILY 05/06/19 09/28/22 History release verapamil 180 mg tablet,extended 360 mg PO DAILY #180 tabs 04/05/22 09/28/22 Rx release pravastatin 20 mg tablet 20 mg PO DAILY #90 tabs 06/16/22 09/28/22 Rx valsartan 160 mg tablet 160 mg PO BID #60 tabs 07/20/22 09/28/22 Rx ascorbic acid (vitamin C) 500 mg 500 mg PO DAILY 08/17/22 09/28/22 History tablet cholecalciferol (vitamin D3) 25 25 mcg PO DAILY 08/17/22 09/28/22 History mcg (1,000 unit) tablet (Vitamin D3) ferrous sulfate 325 mg (65 mg 325 mg PO 2XWK 08/17/22 09/28/22 History iron) tablet mupirocin 2 % topical ointment 1 applic topical DAILY #22 grams 09/18/22 09/28/22 Rx albuterol sulfate 90 mcg/actuation 2 puff inhalation Q6H PRN 09/28/22 09/28/22 Rx aerosol inhaler (Ventolin HFA) shortness of breath or wheezing #8 grams tiotropium bromide 18 mcg capsule 1 cap inhalation DAILY #30 09/28/22 09/28/22 Rx with inhalation device inhalations Past Med/Surg History Medical History Aortic stenosis due to bicuspid aortic valve BMI less than 19,adult Carotid artery plaque Carotid bruit COPD (chronic obstructive pulmonary disease) Fatigue History of adenocarcinoma of lung Hyperlipidemia Hypertension Insomnia Leukopenia Mitral regurgitation Nontoxic multinodular goiter Osteoporosis Tricuspid regurgitation Upper respiratory infection Vitamin D deficiency Surgical History History of tubal ligation 1977 S/P lobectomy of lung 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 Family History Father Myocardial infarction Hypertension Mother Vascular disorder Mother of supranuclear palsy Hypertension Denies family history of Ovarian cancer Prostate cancer Diabetes Breast cancer Colorectal cancer Social History Smoking Status: Former smoker Age Started Using Tobacco: 21; Age Quit Using Tobacco: 55; packs per day: 1; Cigarettes Per Day: 20; Second Hand Exposure: No; Hx Alcohol Use: No Hx Substance Use: No Preferred Language: Wolof Communication Ability: Effective Visual Impairment: Partially Limited Hearing Ability: Normal Medication Specialist Required: No Beliefs That Will Affect Care: None marital status: / Current Living Situation: Alone current occupational status: employed current occupation: works at [employer] doing [employer] and [employer] Feels Safe at Home: Yes Childhood Exposure to Second-Hand Smoke: No caffeine: No (Decaf Coffee ) Dental Care, Regularly: No Physical Activity Frequency: Does not Exercise Seatbelt Use: always Sunscreen Use: No Assistive Devices: None Review of Systems Review of Systems: Constitutional: No fever/chills, weakness, fatigue, myalgias, anorexia, night sweats Eyes: No diplopia, no worsening or blurred vision ENT: normal hearing, no trouble swallowing Respiratory: SOB with exertion, cough x 1 day; no sputum, dyspnea at rest Cardiovascular: No chest pain, tightness or palpitations Abdomen: No pain, nausea, vomiting, diarrhea or constipation : Denies dysuria, hematuria, increased urgency/frequency, urinary retention Musculoskeletal: No joint pain, calf pain, swelling Neurologic: No weakness, numbness/tingling, or balance problems Psychiatric: No anxiety or depression Skin: No rash or itch Physical Exam Physical Exam: General: awake, alert, no apparent distress Head: Normocephalic, atraumatic ENT: PERRL, EOMI, no pharyngeal exudate, mucous membranes moist Chest: decreased breath sounds at b/l lung bases and RUL; Cardiac: systolic murmur appreciated; Regular rate and rhythm, no JVD, normal peripheral pulses, good capillary refill Abdominal: NABS x 4 quadrants, soft, nontender to palpation, no rebound, guarding or tenderness Extremities: Normal inspection, no peripheral edema or erythema, calfs nontender to palpation Psych: Normal mood and affect Neuro: AAO x 3, strength intact bilaterally and rated 5/5, no motor deficits, speech is clear, no peripheral sensory deficits Skin: no rash or erythema Results & Data Results & Data ([facility]) Vital Signs (Past 12 Hours) Vital Signs Temp Pulse Resp BP Pulse Ox O2 Del Method O2 Flow Rate 10/05/22 09:47 87 L Room Air 10/05/22 08:52 97 Nasal Cannula 3 10/05/22 08:46 97 Nasal Cannula 3 10/05/22 08:46 Nasal Cannula 3 10/05/22 08:46 37.1 C 99 H 16 132/80 80 L Room Air Laboratory Results Abnormal lab results 10/05/22 10/05/22 10/05/22 Range/Units 08:43 08:43 09:16 MCHC 31.9 L (32.0-36.0) g/dL Neut # (Auto) 6.92 H (1.4-6.5) K/uL Lymph # (Auto) 0.30 L (1.2-3.4) K/uL [place] # (Auto) 1.05 H (0.24-0.82) K/uL Immature Gran # (Auto) 0.03 H (0.00-0.02) K/uL Potassium 2.8 L (3.5-5.1) mmol/L Carbon Dioxide 33 H (21-32) mmol/L Glucose 119 H (70-99(Fasting)) mg/dl Troponin I High Sens 49.0 H (0-14) pg/ml SARS-CoV-2 (PCR) POSITIVE A* (Negative) Diagnostic Findings Chest X-Ray 10/05/22 08:43 XR chest 1V portable CLINICAL HISTORY: Dyspnea. Lung cancer. COMPARISON STUDY: Chest radiograph June 11, 2020. Chest CT August 17, 2022. FINDINGS: Left suprahilar mass-like abnormality corresponds to the suspicious lesion on chest CT of August 17, 2022. Right apical airspace opacity and volume loss is chronic. There are small bilateral pleural effusions. No pneumothorax. Mild interstitial pulmonary edema is present. There is moderate cardiomegaly. Calcified lingular granuloma is incidentally noted. IMPRESSION: 1. Interstitial pulmonary edema with small bilateral pleural effusions. Ca rdiomegaly. 2. Left suprahilar mass-like abnormality which corresponds to the suspicious lesion on chest CT of August 17, 2022. This is likely malignant. ACT 112: Negative or not required by law. Electronically signed by: Jose Manuel Bhagat M.D. 10/05/2022 9:24 AM ECG Additional Comments: Poor data quality, interpretation may be adversely affected Normal sinus rhythm with sinus arrhythmia Cannot rule out Anterior infarct (cited on or before 05-OCT-2022) Abnormal ECG When compared with ECG of 17-AUG-2022 04:36, Borderline criteria for Inferior infarct are no longer Present Serial changes of evolving Anterior infarct Present. Code Status & VTE Plan Code Status Full Code. PG Care Time/CCT Total # of Minutes Spent Total Time Spent with Patient: Total time spent is greater than 50% in coordination of care (as documented) at patient's floor/unit and/or counseling patient: Coding Level of Care Code 78373 INT INP/OBS CARE 3/75MIN Diagnoses COVID-19 U07.1 Elevated troponin R77.8 Hypokalemia E87.6 Severe aortic stenosis I35.0 Adenocarcinoma of left lung C34.92 COPD (chronic obstructive pulmonary disease) J44.9 Hypertension I10 Hyperlipidemia E78.5
--- NOTE | 2022-10-05 11:31 | Emergency Department Note ---
Impression & Plan COPD (chronic obstructive pulmonary disease), History of adenocarcinoma of lung, Mass of left lung, COVID-19 ED Provider Note CHIEF COMPLAINT: Shortness of breath HISTORY OF PRESENT ILLNESS: This 76-year-old female patient with a history of lung cancer status post lobectomy presents to the emergency department with complaints of increased shortness of breath over the last several days. Patient states she has a remote history of right lobectomy 20+ years ago but was recently diagnosed with a left upper lobe tumor. She has seen oncology and is due to have an MRI of her head and will follow back up with oncology for treatment plan. Patient states she uses Spiriva at home otherwise does not use nebulizers. She has been informed that she has COPD in the past but states she does not really have issues. This is the first that she has barely been short of breath. She denies any recent cough or mucus production. She denies any fevers. REVIEW OF SYSTEMS: Please see above. ALLERGIES: Sulfa, doxycycline, atorvastatin, codeine, Boniva, alendronate, Wellbutrin, watermelon MEDICATIONS: Albuterol, vitamin C, aspirin 81 mg, vitamin D3, iron, pravastatin, tiotropium bromide, valsartan, verapamil PMH: COPD, lung cancer SOCIAL HISTORY: , former smoker DDx: Reactive airway disease, pneumonia, pneumothorax, COPD, CHF, infections, cardiac ischemia, pulmonary embolism, musculoskeletal, gastrointestinal, as well as other pathologies. PHYSICAL EXAM: Vital signs reviewed. General: Chronically ill-appearing, thin and frail 76-year-old female, in no significant distress. HEENT: No scleral icterus, PERRLA, neck supple. Dry mucous membranes Cardiovascular: Regular rate and rhythm, no extra sounds. Pulmonary: Diminished breath sounds on the right upper, crackles to the left upper Abdomen: Soft, nontender, nondistended, positive bowel sounds. Musculoskeletal: Atraumatic, no peripheral edema. Neurologic: Patient awake alert and oriented x 3 Skin: Warm, dry, no rash EMERGENCY DEPARTMENT COURSE/MDM: External medical records were reviewed. IV access was obtained and laboratory work was drawn. The patient was hydrated with normal saline solution. She was given IV Decadron and DuoNeb treatments. Chest x-ray was performed and reveals no evidence of congestive failure but there is postsurgical change consistent with her lobectomy, left perihilar mass and left pleural effusion. Laboratory work reveals a hypokalemia and positive COVID. Patient's potassium was repleted orally. Patient's case was discussed with the hospitalist service as the patient will require further management of her COPD exacerbation and assessment of her perihilar mass. Patient was made aware of the plan and agreed. MONITORING: An order for cardiac monitoring was placed and the patient is noted to be in a normal sinus rhythm at 99 beats per minute. RADIOLOGY: Chest x-ray to my interpretation reveals changes consistent with emphysema, postsurgical changes noted to the right upper lung field status post lobectomy with appropriate mediastinal shift. Elevation in the left perihilar region concerning for mass. Consolidation at the left lung base consistent with pleural effusion. Otherwise deferred to rads over read. EKG: To my interpretation reveals a normal sinus rhythm at 85 bpm. Premature atrial complexes are noted, prolonged QTC at 519. 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 When compared to previous dated August 17, 2022, PACs are now noted. QTC has lengthened. 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 Family History Father Myocardial infarction Hypertension Mother Vascular disorder Mother of supranuclear palsy Hypertension Denies family history of Ovarian cancer Prostate cancer Diabetes Breast cancer Colorectal cancer Social History Smoking Status: Former smoker Age Started Using Tobacco: 21; Age Quit Using Tobacco: 55; packs per day: 1; Cigarettes Per Day: 20; Second Hand Exposure: No; Hx Alcohol Use: Yes Alcohol type: wine Alcohol Intake Frequency: Monthly or Less Alcohol Intake Frequency Comment: socially Hx Substance Use: No Preferred Language: Indonesian Communication Ability: Effective Visual Impairment: Partially Limited Hearing Ability: Normal Pet Care Associate Required: No Beliefs That Will Affect Care: None marital status: / Current Living Situation: Alone current occupational status: employed current occupation: works at [employer] doing [employer] and [employer] Feels Safe at Home: Yes Childhood Exposure to Second-Hand Smoke: No caffeine: No (Decaf Coffee ) Dental Care, Regularly: No Physical Activity Frequency: Does not Exercise Seatbelt Use: always Sunscreen Use: No Assistive Devices: None Allergies Allergies Allergy/AdvReac Type Severity Reaction Status Date / Time watermelon Allergy Unknown ` Verified 10/11/22 13:57 bupropion [From Wellbutrin] Allergy Verified 10/11/22 13:57 simvastatin Allergy Verified 10/11/22 13:57 alendronate sodium AdvReac Intermediate Nausea Verified 10/11/22 13:57 ibandronate sodium AdvReac Mild Gastrointestinal Verified 10/11/22 13:57 [From Boniva] Upset codeine AdvReac Unknown UPSET Verified 10/11/22 13:57 STOMACH atorvastatin AdvReac Verified 10/11/22 13:57 doxycycline AdvReac Verified 10/11/22 13:57 Sulfa (Sulfonamide AdvReac Verified 10/11/22 13:57 Antibiotics) sulfamethoxazole AdvReac Nausea Verified 10/11/22 13:57 [From Bactrim] trimethoprim [From Bactrim] AdvReac Nausea Verified 10/11/22 13:57 Home Meds Home Medications Medication Instructions Recorded Confirmed aspirin 81 mg tablet,delayed 81 mg PO DAILY 05/06/19 10/11/22 release ascorbic acid (vitamin C) 500 mg 500 mg PO DAILY 08/17/22 10/11/22 tablet cholecalciferol (vitamin D3) 25 25 mcg PO DAILY 08/17/22 10/11/22 mcg (1,000 unit) tablet (Vitamin D3) ferrous sulfate 325 mg (65 mg 325 mg PO 2XWK 08/17/22 10/11/22 iron) tablet Previous Rx's Medication Instructions Recorded verapamil 180 mg tablet,extended 360 mg PO DAILY #180 tabs 04/05/22 release pravastatin 20 mg tablet 20 mg PO DAILY #90 tabs 06/16/22 valsartan 160 mg tablet 160 mg PO BID #60 tabs 07/20/22 mupirocin 2 % topical ointment 1 applic topical DAILY #22 grams 09/18/22 albuterol sulfate 90 mcg/actuation 2 puff inhalation Q6H PRN 09/28/22 aerosol inhaler (Ventolin HFA) shortness of breath or wheezing #8 grams tiotropium bromide 18 mcg capsule 1 cap inhalation DAILY #30 09/28/22 with inhalation device inhalations dexamethasone 6 mg tablet 6 mg PO DAILY #8 tabs 10/06/22 Results & Data (ED) Vital Signs Vital Signs - 24 hr 10/05/22 08:46 10/05/22 08:46 10/05/22 08:46 Temperature 37.1 C Temperature Source Oral Pulse Rate 99 H Respiratory Rate 16 Blood Pressure 132/80 Blood Pressure Mean 97 Pulse Oximetry 80 L 97 Oxygen Delivery Method Room Air Nasal Cannula Nasal Cannula Oxygen Flow Rate 3 3 Sepsis Recent Fever Within 48 Hours No Sepsis New/Unexplained Change in Mental Status N/A Sepsis Action Taken by Nursing No Action Required 10/05/22 08:52 10/05/22 09:47 Temperature Temperature Source Pulse Rate Respiratory Rate Blood Pressure Blood Pressure Mean Pulse Oximetry 97 87 L Oxygen Delivery Method Nasal Cannula Room Air Oxygen Flow Rate 3 Sepsis Recent Fever Within 48 Hours Sepsis New/Unexplained Change in Mental Status Sepsis Action Taken by Care Home Medications Current Medication List: was personally reviewed by me Laboratory Data Attestation: I reviewed the patient's lab results. 10/06/22 02:23 10/06/22 02:23 Lab Results 10/05/22 10/05/22 10/05/22 Range/Units 08:43 08:43 09:16 WBC 8.34 (4.8-10.8) K/ul RBC 4.10 (3.93-5.22) M/uL Hgb 12.3 (12.0-16.0) g/dl Hct 38.6 (34.1-44.9) % MCV 94.1 (80.0-100.0) fL MCH 30.0 (25.0-34.0) pg MCHC 31.9 L (32.0-36.0) g/dL RDW Std Deviation 44.5 (36.4-46.3) fL RDW Coeff of Sarah 12.9 (11.5-14.5) % Plt Count 248 (130-400) K/uL MPV 9.4 (9.4-12.3) fL Immature Gran % (Auto) 0.4 % Neut % (Auto) 82.9 % Lymph % (Auto) 3.6 % [place] % (Auto) 12.6 % Eos % (Auto) 0.1 % Baso % (Auto) 0.4 % Neut # (Auto) 6.92 H (1.4-6.5) K/uL Lymph # (Auto) 0.30 L (1.2-3.4) K/uL [place] # (Auto) 1.05 H (0.24-0.82) K/uL Eos # (Auto) 0.01 (0-0.50) K/uL Baso # (Auto) 0.03 (0-0.2) K/uL Immature Gran # (Auto) 0.03 H (0.00-0.02) K/uL Sodium 141 (136-145) mmol/L Potassium 2.8 L (3.5-5.1) mmol/L Chloride 99 (98-107) mmol/L Carbon Dioxide 33 H (21-32) mmol/L Anion Gap 9 (3-11) BUN 9 (6-23) mg/dl Creatinine 0.62 (0.6-1.2) mg/dl Est Cr Clr Drug Dosing 50.9 ml/min Est GFR ( Amer) 101.5 ml/min Est GFR (Non-Af Amer) 87.6 ml/min BUN/Creatinine Ratio 14.5 (10-20) Glucose 119 H (70-99(Fasting)) mg/dl Calcium 9.3 (8.5-10.1) mg/dl Magnesium 2.0 (1.7-2.4) mg/dl Total Bilirubin 0.9 (0.2-1.0) mg/dl AST 16 (13-39) U/L ALT 9 (7-52) U/L Alkaline Phosphatase 69 (34-104) U/L Troponin I High Sens 49.0 H (0-14) pg/ml Total Protein 7.2 (6.0-8.3) gm/dl Albumin 4.1 (3.4-5.0) gm/dl Globulin 3.1 (2.5-4.0) gm/dl Albumin/Globulin Ratio 1.3 (0.9-2) SARS-CoV-2 (PCR) POSITIVE A* (Negative) Influenza Type A (PCR) Negative (Neg) Influenza Type B (PCR) Negative (Neg) RSV (RT-PCR) Negative (Neg) Administered Medications Discontinued Medications Albuterol (Albut/Ipratrop 3mg/0.5mg Neb 3 Ml Vial) 3 ml NEB NOW STA; Protocol Stop: 10/05/22 09:00 Last Admin: 10/05/22 09:31 Dose: 3 ml Documented By: MELISSA Albuterol (Albut/Ipratrop 3mg/0.5mg Neb 3 Ml Vial) 3 ml INH Q6R POLLY Stop: 11/04/22 14:22 Last Admin: 10/06/22 13:24 Dose: 3 ml Documented By: Admin: 10/06/22 07:50 Dose: 3 ml Documented By: Admin: 10/06/22 00:36 Dose: 3 ml Documented By: JUAN DIEGO Admin: 10/05/22 17:48 Dose: 3 ml Documented By: Admin: 10/05/22 15:18 Dose: 3 ml Documented By: ALBERTINA Ascorbic Acid (Ascorbic Acid 500 Mg Tab) 500 mg PO DAILY [facility] Stop: 11/05/22 08:59 Last Admin: 10/06/22 09:10 Dose: 500 mg Documented By: ROSALIE Aspirin (Aspirin 81 Mg Ectab) 81 mg PO DAILY [facility] Stop: 11/05/22 08:59 Last Admin: 10/06/22 09:11 Dose: 81 mg Documented By: ROSALIE Dexamethasone (Dexamethasone Sod Inj 4 Mg/Ml Vial) Confirm Administered Dose 8 mg .ROUTE .STK-MED ONE Stop: 10/05/22 12:49 Last Admin: 10/05/22 12:56 Dose: 6 mg Documented By: PETER Enoxaparin Sodium (Enoxaparin Inj 40 Mg/0.4 Ml Syr) 40 mg SQ Q24H [facility] Stop: 11/04/22 14:22 Last Admin: 10/05/22 19:18 Dose: Not Given Documented By: MONIQUE Furosemide (Furosemide Inj 20 Mg/2 Ml Vial) 20 mg IV ONE ONE Stop: 10/05/22 11:56 Last Admin: 10/05/22 12:26 Dose: 20 mg Documented By: GROVER Dexamethasone 6 mg/ Syringe 1.5 mls @ 1 mls/min IV ONE ONE Stop: 10/05/22 11:16 Last Admin: 10/05/22 12:57 Dose: Not Given Documented By: PETER Remdesivir 200 mg/ Sodium (Chloride) 250 mls @ 125 mls/hr IV TODAY@1500 ONE; Protocol Stop: 10/05/22 16:59 Last Infusion: 10/05/22 19:18 Dose: 0 mls/hr Documented By: Admin: 10/05/22 15:55 Dose: 125 mls/hr Documented By: PETER Remdesivir 100 mg/ Sodium (Chloride) 250 mls @ 250 mls/hr IV Q24H POLLY Stop: 10/09/22 12:59 Last Infusion: 10/06/22 12:00 Dose: 0 mls/hr Documented By: Admin: 10/06/22 11:25 Dose: 250 mls/hr Documented By: ROSALIE Dexamethasone 6 mg/ Syringe 1.5 mls @ 1 mls/min IV DAILY [facility] Stop: 10/16/22 08:59 Last Admin: 10/06/22 09:07 Dose: 1 mls/min Documented By: ROSALIE Mupirocin (Mupirocin 2% Oint 22 Gm Tube) 1 appln TOP DAILY [facility] Stop: 11/05/22 08:59 Last Admin: 10/06/22 09:09 Dose: Not Given Documented By: ROSALIE Potassium Chloride (Potassium Chloride Crtab 20 Meq Tabcr) 40 meq PO NOW ONE Stop: 10/05/22 10:46 Last Admin: 10/05/22 11:10 Dose: 40 meq Documented By: PETER Potassium Chloride (Potassium Chloride Crtab 20 Meq Tabcr) 20 meq PO BID POLLY Stop: 10/07/22 20:59 Last Admin: 10/06/22 09:10 Dose: 20 meq Documented By: Admin: 10/05/22 20:49 Dose: 20 meq Documented By: SHERI Umeclidinium [place] (Umeclidinium [place] 62.5mcg/Blister 7 Puffs/Inhaler) 1 puffs INH DAILY [facility] Stop: 11/05/22 08:59 Last Admin: 10/06/22 09:09 Dose: 1 puffs Documented By: ROSALIE Valsartan (Valsartan 80 Mg Tab) 160 mg PO BID POLLY Stop: 11/04/22 20:59 Last Admin: 10/06/22 09:18 Dose: 160 mg Documented By: Admin: 10/05/22 20:46 Dose: 160 mg Documented By: SHERI Verapamil HCl (Verapamil Hcl 180 Mg Tabcr) 360 mg PO DAILY [facility] Stop: 11/05/22 08:59 Last Admin: 10/06/22 09:10 Dose: 360 mg Documented By: ROSALIE Vitamin D (Cholecalciferol 1,000 Units 25 Mcg Tab) 1,000 units PO DAILY PO[facility] Stop: 11/05/22 08:59 Last Admin: 10/06/22 09:11 Dose: 1,000 units Documented By: ROSALIE Imaging Data Radiologist's Impression: Chest X-Ray 10/05/22 08:43 XR chest 1V portable CLINICAL HISTORY: Dyspnea. Lung cancer. COMPARISON STUDY: Chest radiograph June 11, 2020. Chest CT August 17, 2022. FINDINGS: Left suprahilar mass-like abnormality corresponds to the suspicious lesion on chest CT of August 17, 2022. Right apical airspace opacity and volume loss is chronic. There are small bilateral pleural effusions. No pneumothorax. Mild interstitial pulmonary edema is present. There is moderate cardiomegaly. Calcified lingular granuloma is incidentally noted. IMPRESSION: 1. Interstitial pulmonary edema with small bilateral pleural effusions. Cardiomegaly. 2. Left suprahilar mass-like abnormality which corresponds to the suspicious lesion on chest CT of August 17, 2022. This is likely malignant. ACT 112: Negative or not required by law. Electronically signed by: Jose Manuel Bhagat M.D. 10/05/2022 9:24 AM Blood Pressure Blood Pressure Findings: Elevated blood pressure Blood Pressure Disposition: further management by hospitalist Discharge Plan Visit Data Chief Complaint: Shortness of Breath/Dyspnea ED Provider: Savana Bautista Discharge Problem: COPD (chronic obstructive pulmonary disease), History of adenocarcinoma of lung, Mass of left lung, COVID-19 Patient Disposition: Admitted As Inpatient Discharge Instructions Interventions: ED Discharge Assessment Last Done: 10/05/22 20:12 : COPD (chronic obstructive pulmonary disease) Qualifiers: COPD type: COPD with acute exacerbation Qualified Code(s): J44.1 - Chronic obstructive pulmonary disease with (acute) exacerbation
[2022-10-05] MEDS ORDERED: FUROSEMIDE INJ 20 MG/2 ML VIAL IV ONE (11:55)
[2022-10-05 12:21] LABS: Appearance Urine Clear (Clear); Bacteria Urine Automated Negative (Negative); Bilirubin Urine Negative (Negative); Blood Urine Negative (Negative); Color Urine Dark Yellow; Epithelial Cell Urine Auto >30 /lpf (0-5); Glucose Urine UA Negative (Negative); Ketones Urine Trace (Negative); Leukocyte Esterase Urine Trace (Negative); Nitrite Urine Negative (Negative); Urobilinogen Urine Negative (Negative); pH Urine 7.5 (4.5-7.5)
[2022-10-05 12:27] LABS: Protein Urine 1+ (Negative)
[2022-10-05 12:44] LABS: D Dimer 380 ug/L FEU (0-500)
[2022-10-05 12:44] LABS: Mucus Urine Present (None Prsent)
[2022-10-05] MEDS ORDERED: DEXAMETHASONE SOD INJ 4 MG/ML VIAL ONE (12:48)
[2022-10-05 12:50] LABS: Cast Urine Automated 0 /lpf (0-5)
[2022-10-05] MEDS ORDERED: ALBUT/IPRATROP 3MG/0.5MG NEB 3 ML VIAL NEB PRN (14:23)
[2022-10-05] MEDS ORDERED: ACETAMINOPHEN 325 MG TAB PO PRN (14:23)
[2022-10-05] MEDS ORDERED: ALUMINUM/MAGNESIUM SUSP 30 ML UDC PO PRN (14:23)
[2022-10-05] MEDS ORDERED: POLYETHYLENE (MIRALAX) 17 GM PACK PO PRN (14:23)
[2022-10-05] MEDS ORDERED: ENOXAPARIN INJ 40 MG/0.4 ML SYR SQ SCH (14:23)
[2022-10-05] MEDS ORDERED: REMDESIVIR 200 MG in SODIUM CHLORIDE 0.9% 210 ML IV ONE (15:00)
[2022-10-05] MEDS: ALBUT/IPRATROP 3MG/0.5MG NEB 3 ML VIAL INH SCH ×2 (15:18→17:48)
--- NOTE | 2022-10-05 17:40 | XCELERA ---
[id number]
[2022-10-05] MEDS: VALSARTAN 80 MG TAB PO SCH (20:46)
[2022-10-05] MEDS: POTASSIUM CHLORIDE CRTAB 20 MEQ TABCR PO SCH (20:49)
[2022-10-06] MEDS: ALBUT/IPRATROP 3MG/0.5MG NEB 3 ML VIAL INH SCH ×3 (00:36→13:24)
[2022-10-06 03:16] LABS: Albumin Level 3.5 gm/dl (3.4-5.0); BUN Creatinine Ratio 21.7 (10-20); Bilirubin Direct 0.2 mg/dl (0-0.2); Bilirubin,Total 0.7 mg/dl (0.2-1.0); Creatinine Clr Calc Pharmacy 50.1 ml/min; Est GFR (African American) 102.6 ml/min; Est GFR (Non-African American) 88.5 ml/min; Potassium 4.1 mmol/L (3.5-5.1); Total Protein 6.2 gm/dl (6.0-8.3)
[2022-10-06 03:33] LABS: Hematocrit (blood only) 34.1 % (34.1-44.9); Immature Granulocytes # (auto) 0.01 K/uL (0.00-0.02); Immature Granulocytes % (auto) 0.3 %; Lymphocytes # (auto) 0.13 K/uL (1.2-3.4); Lymphocytes % (auto) 4.2 %; Mean Corpuscular Hemoglobin 30.4 pg (25.0-34.0); Mean Corpuscular Hgb Conc 32.3 g/dL (32.0-36.0); Mean Corpuscular Volume 94.2 fL (80.0-100.0); Mean Platelet Volume 9.7 fL (9.4-12.3); Monocytes # (auto) 0.25 K/uL (0.24-0.82); Monocytes % (auto) 8.1 %; Neutrophils # (auto) 2.71 K/uL (1.4-6.5); Neutrophils % (auto) 87.4 %; Platelet Count 213 K/uL (130-400); RDW Coefficient of Variation 12.9 % (11.5-14.5); Red Blood Count 3.62 M/uL (3.93-5.22)
--- NOTE | 2022-10-06 05:20 | Electrocardiogram Report ---
Test Reason : Blood Pressure : / mmHG Vent. Rate : 085 BPM Atrial Rate : 085 BPM P-R Int : 130 ms QRS Dur : 070 ms QT Int : 436 ms P-R-T Axes : 092 084 089 degrees QTc Int : 519 ms Poor data quality, interpretation may be adversely affected Normal sinus rhythm Premature atrial complexes Cannot rule out Anterior infarct (cited on or before 05-OCT-2022) Prolonged QT Abnormal ECG When compared with ECG of 17-AUG-2022 04:36, Premature atrial complexes are now Present QT has lengthened Confirmed by Olayinka Kc ([id number]) on 10/06/2022 5:20:16 AM Referred By: REFERRED SELF Confirmed By:Olayinka Kc
[2022-10-06] MEDS ORDERED: ASPIRIN 81 MG ECTAB PO SCH (09:00)
[2022-10-06] MEDS ORDERED: UMECLIDINIUM BROMIDE 62.5MCG/BLISTER 7 PUFFS/INHALER INH SCH (09:00)
[2022-10-06] MEDS ORDERED: CHOLECALCIFEROL 1,000 UNITS 25 MCG TAB PO SCH (09:00)
[2022-10-06] MEDS ORDERED: ASCORBIC ACID 500 MG TAB PO SCH (09:00)
[2022-10-06] MEDS ORDERED: VERAPAMIL HCL 180 MG TABCR PO SCH (09:00)
[2022-10-06] MEDS ORDERED: MUPIROCIN 2% OINT 22 GM TUBE TOP SCH (09:00)
[2022-10-06] MEDS ORDERED: dexAMETHasone 6 MG in SYRINGE 0 ML IV SCH (09:00)
[2022-10-06] MEDS: POTASSIUM CHLORIDE CRTAB 20 MEQ TABCR PO SCH (09:10)
[2022-10-06] MEDS: VALSARTAN 80 MG TAB PO SCH (09:18)
[2022-10-06] MEDS ORDERED: REMDESIVIR 100 MG in SODIUM CHLORIDE 0.9% 230 ML IV SCH (12:00)
--- NOTE | 2022-10-06 15:04 | Discharge Summary ---
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 She has no other complaints. She does have a history of COPD and recently diagnosed left lung cancer, but has previously been able to do her daily activities without any shortness of breath as long as she uses her inhalers as prescribed. She works part-time at a local grocery store, but has no known sick contacts. She did not have any chest pain, palpitations, fever/chills, myalgias, fatigue, weakness, headache. On presentation, SpO2 is in the 80s on room air, borderline tachycardic at 99, otherwise vital signs within normal limits. Positive for COVID-19. Labs notable for potassium of 2.8 troponin 49. CXR shows interstitial pulmonary edema with small bilateral pleural effusions, cardiomegaly, and a left suprahilar masslike abnormality which corresponds to a suspicious lesion seen on chest CT from August 2022, likely malignant. Principal Diagnosis COVID 19 Discharge Exam General: awake, alert, no apparent distress Head: Normocephalic, atraumatic ENT: PERRL, EOMI, no pharyngeal exudate, mucous membranes moist Chest: CTA B/L Cardiac: systolic murmur appreciated; Regular rate and rhythm, no JVD, normal peripheral pulses, good capillary refill Abdominal: NABS x 4 quadrants, soft, nontender to palpation, no rebound, guarding or tenderness Extremities: Normal inspection, no peripheral edema or erythema, calfs nontender to palpation Psych: Normal mood and affect Neuro: AAO x 3, strength intact bilaterally and rated 5/5, no motor deficits, speech is clear, no peripheral sensory deficits Skin: no rash or erythema Discharge Data Allergies Allergy/AdvReac Type Severity Reaction Status Date / Time watermelon Allergy Unknown ` Verified 09/28/22 09:49 bupropion [From Wellbutrin] Allergy Verified 09/28/22 09:49 simvastatin Allergy Verified 09/28/22 09:49 alendronate sodium AdvReac Intermediate Nausea Verified 09/28/22 09:49 ibandronate sodium AdvReac Mild Gastrointestinal Verified 09/28/22 09:49 [From Boniva] Upset codeine AdvReac Unknown UPSET Verified 09/28/22 09:49 STOMACH atorvastatin AdvReac Verified 09/28/22 09:49 doxycycline AdvReac Verified 09/28/22 09:49 Sulfa (Sulfonamide AdvReac Verified 09/28/22 09:49 Antibiotics) sulfamethoxazole AdvReac Nausea Verified 09/28/22 09:49 [From Bactrim] trimethoprim [From Bactrim] AdvReac Nausea Verified 09/28/22 09:49 Consultations 10/05/22 12:58 ED Decision to Admit Stat Hospital Course (1) COVID-19: - 1 day of SOB, dry cough, tested positive 10/05 in ED. - Hypoxic to 80s on RA, now > 95% on RA. - CXR: Interstitial pulmonary edema with small bilateral pleural effusions. Cardiomegaly. Left suprahilar mass-like abnormality which corresponds to the suspicious lesion on chest CT of August 17, 2022. This is likely malignant. - Will treat with IV dexamethasone and remdesivir given her hypoxia, onset of symptoms < 5 days ago. - 20 mg IV Lasix ordered for interstitial edema noted. - D dimer ordered given hypoxia, tachycardia, elevated trop, and history fo cancer making PE within the differential--if wnl, will defer further workup. However, if elevated will obtain chest CT per PE protocol. - Isolation precautions. - Supportive care. On 10/06 Patient improved on dexamethasone/ remdesevir. Patient had loose stools over night but this has subsided today. Will continue decaron fro a total of 10 days. Patient may return to work on 10/14. Patient will require 2 liters on ambulation. recommend followup with PCP> (2) Elevated troponin: - HS trop 49, patient without chest pain/pressure and EKG without St segment or T wave changes--suspect demand ischemia from hypoxia, underlying mod/severe . - echo completed. Patient should followup with cardiology to discuss treatment for severe aortic stenosis. (3) Hypokalemia: - 2.8, will replete and recheck in AM. (4) Severe aortic stenosis: - Echo 05/22: LV size, wall motion, systolic function normal. moderate LVH. diastolic dysfunction grade II. mod-severe . - CXR with interstitial edema, small b/l effusions. - 20 IV Lasix ordered, as above. - Watch volume status closely. - limited view echo completed. (5) Adenocarcinoma of left lung: - History fo R lobe adenocarcinoma s/p lobectomy in 2001, now with new adenocarcinoma in left lung. - [place] not to be a candidate for surgery given prior lobectomy, emphysema, severe . - Has seen dr. Garcia. PET scan scheduled for next Sunday, 10/11 and brain MRI 10/19. (6) COPD (chronic obstructive pulmonary disease): - Continue home inhalers, home O2. - DuoNeb scheduled/prn for COVID supportive care. (7) Hypertension: - Continue valsartan, verapamil. (8) Hyperlipidemia: - Continue pravastatin. (9) Low BMI: Underweight with BMI 14.6 76 yo female with hx R lung adenocarcinoma, now with L lung adenocarcinoma. Rev iew of geospatial developer consult notes pt is only 70% of IBW and is classified as underweight (BMI 14.6) Treatment: geospatial developer consult, boost breeze bid btwn meals, smaller more frequent meals, repleted lytes Plan - Admit to medicine with telemetry. - SCDs, Lovenox for VTE ppx. - Full Code. Total Time Total Time Spent Total Time Spent (In Minutes): 35 Discharge Plan Discharge Items Patient Disposition: Home - Self-Care Reason For Visit: COVID Discharge Diagnosis: COVID Activity: Resume your previous activity Non-emergency contact: Primary Care Provider Call non-emergency contact if: you have any medication questions Follow-up/Referrals: Shawn Garcia MD [Primary Care Provider] - 10/11/22 2:00 pm Diet: Regular Addtl Attending Provider Instructions: Coronavirus disease 2019 (COVID-19) is a virus that causes a respiratory illness. It is caused by a coronavirus called 2019 novel coronavirus (2019- nCoV). There are many types of coronavirus. Coronaviruses are a very common cause of bronchitis. They may sometimes cause lung infection(pneumonia). Symptoms can range from mild to severe respiratory illness. These viruses are also foundin some animals. COVID-19 was first found in people in [facility], in late 2018. In 2020, several cases of COVID-19 have been confirmed in the [place] Public health officials are working to find the source. How the virus spreads is not yet fully known. It may be spread through droplets of fluid that a person coughs or sneezes into the air. It may be spread if you touch a surface with virus on it, such as a handle or object, and then touch your mouth. What are the symptoms of COVID-19? Some people have no symptoms or mild symptoms. Symptoms may appear 2 to 14 days after contact with the virus. Symptoms can include: Fever Coughing Trouble breathing What are possible complications from COVID-19? In many cases, this virus can cause infection (pneumonia) in both lungs. In some cases, this can cause . This is rare as we now know how to treat COVID. Please take your decadron every day for 8 days as this will help prevent you from getting sicker. Follow all instructions from your healthcare provider. Dont leave your home, except to get medical care. As you quarantine until Sunday PM. Dont go to work, school, or public areas. Dont use public transport or taxis. Stay away from other people in your home. Have them wear face masks around you. Dont share household items or food. Wear a face mask if you can. This includes at home or in a medical facility. Cover your face with a tissue when you cough or sneeze. Throw the tissue away. Wash your hands. Wash your hands often. You can go out to public with a Mask on Sunday in the PM. You can return to work on Sunday in the afternoon. When to call your healthcare provider Call your healthcare provider: If you have been diagnosed with COVID-19 and your symptoms are worse Pending Studies at Discharge: No Stand-Alone Forms: My [facility], Work/School Release, Smoking Cessation Medications and DC Order Prescriptions: New dexamethasone 6 mg tablet 6 mg PO DAILY Qty: 8 0RF Rx Instructions: Take first dose on 10/06/22 Continued verapamil 180 mg tablet extended release 360 mg PO DAILY Qty: 180 3RF mupirocin 2 % ointment 1 applic topical DAILY Qty: 22 0RF Rx Instructions: Apply to area of the left wrist daily with dressing changes until healed. pravastatin 20 mg tablet 20 mg PO DAILY Qty: 90 3RF albuterol sulfate [Ventolin HFA] 90 mcg/actuation HFA aerosol inhaler 2 puff INH Q6H PRN (Reason: shortness of breath or wheezing) Qty: 8 6RF tiotropium bromide 18 mcg capsule, w/inhalation device 1 cap inhalation DAILY Qty: 30 5RF aspirin 81 mg tablet,delayed release (DR/EC) 81 mg PO DAILY valsartan 160 mg tablet 160 mg PO BID Qty: 60 5RF ascorbic acid (vitamin C) 500 mg Tablet 500 mg PO DAILY ferrous sulfate 325 mg (65 mg iron) Tablet 325 mg PO 2XWK cholecalciferol (vitamin D3) [Vitamin D3] 25 mcg (1,000 unit) Tablet 25 mcg PO DAILY Discharge Orders: Discharge Order (Routine); Ordered 10/06/22 Ordered By: Jonathan Jain/Other Patient Handouts: Disinfecting Your Home of COVID-19, How COVID-19 Spreads, COVID-19 Home Care, Understanding Oxygen Therapy, Using Oxygen Safely, Traveling with Oxygen, Using an Oxygen Tank at Home, Oxygen Supplemental Admission Data Admit Date/Time: 10/05/22 11:34 Attending Provider: Jonathan Rodríguez Admit Provider: Michael Santa Primary Care Provider: Shawn Garcia Other Providers: Destin Chanel Other Interventions: Discharge Summary Assessment (RN) Last Done: 10/06/22 13:11 Coding Level of Care Code HOSP INP/OBS DISCH >30 MIN Diagnoses COVID-19 U07.1 Elevated troponin R77.8 Hypokalemia E87.6 Severe aortic stenosis I35.0 Adenocarcinoma of left lung C34.92 COPD (chronic obstructive pulmonary disease) J44.9 Hypertension I10 Hyperlipidemia E78.5 Low BMI
[2022-10-06] MEDS ORDERED: FERROUS SULFATE 325 MG TAB PO SCH (20:00)
[2022-10-06] MEDS ORDERED: PRAVASTATIN SOD 20 MG TAB PO SCH (21:00)
== END 2022-10-06 14:05 | disposition home or self-care (01) | DRG 178 ==
LOC: ED 08:31 → EDINP 11:34 → SUATTDRO 11:34 → 2N 20:12
DX: U07.1 COVID-19; Z68.1 Body mass index [BMI] 19.9 or less, adult; Q23.1 Congenital insufficiency of aortic valve; Z85.118 Personal history of other malignant neoplasm of bronchus and lung; C34.92 Malignant neoplasm of unspecified part of left bronchus or lung; R79.89 Other specified abnormal findings of blood chemistry; E87.6 Hypokalemia; E78.5 Hyperlipidemia, unspecified; Z88.2 Allergy status to sulfonamides; R63.6 Underweight; I10 Essential (primary) hypertension; D50.9 Iron deficiency anemia, unspecified; Z87.891 Personal history of nicotine dependence; Z88.5 Allergy status to narcotic agent; Z79.899 Other long term (current) drug therapy; I08.0 Rheumatic disorders of both mitral and aortic valves; Z79.82 Long term (current) use of aspirin; Z88.8 Allergy status to other drugs, medicaments and biological substances; Z88.1 Allergy status to other antibiotic agents; Z91.018 Allergy to other foods; J44.9 Chronic obstructive pulmonary disease, unspecified

== ENCOUNTER 2023-01-15 05:00 | Inpatient (IN) ==
[2023-01-15] MEDS ORDERED: ALBUT/IPRATROP 3MG/0.5MG NEB 3 ML VIAL NEB STA (05:28)
[2023-01-15] MEDS ORDERED: methylPREDNISolone 125 MG/2 ML VIAL IV STA (05:28)
[2023-01-15 05:47] LABS: Basophils # (auto) 0.03 K/uL (0-0.2); Basophils % (auto) 0.5 %; Eosinophils # (auto) 0.05 K/uL (0-0.50); Eosinophils % (auto) 0.8 %; Hematocrit (blood only) 38.1 % (37.0-47.0); Immature Granulocytes # (auto) 0.02 K/uL (0.01-0.20); Immature Granulocytes % (auto) 0.3 %; Lymphocytes # (auto) 0.32 K/uL (1.2-3.4); Lymphocytes % (auto) 5.3 %; Mean Corpuscular Hemoglobin 30.4 pg (25.0-34.0); Mean Corpuscular Hgb Conc 31.5 g/dL (32.0-36.0); Mean Corpuscular Volume 96.5 fL (80.0-100.0); Mean Platelet Volume 8.4 fL (9.4-12.4); Monocytes # (auto) 0.48 K/uL (0.11-0.59); Monocytes % (auto) 7.9 %; Neutrophils # (auto) 5.17 K/uL (1.40-6.50); Neutrophils % (auto) 85.2 %; Platelet Count 303 K/uL (130-400); RDW Coefficient of Variation 13.3 % (11.5-14.5); RDW Standard Deviation 47.5 fL (36.4-46.3); Red Blood Count 3.95 M/uL (4.20-5.40); White Blood Count 6.07 K/ul (4.8-10.8)
[2023-01-15 05:57] LABS: Albumin Globulin Ratio 1.3 (0.9-2); Albumin Level 3.9 gm/dl (3.4-5.0); BUN Creatinine Ratio 16.2 (10-20); Bilirubin,Total 0.7 mg/dl (0.2-1.0); Calcium 9.2 mg/dl (8.6-10.3); Creatinine Clr Calc Pharmacy 47.9 ml/min; Est GFR (African American) 97.8 ml/min; Est GFR (Non-African American) 84.4 ml/min; Globulin 2.9 gm/dl (2.5-4.0); Potassium 3.9 mmol/L (3.5-5.1); Total Protein 6.8 gm/dl (6.0-8.3)
[2023-01-15 06:04] LABS: Troponin I High Sensitivity 40.2 pg/ml (0-14)
[2023-01-15 06:06] LABS: Partial Thromboplastin Ratio 0.8; Partial Thromboplastin Time 23.3 Seconds (21.0-31.0); Prothrombin Time 10.3 Seconds (9.0-12.0)
--- NOTE | 2023-01-15 06:38 | Emergency Department Note ---
Impression & Plan Acute respiratory distress, Hypoxia, Congestive heart failure, Severe aortic stenosis ED Provider Note Name: REMINGTON FRIAS Age: 77 Sex: F Arrives Via: Ambulance Informant: Patient, Family ED Provider: Alirio Angelo MD Chief Complaint: shortness of breath Impression: As per impressions above Medical Decision Makin-year-old female with extensive past medical history including lung cancer and severe aortic stenosis along with reported COPD but she denies any significant asthma/COPD issues. Patient arrives for worsening shortness of breath over the last few days if not few weeks. She has pitting edema in her legs but she appears cachectic and actually somewhat malnutrition. She is hypoxic. Her chest x-ray is consistent with some congestive failure. She has a harsh systolic murmur. Setting of her past medical history and we will plan on hospitalizing for gentle diuresis management. Patient and family comfortable with this. At this time patient does not appear to be septic I do not feel this is infectious etiology at this time. Prior Medical Record and Triage/Nursing Notes reviewed by Me External chart review by me including previous hospitalization and discharge summaries. Differentials:CHF, pneumonia, reactive airway, cardiac ischemia, PE, multiple other pathologies considered. Vital Signs: reviewed and remarkable for Hypoxia on RA Interventions: NC O2 Labs:Reviewed and remarkable for elevated BNP Imagin view chest x-ray. As per my interpretation. Bilateral congestive findings without overt pulmonary edema. There is a mass in the left upper lung which appears similar to previous chest x-ray. Right pleural effusion has resolved. EKG:As per my interpretation. Indication shortness of breath. Sinus tach 123 bpm. No ectopy nor ischemia. Cardiac/Tele Monitoring: Cardiac Monitoring: An Order was placed for continuous cardiac monitoring. The monitor shows a rate of 120 with a normal sinus rhythm. Consults:Hospitalist Plan: Disposition:Hospitalization. Condition: Fair History of Present Illness:77-year-old female arrives for evaluation of shortness of breath. Patient with 4 to 5 days of worsening shortness of breath associated with increasing bilateral leg swelling. She notes she can even walk to the bathroom without severe dyspnea. Oxygen has been dropping to the 60s despite 2 L nasal cannula at home. This morning she was so short of breath she could not lay flat so she came into the ER. She denies any specific chest pain, nausea, vomiting, fevers, chills, cough, headache, abdominal pain, urinary/bowel symptoms, back pain or other concerning signs or symptoms. No recent falls, trauma, injuries. No recent infectious symptoms since she had COVID 4 months ago. No recent antibiotics. She was seen by her relocation coordinator last month and told her severe aortic stenosis was getting need repair. Patient has been taking increased doses of her Lasix at home. Past Medical History:Patient has a documented history of COPD but denies any previous COPD hospitalizations. She does have a history of lung cancer with radiation to the left upper lobe last month as well as 20 years ago having a right upper lobe removed Home Medications:See Below Allergies:See Below Vitals:Blood Pressure: 169/108, Pulse 92, RR 21, T 37.1C, O2 100% on 2L (77% on walking to bathroom) Physical Exam: GENERAL: Patient is tired appearing and in mild distress. EYES: No scleral icterus, unremarkable pupils. RESPIRATORY: Moderate dyspnea with crackles at bases no significant wheezing appreciated. CARDIOVASCULAR: Systolic murmur GASTROINTESTINAL: Abdomen soft, non-tender, no peritonitis. EXTREMITIES: Normal motion all extremities, no cyanosis. Bilateral lower leg pitting edema. NEUROLOGIC: Alert and oriented SKIN: No rash, no jaundice, no diaphoresis. PSYCH: Appropriate GCS: 15 ED Course: Times/Reassessments: Patient breathing comfortably on nasal cannula O2. She does get hypoxic with ambulation but otherwise is stable. Agreeable to hospitalization Alirio Angelo MD Past Med/Surg History Medical History Aortic stenosis due to bicuspid aortic valve BMI less than 19,adult Carotid artery plaque Carotid bruit COPD (chronic obstructive pulmonary disease) Fatigue History of adenocarcinoma of lung Hyperlipidemia Hypertension Insomnia Leukopenia Mitral regurgitation Nontoxic multinodular goiter Osteoporosis Tricuspid regurgitation Upper respiratory infection Vitamin D deficiency Surgical History History of tubal ligation S/P lobectomy of lung Family History Father Myocardial infarction Hypertension Mother Vascular disorder Mother of supranuclear palsy Hypertension Denies family history of Ovarian cancer Prostate cancer Diabetes Breast cancer Colorectal cancer Social History Smoking Status: Former smoker Age Started Using Tobacco: 21; Age Quit Using Tobacco: 55; packs per day: 1; Cigarettes Per Day: 20; Second Hand Exposure: No; Do You Dip or Chew Tobacco: No; Tobacco Cessation Education Requested by Patient: No Hx Alcohol Use: Yes Alcohol type: wine Alcohol Intake Frequency: Monthly or Less Alcohol Intake Frequency Comment: socially Hx Substance Use: No Preferred Language: Montserratian Communication Ability: Effective Visual Impairment: Partially Limited Hearing Ability: Normal Bulb Grader Required: No Beliefs That Will Affect Care: None marital status: / Current Living Situation: Alone current occupational status: employed current occupation: works at [employer] doing [employer] and [employer] Other Information That Helps Us Care for You: No Feels Safe at Home: Yes Childhood Exposure to Second-Hand Smoke: No caffeine: No (Decaf Coffee ) Dental Care, Regularly: No Physical Activity Frequency: Does not Exercise Seatbelt Use: always Sunscreen Use: No Assistive Devices: None Allergies Allergies Allergy/AdvReac Type Severity Reaction Status Date / Time watermelon Allergy Unknown ` Verified 12/19/22 11:03 bupropion [From Wellbutrin] Allergy Verified 12/19/22 11:03 simvastatin Allergy Verified 12/19/22 11:03 alendronate sodium AdvReac Intermediate Nausea Verified 12/19/22 11:03 ibandronate sodium AdvReac Mild Gastrointestinal Verified 12/19/22 11:03 [From Boniva] Upset codeine AdvReac Unknown UPSET Verified 12/19/22 11:03 STOMACH atorvastatin AdvReac Verified 12/19/22 11:03 doxycycline AdvReac Verified 12/19/22 11:03 Sulfa (Sulfonamide AdvReac Verified 12/19/22 11:03 Antibiotics) sulfamethoxazole AdvReac Nausea Verified 12/19/22 11:03 [From Bactrim] trimethoprim [From Bactrim] AdvReac Nausea Verified 12/19/22 11:03 Home Meds Home Medications Medication Instructions Recorded Confirmed aspirin 81 mg tablet,delayed 81 mg PO DAILY 05/06/19 12/19/22 release ascorbic acid (vitamin C) 500 mg 500 mg PO DAILY 08/17/22 12/19/22 tablet cholecalciferol (vitamin D3) 25 25 mcg PO DAILY 08/17/22 12/19/22 mcg (1,000 unit) tablet (Vitamin D3) ferrous sulfate 325 mg (65 mg 325 mg PO 2XWK 08/17/22 12/19/22 iron) tablet Previous Rx's Medication Instructions Recorded verapamil 180 mg tablet,extended 360 mg PO DAILY #180 tabs 04/05/22 release pravastatin 20 mg tablet 20 mg PO DAILY #90 tabs 06/16/22 albuterol sulfate 90 mcg/actuation 2 puff inhalation Q6H PRN 09/28/22 aerosol inhaler (Ventolin HFA) shortness of breath or wheezing #8 grams tiotropium bromide 18 mcg capsule 1 cap inhalation DAILY #30 09/28/22 with inhalation device inhalations furosemide 20 mg tablet (Lasix) 20 mg PO DAILY #30 tabs 12/25/22 potassium chloride 20 mEq 20 meq PO DAILY #30 tabs 12/25/22 tablet,extended release valsartan 160 mg tablet 160 mg PO BID #60 tabs 01/08/23 Results & Data (ED) Vital Signs Vital Signs - 24 hr 01/15/23 05:23 01/15/23 04:49 01/15/23 05:00 Temperature 37.1 C Temperature Source Oral Pulse Rate 99 H 90 Pulse Rate from SpO2 Sensor Respiratory Rate 24 Blood Pressure 169/108 H Blood Pressure Mean 128 Pulse Oximetry 98 Oxygen Delivery Method Nasal Cannula Nasal Cannula Oxygen Flow Rate 2 3 Sepsis Recent Fever Within 48 Hours No Sepsis New/Unexplained Change in Mental Status No Sepsis Action Taken by Nursing No Action Required 01/15/23 05:38 01/15/23 05:41 01/15/23 06:08 Temperature Temperature Source Pulse Rate 90 Pulse Rate from SpO2 Sensor Respiratory Rate Blood Pressure Blood Pressure Mean Pulse Oximetry 76 L 99 100 Oxygen Delivery Method Room Air Nasal Cannula Nasal Cannula Oxygen Flow Rate 2 2 Sepsis Recent Fever Within 48 Hours Sepsis New/Unexplained Change in Mental Status Sepsis Action Taken by Nursing 01/15/23 06:00 01/15/23 06:10 01/15/23 06:30 Temperature Temperature Source Pulse Rate 92 H 94 H 103 H Pulse Rate from SpO2 Sensor 93 H 99 H 101 H Respiratory Rate 21 31 H 33 H Blood Pressure 157/101 H Blood Pressure Mean 119 Pulse Oximetry 100 100 100 Oxygen Delivery Method Nasal Cannula Nasal Cannula Nasal Cannula Oxygen Flow Rate 2 2 2 Sepsis Recent Fever Within 48 Hours Sepsis New/Unexplained Change in Mental Status Sepsis Action Taken by Nursing Laboratory Data 01/15/23 05:22 01/15/23 05:22 Lab Results 01/15/23 01/15/23 01/15/23 Range/Units 05:22 05:22 05:22 WBC 6.07 (4.8-10.8) K/ul RBC 3.95 L (4.20-5.40) M/uL Hgb 12.0 (12.0-16.0) g/dl Hct 38.1 (37.0-47.0) % MCV 96.5 (80.0-100.0) fL MCH 30.4 (25.0-34.0) pg MCHC 31.5 L (32.0-36.0) g/dL RDW Std Deviation 47.5 H (36.4-46.3) fL RDW Coeff of Sarah 13.3 (11.5-14.5) % Plt Count 303 (130-400) K/uL MPV 8.4 L (9.4-12.4) fL Immature Gran % (Auto) 0.3 % Neut % (Auto) 85.2 % Lymph % (Auto) 5.3 % Crane % (Auto) 7.9 % Eos % (Auto) 0.8 % Baso % (Auto) 0.5 % Neut # (Auto) 5.17 (1.40-6.50) K/uL Lymph # (Auto) 0.32 L (1.2-3.4) K/uL Crane # (Auto) 0.48 (0.11-0.59) K/uL Eos # (Auto) 0.05 (0-0.50) K/uL Baso # (Auto) 0.03 (0-0.2) K/uL Immature Gran # (Auto) 0.02 (0.01-0.20) K/uL PT 10.3 (9.0-12.0) Seconds INR 1.0 (0.9-1.1) APTT 23.3 (21.0-31.0) Seconds PTT Ratio 0.8 Sodium 137 (136-145) mmol/L Potassium 3.9 (3.5-5.1) mmol/L Chloride 98 (98-107) mmol/L Carbon Dioxide 32 (21-32) mmol/L Anion Gap 7 (3-11) BUN 11 (6-23) mg/dl Creatinine 0.68 (0.6-1.2) mg/dl Est Cr Clr Drug Dosing 47.9 ml/min Est GFR ( Amer) 97.8 ml/min Est GFR (Non-Af Amer) 84.4 ml/min BUN/Creatinine Ratio 16.2 (10-20) Glucose 101 H (70-99(Fasting)) mg/dl Calcium 9.2 (8.6-10.3) mg/dl Magnesium 2.0 (1.7-2.4) mg/dl Total Bilirubin 0.7 (0.2-1.0) mg/dl AST 14 (13-39) U/L ALT 7 (7-52) U/L Alkaline Phosphatase 58 (34-104) U/L Troponin I High Sens 40.2 H (0-14) pg/ml B-Natriuretic Peptide (0-100) pg/ml Total Protein 6.8 (6.0-8.3) gm/dl Albumin 3.9 (3.4-5.0) gm/dl Globulin 2.9 (2.5-4.0) gm/dl Albumin/Globulin Ratio 1.3 (0.9-2) SARS-CoV-2 (PCR) (Negative) 01/15/23 01/15/23 Range/Units 05:22 05:25 WBC (4.8-10.8) K/ul RBC (4.20-5.40) M/uL Hgb (12.0-16.0) g/dl Hct (37.0-47.0) % MCV (80.0-100.0) fL MCH (25.0-34.0) pg MCHC (32.0-36.0) g/dL RDW Std Deviation (36.4-46.3) fL RDW Coeff of Sarah (11.5-14.5) % Plt Count (130-400) K/uL MPV (9.4-12.4) fL Immature Gran % (Auto) % Neut % (Auto) % Lymph % (Auto) % Crane % (Auto) % Eos % (Auto) % Baso % (Auto) % Neut # (Auto) (1.40-6.50) K/uL Lymph # (Auto) (1.2-3.4) K/uL Crane # (Auto) (0.11-0.59) K/uL Eos # (Auto) (0-0.50) K/uL Baso # (Auto) (0-0.2) K/uL Immature Gran # (Auto) (0.01-0.20) K/uL PT (9.0-12.0) Seconds INR (0.9-1.1) APTT (21.0-31.0) Seconds PTT Ratio Sodium (136-145) mmol/L Potassium (3.5-5.1) mmol/L Chloride (98-107) mmol/L Carbon Dioxide (21-32) mmol/L Anion Gap (3-11) BUN (6-23) mg/dl Creatinine (0.6-1.2) mg/dl Est Cr Clr Drug Dosing ml/min Est GFR ( Amer) ml/min Est GFR (Non-Af Amer) ml/min BUN/Creatinine Ratio (10-20) Glucose (70-99(Fasting)) mg/dl Calcium (8.6-10.3) mg/dl Magnesium (1.7-2.4) mg/dl Total Bilirubin (0.2-1.0) mg/dl AST (13-39) U/L ALT (7-52) U/L Alkaline Phosphatase (34-104) U/L Troponin I High Sens (0-14) pg/ml B-Natriuretic Peptide 2285 H (0-100) pg/ml Total Protein (6.0-8.3) gm/dl Albumin (3.4-5.0) gm/dl Globulin (2.5-4.0) gm/dl Albumin/Globulin Ratio (0.9-2) SARS-CoV-2 (PCR) NEGATIVE (Negative) Administered Medications Ascorbic Acid (Ascorbic Acid 500 Mg Tab) 500 mg PO DAILY [facility] Stop: 02/14/23 09:29 Last Admin: 01/15/23 10:03 Dose: 500 mg Documented By: FREDO Aspirin (Aspirin 81 Mg Ectab) 81 mg PO DAILY POLLY Stop: 02/14/23 09:29 Last Admin: 01/15/23 10:32 Dose: 81 mg Documented By: FREDO Enoxaparin Sodium (Enoxaparin Inj 30 Mg/0.3 Ml Syr) 30 mg SQ Q24H POLLY Stop: 02/14/23 09:12 Last Admin: 01/15/23 10:04 Dose: 30 mg Documented By: FREDO Furosemide (Furosemide 20 Mg Tab) 20 mg PO DAILY POLLY Stop: 02/14/23 09:29 Last Admin: 01/15/23 10:02 Dose: 20 mg Documented By: FREDO Potassium Chloride (Potassium Chloride Crtab 20 Meq Tabcr) 20 meq PO DAILY POLLY Stop: 02/14/23 09:29 Last Admin: 01/15/23 10:02 Dose: 20 meq Documented By: FREDO Valsartan (Valsartan 80 Mg Tab) 160 mg PO BID POLLY Stop: 02/14/23 10:19 Last Admin: 01/15/23 11:07 Dose: 160 mg Documented By: FREDO Verapamil HCl (Verapamil Hcl 180 Mg Tabcr) 360 mg PO DAILY POLLY Stop: 02/14/23 10:19 Last Admin: 01/15/23 11:07 Dose: 360 mg Documented By: FREDO Vitamin D (Cholecalciferol 1,000 Units 25 Mcg Tab) 1,000 units PO DAILY POLLY Stop: 02/14/23 08:59 Last Admin: 01/15/23 10:32 Dose: 1,000 units Documented By: FREDO Discontinued Medications Albuterol (Albut/Ipratrop 3mg/0.5mg Neb 3 Ml Vial) 3 ml NEB NOW STA; Protocol Stop: 01/15/23 05:29 Last Admin: 01/15/23 05:51 Dose: 3 ml Documented By: VINCENT Furosemide (Furosemide Inj 20 Mg/2 Ml Vial) 20 mg IV ONE ONE Stop: 01/15/23 08:21 Last Admin: 01/15/23 08:40 Dose: 20 mg Documented By: MARISEL Furosemide (Furosemide 40 Mg/4 Ml Vial) Confirm Administered Dose 40 mg IV .STK-MED ONE Stop: 01/15/23 08:38 Last Admin: 01/15/23 08:39 Dose: Not Given Documented By: MARISEL Methylprednisolone (Methylprednisolone 125 Mg/2 Ml Vial) 125 mg IV NOW STA Stop: 01/15/23 05:29 Last Admin: 01/15/23 05:51 Dose: 125 mg Documented By: VINCENT Potassium Chloride (Potassium Chloride Crtab 20 Meq Tabcr) 20 meq PO NOW STA Stop: 01/15/23 08:21 Last Admin: 01/15/23 10:01 Dose: 20 meq Documented By: FREDO Imaging Data Radiologist's Impression: Chest X-Ray 01/15/23 05:05 XR chest 1V portable CLINICAL HISTORY: Dyspnea. Lung cancer. COMPARISON STUDY: Chest CT August 17, 2022. Chest radiograph October 05, 2022. FINDINGS: There is no pneumothorax. Trace bilateral pleural effusions persist. There is persistent interstitial thickening. Right apical opacity with volume loss is unchanged. This is chronic. The known mass within the superior segment left lower lobe is largely obscured on this examination. Cardiomegaly is unchanged. IMPRESSION: 1. Cardiomegaly with suspected mild interstitial pulmonary edema and trace bilateral pleural effusions, similar to prior exam. 2. Known mass within the superior segment of the left lower lobe better depicted on prior chest CT. This is largely obscured by the left hilum. ACT 112: Negative or not required by law. Electronically signed by: Jose Manuel Bhagat M.D. 01/15/2023 7:16 AM Discharge Plan Visit Data Chief Complaint: Shortness of Breath/Dyspnea Stated Complaint: LOW O2 SATS ED Provider: Alirio Angelo Discharge Problem: Acute respiratory distress, Hypoxia, Congestive heart failure, Severe aortic stenosis Patient Disposition: Admitted As Inpatient Discharge Instructions Interventions: ED Discharge Assessment Last Done: 01/15/23 09:07 Congestive heart failure Qualifiers: Heart failure type: unspecified Heart failure chronicity: acute on chronic Qualified Code(s): I50.9 - Heart failure, unspecified
--- NOTE | 2023-01-15 07:18 | XRay Report ---
XR chest 1V portable CLINICAL HISTORY: Dyspnea. Lung cancer. COMPARISON STUDY: Chest CT August 17, 2022. Chest radiograph October 05, 2022. FINDINGS: There is no pneumothorax. Trace bilateral pleural effusions persist. There is persistent in terstitial thickening. Right apical opacity with volume loss is unchanged. This is chronic. The known mass within the superior segment left lower lobe is largely obscured on this examination. Cardiomega ly is unchanged. IMPRESSION: 1. Cardiomegaly with suspected mild interstitial pulmonary edema and trace bilateral pleural effusion s, similar to prior exam. 2. Known mass within the superior segment of the left lower lobe better depicted on prior chest CT. T his is largely obscured by the left hilum. ACT 112: Negative or not required by law. Electronically signed by: Jose Manuel Bhagat M.D. 01/15/2023 7:16 AM
[2023-01-15] MEDS ORDERED: FUROSEMIDE INJ 20 MG/2 ML VIAL IV ONE (08:20)
[2023-01-15] MEDS ORDERED: POTASSIUM CHLORIDE CRTAB 20 MEQ TABCR PO STA (08:20)
--- NOTE | 2023-01-15 08:25 | History & Physical Report ---
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 Pt has received duoneb, steroids, and lasix. Hypoxia and respirations have improved and pt is hemodynamically stable. -Admit patient to [facility] with telemetry for acute CHF exacerbation, BNP at greater than 2000. -Chest x-ray showing cardiomegaly and vascular congestion -20 mg of IV Lasix given, followed by 20 mill equivalents of potassium -Suspect due to mild fluid overload due to HFpEF exacerbation and limited ventilation given right upper lobectomy in left lower lobe lung mass. -Accurate I's and O's -Supplemental oxygen as needed -Incentive spirometry -Has a history of COPD, however, do not feel that this is the underlying cause given exam and smoking cessation 20 years ago. (2) Aortic stenosis due to bicuspid aortic valve: Plan: -Recent cardiology visit approximately [address] Rainey -To be evaluated for TAVR by [facility] referral has been placed per latest cardiology note (3) (HFpEF) heart failure with preserved ejection fraction: Plan: -As above -Typically takes 20 mg of Lasix daily followed by 20 mill equivalents of potassium -LAst echo in October 2022 showing normal left ventricular size and systolic function. EF of 55 to 60%. No wall motion abnormalities. Severe aortic stenosis, mild mitral regurgitation, mild pulmonary hypertension. -Continue valsartan (4) Acute exacerbation of CHF (congestive heart failure): Plan: -As above (5) Hypertension: Plan: - Continue valsartan, verapamil (6) Hyperlipidemia: Plan: - Continue pravastatin (7) COPD (chronic obstructive pulmonary disease): Plan: -continue tiotropium and albuterol as needed (8) Prediabetes: Plan: - Noted, no insulin needed at this time (9) Adenocarcinoma of left lung: Plan: - As above, follow-up CT in January (10) Elevated troponin: Plan: -Suspect secondary to demand ischemia with CHF exacerbation -We will trend with a repeat troponin at approximately 11 AM Plan Disposition: Admit to [facility] with telemetry for CHF exacerbation Diet: Low-sodium/heart healthy DVT prophylaxis: Lovenox CODE STATUS: Full code History of Present Illness Chief Complaint: Dyspnea Primary Care Provider: Shawn Garcia MD Patient is a 77-year-old female with past medical history of hypertension, hyperlipidemia, COPD, prediabetes, severe aortic stenosis, HFpEF with latest echo being October 2022 with an EF of 55 to 60%, history of adenocarcinoma, 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 Patient reports that she typically takes Lasix 20 mg every day as well as potassium, however, she feels that her swelling had continued to increase regardless of a ctually using these medications. She has oxygen at home because she was discharged in October with COVID-19 and was given home oxygen after failing a two-step. Because of her dyspnea she has been using oxygen at home which seems to make her symptoms better. She came to the ED because she could not even lie flat without feeling short of breath and decided that was the indicator to come seek treatment. Did not take any additional Lasix doses. Of note patient was recently being treated for left lower lobe adenocarcinoma of the lung with radiation oncology. She required 5 rounds of radiation which they feel should be adequate treatment for the tumor. She has a CT scan of her chest scheduled in January to check for progression. Otherwise eating and drinking well. No nausea or vomiting. Patient states that she monitors her sodium intake and denies any additional salt use and limits things like soup. Her hydration mostly consists of coffee, tea, and hunter ernst. Minimal plain water intake. No chest pain at this time. Otherwise no complaints. Allergies Allergy/AdvReac Type Severity Reaction Status Date / Time watermelon Allergy Unknown ` Verified 12/19/22 11:03 bupropion [From Wellbutrin] Allergy Verified 12/19/22 11:03 simvastatin Allergy Verified 12/19/22 11:03 alendronate sodium AdvReac Intermediate Nausea Verified 12/19/22 11:03 ibandronate sodium AdvReac Mild Gastrointestinal Verified 12/19/22 11:03 [From Boniva] Upset codeine AdvReac Unknown UPSET Verified 12/19/22 11:03 STOMACH atorvastatin AdvReac Verified 12/19/22 11:03 doxycycline AdvReac Verified 12/19/22 11:03 Sulfa (Sulfonamide AdvReac Verified 12/19/22 11:03 Antibiotics) sulfamethoxazole AdvReac Nausea Verified 12/19/22 11:03 [From Bactrim] trimethoprim [From Bactrim] AdvReac Nausea Verified 12/19/22 11:03 Home Medications Medication Instructions Recorded Confirmed Type aspirin 81 mg tablet,delayed 81 mg PO DAILY 05/06/19 12/19/22 History release verapamil 180 mg tablet,extended 360 mg PO DAILY #180 tabs 04/05/22 12/19/22 Rx release pravastatin 20 mg tablet 20 mg PO DAILY #90 tabs 06/16/22 12/19/22 Rx ascorbic acid (vitamin C) 500 mg 500 mg PO DAILY 08/17/22 12/19/22 History tablet cholecalciferol (vitamin D3) 25 25 mcg PO DAILY 08/17/22 12/19/22 History mcg (1,000 unit) tablet (Vitamin D3) ferrous sulfate 325 mg (65 mg 325 mg PO 2XWK 08/17/22 12/19/22 History iron) tablet albuterol sulfate 90 mcg/actuation 2 puff inhalation Q6H PRN 09/28/22 12/19/22 Rx aerosol inhaler (Ventolin HFA) shortness of breath or wheezing #8 grams tiotropium bromide 18 mcg capsule 1 cap inhalation DAILY #30 09/28/22 12/19/22 Rx with inhalation device inhalations furosemide 20 mg tablet (Lasix) 20 mg PO DAILY #30 tabs 12/25/22 Rx potassium chloride 20 mEq 20 meq PO DAILY #30 tabs 12/25/22 Rx tablet,extended release valsartan 160 mg tablet 160 mg PO BID #60 tabs 01/08/23 Rx Past Med/Surg History Medical History Aortic stenosis due to bicuspid aortic valve BMI less than 19,adult Carotid artery plaque Carotid bruit COPD (chronic obstructive pulmonary disease) Fatigue History of adenocarcinoma of lung Hyperlipidemia Hypertension Insomnia Leukopenia Mitral regurgitation Nontoxic multinodular goiter Osteoporosis Tricuspid regurgitation Upper respiratory infection Vitamin D deficiency Surgical History History of tubal ligation S/P lobectomy of lung Family History Father Myocardial infarction Hypertension Mother Vascular disorder Mother of supranuclear palsy Hypertension Denies family history of Ovarian cancer Prostate cancer Diabetes Breast cancer Colorectal cancer Social History Smoking Status: Former smoker Age Started Using Tobacco: 21; Age Quit Using Tobacco: 55; packs per day: 1; Cigarettes Per Day: 20; Second Hand Exposure: No; Do You Dip or Chew Tobacco: No; Tobacco Cessation Education Requested by Patient: No Hx Alcohol Use: Yes Alcohol type: wine Alcohol Intake Frequency: Monthly or Less Alcohol Intake Frequency Comment: socially Hx Substance Use: No Preferred Language: Frisian Communication Ability: Effective Visual Impairment: Partially Limited Hearing Ability: Normal Steam Pressure Chamber Operator Required: No Beliefs That Will Affect Care: None marital status: / Current Living Situation: Alone current occupational status: employed current occupation: works at [employer] doing [employer] and [employer] Other Information That Helps Us Care for You: No Feels Safe at Home: Yes Childhood Exposure to Second-Hand Smoke: No caffeine: No (Decaf Coffee ) Dental Care, Regularly: No Physical Activity Frequency: Does not Exercise Seatbelt Use: always Sunscreen Use: No Assistive Devices: None Review of Systems Review of Systems: All systems reviewed & are unremarkable except as noted in HPI & below Physical Exam Constitutional: + frail appearing and cooperative; no acute distress Eyes: + anicteric sclerae Neck: normal visual inspection Respiratory: normal respiratory effort Auscultation: + crackles Cardiovascular: Rate/Rhythm: regular rate and regular rhythm Heart Sounds: + murmur (3/6 systolic murmur) Vessels: no JVD Extremities: + edema (trace) Gastrointestinal (Abdomen): Percussion/Palpation: abdomen soft and + fluid wave; abdomen nontender Musculoskeletal: Head/Neck/Chest: normocephalic and head atraumatic Skin: normal turgor; no rashes Neurologic: moves all extremities Psychiatric: A+Ox3, euthymic affect Lymphatic: no cervical or axillary lymphadenopathy Results & Data Results & Data Vital Signs (Past 12 Hours) Vital Signs Temp Pulse Resp BP Pulse Ox O2 Del Method O2 Flow Rate 01/15/23 06:30 103 H 33 H 100 Nasal Cannula 2 01/15/23 06:10 94 H 31 H 157/101 H 100 Nasal Cannula 2 01/15/23 06:00 92 H 21 100 Nasal Cannula 2 01/15/23 06:08 100 Nasal Cannula 2 01/15/23 05:41 90 99 Nasal Cannula 2 01/15/23 05:38 76 L Room Air 01/15/23 05:00 37.1 C 90 24 169/108 H 98 Nasal Cannula 3 01/15/23 04:49 Nasal Cannula 2 01/15/23 05:23 99 H Code Status & VTE Plan VTE Prophylaxis Plan VTE Prophylaxis will be ordered: Yes Supervising Physician Co-Signing Physician Notes ATTESTATION I also saw the patient and confirmed [place] portions of the history and exam. I agree with the impression and plan in the resident documentation, and as summarized below. 77-year-old female is seen on the floor subsequent to her admission. She reports feeling much better midmorning and reports fairly frequent diuresis subsequent to her dose of IV Lasix. Her recent medical history, she had noted worsening lower extremity edema and increased from two-pillow to 3 pillow orthopnea. As noted above, she has a history of squamous cell carcinoma status post lobectomy and more recently adenocarcinoma of the left lower lung with recent radiation therapy. She also is a history of severe aortic stenosis secondary to a bicuspid aortic valve; in reviewing outpatient cardiology notes, she was recently referred to an outpatient valve clinic for evaluation. In looking at her outpatient records in comparison to her admission weight, she looks to be about 4-5 pounds above her baseline. EXAM 169/107, 135, 16, 36.6, 90% on nasal cannula 3 L/min She is pleasant. Alert. Heart is regular. Systolic murmur right upper sternal border. Slight crackles appreciated in the bases, decreased breath sounds in the right upper lobe. Abdomen soft and nontender Trace pedal edema bilaterally. DATA Labs Hemoglobin 12 BMP is unremarkable with BUN 11/creatinine 0.68 BNP elevated 2285 Imaging Chest x-ray shows cardiomegaly with suspected mild interstitial pulmonary edema, trace bilateral pleural effusions. No mass within the superior segment of the left lower lobe is also noted. IMPRESSION & PLAN HFpEF, acute on chronic, with hypoxia Diuresis Monitor I's/O's, daily weights Potassium supplementation Oxygen Hypertension We will administer regular a.m. meds and monitor Additional per resident documentation (7) COPD (chronic obstructive pulmonary disease) COPD type: COPD with acute exacerbation Qualified Code(s): J44.1 - Chronic obstructive pulmonary disease with (acute) exacerbation
[2023-01-15] MEDS ORDERED: FUROSEMIDE 40 MG/4 ML VIAL IV ONE (08:37)
[2023-01-15] MEDS ORDERED: ACETAMINOPHEN 325 MG TAB PO PRN (09:13)
[2023-01-15] MEDS ORDERED: POLYETHYLENE (MIRALAX) 17 GM PACK PO PRN (09:13)
[2023-01-15] MEDS ORDERED: ALBUTEROL HFA 8 GM INHALER INH PRN (09:13)
[2023-01-15] MEDS ORDERED: ONDANSETRON INJ 2 MG/ML 2 ML VIAL IV PRN (09:13)
[2023-01-15] MEDS: FUROSEMIDE 20 MG TAB PO SCH (10:02)
[2023-01-15] MEDS: POTASSIUM CHLORIDE CRTAB 20 MEQ TABCR PO SCH (10:02)
[2023-01-15] MEDS: ASCORBIC ACID 500 MG TAB PO SCH (10:03)
[2023-01-15] MEDS: ENOXAPARIN INJ 30 MG/0.3 ML SYR SQ SCH (10:04)
[2023-01-15] MEDS: CHOLECALCIFEROL 1,000 UNITS 25 MCG TAB PO SCH (10:32)
[2023-01-15] MEDS: ASPIRIN 81 MG ECTAB PO SCH (10:32)
[2023-01-15] MEDS: VERAPAMIL HCL 180 MG TABCR PO SCH (11:07)
[2023-01-15] MEDS: VALSARTAN 80 MG TAB PO SCH ×2 (11:07→19:46)
--- NOTE | 2023-01-15 17:44 | Electrocardiogram Report ---
Test Reason : Blood Pressure : / mmHG Vent. Rate : 123 BPM Atrial Rate : 123 BPM P-R Int : 162 ms QRS Dur : 070 ms QT Int : 328 ms P-R-T Axes : 066 067 079 degrees QTc Int : 469 ms Sinus tachycardia Possible Left atrial enlargement Abnormal ECG When compared with ECG of 05-OCT-2022 09:09, Premature atrial complexes are no longer Present Confirmed by Shawn Augustine ([id number]) on 01/15/2023 5:44:19 PM Referred By: Confirmed By:Abdias Augustine
[2023-01-15] MEDS ORDERED: VALSARTAN 80 MG TAB PO SCH (21:00)
[2023-01-16] MEDS: FUROSEMIDE 20 MG TAB PO SCH (07:46)
[2023-01-16] MEDS: VALSARTAN 80 MG TAB PO SCH ×2 (07:47→19:12)
[2023-01-16] MEDS: CHOLECALCIFEROL 1,000 UNITS 25 MCG TAB PO SCH (07:47)
[2023-01-16] MEDS: VERAPAMIL HCL 180 MG TABCR PO SCH (07:47)
[2023-01-16] MEDS: ASPIRIN 81 MG ECTAB PO SCH (07:47)
[2023-01-16] MEDS: ASCORBIC ACID 500 MG TAB PO SCH (07:48)
[2023-01-16] MEDS: PRAVASTATIN SOD 20 MG TAB PO SCH (07:48)
[2023-01-16] MEDS: POTASSIUM CHLORIDE CRTAB 20 MEQ TABCR PO SCH (07:48)
[2023-01-16] MEDS: UMECLIDINIUM BROMIDE 62.5MCG/BLISTER 7 PUFFS/INHALER INH SCH (07:49)
[2023-01-16] MEDS ORDERED: VERAPAMIL HCL 180 MG TABCR PO SCH (09:00)
[2023-01-16] MEDS ORDERED: FERROUS SULFATE 325 MG TAB PO SCH (09:00)
[2023-01-16 09:03] LABS: Hematocrit (blood only) 41.1 % (37.0-47.0); Hemoglobin 12.8 g/dl (12.0-16.0); Mean Corpuscular Hgb Conc 31.1 g/dL (32.0-36.0); Mean Corpuscular Volume 96.3 fL (80.0-100.0); Mean Platelet Volume 9.6 fL (9.4-12.4); Platelet Count 238 K/uL (130-400); RDW Coefficient of Variation 13.2 % (11.5-14.5); RDW Standard Deviation 46.8 fL (36.4-46.3); Red Blood Count 4.27 M/uL (4.20-5.40); White Blood Count 7.21 K/ul (4.8-10.8)
[2023-01-16] MEDS: ENOXAPARIN INJ 30 MG/0.3 ML SYR SQ SCH (10:25)
[2023-01-16 11:05] LABS: Calcium 9.3 mg/dl (8.6-10.3); Potassium 4.4 mmol/L (3.5-5.1)
[2023-01-16 11:10] LABS: BUN Creatinine Ratio 25.4 (10-20); Creatinine Clr Calc Pharmacy 45.5 ml/min; Est GFR (African American) 98.3 ml/min; Est GFR (Non-African American) 84.8 ml/min
[2023-01-16] MEDS ORDERED: FUROSEMIDE INJ 20 MG/2 ML VIAL IV ONE (12:13)
--- NOTE | 2023-01-16 12:32 | Discharge Summary ---
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 Patient reports that she typically takes Lasix 20 mg every day as well as potassium, however, she feels that her swelling had continued to increase regardless of actually using these medications. She has oxygen at home because she was discharged in October with COVID-19 and was given home oxygen after failing a two-step. Because of her dyspnea she has been using oxygen at home which seems to make her symptoms better. She came to the ED because she could not even lie flat without feeling short of breath and decided that was the indicator to come seek treatment. Did not take any additional Lasix doses. Of note patient was recently being treated for left lower lobe adenocarcinoma of the lung with radiation oncology. She required 5 rounds of radiation which they feel should be adequate treatment for the tumor. She has a CT scan of her chest scheduled in January to check for progression. Otherwise eating and drinking well. No nausea or vomiting. Patient states that she monitors her sodium intake and denies any additional salt use and limits things like soup. Her hydration mostly consists of coffee, tea, and hunter [employer]. Minimal plain water intake. No chest pain at this time. Otherwise no complaints. Discharge Exam Constitutional + frail appearing and cooperative; no acute distress Eyes + anicteric sclerae Neck normal visual inspection Respiratory normal respiratory effort Auscultation: + crackles Cardiovascular Rate/Rhythm: regular rate and regular rhythm Heart Sounds: + murmur (3/6 systolic murmur) Vessels: no JVD Extremities: + edema (trace) Gastrointestinal (Abdomen) Percussion/Palpation: abdomen soft and + fluid wave; abdomen nontender Musculoskeletal Head/Neck/Chest: normocephalic and head atraumatic Skin normal turgor; no rashes Neurologic moves all extremities Psychiatric A+Ox3, euthymic affect Lymphatic no cervical or axillary lymphadenopathy Discharge Data Allergies Allergy/AdvReac Type Severity Reaction Status Date / Time watermelon Allergy Unknown ` Verified 12/19/22 11:03 bupropion [From Wellbutrin] Allergy Verified 12/19/22 11:03 simvastatin Allergy Verified 12/19/22 11:03 alendronate sodium AdvReac Intermediate Nausea Verified 12/19/22 11:03 ibandronate sodium AdvReac Mild Gastrointestinal Verified 12/19/22 11:03 [From Boniva] Upset codeine AdvReac Unknown UPSET Verified 12/19/22 11:03 STOMACH atorvastatin AdvReac Verified 12/19/22 11:03 doxycycline AdvReac Verified 12/19/22 11:03 Sulfa (Sulfonamide AdvReac Verified 12/19/22 11:03 Antibiotics) sulfamethoxazole AdvReac Nausea Verified 12/19/22 11:03 [From Bactrim] trimethoprim [From Bactrim] AdvReac Nausea Verified 12/19/22 11:03 Consultations 01/15/23 07:41 ED Decision to Admit Stat Hospital Course (1) Hypoxia: Patient is a 77-year-old female with past medical history of hypertension, hyperlipidemia, COPD, prediabetes, severe aortic stenosis, HFpEF with latest echo being October 2022 with an EF of 55 to 60%, history of adenocarcinoma, 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 Pt has received duoneb, steroids, and lasix. Hypoxia and respirations have improved and pt is hemodynamically stable. -Admit patient to [facility] with telemetry for acute CHF exacerbation, BNP at greater than 2000. -Chest x-ray showing cardiomegaly and vascular congestion -20 mg of IV Lasix given, followed by 20 mill equivalents of potassium -Suspect due to mild fluid overload due to HFpEF exacerbation and limited ventilation given right upper lobectomy in left lower lobe lung mass. -Accurate I's and O's -Supplemental oxygen as needed -Incentive spirometry -Has a history of COPD, however, do not feel that this is the underlying cause given exam and smoking cessation 20 years ago. (2) Aortic stenosis due to bicuspid aortic valve: -Recent cardiology visit approximately [address] Rainey -[facility] per latest cardiology note (3) (HFpEF) heart failure with preserved ejection fraction: -As above -Typically takes 20 mg of Lasix daily followed by 20 mill equivalents of potassium -LAst echo in October 2022 showing normal left ventricular size and systolic function. EF of 55 to 60%. No wall motion abnormalities. Severe aortic stenosis, mild mitral regurgitation, mild pulmonary hypertension. -Continue valsartan (4) Acute exacerbation of CHF (congestive heart failure): -As above (5) Hypertension: - Continue valsartan, verapamil (6) Hyperlipidemia: - Continue pravastatin (7) COPD (chronic obstructive pulmonary disease): -continue tiotropium and albuterol as needed (8) Prediabetes: - Noted, no insulin needed at this time (9) Adenocarcinoma of left lung: - As above, follow-up CT in January (10) Elevated troponin: -Suspect secondary to demand ischemia with CHF exacerbation -We will trend with a repeat troponin at approximately 11 AM Plan Disposition: Admit to [facility] with telemetry for CHF exacerbation Diet: Low-sodium/heart healthy DVT prophylaxis: Lovenox CODE STATUS: Full code Discharge Plan Discharge Items Patient Disposition: Home - Self-Care Reason For Visit: SOB Discharge Diagnosis: CHF Exacerbation Activity: Per Instructions section Non-emergency contact: Primary Care Provider Call non-emergency contact if: you have any medication questions and your symptoms worsen Follow-up/Referrals: Shawn Garcia MD [Primary Care Provider] - 01/19/23 11:00 am (Please arrive 15 minutes prior to appointment time Appointment with Louann Feliciano PA-C) Diet: Low Sodium (2gm) Addtl Attending Provider Instructions: You were seen in the hospital for concern for shortness of breath and lower extremity swelling. While you were here you had imaging done in the ED that was suggestive of an acute heart failure exacerbation causing fluid to accumulate in your lungs. For this reason, you were given IV Lasix to help increase your excretion of your fluid. Throughout the day, your shortness of breath progressively improved and we felt that you were able to breathe on room air without further oxygen supplementation. Because of this, we felt it was safe for you to return home. Per review of your primary care provider's notes, you are to take your Lasix 20 mg daily with 20 mill equivalents of potassium. This is to help keep fluid off of your lungs and lower extremities. I recommend that you take Lasix 20 mg daily as above and discuss this further at your follow-up appointment with your primary care provider. Please follow-up with your primary care provider within 1 week of discharge from the hospital. Otherwise please maintain a low-sodium diet as this will help prevent fluid accumulation. Low- sodium consists of consuming less than 2 g of sodium daily. I attached some pronounced with information about dietary changes as well as lifestyle changes that may help prevent hospitalization due to heart failure exacerbation. It has been a pleasure to be for your care and we wish you the best in both your health and recovery. Pending Studies at Discharge: No Stand-Alone Forms: My [facility], Smoking Cessation Medications and DC Order Prescriptions: Continued verapamil 180 mg tablet extended release 360 mg PO DAILY Qty: 180 3RF potassium chloride 20 mEq tablet extended release 20 meq PO DAILY Qty: 30 5RF furosemide [Lasix] 20 mg tablet 20 mg PO DAILY Qty: 30 5RF valsartan 160 mg tablet 160 mg PO BID Qty: 60 5RF pravastatin 20 mg tablet 20 mg PO DAILY Qty: 90 3RF albuterol sulfate [Ventolin HFA] 90 mcg/actuation HFA aerosol inhaler 2 puff INH Q6H PRN (Reason: shortness of breath or wheezing) Qty: 8 6RF tiotropium bromide 18 mcg capsule, w/inhalation device 1 cap inhalation DAILY Qty: 30 5RF aspirin 81 mg tablet,delayed release (DR/EC) 81 mg PO DAILY ascorbic acid (vitamin C) 500 mg Tablet 500 mg PO DAILY ferrous sulfate 325 mg (65 mg iron) Tablet 325 mg PO 2XWK cholecalciferol (vitamin D3) [Vitamin D3] 25 mcg (1,000 unit) Tablet 25 mcg PO DAILY Krames/Other Patient Handouts: Heart Failure Meds, Low-Salt Choices, Heart Failure Flare Up Signs, Heart Failure Make Changes Diet, Low Salt Diet Dc Admission Data Admit Date/Time: 01/15/23 08:20 Attending Provider: Martir Tian Admit Provider: Alex Oconnor Primary Care Provider: Shawn Garcia Other Providers: Main Cheek Supervising Physician Co-Signing Physician Notes ATTESTATION I also saw the patient and confirmed [place] portions of the history and exam. I agree with the impression and plan in the resident documentation, and as summarized below. Patient without complaints this morning. She is ambulating to the bathroom without difficulty, oxygen looks to be at 1 L/min. She feels she is nearing her baseline in terms of activity and exertional capacity. EXAM 131/72, 84, 18, 36.7, 95% on nasal cannula 1 L/min She is pleasant. Alert. Heart is regular. Systolic murmur right upper sternal border. Slight crackles appreciated in the bases, decreased breath sounds in the right upper lobe. Abdomen soft and nontender No edema appreciated. DATA Labs Hemoglobin 12.8 BMP is unremarkable with BUN 17/creatinine 0.67 Potassium 4.4 IMPRESSION & PLAN HFpEF, acute on chronic, with hypoxia Symptomatically improved with diuresis Discussed Lasix 20 mg alternating with 40 mg Home oxygen at 2 L/min, 3 L/min as needed Follow-up with PCP/cardiology as directed Hypertension Improved with resumption of home medications Additional diagnoses and discharge instructions per resident documentation
--- NOTE | 2023-01-16 18:30 | Hospitalist Progress Note ---
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 Pt has received duoneb, steroids, and lasix. Hypoxia and respirations have improved and pt is hemodynamically stable. -Admit patient to [facility] with telemetry for acute CHF exacerbation, BNP at greater than 2000. -Chest x-ray showing cardiomegaly and vascular congestion - given her normal 20 mg of oral Lasix this morning followed by 10 additional milligrams IV for additional diuresis -Patient unfortunately became hypoxic on ambulation down to the 70s. We will keep another day for this reason. Continue diuresis. -Suspect due to mild fluid overload due to HFpEF exacerbation and limited ventilation given right upper lobectomy in left lower lobe lung mass. -Accurate I's and O's -Supplemental oxygen as needed -Incentive spirometry -Has a history of COPD, however, do not feel that this is the underlying cause given exam and smoking cessation 20 years ago. (2) Aortic stenosis due to bicuspid aortic valve: Plan: -Recent cardiology visit approximately [address] Rainey -To be evaluated for TAVR by [facility] referral has been placed per latest cardiology note (3) (HFpEF) heart failure with preserved ejection fraction: Plan: -As above -Typically takes 20 mg of Lasix daily followed by 20 mill equivalents of potassium -LAst echo in October 2022 showing normal left ventricular size and systolic function. EF of 55 to 60%. No wall motion abnormalities. Severe aortic stenosis, mild mitral regurgitation, mild pulmonary hypertension. -Continue valsartan (4) Acute exacerbation of CHF (congestive heart failure): Plan: -As above (5) Hypertension: Plan: - Continue valsartan, verapamil (6) Hyperlipidemia: Plan: - Continue pravastatin (7) COPD (chronic obstructive pulmonary disease): Plan: -continue tiotropium and albuterol as needed (8) Prediabetes: Plan: - Noted, no insulin needed at this time (9) Adenocarcinoma of left lung: Plan: - As above, follow-up CT in January (10) Elevated troponin: Plan: -Suspect secondary to demand ischemia with CHF exacerbation -We will trend with a repeat troponin at approximately 11 AM Plan Disposition: Admit to [facility] with telemetry for CHF exacerbation Diet: Low-sodium/heart healthy DVT prophylaxis: Lovenox CODE STATUS: Full code Admission and Anticipated Discharge Date Admission Date: January 15, 2023 Supervising Physician Co-Signing Physician Notes ATTESTATION I also saw the patient and confirmed [place] portions of the history and exam. I agree with the impression and plan in the resident documentation, and as summarized below. Overall, seems improved. Early this morning, she reported feeling back to her baseline. However, she did have rather significant desaturations with increased activity this afternoon. Suspect her issues are multifactorial -certainly has decreased pulmonary reserve given her previous history of lung cancer, lobectomy, and recent radiation; underlying COPD, although current exam not consistent with acute exacerbation; element of congestive failure, which I think is improving. When the patient did have her oxygen desaturations this afternoon, she was surprisingly asymptomatic, suggesting there is a chronicity to her hypoxemia. We will continue to diurese Recheck x-ray in a.m. BMP in a.m. Additional per resident documentation Subjective Patient seen at bedside this morning. No acute events reported overnight. Patient reports diuresing well yesterday and at 1 point was on room air while resting in bed. Requiring 2 L of supplemental oxygen currently. Patient feels asymptomatic overall. No shortness of breath or chest pain. No other complaints this time Review of Systems Review of Systems: Per HPI Physical Exam Constitutional: + frail appearing and cooperative; no acute distress Eyes: + anicteric sclerae Neck: normal visual inspection Respiratory: normal respiratory effort Auscultation: + crackles Cardiovascular: Rate/Rhythm: regular rate and regular rhythm Heart Sounds: + murmur (3/6 systolic murmur) Vessels: no JVD Extremities: + edema (trace) Gastrointestinal (Abdomen): Percussion/Palpation: abdomen soft and + fluid wave; abdomen nontender Musculoskeletal: Head/Neck/Chest: normocephalic and head atraumatic Skin: normal turgor; no rashes Neurologic: moves all extremities Psychiatric: A+Ox3, euthymic affect Lymphatic: no cervical or axillary lymphadenopathy Results & Data Results & Data Vital Signs (Past 12 Hours) Vital Signs Temp Pulse Pulse Resp BP Pulse Ox O2 Del Method 01/16/23 15:21 91 H 01/16/23 15:18 36.9 C 83 18 121/69 96 Nasal Cannula 01/16/23 11:27 36.7 C 84 18 131/72 95 Nasal Cannula 01/16/23 07:57 Nasal Cannula 01/16/23 07:37 36.8 C 85 18 138/74 97 Nasal Cannula 01/16/23 07:09 85 O2 Flow Rate 01/16/23 15:21 01/16/23 15:18 1 01/16/23 11:27 1 01/16/23 07:57 1 01/16/23 07:37 1 01/16/23 07:09 (7) COPD (chronic obstructive pulmonary disease) COPD type: COPD with acute exacerbation Qualified Code(s): J44.1 - Chronic obstructive pulmonary disease with (acute) exacerbation
--- NOTE | 2023-01-17 07:14 | XRay Report ---
XR chest 1V portable HISTORY: 77 years-old Female hypoxia on exertion, CHF acute hypoxia COMPARISON: Chest radiograph 01/15/2023, PET CT 10/18/2022 TECHNIQUE: AP view of the chest FINDINGS: Cardiomegaly with pulmonary vascular congestion. Trace right and small left pleural effusions with mi ld persistent bibasilar densities. The patient's known mass within the superior segment left lower lo be is again noted, partially obscured by the left hilum. Chr pleural parenchymal scarring with pleura l calcifications of the right lung apex. Pulmonary emphysema. Degenerative changes of the shoulders a nd spine. IMPRESSION: 1. Cardiomegaly with pulmonary vascular congestion. 2. Unchanged trace right and small left pleural effusions with mild bibasilar consolidation. 3. The patient's known malignancy of the superior segment left lower lobe is again noted. 4. Emphysema with chronic parenchymal changes. ACT 112: Negative or not required by law. The above report was generated using voice recognition software. It may contain grammatical, syntax o r spelling errors. Electronically signed by: Michael Franco M.D. 01/17/2023 7:12 AM
[2023-01-17 08:16] LABS: Hematocrit (blood only) 41.2 % (37.0-47.0); Hemoglobin 12.6 g/dl (12.0-16.0); Mean Corpuscular Hgb Conc 30.6 g/dL (32.0-36.0); Mean Corpuscular Volume 98.1 fL (80.0-100.0); Mean Platelet Volume 8.6 fL (9.4-12.4); Platelet Count 348 K/uL (130-400); RDW Coefficient of Variation 13.3 % (11.5-14.5); RDW Standard Deviation 48.5 fL (36.4-46.3); White Blood Count 6.51 K/ul (4.8-10.8)
[2023-01-17 08:36] LABS: BUN Creatinine Ratio 24.6 (10-20); Calcium 9.2 mg/dl (8.6-10.3); Creatinine Clr Calc Pharmacy 45.8 ml/min; Est GFR (African American) 99.3 ml/min; Est GFR (Non-African American) 85.6 ml/min; Potassium 4.6 mmol/L (3.5-5.1)
[2023-01-17] MEDS ORDERED: FUROSEMIDE 40 MG/4 ML VIAL IV ONE (09:00)
[2023-01-17] MEDS: VALSARTAN 80 MG TAB PO SCH (09:53)
[2023-01-17] MEDS: ASCORBIC ACID 500 MG TAB PO SCH (09:53)
[2023-01-17] MEDS: CHOLECALCIFEROL 1,000 UNITS 25 MCG TAB PO SCH (09:54)
[2023-01-17] MEDS: POTASSIUM CHLORIDE CRTAB 20 MEQ TABCR PO SCH (09:54)
[2023-01-17] MEDS: ASPIRIN 81 MG ECTAB PO SCH (09:54)
[2023-01-17] MEDS: UMECLIDINIUM BROMIDE 62.5MCG/BLISTER 7 PUFFS/INHALER INH SCH (09:55)
[2023-01-17] MEDS: PRAVASTATIN SOD 20 MG TAB PO SCH (09:55)
[2023-01-17] MEDS: VERAPAMIL HCL 180 MG TABCR PO SCH (09:55)
[2023-01-17] MEDS: ENOXAPARIN INJ 30 MG/0.3 ML SYR SQ SCH (09:56)
--- NOTE | 2023-01-17 15:12 | Discharge Summary ---
Date of Service January 17, 2023 Principal Diagnosis CHF exacerbation Discharge Exam Constitutional + frail appearing and cooperative; no acute distress Eyes + anicteric sclerae Neck normal visual inspection Respiratory normal respiratory effort Cardiovascular Rate/Rhythm: regular rate and regular rhythm Heart Sounds: + murmur (3/6 systolic murmur) Vessels: no JVD Gastrointestinal (Abdomen) Percussion/Palpation: abdomen soft; abdomen nontender Musculoskeletal Head/Neck/Chest: normocephalic and head atraumatic Skin normal turgor; no rashes Neurologic moves all extremities Psychiatric A+Ox3, euthymic affect Lymphatic no cervical or axillary lymphadenopathy Discharge Data Allergies Allergy/AdvReac Type Severity Reaction Status Date / Time watermelon Allergy Unknown ` Verified 12/19/22 11:03 bupropion [From Wellbutrin] Allergy Verified 12/19/22 11:03 simvastatin Allergy Verified 12/19/22 11:03 alendronate sodium AdvReac Intermediate Nausea Verified 12/19/22 11:03 ibandronate sodium AdvReac Mild Gastrointestinal Verified 12/19/22 11:03 [From Boniva] Upset codeine AdvReac Unknown UPSET Verified 12/19/22 11:03 STOMACH atorvastatin AdvReac Verified 12/19/22 11:03 doxycycline AdvReac Verified 12/19/22 11:03 Sulfa (Sulfonamide AdvReac Verified 12/19/22 11:03 Antibiotics) sulfamethoxazole AdvReac Nausea Verified 12/19/22 11:03 [From Bactrim] trimethoprim [From Bactrim] AdvReac Nausea Verified 12/19/22 11:03 Consultations 01/15/23 07:41 ED Decision to Admit Stat Hospital Course (1) Hypoxia: Patient is a 77-year-old female with past medical history of hypertension, hyperlipidemia, COPD, prediabetes, severe aortic stenosis, HFpEF with latest echo being October 2022 with an EF of 55 to 60%, history of adenocarcinoma, 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 Patient with a history of HFpEF and severe aortic stenosis due to bicuspid aort ic valve admitted for acute heart failure exacerbation. Suspect her dyspnea is multifactorial -pulmonary malignancy, status post lobectomy, status post radiation therapy, COPD, and CHF; the fact that she is not more symptomatic suggest chronicity of all. She was given IV Lasix above her home maintenance dosage and diuresed appropriately. Her oxygen saturation improved over 2 days of diuresis. At the time of discharge, patient still required oxygen with ambulation, however, at her last admission to the hospital she qualified for home O2 with ambulation and was discharged on oxygen because of this. We recommended the patient continue 20 mg of Lasix daily until her follow-up appointment on 01/19/2023. This should keep her dry enough until additional adjustments can be made in the outpatient setting. She may require more Lasix but will defer to PCP. Creatinine level maintained stability at approximately 0.6 throughout hospitalization. We strongly encouraged the patient to get set up with the heart failure clinic through [facility]. We will have PCP make this referral in the outpatient setting. Otherwise other medical conditions as below. (2) Aortic stenosis due to bicuspid aortic valve: -Recent cardiology visit approximately [address] Rainey -[facility] per latest cardiology note (3) (HFpEF) heart failure with preserved ejection fraction: -As above -Typically takes 20 mg of Lasix daily followed by 20 mill equivalents of potassium -LAst echo in October 2022 showing normal left ventricular size and systolic function. EF of 55 to 60%. No wall motion abnormalities. Severe aortic stenosis, mild mitral regurgitation, mild pulmonary hypertension. -Continue valsartan (4) Acute exacerbation of CHF (congestive heart failure): -As above (5) Hypertension: - Continue valsartan, verapamil (6) Hyperlipidemia: - Continue pravastatin (7) COPD (chronic obstructive pulmonary disease): -continue tiotropium and albuterol as needed (8) Prediabetes: - Noted, no insulin needed at this time (9) Adenocarcinoma of left lung: - As above, follow-up CT in January (10) Elevated troponin: -Suspect secondary to demand ischemia with CHF exacerbation -We will trend with a repeat troponin at approximately 11 AM Plan Disposition: D/c home Diet: Low-sodium/heart healthy CODE STATUS: Full code Total Time Total Time Spent Total Time Spent (In Minutes): I spent 30 minutes seeing the patient, reviewing data, and documentation. Discharge Plan Discharge Items Patient Disposition: Home - Self-Care Reason For Visit: SOB Discharge Diagnosis: CHF Exacerbation Activity: Per Instructions section Non-emergency contact: Primary Care Provider Call non-emergency contact if: you have any medication questions and your symptoms worsen Follow-up/Referrals: Sahwn Garcia MD [Primary Care Provider] - 01/19/23 11:00 am (Please arrive 15 minutes prior to appointment time Appointment with Louann Feliciano PA-C) Diet: Low Sodium (2gm) Addtl Attending Provider Instructions: You were seen in the hospital for concern for shortness of breath and lower extremity swelling. While you were here you had imaging done in the ED that was suggestive of an acute heart failure exacerbation causing fluid to accumulate in your lungs. For this reason, you were given IV Lasix to help increase your excretion of your fluid. Throughout the day, your shortness of breath progressively improved and we felt that you were able to breathe on room air without further oxygen supplementation. Because of this, we felt it was safe for you to return home. Per review of your primary care provider's notes, you are to take your Lasix 20 mg daily with 20 mill equivalents of potassium. This is to help keep fluid off of your lungs and lower extremities. I recommend that you take Lasix 20 mg daily as above and discuss this further at your follow-up appointment with your primary care provider. We have a follow-up appointment set up for your primary care provider on 01/19/2023 at 11 am, please show up 15 min prior to your appointment time. Otherwise please maintain a low- sodium diet as this will help prevent fluid accumulation. Low-sodium consists of consuming less than 2 g of sodium daily. I attached some pronounced with information about dietary changes as well as lifestyle changes that may help prevent hospitalization due to heart failure exacerbation. As mentioned, if you do require supplemental oxygen, you already have this at home from your previous hospital admission. Utilize as needed with a goal of being higher than 90% on O 2. We feel you should wear it especially during activity to prevent desaturation at least until you follow-up with your primary care provider as above. It has been a pleasure to be for your care and we wish you the best in both your health and recovery. Pending Studies at Discharge: No Stand-Alone Forms: [employer], Smoking Cessation Medications and DC Order Prescriptions: Continued verapamil 180 mg tablet extended release 360 mg PO DAILY Qty: 180 3RF potassium chloride 20 mEq tablet extended release 20 meq PO DAILY Qty: 30 5RF furosemide [Lasix] 20 mg tablet 20 mg PO DAILY Qty: 30 5RF valsartan 160 mg tablet 160 mg PO BID Qty: 60 5RF pravastatin 20 mg tablet 20 mg PO DAILY Qty: 90 3RF albuterol sulfate [Ventolin HFA] 90 mcg/actuation HFA aerosol inhaler 2 puff INH Q6H PRN (Reason: shortness of breath or wheezing) Qty: 8 6RF tiotropium bromide 18 mcg capsule, w/inhalation device 1 cap inhalation DAILY Qty: 30 5RF aspirin 81 mg tablet,delayed release (DR/EC) 81 mg PO DAILY ascorbic acid (vitamin C) 500 mg Tablet 500 mg PO DAILY ferrous sulfate 325 mg (65 mg iron) Tablet 325 mg PO 2XWK cholecalciferol (vitamin D3) [Vitamin D3] 25 mcg (1,000 unit) Tablet 25 mcg PO DAILY Discharge Orders: Discharge Order (Routine); Ordered 01/17/23 Ordered By: Alex Jain/Other Patient Handouts: Heart Failure Meds, Low-Salt Choices, Heart Failure Flare Up Signs, Heart Failure Make Changes Diet, Low Salt Diet Dc Admission Data Admit Date/Time: 01/15/23 08:20 Attending Provider: Martir Tian Admit Provider: Alex Oconnor Primary Care Provider: Shawn Garcia Other Providers: Main Cheek Other Interventions: Discharge Summary Assessment (RN) Last Done: 01/17/23 14:46 Supervising Physician Co-Signing Physician Notes ATTESTATION I also saw the patient and confirmed [place] portions of the history and exam. I agree with the impression and plan in the resident documentation, and as summarized below. Upon exam, the patient was seated comfortably in bed. She has no complaints. EXAM 145/80, 82, 16, 37 C, 90% on nasal cannula 2 L/min We did take the oxygen off for in her bed, she is actually 100%; she did drop into the low 90s with ambulation in the room (no dyspnea appreciated) DATA Labs CBC today is unremarkable Serum sodium 137, potassium 4.6, BUN 16, creatinine 0.65 Imaging Chest x-ray from this morning shows cardiomegaly with vascular congestion, unchanged trace right and small left pleural effusion, known malignancy of the superior segment of the left lower lobe is again noted, emphysema and chronic parenchymal changes IMPRESSION & PLAN I agree with the impression and plan as noted in the resident discharge documentation. With additional diagnoses as indicated below: Severe protein calorie malnutrition Risk factors include age, latency, and COPD Dietary consult reviewed and appreciated She really feels quite well today. She has no respiratory symptoms at rest; minimal symptoms with activity. Feel she is safe for discharge home -she has close clinical follow-up with a PCP appointment in 2 days Suspect her dyspnea is multifactorial -pulmonary malignancy, status post lobectomy, status post radiation therapy, COPD, and CHF; the fact that she is not more symptomatic suggest chronicity of all. Additional diagnoses and instructions per resident documentation
== END 2023-01-17 16:09 | disposition home or self-care (01) | DRG 291 ==
LOC: ED 05:00 → 2N 08:20

== ENCOUNTER 2023-08-05 23:40 | Inpatient (IN) ==
[2023-08-06 00:45] LABS: Basophils # (auto) 0.02 K/uL (0.00-0.20); Basophils % (auto) 0.2 %; Eosinophils # (auto) 0.02 K/uL (0.00-0.50); Eosinophils % (auto) 0.2 %; Hematocrit (blood only) 36.6 % (37.0-47.0); Hemoglobin 11.9 g/dl (12.0-16.0); Immature Granulocytes # (auto) 0.07 K/uL (0.01-0.20); Immature Granulocytes % (auto) 0.7 %; Lymphocytes # (auto) 0.32 K/uL (1.20-3.40); Lymphocytes % (auto) 3.3 %; Mean Corpuscular Hemoglobin 30.7 pg (25.0-34.0); Mean Corpuscular Hgb Conc 32.5 g/dL (32.0-36.0); Mean Corpuscular Volume 94.6 fL (80.0-100.0); Mean Platelet Volume 9.3 fL (9.4-12.4); Monocytes # (auto) 0.62 K/uL (0.11-0.59); Monocytes % (auto) 6.3 %; Neutrophils # (auto) 8.74 K/uL (1.40-6.50); Neutrophils % (auto) 89.3 %; Platelet Count 202 K/uL (130-400); Red Blood Count 3.87 M/uL (4.20-5.40); White Blood Count 9.79 K/ul (4.8-10.8)
--- NOTE | 2023-08-06 00:46 | Emergency Department Note ---
Impression & Plan Fracture of pubic ramus, COPD (chronic obstructive pulmonary disease), Hypoxia, Hypertension, History of adenocarcinoma of lung ED Provider Note NAME: REMINGTON FRIAS AGE: 77 SEX: F ARRIVES VIA: Ambulance INFORMANT: Patient ED PROVIDER(S): Landen Ackerman MD CHIEF COMPLAINT: Right hip pain fall PLAN: Disposition: Admit MEDICAL DECISION MAKING: The patient is a pleasant 77-year-old woman with a past medical history of NSCLC with history of right lobectomy with subsequent history of left lung adenocarcinoma, history of heart failure with preserved EF, COPD, history of TAVR, hypertension, hyperlipidemia who presents to the emergency department via EMS after the patient reports having a fall when she attempted get out of bed and her leg gave out. She subsequently was able to get up and ambulate by holding onto furniture but did have pain. She denies any significant head strike and feels she may have hit the side of her head lightly on the carpet. She denies loss of conscious. Otherwise prior today denies any recent fevers, chills, cough congestion, GI or symptoms. She did not take her evening medications. On my evaluation the patient is frail-appearing no acute distress, afebrile heart in the 100s and blood pressure 180s/100s. 86% on RA placed on 3L NC. She appears euvolemic to dry. Lungs with scant intermittent wheeze and are otherwise clear. She has mild tenderness of the right inguinal region without gross deformity or shortening. Distal PMS is intact. EKG without overt acute ischemia. CXR negative for acute cardiopulmonary process per my personal preliminary review/interpretation. Plain film of the right hip and pelvis with question of mildly displaced right pubic fracture per my personal preliminary review interpretation. This further characterize on CT of the pelvis. Formal radiology report demonstrates 2 mm of displacement of fracture of the inferior pubic ramus and essentially nondisplaced fracture of the lateral aspect of the right superior pubic ramus. Note is made of slight buckling of the right sacral wing. CT of the head was negative for acute abnormality. WBC and platelets within normal limits. H/H similar to prior. Chemistry without metabolic acidosis. Potassium 3.1 electrolytes otherwise without significant abnormality. High-sensitivity troponin 21.8, nonspecific. BNP 348, nonspecific and improved from prior but in setting of history of CHF. Lipase is not elevated. UA without evidence of infection. Given pubic fracture patient agrees with plan for admission for further management including likely orthopedic consultation, PT OT and placement. Duoneb, Analgesia and home Losartan ordered. Case was discussed with Dr. Alfaro [facility] hospitalist, who will evaluate the patient for admission. Triage Nursing notes reviewed and agree them. Prior/external medical records reviewed Vital Signs: reviewed Differential diagnosis: Fracture, dislocation, contusion, intra-abdominal, pneumothorax, intrathoracic, intracranial, neurologic, compartment syndrome, rhabdomyolysis, as well as other pathologies. ER treatment provided: See below. Diagnostics interpreted by me: ECG: Sinus tachycardia, 103 bpm, no ectopy, no overt ST elevation or depression, QTc 550, QRS 74. Cardiac Monitoring: An order for continuous cardiac monitoring was placed and demonstrated Sinus tachycardia, 103 bpm, no ectopy. Laboratory studies: See below Imaging studies: See below Consultation(s): Case was discussed with MARIBELL Roldan hospitalist, who will evaluate the patient for admission. HPI: The patient is a pleasant 77-year-old woman with a past medical history of NSCLC with history of right lobectomy with subsequent history of left lung adenocarcinoma, history of heart failure with preserved EF, COPD, history of TAVR, hypertension, hyperlipidemia who presents to the emergency department via EMS after the patient reports having a fall when she attempted get out of bed and her leg gave out. She subsequently was able to get up and ambulate by holding onto furniture but did have pain. She denies any significant head strike and feels she may have hit the side of her head lightly on the carpet. She denies loss of conscious. Otherwise prior today denies any recent fevers, chills, cough congestion, GI or symptoms. She did not take her evening medications. ROS: See above HPI for pertinent positives & negatives. A total of 10 systems reviewed and were otherwise negative. VITALS:See Below PHYSICAL EXAMINATION: GENERAL: Awake, alert, frail/chronically ill-appearing, in no distress HENT: Normocephalic, atraumatic. Oropharynx with dry mucous membranes and otherwise unremarkable. EYES: Normal conjunctiva. Sclera non-icteric. NECK: Supple. No nuchal rigidity. FROM. No JVD. RESPIRATORY: Intermittent wheeze bilaterally and otherwise clear to auscultation. CARDIAC: Tachycardic rate, normal rhythm. Extremities warm and well perfused. Pulses equal. ABDOMEN: Soft, non-distended. No tenderness to palpation. No rebound or guarding. No masses. RECTAL: Deferred. MUSCULOSKELETAL: Chest examination reveals no tenderness. The back is symmetrical on inspection without obvious abnormality. There is no CVA tenderness to palpation. No joint edema. LOWER EXTREMITIES: Calves are equal size bilaterally and non-tender. No edema. No discoloration. NEURO: Normal sensorium. No sensory or motor deficits noted. SKIN: No rash or jaundice noted. 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 Family History Father Myocardial infarction Hypertension Mother Vascular disorder Mother of supranuclear palsy Hypertension Denies family history of Ovarian cancer Prostate cancer Diabetes Breast cancer Colorectal cancer Social History Smoking Status: Former smoker Tobacco Type: Cigarettes Age Started Using Tobacco: 21; Age Quit Using Tobacco: 55; packs per day: 1; Cigarettes Per Day: 20; Second Hand Exposure: No; Do You Dip or Chew Tobacco: No; Hx Alcohol Use: Yes Alcohol type: wine Alcohol Intake Frequency: Monthly or Less Alcohol Intake Frequency Comment: socially Hx Substance Use: No Preferred Language: Hungarian Communication Ability: Effective Visual Impairment: Partially Limited Hearing Ability: Normal Oil Dist[employer] Required: No Beliefs That Will Affect Care: None marital status: / Current Living Situation: Alone current occupational status: retired current occupation: 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 Feels Safe at Home: Yes Childhood Exposure to Second-Hand Smoke: No Diet: regular caffeine: No (Decaf Coffee ) Dental Care, Regularly: No Physical Activity Frequency: Does not Exercise Seatbelt Use: always Sunscreen Use: No Assistive Devices: Oxygen - Continuous Allergies Allergies Allergy/AdvReac Type Severity Reaction Status Date / Time watermelon Allergy Unknown Rash Verified 07/05/23 08:52 alendronate sodium AdvReac Intermediate Nausea Verified 07/05/23 08:52 pravastatin AdvReac Intermediate myalgia Verified 07/05/23 08:52 ibandronate sodium AdvReac Mild Gastrointestinal Verified 07/05/23 08:52 [From Boniva] Upset codeine AdvReac Unknown UPSET Verified 07/05/23 08:52 STOMACH atorvastatin AdvReac Nausea Verified 07/05/23 08:52 bupropion [From Wellbutrin] AdvReac Nausea Verified 07/05/23 08:52 doxycycline AdvReac Nausea Verified 07/05/23 08:52 simvastatin AdvReac Nausea Verified 07/05/23 08:52 Sulfa (Sulfonamide AdvReac Nausea Verified 07/05/23 08:52 Antibiotics) sulfamethoxazole AdvReac Nausea Verified 07/05/23 08:52 [From Bactrim] trimethoprim [From Bactrim] AdvReac Nausea Verified 07/05/23 08:52 Home Meds Home Medications Medication Instructions Recorded Confirmed aspirin 81 mg tablet,delayed 81 mg PO DAILY 05/06/19 08/06/23 release ascorbic acid (vitamin C) 500 mg 500 mg PO DAILY 08/17/22 08/06/23 tablet cholecalciferol (vitamin D3) 25 25 mcg PO DAILY 08/17/22 08/06/23 mcg (1,000 unit) tablet (Vitamin D3) ferrous sulfate 325 mg (65 mg 325 mg PO 2XWK 08/17/22 08/06/23 iron) tablet albuterol sulfate 90 mcg/actuation 2 puff inhalation Q6H PRN 05/07/23 08/06/23 aerosol inhaler (Ventolin HFA) shortness of breath or wheezing Sutab 0.225 g PO DAILY 08/06/23 08/06/23 Previous Rx's Medication Instructions Recorded furosemide 20 mg tablet (Lasix) See Rx Instructions .Route 01/19/23 .COMPLEX #60 tabs verapamil 180 mg tablet,extended 360 mg (2 x 180 mg) PO DAILY #180 03/27/23 release tabs tiotropium bromide 18 mcg capsule 1 cap inhalation DAILY #30 04/16/23 with inhalation device inhalations valsartan 160 mg tablet 160 mg PO BID #60 tabs 07/02/23 Results & Data (ED) Vital Signs Vital Signs - 24 hr 08/05/23 23:33 08/05/23 23:49 08/05/23 23:50 Temperature 36.6 C Temperature Source Oral Pulse Rate 106 H 102 H 105 H Respiratory Rate 20 12 Respiratory Effort / Characteristics Non-Labored Respiratory Depth Normal Respiratory Pattern Regular Blood Pressure 201/128 H 201/128 H Blood Pressure Mean 152 152 Pulse Oximetry 93 Oxygen Delivery Method Nasal Cannula Oxygen Flow Rate 3 Sepsis Recent Fever Within 48 Hours No Sepsis New/Unexplained Change in Mental Status N/A Sepsis Action Taken by Nursing No Action Required 08/05/23 23:59 08/06/23 00:01 08/06/23 00:30 Temperature Temperature Source Pulse Rate 113 H 87 Respiratory Rate 19 22 Respiratory Effort / Characteristics Respiratory Depth Respiratory Pattern Blood Pressure 198/115 H 184/121 H Blood Pressure Mean 142 142 Pulse Oximetry 86 L 90 99 Oxygen Delivery Method Room Air Nasal Cannula Nasal Cannula Oxygen Flow Rate 3 3 Sepsis Recent Fever Within 48 Hours Sepsis New/Unexplained Change in Mental Status Sepsis Action Taken by Nursing 08/06/23 01:01 08/06/23 01:31 08/06/23 02:00 Temperature Temperature Source Pulse Rate 105 H 107 H 117 H Respiratory Rate 25 H 17 26 H Respiratory Effort / Characteristics Respiratory Depth Respiratory Pattern Blood Pressure 200/98 H 187/85 H 194/125 H Blood Pressure Mean 132 119 148 Pulse Oximetry 99 100 95 Oxygen Delivery Method Nasal Cannula Nasal Cannula Nasal Cannula Oxygen Flow Rate 3 3 3 Sepsis Recent Fever Within 48 Hours Sepsis New/Unexplained Change in Mental Status Sepsis Action Taken by Nursing 08/06/23 03:00 Temperature Temperature Source Pulse Rate 97 H Respiratory Rate 22 Respiratory Effort / Characteristics Respiratory Depth Respiratory Pattern Blood Pressure 182/104 H Blood Pressure Mean 130 Pulse Oximetry 93 Oxygen Delivery Method Nasal Cannula Oxygen Flow Rate 3 Sepsis Recent Fever Within 48 Hours Sepsis New/Unexplained Change in Mental Status Sepsis Action Taken by Nursing Laboratory Data Attestation: I reviewed the patient's lab results. 08/06/23 00:24 08/06/23 00:24 Lab Results 08/06/23 Range/Units 00:24 WBC 9.79 (4.8-10.8) K/ul RBC 3.87 L (4.20-5.40) M/uL Hgb 11.9 L (12.0-16.0) g/dl Hct 36.6 L (37.0-47.0) % MCV 94.6 (80.0-100.0) fL MCH 30.7 (25.0-34.0) pg MCHC 32.5 (32.0-36.0) g/dL RDW Std Deviation 42.0 (36.4-46.3) fL RDW Coeff of Sarah 12.0 (11.5-14.5) % Plt Count 202 (130-400) K/uL MPV 9.3 L (9.4-12.4) fL Immature Gran % (Auto) 0.7 % Neut % (Auto) 89.3 % Lymph % (Auto) 3.3 % [place] % (Auto) 6.3 % Eos % (Auto) 0.2 % Baso % (Auto) 0.2 % Neut # (Auto) 8.74 H (1.40-6.50) K/uL Lymph # (Auto) 0.32 L (1.20-3.40) K/uL [place] # (Auto) 0.62 H (0.11-0.59) K/uL Eos # (Auto) 0.02 (0.00-0.50) K/uL Baso # (Auto) 0.02 (0.00-0.20) K/uL Immature Gran # (Auto) 0.07 (0.01-0.20) K/uL Sodium 140 (136-145) mmol/L Potassium 3.1 L (3.5-5.1) mmol/L Chloride 100 (98-107) mmol/L Carbon Dioxide 35 H (21-32) mmol/L Anion Gap 5 (3-11) BUN 14 (6-23) mg/dl Creatinine 0.72 (0.6-1.2) mg/dl Est Cr Clr Drug Dosing 42.5 ml/min Est GFR ( Amer) 93.6 ml/min Est GFR (Non-Af Amer) 80.8 ml/min BUN/Creatinine Ratio 19.4 (10-20) Glucose 127 H (70-99(Fasting)) mg/dl Calcium 9.0 (8.6-10.3) mg/dl Phosphorus 3.4 (2.5-4.9) mg/dl Magnesium 1.9 (1.7-2.4) mg/dl Total Bilirubin 0.9 (0.2-1.0) mg/dl AST 19 (13-39) U/L ALT 16 (7-52) U/L Alkaline Phosphatase 54 (34-104) U/L Total Creatine Kinase 76 (26-192) U/L Troponin I High Sens 21.8 H (0-14) pg/ml B-Natriuretic Peptide 348 H (0-100) pg/ml Total Protein 6.8 (6.0-8.3) gm/dl Albumin 4.1 (3.4-5.0) gm/dl Globulin 2.7 (2.5-4.0) gm/dl Albumin/Globulin Ratio 1.5 (0.9-2) Lipase 22 (11-82) U/L Urine Color Yellow Urine Appearance Clear (Clear) Urine pH 7.5 (4.5-7.5) Ur Specific [place] 1.010 (1.000-1.030) Urine Protein Negative (Negative) Urine Glucose (UA) Negative (Negative) Urine Ketones Negative (Negative) Urine Blood Negative (Negative) Urine Nitrite Negative (Negative) Urine Bilirubin Negative (Negative) Urine Urobilinogen Negative (Negative) Ur Leukocyte Esterase Negative (Negative) Administered Medications Discontinued Medications Albuterol (Albut/Ipratrop 3mg/0.5mg Neb 3 Ml Vial) 3 ml NEB NOW STA; Protocol Stop: 08/06/23 01:10 Last Admin: 08/06/23 01:29 Dose: 3 ml Documented By: BHUMI Acetaminophen (irmev) 1,000 mg in 100 mls @ 400 mls/hr IV NOW STA Stop: 08/06/23 02:24 Last Infusion: 08/06/23 03:12 Dose: Infused Documented By: Admin: 08/06/23 02:59 Dose: 400 mls/hr Documented By: BHUMI Potassium Chloride (Potassium Chloride Crtab 20 Meq Tabcr) 40 meq PO NOW STA Stop: 08/06/23 02:13 Last Admin: 08/06/23 02:59 Dose: 40 meq Documented By: BHUMI Potassium Chloride (Potassium Chloride Crtab 20 Meq Tabcr) 40 meq PO NOW STA Stop: 08/06/23 02:49 Last Admin: 08/06/23 03:44 Dose: 40 meq Documented By: BHUMI Valsartan (Valsartan 80 Mg Tab) 160 mg PO NOW STA Stop: 08/06/23 02:13 Last Admin: 08/06/23 03:00 Dose: 160 mg Documented By: BHUMI Imaging Data Radiologist's Impression: Head CT 08/06/23 00:09 CT head/brain wo con CLINICAL HISTORY: headstrike fall Technique: Contiguous axial CT images of the head were acquired from the base of the skull to the vertex without intravenous contrast administration. Images were viewed in brain, subdural and bone windows. Automated dose lowering techniques and/or adjustment according to patient size were utilized for this exam. Comparison: None available at the time of this dictation. Findings: The ventricles, basal cisterns, and cerebral sulci are normal. There is no acute intracranial hemorrhage or evidence of acute territorial infarction. Neither mass effect, shift of the midline structures, nor abnormal extra-axial fluid collections are shown. Imaged portions of the paranasal sinuses and mastoid air cells are clear. The orbits appear normal. There are no acute fractures of the calvaria or scalp swelling. Impression: No acute intracranial hemorrhage, skull fractures, or scalp swelling. ACT 112: Negative or not required by law. Electronically signed by: Salvador Omalley M.D. 08/06/2023 2:[address] 08/06/23 00:09 Exam(s): CT PELVIS Without Contrast EXAM: CT Pelvis Without Intravenous Contrast CLINICAL HISTORY: Reason for exam: right hip pain fall. TECHNIQUE: Axial computed tomography images of the pelvis without intravenous contrast. CTDI is 9.65 mGy and DLP is 262.85 mGy-cm. Automated exposure control was utilized for the study. A dose lowering technique was utilized adhering to the principles of ALARA. COMPARISON: No relevant prior studies available. FINDINGS: Bowel: Bowel loops appear within normal limits. No acute inflammation is seen. No obstruction. No mucosal thickening. Appendix: No findings to suggest acute appendicitis. Intraperitoneal space: Unremarkable. No free air. No significant fluid collection. Bladder: Unremarkable. No stones. Reproductive: Unremarkable as visualized. Bones/joints: 2 mm displacement of fractures than the inferior pubic ramus. There is an essentially nondisplaced fracture of the lateral aspect of the right superior pubic ramus. There is slight buckling of the right sacral wing as well. Mild narrowing and osteophytosis of both hip joints consistent with osteoarthritis. Mild diffuse osteopenia. No dislocation. Soft tissues: Unremarkable. Vasculature: Mild to moderate arterial calcification. No aneurysm. Lymph nodes: Unremarkable. No enlarged lymph nodes. IMPRESSION: 2 mm displacement of fractures than the inferior pubic ramus. There is an essentially nondisplaced fracture of the lateral aspect of the right superior pubic ramus. There is slight buckling of the right sacral wing as well. Electronically signed by: Maximino Alfaro MD 08/06/23 03:42 AM Discharge Plan Visit Data Chief Complaint: Hip Pain Stated Complaint: Fall, Hip Pain ED Provider: Landen Ackerman Discharge Problem: Fracture of pubic ramus, COPD (chronic obstructive pulmonary disease), Hypoxia, Hypertension, History of adenocarcinoma of lung Patient Disposition: Admitted As Inpatient Discharge Instructions Interventions: ED Discharge Assessment Last Done: 08/06/23 05:18 Discharge Problem: Fracture of pubic ramus Qualifiers: Encounter type: initial encounter Fracture type: closed Laterality: right Q ualified Code(s): S32.591A - Other specified fracture of right pubis, initial encounter for closed fracture COPD (chronic obstructive pulmonary disease) Qualifiers: COPD type: unspecified COPD Qualified Code(s): J44.9 - Chronic obstructive pulmonary disease, unspecified Hypertension Qualifiers: Hypertension type: unspecified Qualified Code(s): I10 - Essential (primary) hypertension
[2023-08-06 01:03] LABS: Albumin Globulin Ratio 1.5 (0.9-2); Albumin Level 4.1 gm/dl (3.4-5.0); BUN Creatinine Ratio 19.4 (10-20); Bilirubin,Total 0.9 mg/dl (0.2-1.0); Creatinine Clr Calc Pharmacy 42.5 ml/min; Est GFR (African American) 93.6 ml/min; Est GFR (Non-African American) 80.8 ml/min; Globulin 2.7 gm/dl (2.5-4.0); Magnesium 1.9 mg/dl (1.7-2.4); Phosphorus 3.4 mg/dl (2.5-4.9); Potassium 3.1 mmol/L (3.5-5.1); Total Protein 6.8 gm/dl (6.0-8.3)
[2023-08-06 01:09] LABS: Troponin I High Sensitivity 21.8 pg/ml (0-14)
[2023-08-06] MEDS ORDERED: ALBUT/IPRATROP 3MG/0.5MG NEB 3 ML VIAL NEB STA (01:09)
[2023-08-06] MEDS ORDERED: ACETAMINOPHEN 1,000 MG/100 ML VIAL IV STA (02:10)
[2023-08-06] MEDS ORDERED: MoRPHine SULFATE 4 MG/ML 1 ML CARP\\VIAL IV PRN ×2 (02:10→05:18)
[2023-08-06] MEDS ORDERED: MoRPHine SULFATE 2 MG/ML CARP IV PRN ×2 (02:10→05:18)
[2023-08-06] MEDS ORDERED: POTASSIUM CHLORIDE CRTAB 20 MEQ TABCR PO STA ×2 (02:12→02:48)
[2023-08-06] MEDS ORDERED: ONDANSETRON INJ 2 MG/ML 2 ML VIAL IV PRN ×2 (02:12→05:18)
[2023-08-06] MEDS ORDERED: VALSARTAN 80 MG TAB PO STA (02:12)
--- NOTE | 2023-08-06 02:15 | CT Scan Report ---
CT head/brain wo con CLINICAL HISTORY: headstrike fall Technique: Contiguous axial CT images of the head were acquired from the base of the skull to the carli jh without intravenous contrast administration. Images were viewed in brain, subdural and bone [facility]. Automated dose lowering techniques and/or adjustment according to patient size were utilized for this exam. Comparison: None available at the time of this dictation. Findings: The ventricles, basal cisterns, and cerebral sulci are normal. There is no acute intracranial hemorrh age or evidence of acute territorial infarction. Neither mass effect, shift of the midline structures , nor abnormal extra-axial fluid collections are shown. Imaged portions of the paranasal sinuses and mastoid air cells are clear. The orbits appear normal. There are no acute fractures of the calvaria or scalp swelling. Impression: No acute intracranial hemorrhage, skull fractures, or scalp swelling. ACT 112: Negative or not required by law. Electronically signed by: Salvador Omalley M.D. 08/06/2023 2:14 AM
--- NOTE | 2023-08-06 03:05 | History & Physical Report ---
Date of Service August 06, 2023 Assessment & Plan (1) Pelvic fracture: Plan: s/p fall resulting in pelvic fracture -Admit to medical -Orthopedic Surgery Consultation appreciated -PT/OT evaluation appreciated -Morphine PRN pain -Zofran PRN nausea -Miralax PRN (2) Hypertension: Plan: Chronic. Elevated blood pressure. -Continue Diovan 160mg po BID -Continue Verapamil -Continue to monitor (3) COPD (chronic obstructive pulmonary disease): Plan: Chronic. Stable. No cough, SOB or wheeze -Continue Albuterol PRN -Continue Spiriva History of Present Illness Chief Complaint: fall, pelvic fracture Primary Care Provider: Shawn Garcia MD Helen Casarez is a 77yo female presenting from home after a fall. She got up from bed during the night around 22:00 to use the bathroom when she lost her balance and fell. She had some difficulty getting up due to pain. She feels comfortable now but has severe discomfort with weight bearing and ambulation. In the ER she is afebrile, HD stable ER Course: KCl 80mEq Allergies Allergy/AdvReac Type Severity Reaction Status Date / Time watermelon Allergy Unknown Rash Verified 07/05/23 08:52 alendronate sodium AdvReac Intermediate Nausea Verified 07/05/23 08:52 pravastatin AdvReac Intermediate myalgia Verified 07/05/23 08:52 ibandronate sodium AdvReac Mild Gastrointestinal Verified 07/05/23 08:52 [From Boniva] Upset codeine AdvReac Unknown UPSET Verified 07/05/23 08:52 STOMACH atorvastatin AdvReac Nausea Verified 07/05/23 08:52 bupropion [From Wellbutrin] AdvReac Nausea Verified 07/05/23 08:52 doxycycline AdvReac Nausea Verified 07/05/23 08:52 simvastatin AdvReac Nausea Verified 07/05/23 08:52 Sulfa (Sulfonamide AdvReac Nausea Verified 07/05/23 08:52 Antibiotics) sulfamethoxazole AdvReac Nausea Verified 07/05/23 08:52 [From Bactrim] trimethoprim [From Bactrim] AdvReac Nausea Verified 07/05/23 08:52 Home Medications Medication Instructions Recorded Confirmed Type aspirin 81 mg tablet,delayed 81 mg PO DAILY 05/06/19 08/06/23 History release ascorbic acid (vitamin C) 500 mg 500 mg PO DAILY 08/17/22 08/06/23 History tablet cholecalciferol (vitamin D3) 25 25 mcg PO DAILY 08/17/22 08/06/23 History mcg (1,000 unit) tablet (Vitamin D3) ferrous sulfate 325 mg (65 mg 325 mg PO 2XWK 08/17/22 08/06/23 History iron) tablet furosemide 20 mg tablet (Lasix) See Rx Instructions .Route 01/19/23 08/06/23 Rx .COMPLEX #60 tabs verapamil 180 mg tablet,extended 360 mg (2 x 180 mg) PO DAILY #180 03/27/23 08/06/23 Rx release tabs tiotropium bromide 18 mcg capsule 1 cap inhalation DAILY #30 04/16/23 08/06/23 Rx with inhalation device inhalations albuterol sulfate 90 mcg/actuation 2 puff inhalation Q6H PRN 05/07/23 08/06/23 History aerosol inhaler (Ventolin HFA) shortness of breath or wheezing valsartan 160 mg tablet 160 mg PO BID #60 tabs 07/02/23 08/06/23 Rx Sutab 0.225 g PO DAILY 08/06/23 08/06/23 History Past Med/Surg History Medical History Carotid artery plaque Insomnia Upper respiratory infection Aortic stenosis due to bicuspid aortic valve BMI less than 19,adult Carotid bruit COPD (chronic obstructive pulmonary disease) History of adenocarcinoma of lung Hyperlipidemia Hypertension Leukopenia Mitral regurgitation Nontoxic multinodular goiter Tricuspid regurgitation Vitamin D deficiency Fatigue Osteoporosis Surgical History History of tubal ligation 1976 S/P lobectomy of lung 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 Family History Father Myocardial infarction Hypertension Mother Vascular disorder Mother of supranuclear palsy Hypertension Denies family history of Ovarian cancer Prostate cancer Diabetes Breast cancer Colorectal cancer Social History Smoking Status: Former smoker Tobacco Type: Cigarettes Age Started Using Tobacco: 21; Age Quit Using Tobacco: 55; packs per day: 1; Cigarettes Per Day: 20; Second Hand Exposure: No; Do You Dip or Chew Tobacco: No; Hx Alcohol Use: Yes Alcohol type: wine Alcohol Intake Frequency: Monthly or Less Alcohol Intake Frequency Comment: socially Hx Substance Use: No Preferred Language: Citizen Of [place] Communication Ability: Effective Visual Impairment: Partially Limited Hearing Ability: Normal Casino Surveillance Officer Required: No Beliefs That Will Affect Care: None marital status: / Current Living Situation: Alone current occupational status: retired current occupation: worked at [employer] doing [employer] and [employer] in 2022. Feels Safe at Home: Yes Childhood Exposure to Second-Hand Smoke: No Diet: regular caffeine: No (Decaf Coffee ) Dental Care, Regularly: No Physical Activity Frequency: Does not Exercise Seatbelt Use: always Sunscreen Use: No Assistive Devices: Oxygen - Continuous Review of Systems Review of Systems: All systems reviewed & are unremarkable except as noted in HPI & below Physical Exam Physical Exam: General: patient resting comfortably, NAD, non-toxic in appearance, AA&O x 4 Skin: warm, dry, intact, no rashes or lesions HEENT: NC/AT, PERRL, EOMI, anicteric sclera, conjunctiva without injection, external ear normal to inspection and nontender, nares patent, moist mucus membranes, dentition intact, no oropharyngeal lesions, neck supple, trachea midline, no LAD, no thyromegaly, no JVD Heart: +S1/S2, regular, no m/r/g Lungs: equal air entry bilaterally, no rales/rhonchi/wheezes Abd: +BS, soft, NT/ND, no masses/organomegaly/ascites, stable pelvis Ext: warm, 2+ pulses in UE/LE bilaterally, no clubbing/cyanosis or edema Neuro: nonfocal, patient AA&O x 4, speech intact, no facial droop, moving all extremities on command with equal strength 5/5 Results & Data Results & Data Vital Signs (Past 12 Hours) Vital Signs Temp Pulse Resp BP Pulse Ox O2 Del Method O2 Flow Rate 08/06/23 02:00 117 H 26 H 194/125 H 95 Nasal Cannula 3 08/06/23 01:31 107 H 17 187/85 H 100 Nasal Cannula 3 08/06/23 01:01 105 H 25 H 200/98 H 99 Nasal Cannula 3 08/06/23 00:30 87 22 184/121 H 99 Nasal Cannula 3 08/06/23 00:01 113 H 19 198/115 H 90 Nasal Cannula 3 08/05/23 23:59 86 L Room Air 08/05/23 23:50 105 H 08/05/23 23:49 102 H 12 201/128 H 08/05/23 23:33 36.6 C 106 H 20 201/128 H 93 Nasal Cannula 3 Laboratory Results Laboratory Results WBC 9.79 K/ul (4.8-10.8) 08/06/23 00:24 RBC 3.87 M/uL (4.20-5.40) L 08/06/23 00:24 Hgb 11.9 g/dl (12.0-16.0) L 08/06/23 00:24 Hct 36.6 % (37.0-47.0) L 08/06/23 00:24 MCV 94.6 fL (80.0-100.0) 08/06/23 00:24 MCH 30.7 pg (25.0-34.0) 08/06/23 00:24 MCHC 32.5 g/dL (32.0-36.0) 08/06/23 00:24 RDW Std Deviation 42.0 fL (36.4-46.3) 08/06/23 00:24 RDW Coeff of Sarah 12.0 % (11.5-14.5) 08/06/23 00:24 Plt Count 202 K/uL (130-400) 08/06/23 00:24 MPV 9.3 fL (9.4-12.4) L 08/06/23 00:24 Immature Gran % (Auto) 0.7 % 08/06/23 00:24 Neut % (Auto) 89.3 % 08/06/23 00:24 Lymph % (Auto) 3.3 % 08/06/23 00:24 [place] % (Auto) 6.3 % 08/06/23 00:24 Eos % (Auto) 0.2 % 08/06/23 00:24 Baso % (Auto) 0.2 % 08/06/23 00:24 Neut # (Auto) 8.74 K/uL (1.40-6.50) H 08/06/23 00:24 Lymph # (Auto) 0.32 K/uL (1.20-3.40) L 08/06/23 00:24 [place] # (Auto) 0.62 K/uL (0.11-0.59) H 08/06/23 00:24 Eos # (Auto) 0.02 K/uL (0.00-0.50) 08/06/23 00:24 Baso # (Auto) 0.02 K/uL (0.00-0.20) 08/06/23 00:24 Immature Gran # (Auto) 0.07 K/uL (0.01-0.20) 08/06/23 00:24 Sodium 140 mmol/L (136-145) 08/06/23 00:24 Potassium 3.1 mmol/L (3.5-5.1) L 08/06/23 00:24 Chloride 100 mmol/L (98-107) 08/06/23 00:24 Carbon Dioxide 35 mmol/L (21-32) H 08/06/23 00:24 Anion Gap 5 (3-11) 08/06/23 00:24 BUN 14 mg/dl (6-23) 08/06/23 00:24 Creatinine 0.72 mg/dl (0.6-1.2) 08/06/23 00:24 Est Cr Clr Drug Dosing 42.5 ml/min 08/06/23 00:24 Est GFR ( Amer) 93.6 ml/min 08/06/23 00:24 Est GFR (Non-Af Amer) 80.8 ml/min 08/06/23 00:24 BUN/Creatinine Ratio 19.4 (10-20) 08/06/23 00:24 Glucose 127 mg/dl (70-99(Fasting)) H 08/06/23 00:24 Calcium 9.0 mg/dl (8.6-10.3) 08/06/23 00:24 Phosphorus 3.4 mg/dl (2.5-4.9) 08/06/23 00:24 Magnesium 1.9 mg/dl (1.7-2.4) 08/06/23 00:24 Total Bilirubin 0.9 mg/dl (0.2-1.0) 08/06/23 00:24 AST 19 U/L (13-39) 08/06/23 00:24 ALT 16 U/L (7-52) 08/06/23 00:24 Alkaline Phosphatase 54 U/L (34-104) 08/06/23 00:24 Total Creatine Kinase 76 U/L (26-192) 08/06/23 00:24 Troponin I High Sens 21.8 pg/ml (0-14) H 08/06/23 00:24 B-Natriuretic Peptide 348 pg/ml (0-100) H 08/06/23 00:24 Total Protein 6.8 gm/dl (6.0-8.3) 08/06/23:24 Albumin 4.1 gm/dl (3.4-5.0) 08/06/23 00:24 Globulin 2.7 gm/dl (2.5-4.0) 08/06/23 00:24 Albumin/Globulin Ratio 1.5 (0.9-2) 08/06/23 00:24 Lipase 22 U/L (11-82) 08/06/23 00:24 Urine Color Yellow 08/06/23: Urine Appearance Clear (Clear) 08/06/23: Urine pH 7.5 (4.5-7.5) 08/06/23 00:24 Ur Specific [place] 1.010 (1.000-1.030) 08/06/23 00:24 Urine Protein Negative (Negative) 08/06/23:24 Urine Glucose (UA) Negative (Negative) 08/06/23 00:24 Urine Ketones Negative (Negative) 08/06/23 00:24 Urine Blood Negative (Negative) 08/06/23 00:24 Urine Nitrite Negative (Negative) 08/06/23:24 Urine Bilirubin Negative (Negative) 08/06/23 00:24 Urine Urobilinogen Negative (Negative) 08/06/23 00:24 Ur Leukocyte Esterase Negative (Negative) 08/06/23 00:[address] 08/06/23 00:09 CT head/brain wo con CLINICAL HISTORY: headstrike fall Technique: Contiguous axial CT images of the head were acquired from the base of the skull to the vertex without intravenous contrast administration. Images were viewed in brain, subdural and bone windows. Automated dose lowering techniques and/or adjustment according to patient size were utilized for this exam. Comparison: None available at the time of this dictation. Findings: The ventricles, basal cisterns, and cerebral sulci are normal. There is no acute intracranial hemorrhage or evidence of acute territorial infarction. Neither mass effect, shift of the midline structures, nor abnormal extra-axial fluid collections are shown. Imaged portions of the paranasal sinuses and mastoid air cells are clear. The orbits appear normal. There are no acute fractures of the calvaria or scalp swelling. Impression: No acute intracranial hemorrhage, skull fractures, or scalp swelling. ACT 112: Negative or not required by law. Electronically signed by: Salvador Omalley M.D. 08/06/2023 2:[address] 08/06/23 00:09 Exam(s): CT PELVIS Without Contrast EXAM: CT Pelvis Without Intravenous Contrast CLINICAL HISTORY: Reason for exam: right hip pain fall. TECHNIQUE: Axial computed tomography images of the pelvis without intravenous contrast. CTDI is 9.65 mGy and DLP is 262.85 mGy-cm. Automated exposure control was utilized for the study. A dose lowering technique was utilized adhering to the principles of ALARA. COMPARISON: No relevant prior studies available. FINDINGS: Bowel: Bowel loops appear within normal limits. No acute inflammation is seen. No obstruction. No mucosal thickening. Appendix: No findings to suggest acute appendicitis. Intraperitoneal space: Unremarkable. No free air. No significant fluid collection. Bladder: Unremarkable. No stones. Reproductive: Unremarkable as visualized. Bones/joints: 2 mm displacement of fractures than the inferior pubic ramus. There is an essentially nondisplaced fracture of the lateral aspect of the right superior pubic ramus. There is slight buckling of the right sacral wing as well. Mild narrowing and osteophytosis of both hip joints consistent with osteoarthritis. Mild diffuse osteopenia. No dislocation. Soft tissues: Unremarkable. Vasculature: Mild to moderate arterial calcification. No aneurysm. Lymph nodes: Unremarkable. No enlarged lymph nodes. IMPRESSION: 2 mm displacement of fractures than the inferior pubic ramus. There is an essentially nondisplaced fracture of the lateral aspect of the right superior pubic ramus. There is slight buckling of the right sacral wing as well. Electronically signed by: Maximino Alfaro MD 08/06/23 03:42 AM Code Status & VTE Plan VTE Prophylaxis Plan VTE Prophylaxis will be ordered: Yes PG Care Time/CCT Total # of Minutes Spent Total Time Spent with Patient: Total time spent is greater than 50% in coordination of care (as documented) at patient's floor/unit and/or counseling patient: Coding Level of Care Code 63904 INT INP/OBS CARE Diagnoses Pelvic fracture S32.9XXA Hypertension I10 COPD (chronic obstructive pulmonary disease) J44.1 COPD type: COPD with acute exacerbation (3) COPD (chronic obstructive pulmonary disease) COPD type: COPD with acute exacerbation Qualified Code(s): J44.1 - Chronic obstructive pulmonary disease with (acute) exacerbation
[2023-08-06 03:32] LABS: Appearance Urine Clear (Clear); Bilirubin Urine Negative (Negative); Blood Urine Negative (Negative); Color Urine Yellow; Glucose Urine UA Negative (Negative); Ketones Urine Negative (Negative); Leukocyte Esterase Urine Negative (Negative); Nitrite Urine Negative (Negative); Protein Urine Negative (Negative); Urobilinogen Urine Negative (Negative); pH Urine 7.5 (4.5-7.5)
--- NOTE | 2023-08-06 03:42 | CT Scan Report ---
Exam(s): CT PELVIS Without Contrast EXAM: CT Pelvis Without Intravenous Contrast CLINICAL HISTORY: Reason for exam: right hip pain fall. TECHNIQUE: Axial computed tomography images of the pelvis without intravenous contrast. CTDI is 9.65 mGy and DLP is 262.85 mGy-cm. Automated exposure control was utilized for the study. A dose lowering technique was utilized adhering to the principles of ALARA. COMPARISON: No relevant prior studies available. FINDINGS: Bowel: Bowel loops appear within normal limits. No acute inflammation is seen. No obstruction. No mucosal thickening. Appendix: No findings to suggest acute appendicitis. Intraperitoneal space: Unremarkable. No free air. No significant fluid collection. Bladder: Unremarkable. No stones. Reproductive: Unremarkable as visualized. Bones/joints: 2 mm displacement of fractures than the inferior pubic ramus. There is an essentially nondisplaced fracture of the lateral aspect of the right superior pubic ramus. There is slight buckling of the right sacral wing as well. Mild narrowing and osteophytosis of both hip joints consistent with osteoarthritis. Mild diffuse osteopenia. No dislocation. Soft tissues: Unremarkable. Vasculature: Mild to moderate arterial calcification. No aneurysm. Lymph nodes: Unremarkable. No enlarged lymph nodes. IMPRESSION: 2 mm displacement of fractures than the inferior pubic ramus. There is an essentially nondisplaced fracture of the lateral aspect of the right superior pubic ramus. There is slight buckling of the right sacral wing as well. Electronically signed by: Maximino Alfaro MD 08/06/23 03:42 AM
[2023-08-06] MEDS ORDERED: POLYETHYLENE (MIRALAX) 17 GM PACK PO PRN (05:18)
[2023-08-06] MEDS ORDERED: ALBUTEROL HFA 8 GM INHALER INH PRN (05:18)
--- NOTE | 2023-08-06 07:17 | XRay Report ---
XR chest 1V portable HISTORY: 77 years-old Female Chest pain, nonspecific COMPARISON: 05/29/2023 TECHNIQUE: AP view of the chest FINDINGS: Cardiac silhouette is enlarged. Aortic valvular endograft. Emphysema is again noted with interstitial coarsening. Right apical predominant pleural thickening/scarring is redemonstrated. Mild subsegmenta l bibasilar atelectasis. No pneumothorax, large pleural effusion or pulmonary edema. Irregular calcif ied granuloma. Sigmoidal thoracolumbar scoliosis. IMPRESSION: Emphysema without acute process. ACT 112: Negative or not required by law. The above report was generated using voice recognition software. It may contain grammatical, syntax o r spelling errors. Electronically signed by: Michael Franco M.D. 08/06/2023 7:16 AM
--- NOTE | 2023-08-06 07:21 | XRay Report ---
XR hip RT 2V w pelvis HISTORY: 77 years-old Female pain fall acute pelvic and right hip pain status post fall COMPARISON: CT 05/29/2023 TECHNIQUE: AP view of the pelvis with 2 views of the right hip FINDINGS: Moderate osteoarthritis of the hips. Acute to subacute appearing nondisplaced fracture of the right i nferior pubic ramus prior. No additional acute fracture or dislocation identified. Demineralized appe arance of the bones. IMPRESSION: 1. Acute to subacute appearing nondisplaced right inferior pubic ramus fracture, new from 05/29/2023. 2. No additional acute fracture or dislocation identified. ACT 112: Negative or not required by law. The above report was generated using voice recognition software. It may contain grammatical, syntax o r spelling errors. Electronically signed by: Michael Franco M.D. 08/06/2023 7:19 AM
[2023-08-06] MEDS: ENOXAPARIN INJ 40 MG/0.4 ML SYR SQ SCH (09:04)
[2023-08-06] MEDS: ASPIRIN 81 MG ECTAB PO SCH (09:05)
[2023-08-06] MEDS: FUROSEMIDE 20 MG TAB PO SCH (09:06)
[2023-08-06] MEDS: VERAPAMIL HCL 180 MG TABCR PO SCH (09:06)
[2023-08-06] MEDS: UMECLIDINIUM BROMIDE 62.5MCG/BLISTER 7 PUFFS/INHALER INH SCH (09:25)
--- NOTE | 2023-08-06 13:07 | Electrocardiogram Report ---
Test Reason : Blood Pressure : / mmHG Vent. Rate : 103 BPM Atrial Rate : 147 BPM P-R Int : 178 ms QRS Dur : 074 ms QT Int : 420 ms P-R-T Axes : 065 039 073 degrees QTc Int : 550 ms Sinus tachycardia Premature atrial complexes RSR' or QR pattern in V1 suggests right ventricular conduction delay Prolonged QT Abnormal ECG When compared with ECG of 05-JUL-2023 09:06, (unconfirmed) Premature ventricular complexes are no longer Present T wave inversion no longer evident in Anterior leads QT has lengthened Confirmed by Leonard Phillip ([id number]) on 08/06/2023 1:07:38 PM Referred By: REFERRED SELF Confirmed By:Leonard Phillip
--- NOTE | 2023-08-06 14:25 | Orthopedic Consultation ---
Date of Consultation August 06, 2023 Assessment & Plan (1) Fracture of right inferior pubic ramus: X-ray images and CT images were reviewed with the patient while in the emergency room. The patient may progress to weightbearing as tolerated on the right lower extremity. However, we discussed that she may benefit from a pain perspective of being partial weightbearing on the right lower extremity over the next 3-4 weeks with the aid of a walker. Range of motion as tolerated with the right hip. If she is admitted from the emergency room, she will benefit from physical therapy for ambulation. We had a discussion of being safe while ambulating and to be able to perform her ADLs in order for her to return home, especially since she lives alone in a 1 floor home. Orthopedics will sign off at this time. The patient may follow-up with Dr. Leal's clinic as an outpatient in approximately 4 weeks for updated x-rays. History of Present Illness Reason for Consultation: Right hip pain post fall last evening Attending Physician: Azul Reddy MD History of Present Illness This is a patient whom lives alone in a 1 floor home. She sustained a fall last evening and had pain in her right lower extremity. She was brought to [facility] ER where x-rays and a CT scan were done of the hip/pelvis. She was noted to have a right inferior pubic ramus fracture and orthopedics was consulted for treatment of the fracture. Allergies Allergy/AdvReac Type Severity Reaction Status Date / Time watermelon Allergy Unknown Rash Verified 07/05/23 08:52 alendronate sodium AdvReac Intermediate Nausea Verified 07/05/23 08:52 pravastatin AdvReac Intermediate myalgia Verified 07/05/23 08:52 ibandronate sodium AdvReac Mild Gastrointestinal Verified 07/05/23 08:52 [From Boniva] Upset codeine AdvReac Unknown UPSET Verified 07/05/23 08:52 STOMACH atorvastatin AdvReac Nausea Verified 07/05/23 08:52 bupropion [From Wellbutrin] AdvReac Nausea Verified 07/05/23 08:52 doxycycline AdvReac Nausea Verified 07/05/23 08:52 simvastatin AdvReac Nausea Verified 07/05/23 08:52 Sulfa (Sulfonamide AdvReac Nausea Verified 07/05/23 08:52 Antibiotics) sulfamethoxazole AdvReac Nausea Verified 07/05/23 08:52 [From Bactrim] trimethoprim [From Bactrim] AdvReac Nausea Verified 07/05/23 08:52 Home Medications Medication Instructions Recorded Confirmed Type aspirin 81 mg tablet,delayed 81 mg PO DAILY 05/06/19 08/06/23 History release ascorbic acid (vitamin C) 500 mg 500 mg PO DAILY 08/17/22 08/06/23 History tablet cholecalciferol (vitamin D3) 25 25 mcg PO DAILY 08/17/22 08/06/23 History mcg (1,000 unit) tablet (Vitamin D3) ferrous sulfate 325 mg (65 mg 325 mg PO 2XWK 08/17/22 08/06/23 History iron) tablet furosemide 20 mg tablet (Lasix) See Rx Instructions .Route 01/19/23 08/06/23 Rx .COMPLEX #60 tabs verapamil 180 mg tablet,extended 360 mg (2 x 180 mg) PO DAILY #180 03/27/23 08/06/23 Rx release tabs tiotropium bromide 18 mcg capsule 1 cap inhalation DAILY #30 04/16/23 08/06/23 Rx with inhalation device inhalations albuterol sulfate 90 mcg/actuation 2 puff inhalation Q6H PRN 05/07/23 08/06/23 History aerosol inhaler (Ventolin HFA) shortness of breath or wheezing valsartan 160 mg tablet 160 mg PO BID #60 tabs 07/02/23 08/06/23 Rx Sutab 0.225 g PO DAILY 08/06/23 08/06/23 History Patient History Medical History Carotid artery plaque Insomnia Upper respiratory infection Aortic stenosis due to bicuspid aortic valve BMI less than 19,adult Carotid bruit COPD (chronic obstructive pulmonary disease) History of adenocarcinoma of lung Hyperlipidemia Hypertension Leukopenia Mitral regurgitation Nontoxic multinodular goiter Tricuspid regurgitation Vitamin D deficiency Fatigue Osteoporosis Surgical History History of tubal ligation 1977 S/P lobectomy of lung 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 Family History Father Myocardial infarction Hypertension Mother Vascular disorder Mother of supranuclear palsy Hypertension Denies family history of Ovarian cancer Prostate cancer Diabetes Breast cancer Colorectal cancer Social History Smoking Status: Former smoker Tobacco Type: Cigarettes Age Started Using Tobacco: 21; Age Quit Using Tobacco: 55; packs per day: 1; Cigarettes Per Day: 20; Second Hand Exposure: No; Do You Dip or Chew Tobacco: No; Hx Alcohol Use: Yes Alcohol type: wine Alcohol Intake Frequency: Monthly or Less Alcohol Intake Frequency Comment: socially Hx Substance Use: No Preferred Language: Yoruba Communication Ability: Effective Visual Impairment: Partially Limited Hearing Ability: Normal Coil Winder Strap Required: No Beliefs That Will Affect Care: None marital status: / Current Living Situation: Alone current occupational status: retired current occupation: worked at [employer] doing [employer] in 2022. Feels Safe at Home: Yes Childhood Exposure to Second-Hand Smoke: No Diet: regular caffeine: No (Decaf Coffee ) Dental Care, Regularly: No Physical Activity Frequency: Does not Exercise Seatbelt Use: always Sunscreen Use: No Assistive Devices: Oxygen - Continuous Physical Exam Constitutional: well developed, well nourished and + thin; no acute distress Neck: trachea midline Musculoskeletal: Hip: + joint line tenderness (Right buttocks, inferior pubic ramus); no deformity, no skin erythema, no ecchymosis and log roll test negative Skin: no rashes, warm and dry Trauma: no evidence of skin trauma Neurologic: normal touch/pain/proprioception Psychiatric: A+Ox3, euthymic affect (Sitting in the ER bed comfortable.) Speech: normal rate/rhythm/volume of speech Results & Data Vital Signs (Past 12 Hours) Vital Signs Pulse Pulse Resp BP BP Pulse Ox O2 Del Method 08/06/23 11:00 106 H 20 179/122 H 95 Nasal Cannula 08/06/23 09:30 Nasal Cannula 08/06/23 09:29 104 H 20 190/128 H 94 Room Air 08/06/23 09:00 114 H 23 99 08/06/23 09:00 226/130 H 08/06/23 08:31 113 H 17 97 08/06/23 08:31 197/110 H 08/06/23 08:30 108 H 38 H 90 08/06/23 08:01 222/115 H 08/06/23 08:01 113 H 17 95 08/06/23 08:00 108 H 39 H 89 L 08/06/23 07:30 112 H 28 H 98 08/06/23 07:00 207/121 H 08/06/23 07:00 109 H 41 H 95 08/06/23 06:57 108 H 08/06/23 06:30 108 H 34 H 95 08/06/23 06:30 203/111 H 08/06/23 06:02 106 H 22 184/99 H 94 Nasal Cannula 08/06/23 05:30 109 H 23 202/114 H 99 Nasal Cannula 08/06/23 05:01 97 H 28 H 178/150 H 91 Nasal Cannula 08/06/23 04:31 109 H 22 163/135 H 96 Nasal Cannula 08/06/23 04:02 112 H 08/06/23 04:00 98 H 27 H 195/104 H 98 Nasal Cannula 08/06/23 03:31 112 H 21 189/108 H 94 Nasal Cannula 08/06/23 03:00 97 H 22 182/104 H 93 Nasal Cannula O2 Flow Rate 08/06/23 11:00 2 08/06/23 09:30 2 08/06/23 09:29 08/06/23 09:00 08/06/23 09:00 08/06/23 08:31 08/06/23 08:31 08/06/23 08:30 08/06/23 08:01 08/06/23 08:01 08/06/23 08:00 08/06/23 07:30 08/06/23 07:00 08/06/23 07:00 08/06/23 06:57 08/06/23 06:30 08/06/23 06:30 08/06/23 06:02 3 08/06/23 05:30 3 08/06/23 05:01 3 08/06/23 04:31 3 08/06/23 04:02 08/06/23 04:00 3 08/06/23 03:31 3 08/06/23 03:00 3 Diagnostic Findings Right hip x-rays: Minimally displaced inferior pubic ramus fracture. CT of the pelvis: There is a minimally displaced inferior pubic ramus fracture. The displacement of the fracture measures approximately 2 mm. There may be a small nondisplaced fracture at the superior lateral aspect of the pubic ramus.
[2023-08-06] MEDS ORDERED: METOPROLOL TARTRATE 1 MG/ML VIAL IV PRN (15:30)
--- NOTE | 2023-08-06 16:03 | Communication Note ---
Date of Service: August 06, 2023 Please refer to the H&P dictated earlier this morning for details of presentation on admission. In brief, the patient had a mechanical fall and had a pelvic fracture. She was seen in consultation by orthopedics who did not recommend surgical management. She is on conservative treatment with pain control, PT and OT Eval pending.
[2023-08-06] MEDS: VALSARTAN 80 MG TAB PO SCH (21:01)
[2023-08-06] MEDS: ACETAMINOPHEN 325 MG TAB PO PRN (23:18)
[2023-08-07 07:08] LABS: Hematocrit (blood only) 36.4 % (37.0-47.0); Hemoglobin 11.9 g/dl (12.0-16.0); Mean Corpuscular Hemoglobin 30.4 pg (25.0-34.0); Mean Corpuscular Hgb Conc 32.7 g/dL (32.0-36.0); Mean Corpuscular Volume 93.1 fL (80.0-100.0); Mean Platelet Volume 9.3 fL (9.4-12.4); Platelet Count 179 K/uL (130-400); RDW Coefficient of Variation 12.2 % (11.5-14.5); RDW Standard Deviation 41.8 fL (36.4-46.3); Red Blood Count 3.91 M/uL (4.20-5.40); White Blood Count 8.55 K/ul (4.8-10.8)
[2023-08-07 07:51] LABS: BUN Creatinine Ratio 25.4 (10-20); Creatinine Clr Calc Pharmacy 43.1 ml/min; Est GFR (African American) 95.2 ml/min; Est GFR (Non-African American) 82.2 ml/min; Potassium 4.3 mmol/L (3.5-5.1)
[2023-08-07] MEDS: UMECLIDINIUM BROMIDE 62.5MCG/BLISTER 7 PUFFS/INHALER INH SCH (08:19)
[2023-08-07] MEDS: VALSARTAN 80 MG TAB PO SCH ×2 (08:20→20:09)
[2023-08-07] MEDS: ASPIRIN 81 MG ECTAB PO SCH (10:33)
[2023-08-07] MEDS: VERAPAMIL HCL 180 MG TABCR PO SCH (10:33)
[2023-08-07] MEDS: ENOXAPARIN INJ 40 MG/0.4 ML SYR SQ SCH (10:57)
[2023-08-07] MEDS: ACETAMINOPHEN 325 MG TAB PO PRN ×2 (13:08→23:32)
[2023-08-07] MEDS ORDERED: traMADol HCL 50 MG TABLET PO PRN ×2 (18:47→18:49)
--- NOTE | 2023-08-07 18:52 | Hospitalist Progress Note ---
Date of Service August 07, 2023 Assessment & Plan (1) AMS (altered mental status): Plan: Acute possibly sundowning, tried to reach daughter, stop morphine, started on tramadol, started on scheduled Tylenol (2) Pelvic fracture: Plan: s/p fall resulting in pelvic fracture -Admit to medical -Orthopedic Surgery Consultation appreciated -PT/OT evaluation appreciated Pain management, started on scheduled Tylenol, patient lives by herself however her daughter lives close to her Possible discharge tomorrow (3) Hypertension: Plan: Chronic. Elevated blood pressure. -Continue Diovan 160mg po BID -Continue Verapamil -Continue to monitor (4) COPD (chronic obstructive pulmonary disease): Plan: Chronic. Stable. No cough, SOB or wheeze -Continue Albuterol PRN -Continue Spiriva Admission and Anticipated Discharge Date Admission Date: August 06, 2023 Subjective Mild confusion in the afternoon Physical Exam Physical Exam: General: patient resting comfortably, NAD, non-toxic in appearance, AA&O x 4 Skin: warm, dry, intact, no rashes or lesions HEENT: NC/AT, PERRL, EOMI, anicteric sclera, conjunctiva without injection, external ear normal to inspection and nontender, nares patent, moist mucus membranes, dentition intact, no oropharyngeal lesions, neck supple, trachea midline, no LAD, no thyromegaly, no JVD Heart: +S1/S2, regular, no m/r/g Lungs: equal air entry bilaterally, no rales/rhonchi/wheezes Abd: +BS, soft, NT/ND, no masses/organomegaly/ascites, stable pelvis Ext: warm, 2+ pulses in UE/LE bilaterally, no clubbing/cyanosis or edema Neuro: nonfocal, patient AA&O x 4, speech intact, no facial droop, moving all extremities on command with equal strength 5/5 Constitutional: well developed, well nourished and + thin; no acute distress Neck: trachea midline Musculoskeletal: Hip: + joint line tenderness (Right buttocks, inferior pubic ramus); no deformity, no skin erythema, no ecchymosis and log roll test negative Skin: no rashes, warm and dry Trauma: no evidence of skin trauma Neurologic: normal touch/pain/proprioception Psychiatric: A+Ox3, euthymic affect (Sitting in the ER bed comfortable.) Speech: normal rate/rhythm/volume of speech Results & Data Results & Data Vital Signs (Past 12 Hours) Vital Signs Temp Pulse Resp BP Pulse Ox Pulse Ox O2 Del Method 08/07/23 13:58 37.1 C 102 H 26 H 122/71 93 Nasal Cannula 08/07/23 11:09 36.8 C 61 36 H 177/81 H 94 Nasal Cannula 08/07/23 11:01 82 L 08/07/23 07:51 37.1 C 99 H 20 171/83 H 94 Nasal Cannula 08/07/23 07:39 Nasal Cannula O2 Flow Rate 08/07/23 13:58 1 08/07/23 11:09 1 08/07/23 11:01 08/07/23 07:51 1 08/07/23 07:39 1 PG Care Time/CCT Total # of Minutes Spent Total Time Spent with Patient: Total time spent is greater than 50% in coordination of care (as documented) at patient's floor/unit and/or counseling patient: Coding Level of Care Code 49995 SUB INP/OBS CARE 2/35MIN Diagnoses AMS (altered mental status) R41.82 Pelvic fracture S32.9XXA Hypertension I10 Hypertension type: unspecified COPD (chronic obstructive pulmonary disease) J44.1 COPD type: COPD with acute exacerbation (3) Hypertension Hypertension type: unspecified Qualified Code(s): I10 - Essential (primary) hypertension (4) COPD (chronic obstructive pulmonary disease) COPD type: COPD with acute exacerbation Qualified Code(s): J44.1 - Chronic ob structive pulmonary disease with (acute) exacerbation
[2023-08-07 23:18] LABS: Appearance Urine Clear (Clear); Bacteria Urine Automated Negative (Negative); Bilirubin Urine Negative (Negative); Blood Urine 3+ (Negative); Color Urine Dark Yellow; Epithelial Cell Urine Auto >30 /lpf (0-5); Glucose Urine UA Negative (Negative); Ketones Urine Trace (Negative); Leukocyte Esterase Urine Trace (Negative); Nitrite Urine Negative (Negative); Protein Urine 1+ (Negative); RBC Urine Automated >30 /hpf (0-4); Specific Gravity Urine 1.029 (1.000-1.030); Urobilinogen Urine Negative (Negative)
[2023-08-07 23:48] LABS: Mucus Urine Present (None Prsent)
[2023-08-08] MEDS: FUROSEMIDE 20 MG TAB PO SCH (08:54)
[2023-08-08] MEDS: ASPIRIN 81 MG ECTAB PO SCH (08:54)
[2023-08-08] MEDS: VALSARTAN 80 MG TAB PO SCH ×2 (08:54→22:45)
[2023-08-08] MEDS: VERAPAMIL HCL 180 MG TABCR PO SCH (08:54)
[2023-08-08] MEDS: UMECLIDINIUM BROMIDE 62.5MCG/BLISTER 7 PUFFS/INHALER INH SCH (08:55)
[2023-08-08] MEDS: ENOXAPARIN INJ 40 MG/0.4 ML SYR SQ SCH (08:56)
--- NOTE | 2023-08-08 19:08 | Hospitalist Progress Note ---
Date of Service August 08, 2023 Assessment & Plan (1) AMS (altered mental status): Plan: Acute possibly sundowning, tried to reach daughter, stop morphine, started on tramadol, started on scheduled Tylenol (2) Pelvic fracture: Plan: s/p fall resulting in pelvic fracture -Admit to medical -Orthopedic Surgery Consultation appreciated -PT/OT evaluation appreciated Pain management, started on scheduled Tylenol, patient lives by herself however her daughter lives close to her Needs placement, pending placement (3) Hypertension: Plan: Chronic. Elevated blood pressure. -Continue Diovan 160mg po BID -Continue Verapamil -Continue to monitor (4) COPD (chronic obstructive pulmonary disease): Plan: Chronic. Stable. No cough, SOB or wheeze -Continue Albuterol PRN -Continue Spiriva -Hypoxic, check D-dimer Admission and Anticipated Discharge Date Admission Date: August 06, 2023 Subjective Mild confusion in the afternoon Physical Exam Physical Exam: General: patient resting comfortably, NAD, non-toxic in appearance, AA&O x 4 Skin: warm, dry, intact, no rashes or lesions HEENT: NC/AT, PERRL, EOMI, anicteric sclera, conjunctiva without injection, external ear normal to inspection and nontender, nares patent, moist mucus membranes, dentition intact, no oropharyngeal lesions, neck supple, trachea midline, no LAD, no thyromegaly, no JVD Heart: +S1/S2, regular, no m/r/g Lungs: equal air entry bilaterally, no rales/rhonchi/wheezes Abd: +BS, soft, NT/ND, no masses/organomegaly/ascites, stable pelvis Ext: warm, 2+ pulses in UE/LE bilaterally, no clubbing/cyanosis or edema Neuro: nonfocal, patient AA&O x 4, speech intact, no facial droop, moving all extremities on command with equal strength 5/5 Constitutional: well developed, well nourished and + thin; no acute distress Neck: trachea midline Musculoskeletal: Hip: + joint line tenderness (Right buttocks, inferior pubic ramus); no deformity, no skin erythema, no ecchymosis and log roll test negative Skin: no rashes, warm and dry Trauma: no evidence of skin trauma Neurologic: normal touch/pain/proprioception Psychiatric: A+Ox3, euthymic affect (Sitting in the ER bed comfortable.) Speech: normal rate/rhythm/volume of speech Results & Data Results & Data Vital Signs (Past 12 Hours) Vital Signs Temp Pulse Resp BP Pulse Ox O2 Del Method O2 Flow Rate 08/08/23 14:51 36.8 C 84 16 110/60 99 Nasal Cannula 2 08/08/23 09:30 Nasal Cannula 2 08/08/23 07:16 36.3 C L 97 H 16 179/94 H 98 Nasal Cannula 2 PG Care Time/CCT Total # of Minutes Spent Total Time Spent with Patient: Total time spent is greater than 50% in coordination of care (as documented) at patient's floor/unit and/or counseling patient: Coding Level of Care Code 07239 SUB INP/OBS CARE 235MIN Diagnoses AMS (altered mental status) R41.82 Pelvic fracture S32.9XXA Hypertension I10 Hypertension type: unspecified COPD (chronic obstructive pulmonary disease) J44.1 COPD type: COPD with acute exacerbation (3) Hypertension Hypertension type: unspecified Qualified Code(s): I10 - Essential (primary) hypertension (4) COPD (chronic obstructive pulmonary disease) COPD type: COPD with acute exacerbation Qualified Code(s): J44.1 - Chronic obstructive pulmonary disease with (acute) exacerbation
[2023-08-08 20:18] LABS: D Dimer 1690 ug/L FEU (0-500)
[2023-08-09 08:40] LABS: Creatinine Clr Calc Pharmacy 43.1 ml/min; Est GFR (African American) 95.2 ml/min; Est GFR (Non-African American) 82.2 ml/min
[2023-08-09] MEDS ORDERED: OPTIRAY 320 500ml IV ONE (08:51)
[2023-08-09] MEDS: VERAPAMIL HCL 180 MG TABCR PO SCH (09:05)
[2023-08-09] MEDS: ENOXAPARIN INJ 40 MG/0.4 ML SYR SQ SCH (09:06)
[2023-08-09] MEDS: VALSARTAN 80 MG TAB PO SCH ×2 (09:06→22:03)
[2023-08-09] MEDS: ASPIRIN 81 MG ECTAB PO SCH (09:06)
[2023-08-09] MEDS: UMECLIDINIUM BROMIDE 62.5MCG/BLISTER 7 PUFFS/INHALER INH SCH (09:07)
--- NOTE | 2023-08-09 09:36 | CT Scan Report ---
CT angio chest w con CT DOSE: 269.14 mGy.cm HISTORY: 77 years-old Female with hypoxia elevated D dIMER. Acute hypoxia TECHNIQUE: Multiple CTA images of the chest were obtained after the intravenous administration of 113 ml Optiray. Coronal and sagittal MIPS were obtained from the axial data set and were submitted for review. All measurements were obtained according to NASCET criteria. A dose lowering technique was u tilized adhering to the principles of ALARA. COMPARISON: Chest CT 05/29/2023, PET CT 10/18/2022 FINDINGS: CTA: Moderate to marked cardiomegaly. Trace pericardial effusion. Aortic valvular and endograft. Atheroscl erosis of the thoracic aorta without aneurysm or dissection. 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 No pulmonary emboli identified. CT CHEST: No thyroid nodule or progressive lymphadenopathy. Patchy consolidative opacities are again noted with in the superior segment left lower lobe which appear unchanged from 05/29/2023 exam. Calcified granulo lux of the lingula are again noted. Moderate pulmonary emphysema. There is an irregular 7 x 7 x 6 mm irregular spiculated solid nodule within the left upper lobe on image 83 series 4. Unchanged appeara nce of the right lung and right lung apex. No acute process of the imaged upper abdomen. Chronic chest wall deformities. There is no destructive bone lesions. Degenerative changes of the shoulders and spine. Superior endplate T2 compression defo rmity without retropulsion is new from prior. IMPRESSION: 1. Posttreatment related changes of the superior segment left lower lobe are similar to prior. 2. Irregular and suspicious spiculated 7 mm solid nodule of the left upper lobe. Attention at follow- up is needed. 3. Mild acute to subacute appearing superior endplate compression of T2 without retropulsion, new fro m 05/29/2023. 4. Emphysema. 5. No new lymphadenopathy. Please refer to below summary of Fleischner criteria recommendations for follow-up of incidental CT n odules (Laine Esposito, Guidelines for management of small pulmonary nodules detected on CT scans: A sta tement from the Fleischner Society, Radiology 237: [phone].) SOLID NODULES Solitary nodule size: 6-8 mm * Low risk patients: follow-up at 6-12 months, then consider further follow-up at 18-24 months * high risk patients: initial follow-up CT at 6-12 months and then at 18-24 months if no change Note: newly detected indeterminate nodule in persons 35 years of age or older. * Low risk patients: minimal or absent history of smoking and/or other known risk factors * high risk patients: history of smoking or of other known risk factors (e.g. first degree relative with lung cancer, or exposure to asbestos, radon, uranium) * if a nodule up to 8 mm is partly solid or is ground glass further follow-up is required after 24 m onths to exclude possible slow growing adenocarcinoma (BEAN) ACT 112: Negative or not required by law. The above report was generated using voice recognition software. It may contain grammatical, syntax o r spelling errors. Electronically signed by: Michael Franco M.D. 08/09/2023 9:35 AM
--- NOTE | 2023-08-09 18:55 | Hospitalist Progress Note ---
Date of Service August 09, 2023 Assessment & Plan (1) AMS (altered mental status): Plan: Episode of sundowning confusion recent admission, patient suffers from dementia, patient suffers from lung cancer, (2) Pelvic fracture: Plan: s/p fall resulting in pelvic fracture -Managed conservatively from pain standpoint she is doing fine, pending placement, discussed with the home health care case manager and the daughter waiting for insurance authorization -The patient lives in a trailer, she suffers from dementia, I doubt that she is safe to live by herself anymore, she had episode of sundowning during this admission (3) Hypertension: Plan: Chronic. Elevated blood pressure. -Continue Diovan 160mg po BID -Continue Verapamil -Continue to monitor (4) COPD (chronic obstructive pulmonary disease): Plan: She is hypoxic, D-dimer was elevated, CT of chest did not show any acute finding, CT of chest showed evidence of new growth area within the right upper lobe we discussed with her oncologist tomorrow, patient diagnosed with COPD with chronic hypoxia however she refused using oxygen, Admission and Anticipated Discharge Date Admission Date: August 06, 2023 Subjective No complaint today, I discussed the case with her daughter Alexsandar, patient has chronic hypoxia, however she refused using oxygen, she stated that she does not feel shortness of breath, her daughter also told me that she suffers from dementia, I informed the daughter about new growths on the CT scan Physical Exam Physical Exam: General: patient resting comfortably, NAD, non-toxic in appearance, AA&O x 4 Skin: warm, dry, intact, no rashes or lesions HEENT: NC/AT, PERRL, EOMI, anicteric sclera, conjunctiva without injection, external ear normal to inspection and nontender, nares patent, moist mucus membranes, dentition intact, no oropharyngeal lesions, neck supple, trachea midline, no LAD, no thyromegaly, no JVD Heart: +S1/S2, regular, no m/r/g Lungs: equal air entry bilaterally, no rales/rhonchi/wheezes Abd: +BS, soft, NT/ND, no masses/organomegaly/ascites, stable pelvis Ext: warm, 2+ pulses in UE/LE bilaterally, no clubbing/cyanosis or edema Neuro: nonfocal, patient AA&O x 4, speech intact, no facial droop, moving all extremities on command with equal strength 5/5 Constitutional: well developed, well nourished and + thin; no acute distress Neck: trachea midline Musculoskeletal: Hip: + joint line tenderness (Right buttocks, inferior pubic ramus); no deformity, no skin erythema, no ecchymosis and log roll test negative Skin: no rashes, warm and dry Trauma: no evidence of skin trauma Neurologic: normal touch/pain/proprioception Psychiatric: A+Ox3, euthymic affect (Sitting in the ER bed comfortable.) Speech: normal rate/rhythm/volume of speech Results & Data Results & Data Vital Signs (Past 12 Hours) Vital Signs Temp Pulse Resp BP Pulse Ox O2 Del Method O2 Flow Rate 08/09/23 14:39 36.6 C 88 16 104/64 97 Nasal Cannula 2 08/09/23 09:42 Room Air 08/09/23 09:30 94 Room Air 08/09/23 07:22 36.5 C 79 16 138/78 99 Room Air PG Care Time/CCT Total # of Minutes Spent Total Time Spent with Patient: Total time spent is greater than 50% in coordination of care (as documented) at patient's floor/unit and/or counseling patient: Coding Level of Care Code 11698 SUB INP/OBS CARE 3/50MIN Diagnoses AMS (altered mental status) R41.82 Pelvic fracture S32.9XXA Hypertension I10 Hypertension type: unspecified COPD (chronic obstructive pulmonary disease) J44.1 COPD type: COPD with acute exacerbation (3) Hypertension Hypertension type: unspecified Qualified Code(s): I10 - Essential (primary) hypertension (4) COPD (chronic obstructive pulmonary disease) COPD type: COPD with acute exacerbation Qualified Code(s): J44.1 - Chronic obstructive pulmonary disease with (acute) exacerbation
[2023-08-10] MEDS: VALSARTAN 80 MG TAB PO SCH ×2 (08:31→19:24)
[2023-08-10] MEDS: UMECLIDINIUM BROMIDE 62.5MCG/BLISTER 7 PUFFS/INHALER INH SCH (08:31)
[2023-08-10] MEDS: FUROSEMIDE 20 MG TAB PO SCH (08:31)
[2023-08-10] MEDS: VERAPAMIL HCL 180 MG TABCR PO SCH (08:32)
[2023-08-10] MEDS: ENOXAPARIN INJ 40 MG/0.4 ML SYR SQ SCH (08:32)
[2023-08-10] MEDS: ASPIRIN 81 MG ECTAB PO SCH (08:32)
--- OUTSIDE RECORDS SUMMARY | 2023-08-10 14:30 | External Medical Summary | Summary of Care ---
Author Name Unknown Organization [facility] Address [address] [place] [address] Phone [phone] Care Team Providers Care Lens Blocker Name Role Phone Shawn Garcia MD Primary Care Provi kenji Reason for Referral * Precert (Within 10 days (routine)) - Pending Review Specialty Diagnoses / Procedures Referred By Contac t Referred To Contact Cardiac Studies Diagnoses Bicuspid aortic valve Severe aortic stenosis History of transcatheter aortic valve replacement (TAVR) Procedures ECHO, COMPLETE (2D), TRANS-THORACIC Chantale Andrade [facility] [address] [facility] [address] Referral ID Status Reason Start Date Expiration Date Visits Requested Visits Authorized [id number] Pending Review Precert 06/02/2024 999 999 Reason for Visit * Reason Comments Follow Up Encounter Details Date Type Department Care Team Description 06/13/2023 Office Visit Card[facility], [facility] [address] [facility] [address] Chantale Andrade CRNP [address] [place] [address] Bicuspid aortic valve*; Severe aortic stenosis; History of transcatheter aortic valve replacement (TAVR); Chronic heart failure with preserved ejection fraction (HCC) Allergies Active Allergy Reactions Severity Noted Date Comments Alendronate High 07/13/2022 Other reaction(s): Nausea Atorvastatin 07/13/2022 Bupropion 07/13/2022 Citrullus Vulgaris Hives 07/13/2022 Codeine 07/13/2022 Other reaction(s): UPSET STOMACH Doxycycline 07/13/2022 Ibandronic Acid Low 07/13/2022 Other reaction(s): Gastrointestinal Upset Simvastatin 07/13/2022 Sulfa Antibiotics 07/13/2022 Sulfamethoxazole 07/13/2022 Other reaction(s): Nausea Trimethoprim 07/13/2022 Other reaction(s): Nausea documented as of this encounter (statuses as of 06/13/2023) Medications Medication Sig Dispensed Refills Start Date End Date Status VERAPAMIL HCL 360 MG OR CP24 Take 360 mg by mouth in the morning. 0 02/19/2003 Active Aspirin 81 MG Oral Capsule Take 81 mg by mouth in the morning. 0 Active Ventolin HFA 108 (90 Base) MCG/ACT Inhalation Aerosol Solution Inhale by mouth every 6 hours as needed for Dyspnea. 0 Active Tiotropium [place] Monohydrate 18 MCG Inhalation Capsule (Spiriva) Inhale 1 Capsule by mouth in the morning. For inhaler only, do not swallow.. 0 Active Valsartan 160 MG Oral Tablet (Diovan) Take 1 Tablet by mouth in the morning and 1 Tablet before bedtime. 0 Active Ascorbic Acid 500 MG Oral Tablet Take 1 Tablet by mouth every evening. 0 Active Furosemide 20 MG Oral Tablet (Lasix) Take 1 Tablet by mouth once a day on Sunday, Sunday, and Sunday only. 0 Active Potassium Chloride Marilee ER 20 MEQ Oral Tablet Extended Release Take 1 Tablet by mouth once a day on Sunday, Sunday, and Sunday only. 0 Active Ferrous Sulfate 325 (65 Fe) MG Oral Tablet Take 1 Tablet by mouth daily with breakfast. Takes two times weekly 0 Active Amoxicillin 500 MG Oral Capsule (Amoxil) Take 4 capsules 1 hour prior to any dental work 4 Capsule 4 05/16/2023 Active Vitamin B-12 1000 MCG Sublingual Tablet Sublingual Place 1 Tablet under the tongue in the morning. 0 Active documented as of this encounter (statuses as of 06/13/2023) Active Problems Problem Noted Date S/P TAVR (transcatheter aortic valve rep lacement) 05/03/2023 Rectal mass 08/19/2022 Mass of left lung 08/19/2022 Severe aortic stenosis 08/19/2022 COPD (chronic obstructive pulmonary dise ase) 08/19/2022 HTN (hypertension) 08/19/2022 ADVANCE DIRECTIVE INFORMATION 02/13/2008 Overview: No, Advance Directive brochure given to patient. MAL AKOSUA UPPER LOBE LUNG 02/19/2003 documented as of this encounter (statuses as of 06/13/2023) Social History Tobacco Use Types Packs/Day Years Used Date Smoking Tobacco: Former Cigarettes 1 37 Q uit: 11/27/2008 Smokeless Tobacco: Never Tobacco Cessation:Counseling Given: Not Answered Alcohol Use Standard Drinks/Week Comments Yes 0 (1 standard drink = 0.6 oz pur e alcohol) Socially Sex Assigned at Date Recorded Not on file Job Start Date Occupation Industry Not on file Not on file Not on file documented as of this encounter Last Filed Vital Signs Vital Sign Reading Time Taken Comments Blood Pressure 130/70 06/13/2023 9:34 AM EDT Pulse 90 06/13/2023 9:34 AM EDT Temperature - - Respiratory Rate - - Oxygen Saturation - - Inhaled Oxygen Concentration - - Weight 39 kg (86 lb) 06/13/2023 9:34 AM EDT Height - - Body Mass Index 14.31 05/03/2023 10:34 AM EDT documented in this encounter Functional Status Functional Status Response Date of Assess ment Are you deaf or do you have serious difficulty h earing? No 05/03/2023 Are you blind or do you have serious difficulty seeing, even when wearing glasses? No 05/03/2023 Do you have serious difficul ty walking or climbing stairs? (5 years old or older) No 05/03/2023 Do you have difficulty dress ing or bathing? (5 years old or older) No 05/03/2023 Because of a physical, menta l, or emotional condition, do you have difficulty doing errands alone such as visiting a doctor s office or shopping? (15 years old or older) No 05/03/20 Cognitive Status Response Date of Assessm ent Because of a physical, menta l, or emotional condition, do you have serious difficulty concentrating, remembering, or making decisions? (5 years old or older No 05/03/2023 documented as of this encounter Progress Notes * Chantale AndradeYOKASTA - 06/13/2023 10:00 AM EDT Valve Clinic Cardiology Outpatient Clinic Note 06/13/2023 Patient disposition: 1 month post TAVR Primary [employer] Worker Dr. Rainey ([facility]) Past medical history: Chronic diastolic CHF Severe aortic stenosis of the bicuspid aortic valve, status post TAVR (#23mm Batista Jono S3 ultra valve), 05/03/2023 at [facility] with Dr. Jhaveri Pre TAVR catheterization without obstructive coronary disease, 03/01/2023 at [facility] Hypertension Hyperlipidemia COPD History of right lung cancer, status post right upper lobectomy 2001 Non-small cell carcinoma, status post left lung radiation 11/2022 HPI 77-year-old female presenting to the valve clinic today in close follow-up post TAVR. Patient underwent TAVR with Dr. Jhaveri on 05/03/2023 at [facility] due to severe aortic stenosis of the bicuspid aortic valve. A #23 mm Batista Jono S3 ultra valve was placed with no immediate complications. Postop day 1 echo showed stable TAVR gradients with a trivial paravalvular regurgitation. She was discharged home the next day on 05/04/2023. Today the patient presents with her son-in-law per her usual routine. States that she is feeling well and has noticed an improvement in her breathing as well as functional capacity over the month. 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 She denies any chest pain. No palpitations. Denies lightheadedness or dizziness. No syncope. No orthopnea, PND, or increased lower extremity edema. No fever, chills, cough, hematochezia, melena, or hemoptysis. She states she is compliant with all medications, and offers no side effects. She is scheduled for a repeat echocardiogram on 07/12. Current Outpatient Medications Medication Sig Dispense Refill VERAPAMIL HCL 360 MG OR CP24 Take 360 mg by mouth in the morning. 0 Aspirin 81 MG Oral Capsule Take 81 mg by mouth in the morning. Ventolin HFA 108 (90 Base) MCG/ACT Inhalation Aerosol Solution Inhale by mouth every 6 hours as needed for Dyspnea. Tiotropium [place] Monohydrate 18 MCG Inhalation Capsule (Spiriva) Inhale 1 Capsule by mouth in themorning. For inhaler only, do not swallow.. Valsartan 160 MG Oral Tablet (Diovan) Take 1 Tablet by mouth in the morning and 1 Tablet before bedtime. Ascorbic Acid 500 MG Oral Tablet Take 1 Tablet by mouth every evening. Furosemide 20 MG Oral Tablet (Lasix) Take 1 Tablet by mouth once a day on Sunday, Sunday, and Sunday only. Potassium Chloride [place] ER 20 MEQ Oral Tablet Extended Release Take 1 Tablet by mouth once a day onSunday, Sunday, and Sunday only. Ferrous Sulfate 325 (65 Fe) MG Oral Tablet Take 1 Tablet by mouth daily with breakfast. Takes two times weekly Amoxicillin 500 MG Oral Capsule (Amoxil) Take 4 capsules 1 hour prior to any dental work 4 Capsule 4 Vitamin B-12 1000 MCG Sublingual Tablet Sublingual Place 1 Tablet under the tongue in the morning. No current facility-administered medications for this visit. Past Medical History: Diagnosis Date COPD (chronic obstructive pulmonary disease) (HCC) 08/19/2022 HTN (hypertension) 08/19/2022 Severe aortic stenosis 08/19/2022 Past Surgical History: Procedure Laterality Date BRONCHOSCOPY, DIAGNOSTIC N/A 08/21/2022 BRONCHOSCOPY DIAGNOSTIC WITH OR WITHOUT WASHING performed by Felix Parish MD at [facility] REPLACE AORTIC VALVE, PERCUTANEOUS FEMORAL Bilateral 05/03/2023 REPLACE AORTIC VALVE, PERCUTANEOUS FEMORAL performed by Pedro Jhaveri MD at [facility] REPLACE AORTIC VALVE, PERCUTANEOUS FEMORAL Bilateral 05/03/2023 REPLACE AORTIC VALVE, PERCUTANEOUS FEMORAL performed by Bladimir Ramos MD, PhD at [facility] SIGMOIDOSCOPY, DIAGNOSTIC N/A 08/22/2022 SIGMOIDOSCOPY FLEXIBLE DIAGNOSTIC performed by Damion De La Paz MD at [facility] THORACOTOMY WITH EXPLORATION 01/20/02 Right thoracotomy, right upper lobectomy by Dr. Rodriguez Social History Tobacco Use Smoking status: Former Packs/day: 1.00 Years: 37.00 Pack years: 37.00 Types: Cigarettes Quit date: 11/27/2008 Years since quittin.5 Smokeless tobacco: Never Substance Use Topics Alcohol use: Yes Comment: Socially Drug use: No Review of patient's allergies indicates: Allergen Reactions Alendronate Other reaction(s): Nausea Atorvastatin Bupropion Citrullus Vulgaris Hives Codeine Other reaction(s): UPSET STOMACH Doxycycline Simvastatin Sulfa Antibiotics Sulfamethoxazole Other reaction(s): Nausea Trimethoprim Other reaction(s): Nausea Ibandronic Acid Other reaction(s): Gastrointestinal Upset Review of Systems: See HPI for pertinent positives. All others negative, other than those noted in HPI. Physical Exam BP 130/70 | Pulse 90 | Wt 39 kg (86 lb) | LMP (LMP Unknown) | BMI 14.31 kg/m | BSA 1.34 m General: No acute distress. A+Ox3. HEENT: Normocephalic. Atraumatic. Conjunctiva and sclera clear. NECK: No carotid bruits. No JVD. Carotid upstrokes are brisk. Heart: RRR. S1 and S2 noted +2/6 systolic murmur. No rubs, gallops. Lungs: Clear to auscultation. No wheezes, rhonchi, rales. Abdomen: Normal bowel sounds. Soft. Nontender. No masses or organomegaly. No abdominal bruits. Extremities: No edema. No clubbing or cyanosis. Pulses: radial=2/4, posterior tibial=2/4, dorsalis pedis = 2/4. NEURO: No focal deficits. PSYCH: Normal. Lab data/imaging study review: Echo POD 1 TAVR 05/04/2023 The qualitative LV ejection fraction is 55-59% (normal). No LV segmental wall motion abnormalities. The patient is status post TAVR with Jono type prosthetic valve. Aortic valve prosthesis stenosisis absent. Trivial paravalvular aortic valve prosthesis regurgitation is present. There is a small posterior pericardial effusion that is unchanged from post- procedure. Cardiac tamponade is absent. Mild pulmonary hypertension is present Echocardiogram 10/05/2022 EF 55-60%. No WMA Moderate concentric LVH Severe Mild MR Mild pulmonary HTN, RSVP 48 mmHG Very small pericardial effusion Ao V2 Max: 431.7 cm/sec Ao mean P.5 mHG NAZARIO I,D: 0.56 Impression/Plan: 1. Bicuspid aortic valve 2. Severe aortic stenosis 3. History of transcatheter aortic valve replacement (TAVR) -Severe aortic stenosis of the bicuspid aortic valve, status post TAVR (#23mm Batista Jono S3 ultra valve), 05/03/2023 at [facility] with Dr. Jhaveri -NYHA class 1-2 -EKG today in office without evidence of bradycardia or new LBBB 1. Patient has full dentures. No routine dental work should be completed in the first 6 months after TAVR. However if an acute issue arises, patient is to alert the valve team. Antibiotics are neededfor all dental work: Amoxicillin 2g- Take 4 capsules 1 hour prior to any dental work 2. Slowly increase activity- recommend cardiac rehab, patient declines at this time. 3. Aspirin continued indefinitely 4. Echo appt scheduled for 07/12. General cardio appt with Dr. Rainey at [facility] scheduled for the end of June. Note faxed to primary loan interviewer's office. 4. Chronic heart failure with preserved ejection fraction (HCC) -Euvolemic on exam -NYHA class 1-2 The patient agrees to the above plan and will call with additional questions or concerns. ER with all emergencies advised. Follow-up: Return in about 1 year (around 06/13/2024). | Check-out note: 1 year valve appt with Dr. Jhaveri at - echo prior same day. I spent a total of 40 minutes on the date of service in preparation, delivery, and documentation ofthe care provided to Helen Araujo excluding any time spent in the performance of separately billed services. YOKASTA Mai, Department of Cardiology This chart was completed in part utilizing The [employer] Speech Voice Recognition Software. Grammatical errors, random word insertions, prounoun errors, and incomplete sentences are an occasional consequence of this system due to software limitations, ambient noise, and hardware issues. Any formal questions or concerns about the content, text, or information contained within the body of this dictation should be directly addressed to the provider for clarification. documented in this encounter Nursing Notes * Lizzette Pitts CMA - 06/13/2023 9:36 AM EDT Examination Room: 4 Name: Helen Araujo Date of : (1945) Reason for Visit: 1m Interim Hospitalization(s): none Problems/Concerns: denied Chest Pain/SOB: denied My [facility] is a way you can talk to your provider online through e-mail. Would you like to sign up? I can activate it for you? ALREADY ACTIVE Patient was instructed to not get up on the exam table until directed and assisted by their provider; patient is to remain seated in the chair/ wheelchair/ exam table for fall prevention and safety reasons. Patient is aware to have assistance to step down off exam table with personnel. Patient voiced full comprehension of instructions. documented in this encounter Plan of Treatment Upcoming Encounters Date Type Specialty Care Team Description 07/12/2023 Cardiac Studies Cardiac Studies Scheduled Orders Name Type Priority Associated Diagnoses Orde r Schedule ECHO, COMPLETE (2D), TRANS-THORACIC Echocardiology Routine Bicuspid aortic valve Severe aortic stenosis History of transcatheter aortic valve replacement (TAVR) Expected: 06/02/2024, Expires: 07/13/2025 EKG EKG Routine Bicuspid aortic valve Severe aortic stenosis History of transcatheter aortic valve replacement (TAVR) Chronic heart failure with preserved ejection fraction (HCC) Ordered: 06/13/2023 Health Maintenance Due Date Last Done Comments Pneumococcal Vaccine: 65+ Years (1 - PCV) 1951 Depression Screening 1957 Albumin/Creatinine Ratio 1963 Alpha-1 Antitrypsin 1963 Hepatitis C Screening 1963 DXA Scan 2010 Influenza Vaccine (FLU shot) (#1) 2023 06/23/2022, 06/23/2021, 06/23/2021, Additional history exists O2 ASSESSMENT COMPLETED IN PAST YEAR FOR COPD 05/03/2024 05/03/2023 GFR 05/04/2024 05/04/2023, 11/2022, 04/09/2023, Additional history exists DTaP,Tdap,and Td Vaccines (3 - Td or Tdap) 03/31/2032 03/31/2022, 01/29/2012 Zoster Vaccines Completed 07/23/2020, 05/2020, 11/23/2019, Additional history exists COVID-19 Vaccine Completed 07/03/2022, 10/2021, 07/29/2021, Additional history exists GARDASIL-HPV IMMUNIZATION SERIES Aged Out No longer eligible based on patient's age to complete this topic Hepatitis B Aged Out No longer eligi ble based on patient's age to complete this topic MENINGOCOCCAL (MENACTRA/MENVEO) Aged Out No longer eligible based on patient's age to complete this topic documented as of this encounter Medical Devices Implanted Type Area Assistant Purchasing Manager Device Identifier Shelf Expiration Date Model / Serial / Lot Duraclip 11mm Repositionable - [id number] Implanted:Qty: 1 on 08/22/2022 by Damion De La Paz MD at [facility] [employer] SHEELA [id number] 07/21/2024 [id number] / / [id number] Valve Jono 3 Ultra 23mm - [id number] Implanted:Qty: 1 on 05/03/2023 by Pedro Jhaveri MD at [facility] [employer] [id number] 11/07/2023 [id number] / / documented as of this encounter Visit Diagnoses Diagnosis Bicuspid aortic valve- Primary Congenital insufficiency of aortic valve Severe aortic stenosis Aortic valve disorders History of transcatheter aortic valve replacement (TAVR) Chronic heart failure with preserved ejection fraction (HCC) documented in this encounter Advance Directives Latest Code Status on File Code Status Date Activated Date Inactivated Comments Full Code 05/03/2023 1:51 PM 05/04/2023 6:01 PM This or kenji reflects the patients wishes and were consensually agreed upon. Question Answer Comments Discussion of Advance Directives occurred with: Patient Code Status History Code Status Date Activated Date Inactivated Comments Full Code 08/19/2022 5:01 PM 08/22/2022 11:01 PM Th is order reflects the patients wishes and were consensually agreed upon. Question Answer Comments Discussion of Advance Directives occurred with: Patient Care Teams Lens Blocker Relationship Specialty Start Date End Date Shawn Garcia MD [address] [place] [address] [place] [id number] PCP - General 11/14/01 documented as of this encounter"
--- NOTE | 2023-08-10 19:19 | Hospitalist Progress Note ---
Date of Service August 10, 2023 Assessment & Plan (1) AMS (altered mental status): Plan: Episode of sundowning confusion recent admission, patient suffers from dementia, patient suffers from lung cancer, (2) Adenocarcinoma of left lung: Plan: Patient has new growths on the CAT scan of the chest, patient is following with oncology will perform her oncologist Dr. Miller tomorrow (3) Pelvic fracture: Plan: s/p fall resulting in pelvic fracture -Managed conservatively from pain standpoint she is doing fine, pending placement, discussed with the porter sample case and the daughter waiting for insurance authorization -The patient lives in a trailer, she suffers from dementia, I doubt that she is safe to live by herself anymore, she had episode of sundowning during this admission (4) Hypertension: Plan: Chronic. Elevated blood pressure. -Continue Diovan 160mg po BID -Continue Verapamil -Continue to monitor (5) COPD (chronic obstructive pulmonary disease): Plan: She is hypoxic, D-dimer was elevated, CT of chest did not show any acute finding, CT of chest showed evidence of new growth area within the right upper lobe we discussed with her oncologist tomorrow, patient diagnosed with COPD with chronic hypoxia however she refused using oxygen, Admission and Anticipated Discharge Date Admission Date: August 06, 2023 Subjective No complaint today Physical Exam Physical Exam: General: patient resting comfortably, NAD, non-toxic in appearance, AA&O x 4 Skin: warm, dry, intact, no rashes or lesions HEENT: NC/AT, PERRL, EOMI, anicteric sclera, conjunctiva without injection, external ear normal to inspection and nontender, nares patent, moist mucus membranes, dentition intact, no oropharyngeal lesions, neck supple, trachea midline, no LAD, no thyromegaly, no JVD Heart: +S1/S2, regular, no m/r/g Lungs: equal air entry bilaterally, no rales/rhonchi/wheezes Abd: +BS, soft, NT/ND, no masses/organomegaly/ascites, stable pelvis Ext: warm, 2+ pulses in UE/LE bilaterally, no clubbing/cyanosis or edema Neuro: nonfocal, patient AA&O x 4, speech intact, no facial droop, moving all extremities on command with equal strength 5/5 Constitutional: well developed, well nourished and + thin; no acute distress Neck: trachea midline Musculoskeletal: Hip: + joint line tenderness (Right buttocks, inferior pubic ramus); no deformity, no skin erythema, no ecchymosis and log roll test negative Skin: no rashes, warm and dry Trauma: no evidence of skin trauma Neurologic: normal touch/pain/proprioception Psychiatric: A+Ox3, euthymic affect (Sitting in the ER bed comfortable.) Speech: normal rate/rhythm/volume of speech Results & Data Results & Data Vital Signs (Past 12 Hours) Vital Signs Temp Pulse Pulse Resp BP BP Pulse Ox 08/10/23 14:42 36.6 C 90 16 111/68 93 08/10/23 11:58 36.9 C 84 86 26 H 128/75 90 08/10/23 08:30 O2 Del Method O2 Flow Rate 08/10/23 14:42 Room Air 08/10/23 11:58 Room Air 08/10/23 08:30 Nasal Cannula 2 PG Care Time/CCT Total # of Minutes Spent Total Time Spent with Patient: Total time spent is greater than 50% in coordination of care (as documented) at patient's floor/unit and/or counseling patient: Coding Level of Care Code 40555 SUB INP/OBS CARE 2/35MIN Diagnoses AMS (altered mental status) R41.82 Adenocarcinoma of left lung C34.92 Pelvic fracture S32.9XXA Hypertension I10 Hypertension type: unspecified COPD (chronic obstructive pulmonary disease) J44.1 COPD type: COPD with acute exacerbation (4) Hypertension Hypertension type: unspecified Qualified Code(s): I10 - Essential (primary) hypertension (5) COPD (chronic obstructive pulmonary disease) COPD type: COPD with acute exacerbation Qualified Code(s): J44.1 - Chronic obstructive pulmonary disease with (acute) exacerbation
[2023-08-11] MEDS: ASPIRIN 81 MG ECTAB PO SCH (08:40)
[2023-08-11] MEDS: UMECLIDINIUM BROMIDE 62.5MCG/BLISTER 7 PUFFS/INHALER INH SCH (08:40)
[2023-08-11] MEDS: VERAPAMIL HCL 180 MG TABCR PO SCH (08:41)
[2023-08-11] MEDS: VALSARTAN 80 MG TAB PO SCH ×2 (08:41→21:45)
[2023-08-11] MEDS: ENOXAPARIN INJ 40 MG/0.4 ML SYR SQ SCH (08:41)
[2023-08-11] MEDS: ACETAMINOPHEN 325 MG TAB PO PRN ×2 (17:46→23:13)
--- NOTE | 2023-08-11 19:57 | Hospitalist Progress Note ---
Date of Service August 11, 2023 Assessment & Plan (1) AMS (altered mental status): Plan: Episode of sundowning confusion recent admission, patient suffers from dementia, patient suffers from lung cancer, (2) Adenocarcinoma of left lung: Plan: Patient has new growths on the CAT scan of the chest, patient is following with oncology Dr Garcia (3) Pelvic fracture: Plan: s/p fall resulting in pelvic fracture -Managed conservatively from pain standpoint she is doing fine, pending placement, discussed with the ed case manager and the daughter waiting for insurance authorization -The patient lives in a trailer, she suffers from dementia, I doubt that she is safe to live by herself anymore, she had episode of sundowning during this a dmission (4) Hypertension: Plan: -Continue Diovan 160mg po BID -Continue Verapamil -Continue to monitor (5) COPD (chronic obstructive pulmonary disease): Plan: She is hypoxic, D-dimer was elevated, CT of chest did not show any acute finding, CT of chest showed evidence of new growth area within the right upper lobe we discussed with her oncologist tomorrow, patient diagnosed with COPD with chronic hypoxia however she refused using oxygen, Admission and Anticipated Discharge Date Admission Date: August 06, 2023 Subjective No complaint today Physical Exam Physical Exam: General: patient resting comfortably, NAD, non-toxic in appearance, AA&O x 4 Skin: warm, dry, intact, no rashes or lesions HEENT: NC/AT, PERRL, EOMI, anicteric sclera, conjunctiva without injection, external ear normal to inspection and nontender, nares patent, moist mucus membranes, dentition intact, no oropharyngeal lesions, neck supple, trachea midline, no LAD, no thyromegaly, no JVD Heart: +S1/S2, regular, no m/r/g Lungs: equal air entry bilaterally, no rales/rhonchi/wheezes Abd: +BS, soft, NT/ND, no masses/organomegaly/ascites, stable pelvis Ext: warm, 2+ pulses in UE/LE bilaterally, no clubbing/cyanosis or edema Neuro: nonfocal, patient AA&O x 4, speech intact, no facial droop, moving all extremities on command with equal strength 5/5 Constitutional: well developed, well nourished and + thin; no acute distress Neck: trachea midline Musculoskeletal: Hip: + joint line tenderness (Right buttocks, inferior pubic ramus); no deformity, no skin erythema, no ecchymosis and log roll test negative Skin: no rashes, warm and dry Trauma: no evidence of skin trauma Neurologic: normal touch/pain/proprioception Psychiatric: A+Ox3, euthymic affect (Sitting in the ER bed comfortable.) Speech: normal rate/rhythm/volume of speech Results & Data Results & Data Vital Signs (Past 12 Hours) Vital Signs Temp Pulse Resp BP Pulse Ox O2 Del Method O2 Flow Rate 08/11/23 15:35 36.7 C 77 16 143/74 H 98 Nasal Cannula 2 08/11/23 08:30 Room Air PG Care Time/CCT Total # of Minutes Spent Total Time Spent with Patient: Total time spent is greater than 50% in coordination of care (as documented) at patient's floor/unit and/or counseling patient: Coding Level of Care Code 41759 SUB INP/OBS CARE 10/25MIN Diagnoses AMS (altered mental status) R41.82 Adenocarcinoma of left lung C34.92 Pelvic fracture S32.9XXA Hypertension I10 Hypertension type: unspecified COPD (chronic obstructive pulmonary disease) J44.1 COPD type: COPD with acute exacerbation (4) Hypertension Hypertension type: unspecified Qualified Code(s): I10 - Essential (primary) hypertension (5) COPD (chronic obstructive pulmonary disease) COPD type: COPD with acute exacerbation Qualified Code(s): J44.1 - Chronic obstructive pulmonary disease with (acute) exacerbation
[2023-08-12 07:15] LABS: Creatinine Clr Calc Pharmacy 50.1 ml/min; Est GFR (African American) 101.3 ml/min; Est GFR (Non-African American) 87.4 ml/min
[2023-08-12] MEDS: UMECLIDINIUM BROMIDE 62.5MCG/BLISTER 7 PUFFS/INHALER INH SCH (09:27)
[2023-08-12] MEDS: ENOXAPARIN INJ 40 MG/0.4 ML SYR SQ SCH (09:27)
[2023-08-12] MEDS: ASPIRIN 81 MG ECTAB PO SCH (09:27)
[2023-08-12] MEDS: VALSARTAN 80 MG TAB PO SCH ×2 (09:28→20:00)
[2023-08-12] MEDS: VERAPAMIL HCL 180 MG TABCR PO SCH (09:28)
[2023-08-12] MEDS: ACETAMINOPHEN 325 MG TAB PO PRN ×2 (15:23→23:50)
--- NOTE | 2023-08-12 18:11 | Hospitalist Progress Note ---
Date of Service August 12, 2023 Assessment & Plan (1) AMS (altered mental status): Plan: Episode of sundowning confusion recent admission, patient suffers from dementia, patient suffers from lung cancer, (2) Adenocarcinoma of left lung: Plan: Patient has new growths on the CAT scan of the chest, patient is following with oncology Dr Garcia, she is informed (3) Pelvic fracture: Plan: s/p fall resulting in pelvic fracture -Managed conservatively from pain standpoint she is doing fine, pending placement, discussed with the ed case manager and the daughter waiting for insurance authorization -The patient lives in a trailer, she suffers from dementia, I doubt that she is safe to live by herself anymore, she had episode of sundowning during this admission (4) Hypertension: Plan: -Continue Diovan 160mg po BID -Continue Verapamil -Continue to monitor (5) COPD (chronic obstructive pulmonary disease): Plan: She is hypoxic, D-dimer was elevated, CT of chest did not show any acute finding, CT of chest showed evidence of new growth area within the right upper lobe , I informed her oncologist via [place] text , she is diagnosed with lung cancer and has been followed by her another treatment patient diagnosed with COPD developed hypoxia with ambulation, however according to her daughter she refused using oxygen because she does not feel shortness of breath Admission and Anticipated Discharge Date Admission Date: August 06, 2023 Subjective No complaint today Physical Exam Physical Exam: General: patient resting comfortably, NAD, non-toxic in appearance, AA&O x 4 Skin: warm, dry, intact, no rashes or lesions HEENT: NC/AT, PERRL, EOMI, anicteric sclera, conjunctiva without injection, external ear normal to inspection and nontender, nares patent, moist mucus membranes, dentition intact, no oropharyngeal lesions, neck supple, trachea midline, no LAD, no thyromegaly, no JVD Heart: +S1/S2, regular, no m/r/g Lungs: equal air entry bilaterally, no rales/rhonchi/wheezes Abd: +BS, soft, NT/ND, no masses/organomegaly/ascites, stable pelvis Ext: warm, 2+ pulses in UE/LE bilaterally, no clubbing/cyanosis or edema Neuro: nonfocal, patient AA&O x 4, speech intact, no facial droop, moving all extremities on command with equal strength 5/5 Constitutional: well developed, well nourished and + thin; no acute distress Neck: trachea midline Musculoskeletal: Hip: + joint line tenderness (Right buttocks, inferior pubic ramus); no deformity, no skin erythema, no ecchymosis and log roll test negative Skin: no rashes, warm and dry Trauma: no evidence of skin trauma Neurologic: normal touch/pain/proprioception Psychiatric: A+Ox3, euthymic affect (Sitting in the ER bed comfortable.) Speech: normal rate/rhythm/volume of speech Results & Data Results & Data Vital Signs (Past 12 Hours) Vital Signs Temp Pulse Pulse Resp BP BP Pulse Ox 08/12/23 16:00 36.5 C 84 18 139/75 99 08/12/23 09:50 87 16 168/99 H 98 08/12/23 09:00 08/12/23 08:44 36.7 C 106 H 16 143/86 H 93 08/12/23 07:40 36.5 C 88 16 175/96 H 89 L O2 Del Method O2 Flow Rate 08/12/23 16:00 Nasal Cannula 2 08/12/23 09:50 Nasal Cannula 2 08/12/23 09:00 Room Air 08/12/23 08:44 Room Air 08/12/23 07:40 Room Air PG Care Time/CCT Total # of Minutes Spent Total Time Spent with Patient: Total time spent is greater than 50% in coordination of care (as documented) at patient's floor/unit and/or counseling patient: Coding Level of Care Code 80709 SUB INP/OBS CARE 2/35MIN Diagnoses AMS (altered mental status) R41.82 Adenocarcinoma of left lung C34.92 Pelvic fracture S32.9XXA Hypertension I10 Hypertension type: unspecified COPD (chronic obstructive pulmonary disease) J44.1 COPD type: COPD with acute exacerbation (4) Hypertension Hypertension type: unspecified Qualified Code(s): I10 - Essential (primary) hypertension (5) COPD (chronic obstructive pulmonary disease) COPD type: COPD with acute exacerbation Qualified Code(s): J44.1 - Chronic obstructive pulmonary disease with (acute) exacerbation
[2023-08-13] MEDS: ASPIRIN 81 MG ECTAB PO SCH (08:30)
[2023-08-13] MEDS: VERAPAMIL HCL 180 MG TABCR PO SCH (08:30)
[2023-08-13] MEDS: FUROSEMIDE 20 MG TAB PO SCH (08:30)
[2023-08-13] MEDS: ENOXAPARIN INJ 40 MG/0.4 ML SYR SQ SCH (08:31)
[2023-08-13] MEDS: VALSARTAN 80 MG TAB PO SCH ×2 (08:31→20:32)
[2023-08-13] MEDS: UMECLIDINIUM BROMIDE 62.5MCG/BLISTER 7 PUFFS/INHALER INH SCH (10:42)
--- NOTE | 2023-08-13 14:07 | Hospitalist Progress Note ---
Date of Service August 13, 2023 Assessment & Plan (1) AMS (altered mental status): Plan: Episode of sundowning confusion recent admission, patient suffers from dementia, patient suffers from lung cancer, currently back to baseline (2) Adenocarcinoma of left lung: Plan: Patient has new growths on the CAT scan of the chest, patient is following with oncology Dr Garcia, she is informed (3) Pelvic fracture: Plan: s/p fall resulting in pelvic fracture -Managed conservatively from pain standpoint she is doing fine, pending placemen t, discussed with the registered nurse hh case manager and the daughter waiting for insurance authorization -The patient lives in a trailer, she suffers from dementia, she is not a safe discharge home -Plan is center care (4) Hypertension: Plan: -Continue Diovan 160mg po BID -Continue Verapamil -Continue to monitor (5) COPD (chronic obstructive pulmonary disease): Plan: She is hypoxic, D-dimer was elevated, CT of chest did not show any acute finding, CT of chest showed evidence of new growth area within the right upper lobe , I informed her oncologist via [place] text , she is diagnosed with lung cancer and has been followed by her another treatment patient diagnosed with COPD developed hypoxia with ambulation, however according to her daughter she refused using oxygen because she does not feel shortness of breath Plan center care, awaiting approval Admission and Anticipated Discharge Date Admission Date: August 06, 2023 Subjective patient seen and examined, getting frustrated because of placement issues Review of Systems Review of Systems: All systems reviewed are negative, apart from the ones contained in the history. Physical Exam Physical Exam: The patient is awake, alert and oriented 3, well developed and well nourished, normocephalic and atraumatic, lying in bed and in no acute distress. HEENT--PERRL, EOMI, mucous membranes and oropharynx mildly dry Neck--supple. No JVD. No bruits. Thyroid normal, trachea midline, no adenopathy. Heart--normal S1 and S2. No murmurs, rubs or gallops. Lungs--clear bilaterally, no respiratory distress, no accessory muscle use. Abdomen--normal bowel sounds and soft. Mild epigastric and left sided abdominal pain Extremities--no cyanosis or clubbing. No edema. Dermatologic--normal skin turgor, normal color, no abnormal lymph nodes, no rash. Neurologic--cranial nerves II through XII grossly intact. Rheumatologic--normal range of motion. Psychiatric--normal affect. Results & Data Results & Data Vital Signs (Past 12 Hours) Vital Signs Temp Pulse Resp BP BP Pulse Ox O2 Del Method 08/13/23 11:34 Room Air 08/13/23 11:13 97.9 F 90 14 120/72 93 Room Air 08/13/23 07:51 98.2 F 79 14 160/90 H 94 Room Air PG Care Time/CCT Total # of Minutes Spent Total Time Spent with Patient: Total time spent is greater than 50% in coordination of care (as documented) at patient's floor/unit and/or counseling patient: Coding Level of Care Code 47675 SUB INP/OBS CARE 2/35MIN Diagnoses AMS (altered mental status) R41.82 Adenocarcinoma of left lung C34.92 Pelvic fracture S32.9XXA Hypertension I10 Hypertension type: unspecified COPD (chronic obstructive pulmonary disease) J44.1 COPD type: COPD with acute exacerbation Time Spent (min) 35 (4) Hypertension Hypertension type: unspecified Qualified Code(s): I10 - Essential (primary) hypertension (5) COPD (chronic obstructive pulmonary disease) COPD type: COPD with acute exacerbation Qualified Code(s): J44.1 - Chronic obstructive pulmonary disease with (acute) exacerbation
[2023-08-13] MEDS: ACETAMINOPHEN 325 MG TAB PO PRN ×2 (14:14→20:31)
[2023-08-14] MEDS: UMECLIDINIUM BROMIDE 62.5MCG/BLISTER 7 PUFFS/INHALER INH SCH (08:23)
[2023-08-14] MEDS: VALSARTAN 80 MG TAB PO SCH (08:25)
[2023-08-14] MEDS: ASPIRIN 81 MG ECTAB PO SCH (08:25)
[2023-08-14] MEDS: VERAPAMIL HCL 180 MG TABCR PO SCH (08:26)
[2023-08-14] MEDS: ENOXAPARIN INJ 40 MG/0.4 ML SYR SQ SCH (08:29)
--- NOTE | 2023-08-14 14:04 | Discharge Summary ---
Date of Service August 14, 2023 Admission HPI Per Admitting Provider Helen Casarez is a 77yo female presenting from home after a fall. She got up from bed during the night around 22:00 to use the bathroom when she lost her balance and fell. She had some difficulty getting up due to pain. She feels comfortable now but has severe discomfort with weight bearing and ambulation. In the ER she is afebrile, HD stable ER Course: KCl 80mEq Principal Diagnosis pelvic fracture Discharge Exam The patient is awake, alert and oriented 3, well developed and well nourished, normocephalic and atraumatic, lying in bed and in no acute distress. HEENT--PERRL, EOMI, mucous membranes and oropharynx mildly dry Neck--supple. No JVD. No bruits. Thyroid normal, trachea midline, no adenopa thy. Heart--normal S1 and S2. No murmurs, rubs or gallops. Lungs--clear bilaterally, no respiratory distress, no accessory muscle use. Abdomen--normal bowel sounds and soft. Mild epigastric and left sided abdominal pain Extremities--no cyanosis or clubbing. No edema. Dermatologic--normal skin turgor, normal color, no abnormal lymph nodes, no rash. Neurologic--cranial nerves II through XII grossly intact. Rheumatologic--normal range of motion. Psychiatric--normal affect. Discharge Data Allergies Allergy/AdvReac Type Severity Reaction Status Date / Time watermelon Allergy Unknown Rash Verified 07/05/23 08:52 alendronate sodium AdvReac Intermediate Nausea Verified 07/05/23 08:52 pravastatin AdvReac Intermediate myalgia Verified 07/05/23 08:52 ibandronate sodium AdvReac Mild Gastrointestinal Verified 07/05/23 08:52 [From Boniva] Upset codeine AdvReac Unknown UPSET Verified 07/05/23 08:52 STOMACH atorvastatin AdvReac Nausea Verified 07/05/23 08:52 bupropion [From Wellbutrin] AdvReac Nausea Verified 07/05/23 08:52 doxycycline AdvReac Nausea Verified 07/05/23 08:52 simvastatin AdvReac Nausea Verified 07/05/23 08:52 Sulfa (Sulfonamide AdvReac Nausea Verified 07/05/23 08:52 Antibiotics) sulfamethoxazole AdvReac Nausea Verified 07/05/23 08:52 [From Bactrim] trimethoprim [From Bactrim] AdvReac Nausea Verified 07/05/23 08:52 Consultations 08/06/23 02:10 ED Decision to Admit Stat 08/06/23 03:04 Consult Orthopedic Surgery Routine Ordered Studies 08/06/23 00:09 CT bony pelvis wo con Stat CT head/brain wo con Stat 08/09/23 07:30 CTA chest w con [CT angio chest w con] Routine Hospital Course (1) AMS (altered mental status): Episode of sundowning confusion recent admission, patient suffers from dementia, patient suffers from lung cancer, currently back to baseline (2) Adenocarcinoma of left lung: Patient has new growths on the CAT scan of the chest, patient is following with oncology Dr Garcia, she is informed (3) Pelvic fracture: s/p fall resulting in pelvic fracture -Managed conservatively from pain standpoint she is doing fine, pending placement, discussed with the protective services case worker and the daughter waiting for insurance authorization -The patient lives in a trailer, she suffers from dementia, she is not a safe discharge home -Plan is center care (4) Hypertension: -Continue Diovan 160mg po BID -Continue Verapamil -Continue to monitor (5) COPD (chronic obstructive pulmonary disease): She is hypoxic, D-dimer was elevated, CT of chest did not show any acute finding, CT of chest showed evidence of new growth area within the right upper lobe , I informed her oncologist via [place] text , she is diagnosed with lung cancer and has been followed by her another treatment patient diagnosed with COPD developed hypoxia with ambulation, however according to her daughter she refused using oxygen because she does not feel shortness of breath Plan center care, awaiting approval Total Time Total Time Spent Total Time Spent (In Minutes): 35 Discharge Plan Discharge Items Patient Disposition: Transfer Custodial Fac Reason For Visit: FALL, PELVIC FRACTURE Discharge Diagnosis: pelvic fracture Activity: Resume your previous activity Weightbearing: Right partial Non-emergency contact: Primary Care Provider and Oncologist Call non-emergency contact if: you have any medication questions Follow-up/Referrals: Shawn Garcia MD [Primary Care Provider] - Fish Leal MD [Surgeon] - (Follow-up in approximately 4 weeks after discharge for updated x-rays of the right pelvis.) Diet: Regular Addtl Attending Provider Instructions: please make appointment to follow up with your oncologist Pending Studies at Discharge: No Stand-Alone Forms: My [facility] Skilled Items Patient informed of condition?: Yes DNR: No Discharge Level of Care: Skilled Communicable Disease: No Discharge Prognosis: Stable Lines: None Urinary Catheter: No Medications and DC Order Prescriptions: Continued verapamil 180 mg tablet extended release 360 mg PO DAILY Qty: 180 3RF tiotropium bromide 18 mcg capsule, w/inhalation device 1 cap inhalation DAILY Qty: 30 5RF valsartan 160 mg tablet 160 mg PO BID Qty: 60 5RF furosemide [Lasix] 20 mg tablet See Rx Instructions .ROUTE .COMPLEX Qty: 60 5RF Rx Instructions: 20mg M,W,F albuterol sulfate [Ventolin HFA] 90 mcg/actuation HFA aerosol inhaler 2 puff INH Q6H PRN (Reason: shortness of breath or wheezing) aspirin 81 mg tablet,delayed release (DR/EC) 81 mg PO DAILY Sutab 1.479 gram tablet 0.225 g PO DAILY Rx Instructions: take per split dose instructions. PLEASE USE COU orallyN sodium sul 1.479gram- potas ch 0.188gram- magnes sul 0.225 gram tab ascorbic acid (vitamin C) 500 mg Tablet 500 mg PO DAILY ferrous sulfate 325 mg (65 mg iron) Tablet 325 mg PO 2XWK cholecalciferol (vitamin D3) [Vitamin D3] 25 mcg (1,000 unit) Tablet 25 mcg PO DAILY Discharge Orders: Discharge Order (Routine); Ordered 08/14/23 Ordered By: Naty Kerns Admission Data Admit Date/Time: 08/06/23 03:04 Attending Provider: Naty Kerns Admit Provider: Maggie Alfaro Primary Care Provider: Shawn Garcia Other Providers: Shawn Patterson; Maggie Alfaro; [facility]; [place] Other Interventions: Discharge Summary Assessment (RN) Last Done: 08/14/23 14:01 Coding Level of Care Code 48202 INP/OBS DISCH >30 MIN Diagnoses AMS (altered mental status) R41.82 Adenocarcinoma of left lung C34.92 Pelvic fracture S32.9XXA Hypertension I10 Hypertension type: unspecified COPD (chronic obstructive pulmonary disease) J44.1 COPD type: COPD with acute exacerbation Time Spent (min) 35
--- NOTE | 2023-08-15 13:12 | Coding Query ---
To promote full compliance with coding requirements relating to patient care, physician participation is requested in all cases of [place] uncertainty. Please assist us with the question(s) below: Coding Question(s): It was noted throughout the record that the patient has/is suspected to has a history of osteoporosis. According to coding guidelines "a code for osteoporotic fracture, and not a traumatic fracture, should be used for any patient with known osteoporosis who suffers a fracture, even if the patient had a minor fall or trauma, if that fall or trauma would not usually break a normal, healthy bone." Please indicate below the type of fracture: Physician's Response(s): (x ) Osteoporotic fracture - Pelvic ( ) Traumatic fracture - Pelvic ( ) Other, please specify MTDD
== END 2023-08-14 15:15 | DRG 543 ==
LOC: ED 23:40 → SUATTDRO 08-06 03:04 → EDINP 08-06 03:04 → 3W 08-06 15:00 → 3N 08-07 20:06
DX: Z88.2 Allergy status to sulfonamides; Z88.1 Allergy status to other antibiotic agents; Z82.49 Family history of ischemic heart disease and other diseases of the circulatory system; W18.39XA Other fall on same level, initial encounter; Z88.8 Allergy status to other drugs, medicaments and biological substances; Z60.2 Problems related to living alone; M80.0AXA Age-related osteoporosis with current pathological fracture, other site, initial encounter for fracture; R09.02 Hypoxemia; Z99.81 Dependence on supplemental oxygen; Y99.8 Other external cause status; Z79.82 Long term (current) use of aspirin; J44.9 Chronic obstructive pulmonary disease, unspecified; F05 Delirium due to known physiological condition; Z88.5 Allergy status to narcotic agent; R79.1 Abnormal coagulation profile; C34.92 Malignant neoplasm of unspecified part of left bronchus or lung; Z91.018 Allergy to other foods; F03.90 Unspecified dementia, unspecified severity, without behavioral disturbance, psychotic disturbance, mood disturbance, and anxiety; Z87.891 Personal history of nicotine dependence; Y92.003 Bedroom of unspecified non-institutional (private) residence as the place of occurrence of the external cause; I50.30 Unspecified diastolic (congestive) heart failure; I11.0 Hypertensive heart disease with heart failure; Z79.899 Other long term (current) drug therapy

== ENCOUNTER 2024-03-13 04:39 | Observation (INO) ==
--- NOTE | 2024-03-13 05:25 | Emergency Department Note ---
ED Visit Note I have personally evaluated this patient examined her and reviewed the pertinent labs and data. I have discussed the case with Joseph Cabral, the physician assistant pressman and agree with the plan. Please refer to the PA note. This patient comes in after having rectal bleeding since last evening. She has had this before. She does have a history of a colonic polyp. She is on no blood thinners. She has no abdominal pain she has no lightheadedness dizziness or shortness of breath. Blood work was obtained IV access established. Her hemoglobin was stable but given her symptoms and her comorbidities . she should be admitted/observed for further evaluation for her GI bleed. .
--- NOTE | 2024-03-13 05:27 | Emergency Department Note ---
History of Present Illness General Chief complaint: GI Assessment Stated complaint: STOMACH PAINS, RECTAL BLEEDING, NAUSEA Time Seen by Provider: 03/13/24 04:57 History of Present Illness Maximum Pain Intensity: 3 This is a 78-year-old female presenting to the emergency department for evaluation of abdominal discomfort, nausea, and rectal bleeding. The patient states that she had 2 or 3 episodes of bloody stool the past 24 hours. She has not had fevers or chills. She does have fairly complicated medical history with previous history of lung cancer and colonic mass. She has had GI bleed in the past, and has baseline hypoxia secondary to CHF. The patient has not had any medication changes. She is not currently on any blood thinners. She rates her discomfort a 4/10. Home Medications Medication Instructions Recorded Confirmed Type aspirin 81 mg tablet,delayed 81 mg PO DAILY 05/06/19 02/28/24 History release ascorbic acid (vitamin C) 500 mg 500 mg PO DAILY 08/17/22 02/28/24 History tablet cholecalciferol (vitamin D3) 25 25 mcg PO DAILY 08/17/22 02/28/24 History mcg (1,000 unit) tablet (Vitamin D3) verapamil 180 mg tablet,extended 360 mg (2 x 180 mg) PO DAILY #180 03/27/23 02/28/24 Rx release tabs acetaminophen 325 mg tablet 650 mg PO Q6H PRN pain 08/20/23 02/28/24 History albuterol sulfate 90 mcg/actuation 2 puff inhalation Q6H PRN 10/16/23 02/28/24 Rx aerosol inhaler (Ventolin HFA) shortness of breath or wheezing #8.5 grams potassium chloride 20 mEq meq PO 11/29/23 02/28/24 History tablet,extended release tiotropium bromide 18 mcg capsule 1 cap inhalation DAILY #30 11/29/23 02/28/24 Rx with inhalation device inhalations valsartan 160 mg tablet 160 mg PO BID #60 tabs 01/30/24 02/28/24 Rx furosemide 20 mg tablet (Lasix) See Rx Instructions .Route 02/28/24 02/28/24 Rx .COMPLEX #60 tabs Allergies Allergy/AdvReac Type Severity Reaction Status Date / Time watermelon Allergy Unknown Rash Verified 02/28/24 10:25 alendronate sodium AdvReac Intermediate Nausea Verified 02/28/24 10:25 pravastatin AdvReac Intermediate myalgia Verified 02/28/24 10:25 ibandronate sodium AdvReac Mild Gastrointestinal Verified 02/28/24 10:25 [From Boniva] Upset codeine AdvReac Unknown UPSET Verified 02/28/24 10:25 STOMACH morphine AdvReac Unknown Confusion Verified 02/28/24 10:25 atorvastatin AdvReac Nausea Verified 02/28/24 10:25 bupropion [From Wellbutrin] AdvReac Nausea Verified 02/28/24 10:25 doxycycline AdvReac Nausea Verified 02/28/24 10:25 simvastatin AdvReac Nausea Verified 02/28/24 10:25 Sulfa (Sulfonamide AdvReac Nausea Verified 02/28/24 10:25 Antibiotics) sulfamethoxazole AdvReac Nausea Verified 02/28/24 10:25 [From Bactrim] trimethoprim [From Bactrim] AdvReac Nausea Verified 02/28/24 10:25 Past Med/Surg History Problem List (Updated 03/13/24 @ 06:57 by Joseph Cabral PA-C) Bloody stool (Acute) Acute colitis (Acute) Left upper lobe pulmonary nodule (Chronic) Ex-smoker Exertional shortness of breath Fracture of right inferior pubic ramus (08/06/23) from a fall Hypoxia (Acute) COPD (chronic obstructive pulmonary disease) (Acute) S/P TAVR (transcatheter aortic valve replacement) Osteoporosis (Chronic) Vitamin D deficiency (Acute) Tricuspid regurgitation (Acute) Nontoxic multinodular goiter (Acute) Mitral regurgitation (Acute) Leukopenia (Acute) Hypertension (Acute) Hyperlipidemia (Acute) History of adenocarcinoma of lung (Acute) BMI less than 19,adult (Acute) Aortic stenosis due to bicuspid aortic valve (Acute) Constipation Depression Insomnia Prediabetes Carotid artery plaque Severe aortic stenosis (Acute) Normal left ventricular systolic function and wall motion Antiplatelet or antithrombotic long-term use Lower gastrointestinal hemorrhage (Acute) External hemorrhoid, thrombosed (Acute) NSCLC of right lung Colonic mass Lung mass Anemia COVID-19 Adenocarcinoma of left lung Elevated troponin Hypokalemia Low BMI Mass of left lung (Acute) COVID-19 (Acute) 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 Family History Father Myocardial infarction Hypertension Mother Vascular disorder Mother of supranuclear palsy Hypertension Denies family history of Ovarian cancer Prostate cancer Diabetes Breast cancer Colorectal cancer Social History Smoking Status: Former smoker Tobacco Type: Cigarettes Age Started Using Tobacco: 21; Age Quit Using Tobacco: 55; packs per day: 1; Cigarettes Per Day: 20; Second Hand Exposure: No; Do You Dip or Chew Tobacco: No; Hx Alcohol Use: Yes Alcohol type: wine Alcohol Intake Frequency: Monthly or Less Alcohol Intake Frequency Comment: socially Hx Substance Use: No Preferred Language: Yakut Communication Ability: Effective Visual Impairment: Partially Limited Hearing Ability: Normal Investor Relations Director Required: No Beliefs That Will Affect Care: None marital status: / Current Living Situation: Alone current occupational status: retired current occupation: worked at [employer] doing [employer] and [email or web address] in 2022. Feels Safe at Home: Yes Childhood Exposure to Second-Hand Smoke: No Diet: regular caffeine: No (Decaf Coffee ) Dental Care, Regularly: No Physical Activity Frequency: Does not Exercise Seatbelt Use: always Sunscreen Use: No Assistive Devices: None Review of Systems A total of 10 systems reviewed and were otherwise negative Physical Exam Vital Signs Vital Signs - 24 hr 03/13/24 04:39 03/13/24 04:46 03/13/24 04:57 Temperature 36.4 C L Temperature Source Temporal Artery Scan Pulse Rate 92 H 94 H Pulse Rate [Left Finger] 101 H Pulse Rate from SpO2 Sensor Respiratory Rate 22 20 22 Blood Pressure 142/82 H Blood Pressure [Left Arm] 149/95 H Blood Pressure Mean 102 Blood Pressure Mean [Left Arm] 113 Blood Pressure Position [Left Arm] Sitting Pulse Oximetry 93 91 92 Oxygen Delivery Method Room Air Room Air Room Air Oxygen Flow Rate Sepsis Recent Fever Within 48 Hours No Sepsis New/Unexplained Change in Mental Status No Sepsis Action Taken by Nursing No Action Required 03/13/24 05:06 03/13/24 06:00 03/13/24 06:39 Temperature Temperature Source Pulse Rate 96 H 97 H Pulse Rate [Left Finger] 95 H Pulse Rate from SpO2 Sensor 89 Respiratory Rate 24 23 Blood Pressure 157/89 H Blood Pressure [Left Arm] 157/89 H Blood Pressure Mean 110 Blood Pressure Mean [Left Arm] 111 Blood Pressure Position [Left Arm] Pulse Oximetry 95 100 Oxygen Delivery Method Nasal Cannula Nasal Cannula Oxygen Flow Rate 2 2 Sepsis Recent Fever Within 48 Hours Sepsis New/Unexplained Change in Mental Status Sepsis Action Taken by Nursing VITALS: Vitals are noted on the nurse's note and reviewed by myself. Vital signs stable. GENERAL: Frail white female who is pleasant and cooperative HEAD: Normocephalic atraumatic. HEART: Regular rate and rhythm without murmurs gallops or rubs. LUNGS: Clear to auscultation bilaterally without wheezes, rales or rhonchi. No retractions or accessory muscle use. ABDOMEN: Positive normal bowel sounds x 4. Soft, nontender, without masses or organomegaly. No guarding or rebound tenderness. MUSCULOSKELETAL: No muscle atrophy, erythema, or edema noted. Full range of motion in all extremities. Course Administered Medications Discontinued Medications Sodium Chloride (Nss) 500 mls @ 999 mls/hr IV .Q31M ONE Stop: 03/13/24 05:34 Last Admin: 03/13/24 05:33 Dose: 999 mls/hr Documented By: ROMARIO Pantoprazole Sodium 40 mg/ (Syringe) 10 mls @ 5 mls/min IV NOW ONE Stop: 03/13/24 05:15 Last Admin: 03/13/24 05:32 Dose: Not Given Documented By: ROMARIO Medical Decision Making Differential Diagnosis Differential diagnosis: Etiologies such as biliary colic, cholecystitis, hepatitis, pancreatitis, cardiac disease, pancreatitis, gastritis, peptic ulcer disease, appendicitis, cystitis, diverticulitis, mesenteric ischemia, inflammatory bowel disease, ileus, bowel obstruction, testicular/adnexal torsion, aortic pathology, shingles, as well as others were considered Laboratory Data 03/13/24 05:06 03/13/24 05:06 Lab Results 03/13/24 03/13/24 03/13/24 Range/Units 05:06 05:32 05:59 WBC 12.77 H (4.8-10.8) K/ul RBC 4.26 (4.20-5.40) M/uL Hgb 12.9 (12.0-16.0) g/dl Hct 39.5 (37.0-47.0) % MCV 92.7 (80.0-100.0) fL MCH 30.3 (25.0-34.0) pg MCHC 32.7 (32.0-36.0) g/dL RDW Std Deviation 39.3 (36.4-46.3) fL RDW Coeff of Sarah 11.6 (11.5-14.5) % Plt Count 182 (130-400) K/uL MPV 9.7 (9.4-12.4) fL Immature Gran % (Auto) 0.4 % Neut % (Auto) 89.3 % Lymph % (Auto) 2.9 % Sharkey % (Auto) 7.1 % Eos % (Auto) 0.1 % Baso % (Auto) 0.2 % Neut # (Auto) 11.41 H (1.40-6.50) K/uL Lymph # (Auto) 0.37 L (1.20-3.40) K/uL Sharkey # (Auto) 0.91 H (0.11-0.59) K/uL Eos # (Auto) 0.01 (0.00-0.50) K/uL Baso # (Auto) 0.02 (0.00-0.20) K/uL Immature Gran # (Auto) 0.05 (0.01-0.20) K/uL PT 10.6 (9.0-12.0) Seconds INR 1.0 (0.9-1.1) APTT 23 (21-31) Seconds PTT Ratio 0.9 Sodium 137 (136-145) mmol/L Potassium 3.8 (3.5-5.1) mmol/L Chloride 97 L (98-107) mmol/L Carbon Dioxide 33 H (21-32) mmol/L Anion Gap 7 (3-11) BUN 15 (6-23) mg/dl Creatinine 0.77 (0.6-1.2) mg/dl Est Cr Clr Drug Dosing 37.3 ml/min Est GFR ( Amer) 85.7 ml/min Est GFR (Non-Af Amer) 74.0 ml/min BUN/Creatinine Ratio 19.5 (10-20) Glucose 118 H (70-99(Fasting)) mg/dl Calcium 9.8 (8.6-10.3) mg/dl Magnesium 1.8 (1.7-2.4) mg/dl Total Bilirubin 1.2 H (0.2-1.0) mg/dl AST 14 (13-39) U/L ALT 8 (7-52) U/L Alkaline Phosphatase 76 (34-104) U/L Troponin I High Sens 10.0 (0-14) pg/ml B-Natriuretic Peptide 158 H (0-100) pg/ml Total Protein 7.0 (6.0-8.3) gm/dl Albumin 4.3 (3.4-5.0) gm/dl Globulin 2.7 (2.5-4.0) gm/dl Albumin/Globulin Ratio 1.6 (0.9-2) Lipase 7 L (11-82) U/L Urine Color Yellow Urine Appearance Clear (Clear) Urine pH 6.5 (4.5-7.5) Ur Specific [place] 1.019 (1.000-1.030) Urine Protein Negative (Negative) Urine Glucose (UA) Negative (Negative) Urine Ketones Negative (Negative) Urine Blood 1+ H (Negative) Urine Nitrite Negative (Negative) Urine Bilirubin Negative (Negative) Urine Urobilinogen Negative (Negative) Ur Leukocyte Esterase 1+ H (Negative) Urine WBC (Auto) 0-5 (0-5) /hpf Urine RBC (Auto) 0-2 (0-2) /hpf U Hyaline Cast (Auto) 0-2 (0-2) /lpf U Epithel Cells (Auto) 0-2 (0-2) /hpf Urine Bacteria (Auto) None Seen (None Seen) Blood Type B Positive Antibody Screen NEGATIVE Imaging Data Radiologist's Impression: Abdomen/Pelvis CT 03/13/24 05:25 CT OF THE ABDOMEN AND PELVIS WITHOUT CONTRAST CLINICAL HISTORY: GI bleed. Hx cancer. COMPARISON STUDY: CT of the abdomen and pelvis October 18, 2023. PET/CT February 14, 2024. TECHNIQUE: Axial images of the abdomen and pelvis were obtained without IV contrast. Images were reviewed in the axial, sagittal, and coronal planes. Automated exposure control was utilized for the study. A dose lowering technique was utilized adhering to the principles of ALARA. FINDINGS: Lung bases are unremarkable. No pneumatosis, free air or portal venous gas is present. There is a 3 mm left renal calculus. No ureteral calculi are present in is no hydronephrosis. Evaluation of the remainder of the abdomen and pelvis is suboptimal on this unenhanced exam. Liver, adrenal glands and pancreas are unremarkable. There are calcified granulomas within the spleen. Size of the spleen is normal. There is no evidence for a bowel obstruction. No evidence for acute appendicitis. Moderate wall thickening with pericolonic stranding of the descending colon and sigmoid colon is noted. There is no free air. There is no abscess. No additional sites of bowel wall thickening are evident on unenhanced exam. Old right pubic ring fractures are present. There are sacral Tarlov cysts. No acute fractures or suspicious lesions are identified within visualized skeletal structures. IMPRESSION: 1. Moderate wall thickening with pericolonic stranding of the descending colon and sigmoid colon. This represents a nonspecific colitis. No free air or abscess. 2. No bowel obstruction. 3. Left nephrolithiasis. ACT 112: Negative or not required by law. Electronically signed by: Jose Manuel Bhagat M.D. 03/13/2024 6:49 AM MDM Narrative Physical exam and history were performed. Nursing notes, EMR, and Medication List were personally reviewed. No social concerns were identified as barriers to patients care. Patient appears to have abdominal pains with report of blood in her stool. Case was discussed with my attending who also independently evaluated the patient. IV access was established and labs were obtained. Patient was gently hydrated with normal saline. Patient's blood work is as above and was reviewed. She does have a slightly elevated white count of 12,000. She does not have a significant anemia, which is reassuring. INR is 1.0. Glucose 118. BUN and creatinine are normal. Transaminases and troponin x 1 are not diagnostic. Urine without distinct evidence of infection. CT scan of the abdomen and pelvis was performed and independently reviewed by myself and radiology. The patient appears to have colitis on CT, which certainly could be contributory to her symptoms. Overall the patient does not appear well for discharge home. Escalation of care is felt to be necessary. Case was discussed with the on-call hospitalist team who agreed to evaluate patient here in the ER. Please see their dictation for further patient course, plan, disposition. The chart was completed utilizing [employer] Voice Recognition Software. Grammatical errors, random word insertions, pronoun errors, and incomplete sentences are an occasional consequence of this system due to software limitations, ambient noise, and hardware issues. Any formal questions or concerns about the content, text, or information contained within the body of this dictation should be directly addressed to the provider for clarification. . Impression & Plan Acute colitis, Bloody stool Discharge Plan Visit Data Chief Complaint: GI Assessment Stated Complaint: STOMACH PAINS, RECTAL BLEEDING, NAUSEA ED Provider: Júnior Dickey ED Midlevel Provider: Joseph Cabral Discharge Problem: Acute colitis, Bloody stool Forms Stand Alone Forms: [employer] [facility] [employer] Prescriptions Prescriptions: No Action verapamil 180 mg tablet extended release 360 mg PO DAILY Qty: 180 3RF acetaminophen 325 mg tablet 650 mg PO Q6H PRN (Reason: pain) Patient Comments: CONFIRMED W/ PT AND ON [facility] DC SUMMARY 08/20/23 valsartan 160 mg tablet 160 mg PO BID Qty: 60 5RF albuterol sulfate [Ventolin HFA] 90 mcg/actuation HFA aerosol inhaler 2 puff INH Q6H PRN (Reason: shortness of breath or wheezing) Qty: 8.5 3RF aspirin 81 mg tablet,delayed release (DR/EC) 81 mg PO DAILY potassium chloride 20 mEq tablet extended release PO tiotropium bromide 18 mcg capsule, w/inhalation device 1 cap inhalation DAILY Qty: 30 5RF Hold Instructions: Home Medication placed on hold at Doctor's office furosemide [Lasix] 20 mg tablet See Rx Instructions .ROUTE .COMPLEX Qty: 60 5RF Rx Instructions: 20mg M,W,F ascorbic acid (vitamin C) 500 mg Tablet 500 mg PO DAILY cholecalciferol (vitamin D3) [Vitamin D3] 25 mcg (1,000 unit) Tablet 25 mcg PO DAILY Referrals Referrals: Shawn Garcia MD [Primary Care Provider] -
[2024-03-13 05:32] LABS: Basophils # (auto) 0.02 K/uL (0.00-0.20); Basophils % (auto) 0.2 %; Eosinophils # (auto) 0.01 K/uL (0.00-0.50); Eosinophils % (auto) 0.1 %; Hematocrit (blood only) 39.5 % (37.0-47.0); Hemoglobin 12.9 g/dl (12.0-16.0); Immature Granulocytes # (auto) 0.05 K/uL (0.01-0.20); Immature Granulocytes % (auto) 0.4 %; Lymphocytes # (auto) 0.37 K/uL (1.20-3.40); Lymphocytes % (auto) 2.9 %; Mean Corpuscular Hemoglobin 30.3 pg (25.0-34.0); Mean Corpuscular Hgb Conc 32.7 g/dL (32.0-36.0); Mean Corpuscular Volume 92.7 fL (80.0-100.0); Mean Platelet Volume 9.7 fL (9.4-12.4); Monocytes # (auto) 0.91 K/uL (0.11-0.59); Monocytes % (auto) 7.1 %; Neutrophils # (auto) 11.41 K/uL (1.40-6.50); Neutrophils % (auto) 89.3 %; Platelet Count 182 K/uL (130-400); RDW Coefficient of Variation 11.6 % (11.5-14.5); RDW Standard Deviation 39.3 fL (36.4-46.3); Red Blood Count 4.26 M/uL (4.20-5.40); White Blood Count 12.77 K/ul (4.8-10.8)
[2024-03-13] MEDS: PANTOprazole 40 MG in SYRINGE 0 ML IV ONE (05:32)
[2024-03-13] MEDS: SODIUM CHLORIDE 0.9% 500 ML IV ONE (05:33)
[2024-03-13 05:45] LABS: Albumin Globulin Ratio 1.6 (0.9-2); Albumin Level 4.3 gm/dl (3.4-5.0); BUN Creatinine Ratio 19.5 (10-20); Bilirubin,Total 1.2 mg/dl (0.2-1.0); Calcium 9.8 mg/dl (8.6-10.3); Creatinine Clr Calc Pharmacy 37.3 ml/min; Est GFR (African American) 85.7 ml/min; Globulin 2.7 gm/dl (2.5-4.0); Magnesium 1.8 mg/dl (1.7-2.4); Potassium 3.8 mmol/L (3.5-5.1)
[2024-03-13 06:05] LABS: Partial Thromboplastin Ratio 0.9; Partial Thromboplastin Time 23 Seconds (21-31); Prothrombin Time 10.6 Seconds (9.0-12.0)
[2024-03-13 06:31] LABS: Appearance Urine Clear (Clear); Bacteria Urine Automated None Seen (None Seen); Bilirubin Urine Negative (Negative); Blood Urine 1+ (Negative); Cast Urine Automated 0-2 /lpf (0-2); Color Urine Yellow; Epithelial Cell Urine Auto 0-2 /hpf (0-2); Glucose Urine UA Negative (Negative); Ketones Urine Negative (Negative); Leukocyte Esterase Urine 1+ (Negative); Nitrite Urine Negative (Negative); Protein Urine Negative (Negative); RBC Urine Automated 0-2 /hpf (0-2); Specific Gravity Urine 1.019 (1.000-1.030); Urobilinogen Urine Negative (Negative); WBC Urine Automated 0-5 /hpf (0-5); pH Urine 6.5 (4.5-7.5)
--- NOTE | 2024-03-13 06:51 | CT Scan Report ---
CT OF THE ABDOMEN AND PELVIS WITHOUT CONTRAST CLINICAL HISTORY: GI bleed. Hx cancer. COMPARISON STUDY: CT of the abdomen and pelvis October 18, 2023. PET/CT February 14, 2024. TECHNIQUE: Axial images of the abdomen and pelvis were obtained without IV contrast. Images were revi ewed in the axial, sagittal, and coronal planes. Automated exposure control was utilized for the ayden dy. A dose lowering technique was utilized adhering to the principles of ALARA. FINDINGS: Lung bases are unremarkable. No pneumatosis, free air or portal venous gas is present. Ther e is a 3 mm left renal calculus. No ureteral calculi are present in is no hydronephrosis. Evaluation of the remainder of the abdomen and pelvis is suboptimal on this unenhanced exam. Liver, adrenal glan ds and pancreas are unremarkable. There are calcified granulomas within the spleen. Size of the splee n is normal. There is no evidence for a bowel obstruction. No evidence for acute appendicitis. Modera te wall thickening with pericolonic stranding of the descending colon and sigmoid colon is noted. The re is no free air. There is no abscess. No additional sites of bowel wall thickening are evident on u nenhanced exam. Old right pubic ring fractures are present. There are sacral Tarlov cysts. No acute f ractures or suspicious lesions are identified within visualized skeletal structures. IMPRESSION: 1. Moderate wall thickening with pericolonic stranding of the descending colon and sigmoid colon. Thi s represents a nonspecific colitis. No free air or abscess. 2. No bowel obstruction. 3. Left nephrolithiasis. ACT 112: Negative or not required by law. Electronically signed by: Jose Manuel Bhagat M.D. 03/13/2024 6:49 AM
--- NOTE | 2024-03-13 08:13 | History & Physical Report ---
Date of Service March 13, 2024 Assessment & Plan (1) Bloody stool: Plan: 2-3 bowel movements with bright red blood in bowl and on toilet paper -does have several larger hemorrhoids on exam, not currently bleeding. Notes she did get IV venofer infusions in October with heme/onc, which made her constipation worse. -Not on PO iron at baseline or NSAIDs (only takes Tylenol) -Notable did get IV Venofer in October w/ heme/onc which she reports caused worsening constipation and does have hx hemorrhoids and could be hemorrhoidal bleeding w/ her chronic constipation but is also due for c-scope (hx adenomatous polyp) which should be arranged but VSS and hgb stable on present without significant dehydration and do not suspect acute GIB at present but will admit for ongoing monitoring/evaluation Admit to medical with telemetry Hgb stable 12.9 at present. WBC elevated 12.7k w/ L shift -concerning for infectious etiology however no fever/chills or vomiting but did have associated nausea and generalized abdominal pain on 03/12 w/ reduction in appetite which she reports is usually pretty good CTAP w/ Moderate wall thickening with pericolonic stranding of the descending colon and sigmoid colon. This represents a nonspecific colitis. No free air or abscess (also noting L nephrolithiasis-but no CVA tenderness/urinary sx) Protonix IVP daily given stability in hgb for now and will monitor serial H&H, iron studies for completeness HOLD ASA 81mg (on for prevention w/ carotid plaque) Fecal occult blood w/ next BM Stool biofire/cdiff to be obtained Unasyn IV for colitis unless biofire with viral etiology given L shift on admission concerning for infectious etiology. Procal added, 0.46 and will add blood cultures given such (noting did get dose Unasyn) Checking, lactic acid. -If lactic NOT elevated, would avoid IVF given hx CHF and just hold her PO lasix for now (takes -W- w/ PO KCl) Clear liquid diet, advance as tolerated Holding off on GI consult for now but can be placed if any acute drop in hgb/positive testing DVT proph: SCDs ordered, avoid chemoproph given concerns for bleeding Monitor labs/electrolytes on repeat (2) Acute colitis: (3) COPD (chronic obstructive pulmonary disease): Plan: continue home medications/hospital formulary (4) S/P TAVR (transcatheter aortic valve replacement): Plan: last year, reported did very well following until fell at home and sustained pelvic dx requiring surgery/rehab telemetry monitoring, no CP/SOB reported (5) Hypertension: Plan: Did not take AM medications and BP elevated -- NOW doses for valsartan/equivalent and her verapamil and resumed home scheduled dosing moving forward holding her lasix as takes M-W- and avoiding IVF as wanting to eat/able to take PO Monitor (6) History of adenocarcinoma of lung: Plan: is s/p lobectomy follows with Dr Garcia, has been stable w/ radiation treatments. 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 (8) Constipation: Plan: as above, colace BID ordered to prevent constipation and can add miralax if no issues w/ biofire to prevent constipation encourage regular bowel regimen at dc and will need c-scope as above (9) (HFpEF) heart failure with preserved ejection fraction: Plan: does not appear to be volume overloaded on exam however cxr w/ some edema and slight elevation in BNP however on room air and no LE edema and will hold off IVF for above but also holding her lasix monitor weights/I&O, volume status continues on valsartan BID, dose NOW and resumed BID moving forward Plan dvt proph: scds given bleeding reported updated family at bedside on admission full code patient is hopeful for short inpatient stay and potential dc tomorrow on PO augmentin if negative biofire testing/normalization of WBC and tolerating advancement of diet without any further bleeding/stable hgb History of Present Illness Chief Complaint: abdominal pain, bleeding from rectum Primary Care Provider: Shawn Garcia MD 78yo female presenting with complex medical hx (hx aortic insuficiency/aortic stenosis/bicuspid aortic valve, RUL adenocarcinoma s/p lobectomy 12/2001, COPD, HTN, HLD, multinodular thyroid, pre-DM, carotid plaque) with abdominal pain and associated nausea along with blood from rectum. Reported 2-3 episodes of bloody stools in the past 24 hours. No fever/chills but does have hx lung ca and colonic mass with hx of GI bleeding in the past. Most recent PCP note from 02/25 noting patient has refused colonoscopy multiple times but had stool test through [facility] in Nov 2021 and was negative in past (has hx adenomatous colon polyp). Eval in B3B, family in room. Sitting up in bed, doesn't feel that poorly. Had generalized abdominal pain and nausea yesterday not no significant abdominal pain today. No diarrhea/sick contacts. Does have constipation issues at baseline, takes some softeners. Bowel movements w/ more bright red blood in toilet bowel but did have some dark spots but no significant clotting. DENIES any NSAID use including ibuprofen, aleve, naproxen, etc. Only takes TYLENOL as needed for pains. Usually has good appetite but reports didn't yesterday. No fever/chills. Does have hx hemorrhoids. No hx allergy to PCN, will place on IV abx and plan for augmentin at dc if needed. She is very hungry, will order diet. Has not taken meds yet this morning, will order stat. HOlding her aspirin. On for carotid plaque. No SOB/cough, on room air. Takes verapamil and valsartan. Also on lasix, takes M-W-F with 20meq of potassium. No edema/swelling, on room air at present time. Does have stone on the L, known and told by Dr Garcia in the past. No L CVA tenderness or urinary/groin sx. Daughter/son updated at bedside. Full code discussed in event short term. Allergies Allergy/AdvReac Type Severity Reaction Status Date / Time watermelon Allergy Unknown Rash Verified 03/13/24 10:07 alendronate sodium AdvReac Intermediate Nausea Verified 03/13/24 10:07 pravastatin AdvReac Intermediate myalgia Verified 03/13/24 10:07 ibandronate sodium AdvReac Mild Gastrointestinal Verified 03/13/24 10:07 [From Boniva] Upset codeine AdvReac Unknown UPSET Verified 03/13/24 10:07 STOMACH morphine AdvReac Unknown Confusion Verified 03/13/24 10:07 atorvastatin AdvReac Nausea Verified 03/13/24 10:07 bupropion [From Wellbutrin] AdvReac Nausea Verified 03/13/24 10:07 doxycycline AdvReac Nausea Verified 03/13/24 10:07 simvastatin AdvReac Nausea Verified 03/13/24 10:07 Sulfa (Sulfonamide AdvReac Nausea Verified 03/13/24 10:07 Antibiotics) sulfamethoxazole AdvReac Nausea Verified 03/13/24 10:07 [From Bactrim] trimethoprim [From Bactrim] AdvReac Nausea Verified 03/13/24 10:07 Home Medications Medication Instructions Recorded Confirmed Type aspirin 81 mg tablet,delayed 81 mg PO DAILY 05/06/19 03/13/24 History release ascorbic acid (vitamin C) 500 mg 500 mg PO DAILY 08/17/22 03/13/24 History tablet cholecalciferol (vitamin D3) 25 25 mcg PO DAILY 08/17/22 03/13/24 History mcg (1,000 unit) tablet (Vitamin D3) verapamil 180 mg tablet,extended 360 mg (2 x 180 mg) PO DAILY #180 03/27/23 03/13/24 Rx release tabs acetaminophen 325 mg tablet 650 mg PO Q6H PRN pain 08/20/23 03/13/24 History albuterol sulfate 90 mcg/actuation 2 puff inhalation Q6H PRN 10/16/23 03/13/24 Rx aerosol inhaler (Ventolin HFA) shortness of breath or wheezing #8.5 grams potassium chloride 20 mEq 20 meq PO 3XWK 11/29/23 03/13/24 History tablet,extended release tiotropium bromide 18 mcg capsule 1 cap inhalation DAILY #30 11/29/23 03/13/24 Rx with inhalation device inhalations valsartan 160 mg tablet 160 mg PO BID #60 tabs 01/30/24 03/13/24 Rx furosemide 20 mg tablet 20 mg PO 3XWK 03/13/24 03/13/24 History Past Med/Surg History Problem List (Updated 03/13/24 @ 06:57 by Joseph Cabral PA-C) Bloody stool (Acute) Acute colitis (Acute) Left upper lobe pulmonary nodule (Chronic) Ex-smoker Exertional shortness of breath Fracture of right inferior pubic ramus (08/06/23) from a fall Hypoxia (Acute) COPD (chronic obstructive pulmonary disease) (Acute) S/P TAVR (transcatheter aortic valve replacement) Osteoporosis (Chronic) Vitamin D deficiency (Acute) Tricuspid regurgitation (Acute) Nontoxic multinodular goiter (Acute) Mitral regurgitation (Acute) Leukopenia (Acute) Hypertension (Acute) Hyperlipidemia (Acute) History of adenocarcinoma of lung (Acute) BMI less than 19,adult (Acute) Aortic stenosis due to bicuspid aortic valve (Acute) Constipation Depression Insomnia Prediabetes Carotid artery plaque Severe aortic stenosis (Acute) Normal left ventricular systolic function and wall motion Antiplatelet or antithrombotic long-term use Lower gastrointestinal hemorrhage (Acute) External hemorrhoid, thrombosed (Acute) NSCLC of right lung Colonic mass Lung mass Anemia COVID-19 Adenocarcinoma of left lung Elevated troponin Hypokalemia Low BMI Mass of left lung (Acute) COVID-19 (Acute) 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 Family History Father Myocardial infarction Hypertension Mother Vascular disorder Mother of supranuclear palsy Hypertension Denies family history of Ovarian cancer Prostate cancer Diabetes Breast cancer Colorectal cancer Social History Smoking Status: Former smoker Tobacco Type: Cigarettes Age Started Using Tobacco: 21; Age Quit Using Tobacco: 55; packs per day: 1; Cigarettes Per Day: 20; Second Hand Exposure: No; Do You Dip or Chew Tobacco: No; Hx Alcohol Use: Yes Alcohol type: wine Alcohol Intake Frequency: Monthly or Less Alcohol Intake Frequency Comment: socially Hx Substance Use: No Preferred Language: Trinidadian Communication Ability: Effective Visual Impairment: Partially Limited Hearing Ability: Normal Build Technician Required: No Beliefs That Will Affect Care: None marital status: / Current Living Situation: Alone current occupational status: retired current occupation: 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 Feels Safe at Home: Yes Childhood Exposure to Second-Hand Smoke: No Diet: regular caffeine: No (Decaf Coffee ) Dental Care, Regularly: No Physical Activity Frequency: Does not Exercise Seatbelt Use: always Sunscreen Use: No Assistive Devices: None Physical Exam Physical Exam: General: frail/thin 78 yo female sitting up in bed, family in room, NAD, hungry Head atraumatic, normocephalic, mm slightly dry, trachea midline resp: diminished in the bases but no obvious w/c/r, on room air 93% CV: rrr, no significant m/r/g, no pitting edema/calf tenderness GI: +BS, slight distension, no overt tenderness/guarding/rigidity : no santiago Rectal: numerous external hemorrhoids without evidence for active bleeding MSK/Neuro: non focal, no slurred speech/facial droop, able to follow commands, answering questions appropriately Psych: AOx3, cooperative with exam Results & Data Results & Data Vital Signs (Past 12 Hours) Vital Signs Temp Pulse Pulse Resp BP BP Pulse Ox 03/13/24 07:27 94 H 18 162/92 H 100 03/13/24 06:39 95 H 23 157/89 H 100 03/13/24 06:00 97 H 24 157/89 H 95 03/13/24 05:06 96 H 03/13/24 04:57 94 H 22 92 03/13/24 04:46 36.4 C L 92 H 20 142/82 H 91 03/13/24 04:39 101 H 22 149/95 H 93 O2 Del Method O2 Flow Rate 03/13/24 07:27 Room Air 03/13/24 06:39 Nasal Cannula 2 03/13/24 06:00 Nasal Cannula 2 03/13/24 05:06 03/13/24 04:57 Room Air 03/13/24 04:46 Room Air 03/13/24 04:39 Room Air Laboratory Results 03/13/24 03/13/24 03/13/24 Range/Units 08:25 05:59 05:32 WBC (4.8-10.8) K/ul RBC (4.20-5.40) M/uL Hgb (12.0-16.0) g/dl Hct (37.0-47.0) % MCV (80.0-100.0) fL MCH (25.0-34.0) pg MCHC (32.0-36.0) g/dL RDW Std Deviation (36.4-46.3) fL RDW Coeff of Sarah (11.5-14.5) % Plt Count (130-400) K/uL MPV (9.4-12.4) fL Immature Gran % (Auto) % Neut % (Auto) % Lymph % (Auto) % [place] % (Auto) % Eos % (Auto) % Baso % (Auto) % Neut # (Auto) (1.40-6.50) K/uL Lymph # (Auto) (1.20-3.40) K/uL [place] # (Auto) (0.11-0.59) K/uL Eos # (Auto) (0.00-0.50) K/uL Baso # (Auto) (0.00-0.20) K/uL Immature Gran # (Auto) (0.01-0.20) K/uL PT (9.0-12.0) Seconds INR (0.9-1.1) APTT (21-31) Seconds PTT Ratio Sodium (136-145) mmol/L Potassium (3.5-5.1) mmol/L Chloride (98-107) mmol/L Carbon Dioxide (21-32) mmol/L Anion Gap (3-11) BUN (6-23) mg/dl Creatinine (0.6-1.2) mg/dl Est Cr Clr Drug Dosing ml/min Est GFR ( Amer) ml/min Est GFR (Non-Af Amer) ml/min BUN/Creatinine Ratio (10-20) Glucose (70-99(Fasting)) mg/dl Lactate 0.9 (0.4-2.0) mmol/L Calcium (8.6-10.3) mg/dl Magnesium (1.7-2.4) mg/dl Total Bilirubin (0.2-1.0) mg/dl AST (13-39) U/L ALT (7-52) U/L Alkaline Phosphatase (34-104) U/L Troponin I High Sens (0-14) pg/ml B-Natriuretic Peptide (0-100) pg/ml Total Protein (6.0-8.3) gm/dl Albumin (3.4-5.0) gm/dl Globulin (2.5-4.0) gm/dl Albumin/Globulin Ratio (0.9-2) Lipase (11-82) U/L Procalcitonin Pending Urine Color Yellow Urine Appearance Clear (Clear) Urine pH 6.5 (4.5-7.5) Ur Specific [place] 1.019 (1.000-1.030) Urine Protein Negative (Negative) Urine Glucose (UA) Negative (Negative) Urine Ketones Negative (Negative) Urine Blood 1+ H (Negative) Urine Nitrite Negative (Negative) Urine Bilirubin Negative (Negative) Urine Urobilinogen Negative (Negative) Ur Leukocyte Esterase 1+ H (Negative) Urine WBC (Auto) 0-5 (0-5) /hpf Urine RBC (Auto) 0-2 (0-2) /hpf U Hyaline Cast (Auto) 0-2 (0-2) /lpf U Epithel Cells (Auto) 0-2 (0-2) /hpf Urine Bacteria (Auto) None Seen (None Seen) Blood Type B Positive Antibody Screen NEGATIVE 03/13/24 Range/Units 05:06 WBC 12.77 H (4.8-10.8) K/ul RBC 4.26 (4.20-5.40) M/uL Hgb 12.9 (12.0-16.0) g/dl Hct 39.5 (37.0-47.0) % MCV 92.7 (80.0-100.0) fL MCH 30.3 (25.0-34.0) pg MCHC 32.7 (32.0-36.0) g/dL RDW Std Deviation 39.3 (36.4-46.3) fL RDW Coeff of Sarah 11.6 (11.5-14.5) % Plt Count 182 (130-400) K/uL MPV 9.7 (9.4-12.4) fL Immature Gran % (Auto) 0.4 % Neut % (Auto) 89.3 % Lymph % (Auto) 2.9 % [place] % (Auto) 7.1 % Eos % (Auto) 0.1 % Baso % (Auto) 0.2 % Neut # (Auto) 11.41 H (1.40-6.50) K/uL Lymph # (Auto) 0.37 L (1.20-3.40) K/uL [place] # (Auto) 0.91 H (0.11-0.59) K/uL Eos # (Auto) 0.01 (0.00-0.50) K/uL Baso # (Auto) 0.02 (0.00-0.20) K/uL Immature Gran # (Auto) 0.05 (0.01-0.20) K/uL PT 10.6 (9.0-12.0) Seconds INR 1.0 (0.9-1.1) APTT 23 (21-31) Seconds PTT Ratio 0.9 Sodium 137 (136-145) mmol/L Potassium 3.8 (3.5-5.1) mmol/L Chloride 97 L (98-107) mmol/L Carbon Dioxide 33 H (21-32) mmol/L Anion Gap 7 (3-11) BUN 15 (6-23) mg/dl Creatinine 0.77 (0.6-1.2) mg/dl Est Cr Clr Drug Dosing 37.3 ml/min Est GFR ( Amer) 85.7 ml/min Est GFR (Non-Af Amer) 74.0 ml/min BUN/Creatinine Ratio 19.5 (10-20) Glucose 118 H (70-99(Fasting)) mg/dl Lactate (0.4-2.0) mmol/L Calcium 9.8 (8.6-10.3) mg/dl Magnesium 1.8 (1.7-2.4) mg/dl Total Bilirubin 1.2 H (0.2-1.0) mg/dl AST 14 (13-39) U/L ALT 8 (7-52) U/L Alkaline Phosphatase 76 (34-104) U/L Troponin I High Sens 10.0 (0-14) pg/ml B-Natriuretic Peptide 158 H (0-100) pg/ml Total Protein 7.0 (6.0-8.3) gm/dl Albumin 4.3 (3.4-5.0) gm/dl Globulin 2.7 (2.5-4.0) gm/dl Albumin/Globulin Ratio 1.6 (0.9-2) Lipase 7 L (11-82) U/L Procalcitonin Urine Color Urine Appearance (Clear) Urine pH (4.5-7.5) Ur Specific [place] (1.000-1.030) Urine Protein (Negative) Urine Glucose (UA) (Negative) Urine Ketones (Negative) Urine Blood (Negative) Urine Nitrite (Negative) Urine Bilirubin (Negative) Urine Urobilinogen (Negative) Ur Leukocyte Esterase (Negative) Urine WBC (Auto) (0-5) /hpf Urine RBC (Auto) (0-2) /hpf U Hyaline Cast (Auto) (0-2) /lpf U Epithel Cells (Auto) (0-2) /hpf Urine Bacteria (Auto) (None Seen) Blood Type Antibody Screen Diagnostic Findings Abdomen/Pelvis CT 03/13/24 05:25 CT OF THE ABDOMEN AND PELVIS WITHOUT CONTRAST CLINICAL HISTORY: GI bleed. Hx cancer. COMPARISON STUDY: CT of the abdomen and pelvis October 18, 2023. PET/CT February 14, 2024. TECHNIQUE: Axial images of the abdomen and pelvis were obtained without IV contrast. Images were reviewed in the axial, sagittal, and coronal planes. Automated exposure control was utilized for the study. A dose lowering technique was utilized adhering to the principles of ALARA. FINDINGS: Lung bases are unremarkable. No pneumatosis, free air or portal venous gas is present. There is a 3 mm left renal calculus. No ureteral calculi are present in is no hydronephrosis. Evaluation of the remainder of the abdomen and pelvis is suboptimal on this unenhanced exam. Liver, adrenal glands and pancreas are unremarkable. There are calcified granulomas within the spleen. Size of the spleen is normal. There is no evidence for a bowel obstruction. No evidence for acute appendicitis. Moderate wall thickening with pericolonic stranding of the descending colon and sigmoid colon is noted. There is no free air. There is no abscess. No additional sites of bowel wall thickening are evident on unenhanced exam. Old right pubic ring fractures are present. There are sacral Tarlov cysts. No acute fractures or suspicious lesions are identified within visualized skeletal structures. IMPRESSION: 1. Moderate wall thickening with pericolonic stranding of the descending colon and sigmoid colon. This represents a nonspecific colitis. No free air or abscess. 2. No bowel obstruction. 3. Left nephrolithiasis. ACT 112: Negative or not required by law. Electronically signed by: Jose Manuel Bhagat M.D. 03/13/2024 6:49 AM Chest X-Ray 03/13/24 08:12 XR chest 1V portable CLINICAL HISTORY: leukocytosis COMPARISON STUDY: Chest radiograph August 06, 2023. Chest CT October 18, 2023. FINDINGS: There is no pneumothorax or pleural effusion. Right apical opacity remains unchanged. This favors post therapy change. Aortic valve prosthesis is noted. Cardiomegaly is unchanged. There is no evidence for pulmonary edema. No consolidation is identified to suggest pneumonia.. IMPRESSION: No significant change in appearance of the chest. Stable right apical opacity which favors post therapy change. ACT 112: Negative or not required by law. Electronically signed by: Jose Manuel Bhagat M.D. 03/13/2024 8:28 AM Supervising Physician Co-Signing Physician Notes The patient was seen by me. The chart was reviewed. Case discussed with SANG Roque. Agree with assessment and plan PG Care Time/CCT Total # of Minutes Spent Total Time Spent with Patient: Total time spent is greater than 50% in coordination of care (as documented) at patient's floor/unit and/or counseling patient: Coding Level of Care Code 92740 INT INP/OBS CARE 3/75MIN Diagnoses Bloody stool K92.1 Acute colitis K52.9 COPD (chronic obstructive pulmonary disease) J44.9 COPD type: unspecified COPD S/P TAVR (transcatheter aortic valve replacement) Z95.2 Hypertension I10 Hypertension type: unspecified History of adenocarcinoma of lung Z85.118 Hyperlipidemia E78.5 Constipation K59.00 (HFpEF) heart failure with preserved ejection fraction I50.30 (3) COPD (chronic obstructive pulmonary disease) COPD type: unspecified COPD Qualified Code(s): J44.9 - Chronic obstructive pulmonary disease, unspecified (5) Hypertension Hypertension type: unspecified Qualified Code(s): I10 - Essential (primary) hypertension
--- NOTE | 2024-03-13 08:30 | XRay Report ---
XR chest 1V portable CLINICAL HISTORY: leukocytosis COMPARISON STUDY: Chest radiograph August 06, 2023. Chest CT October 18, 2023. FINDINGS: There is no pneumothorax or pleural effusion. Right apical opacity remains unchanged. This favors post therapy change. Aortic valve prosthesis is noted. Cardiomegaly is unchanged. There is no evidence for pulmonary edema. No consolidation is identified to suggest pneumonia.. IMPRESSION: No significant change in appearance of the chest. Stable right apical opacity which favo rs post therapy change. ACT 112: Negative or not required by law. Electronically signed by: Jose Manuel Bhagat M.D. 03/13/2024 8:28 AM
[2024-03-13] MEDS: MAGNESIUM SULFATE / D5W 1 GM/100 ML BAG IV ONE (09:01)
[2024-03-13] MEDS: VALSARTAN 80 MG TAB PO ONE (09:24)
[2024-03-13] MEDS: VERAPAMIL HCL 180 MG TABCR PO ONE (09:25)
[2024-03-13] MEDS ORDERED: ACETAMINOPHEN 325 MG TAB PO PRN (09:50)
[2024-03-13] MEDS ORDERED: POLYETHYLENE (MIRALAX) 17 GM PACK PO PRN (09:50)
[2024-03-13] MEDS ORDERED: ALBUTEROL HFA 8 GM INHALER INH PRN (09:50)
[2024-03-13] MEDS ORDERED: ONDANSETRON INJ 2 MG/ML 2 ML VIAL IV PRN (09:50)
[2024-03-13] MEDS: DOCUSATE SODIUM 100 MG CAP PO SCH (10:35)
[2024-03-13] MEDS: AMPICILLIN/SULBACTAM SOD 3,000 MG in SODIUM CHLOR 0.9% MINI-B 100 ML IV SCH (10:36)
[2024-03-13] MEDS: ASCORBIC ACID 500 MG TAB PO SCH (10:46)
[2024-03-13] MEDS: CHOLECALCIFEROL 25 MCG (1000 UNITS) TAB PO SCH (10:46)
[2024-03-13 11:32] LABS: Ferritin 153.5 ng/ml (8-388)
[2024-03-13 12:10] LABS: Hematocrit (blood only) 37.7 % (37.0-47.0); Hemoglobin 12.2 g/dl (12.0-16.0)
[2024-03-13] MEDS: UMECLIDINIUM BROMIDE 62.5MCG/BLISTER 7 PUFFS/INHALER INH SCH (13:39)
--- NOTE | 2024-03-13 17:40 | Electrocardiogram Report ---
Test Reason : Blood Pressure : / mmHG Vent. Rate : 096 BPM Atrial Rate : 096 BPM P-R Int : 140 ms QRS Dur : 074 ms QT Int : 368 ms P-R-T Axes : 074 019 069 degrees QTc Int : 464 ms Sinus rhythm with PACs Cannot rule out Inferior infarct , age undetermined Abnormal ECG When compared with ECG of 06-AUG-2023 00:16, QT has shortened Confirmed by Shawn Augustine ([id number]) on 03/13/2024 5:39:54 PM Referred By: REFERRED SELF Confirmed By:Abdias Augustine
[2024-03-13] MEDS: VALSARTAN 80 MG TAB PO SCH (21:02)
[2024-03-14 04:36] VITALS: O2SAT 92
[2024-03-14 06:50] LABS: Hematocrit (blood only) 35.2 % (37.0-47.0); Hemoglobin 11.5 g/dl (12.0-16.0); Mean Corpuscular Hemoglobin 30.3 pg (25.0-34.0); Mean Corpuscular Hgb Conc 32.7 g/dL (32.0-36.0); Mean Corpuscular Volume 92.9 fL (80.0-100.0); Mean Platelet Volume 9.8 fL (9.4-12.4); Platelet Count 151 K/uL (130-400); RDW Coefficient of Variation 11.8 % (11.5-14.5); Red Blood Count 3.79 M/uL (4.20-5.40); White Blood Count 10.45 K/ul (4.8-10.8)
[2024-03-14 07:16] LABS: Albumin Level 3.7 gm/dl (3.4-5.0); BUN Creatinine Ratio 14.1 (10-20); Bilirubin Direct 0.2 mg/dl (0-0.2); Bilirubin,Total 1.1 mg/dl (0.2-1.0); Calcium 9.1 mg/dl (8.6-10.3); Creatinine Clr Calc Pharmacy 48.1 ml/min; Est GFR (African American) 99.1 ml/min; Est GFR (Non-African American) 85.5 ml/min; Magnesium 2.1 mg/dl (1.7-2.4); Potassium 3.6 mmol/L (3.5-5.1); Total Protein 6.3 gm/dl (6.0-8.3)
[2024-03-14 07:27] LABS: Basophils # (auto) 0.02 K/uL (0.00-0.20); Basophils % (auto) 0.2 %; Eosinophils # (auto) 0.02 K/uL (0.00-0.50); Eosinophils % (auto) 0.2 %; Immature Granulocytes # (auto) 0.04 K/uL (0.01-0.20); Immature Granulocytes % (auto) 0.4 %; Lymphocytes # (auto) 0.39 K/uL (1.20-3.40); Lymphocytes % (auto) 3.7 %; Monocytes # (auto) 0.51 K/uL (0.11-0.59); Monocytes % (auto) 4.9 %; Neutrophils # (auto) 9.47 K/uL (1.40-6.50); Neutrophils % (auto) 90.6 %
[2024-03-14 07:37] VITALS: BP 171/93; PULSE 74; RESP 14; TEMP 98.4
--- NOTE | 2024-03-14 08:08 | Hospitalist Progress Note ---
Date of Service March 14, 2024 Assessment & Plan (1) Bloody stool: Plan: 2-3 bowel movements with bright red blood in bowl and on toilet paper -does have several larger hemorrhoids on exam, not currently bleeding. Notes she did get IV venofer infusions in October with heme/onc, which made her constipation worse. -Not on PO iron at baseline or NSAIDs (only takes Tylenol) -Notable did get IV Venofer in October w/ heme/onc which she reports caused worsening constipation and does have hx hemorrhoids and could be hemorrhoidal bleeding w/ her chronic constipation but is also due for c-scope (hx adenomatous polyp) which should be arranged but VSS and hgb stable on present without significant dehydration and do not suspect acute GIB at present but will admit for ongoing monitoring/evaluation Admit to medical with telemetry Hgb stable 12.9 at present. WBC elevated 12.7k w/ L shift -concerning for infectious etiology however no fever/chills or vomiting but did have associated nausea and generalized abdominal pain on 03/12 w/ reduction in appetite which she reports is usually pretty good CTAP w/ Moderate wall thickening with pericolonic stranding of the descending colon and sigmoid colon. This represents a nonspecific colitis. No free air or abscess (also noting L nephrolithiasis-but no CVA tenderness/urinary sx) Protonix IVP daily given stability in hgb for now and will monitor serial H&H, iron studies for completeness HOLD ASA 81mg (on for prevention w/ carotid plaque) Fecal occult blood w/ next BM Stool biofire/cdiff to be obtained Unasyn IV for colitis unless biofire with viral etiology given L shift on admission concerning for infectious etiology. Procal added, 0.46 and will add blood cultures given such (noting did get dose Unasyn) Checking, lactic acid. -If lactic NOT elevated, would avoid IVF given hx CHF and just hold her PO lasix for now (takes -W- w/ PO KCl) Clear liquid diet, advance as tolerated Holding off on GI consult for now but can be placed if any acute drop in hgb/positive testing DVT proph: SCDs ordered, avoid chemoproph given concerns for bleeding Monitor labs/electrolytes on repeat 03/14 - On Unasyn, WBC wnl. Stool studies not obtained, bowel softeners ordered. Hgb is 11.5 from 12.9 on admission (however was provided 500cc NSS and repeat hgb last evening 12.2 in setting of MULTIPLE lab draws). Was seen in evening 03/13, sitting up at side of bed, no acute distress/no abdominal pain and tolerating diet without issue with stable vitals and doubtful any acute GIB. Aspirin remains on hold and would continue to hold at discharge Continuing to monitor for now, hopefully able to examine next bowel movement however if patient feeling well could consider dc on empiric augmentin for possible infectious colitis. Lactic 0.9, weighing against ischemic colitis (2) Acute colitis: (3) COPD (chronic obstructive pulmonary disease): Plan: continue home medications/hospital formulary (4) S/P TAVR (transcatheter aortic valve replacement): Plan: last year, reported did very well following until fell at home and sustained pelvic dx requiring surgery/rehab telemetry monitoring, no CP/SOB reported (5) Hypertension: Plan: Did not take AM medications and BP elevated -- NOW doses for valsartan/equivalent and her verapamil and resumed home scheduled dosing moving forward holding her lasix as takes M-W-F and avoiding IVF as wanting to eat/able to take PO Monitor (6) History of adenocarcinoma of lung: Plan: is s/p lobectomy follows with Dr Garcia, has been stable w/ radiation treatments. 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 (8) Constipation: Plan: as above, colace BID ordered to prevent constipation and can add miralax if no issues w/ biofire to prevent constipation encourage regular bowel regimen at dc and will need c-scope as above (9) (HFpEF) heart failure with preserved ejection fraction: Plan: does not appear to be volume overloaded on exam however cxr w/ some edema and slight elevation in BNP however on room air and no LE edema and will hold off IVF for above but also holding her lasix monitor weights/I&O, volume status continues on valsartan BID, dose NOW and resumed BID moving forward Plan dvt proph: scds given bleeding reported updated family at bedside on admission full code patient is hopeful for short inpatient stay and potential dc tomorrow on PO augmentin if negative biofire testing/normalization of WBC and tolerating advancement of diet without any further bleeding/stable hgb Admission and Anticipated Discharge Date Admission Date: March 13, 2024 Results & Data Results & Data Vital Signs (Past 12 Hours) Vital Signs Temp Pulse Pulse Resp BP Pulse Ox O2 Del Method 03/14/24 07:37 36.9 C 74 14 171/93 H 92 Room Air 03/14/24 05:48 99 H 03/14/24 04:33 36.7 C 110 H 20 173/78 H 92 Room Air 03/13/24 23:59 37.2 C 73 20 149/85 H 93 Room Air 03/13/24 22:00 76 03/13/24 20:58 37.0 C 80 18 149/83 H 93 Room Air 03/13/24 20:49 80 03/13/24 20:29 74 23 147/78 H 93 Room Air 03/13/24 20:12 78 97 03/13/24 20:09 73 28 H Laboratory Results 03/14/24 03/13/24 03/13/24 Range/Units 06:35 11:55 08:25 WBC 10.45 (4.8-10.8) K/ul RBC 3.79 L (4.20-5.40) M/uL Hgb 11.5 L 12.2 (12.0-16.0) g/dl Hct 35.2 L 37.7 (37.0-47.0) % MCV 92.9 (80.0-100.0) fL MCH 30.3 (25.0-34.0) pg MCHC 32.7 (32.0-36.0) g/dL RDW Std Deviation 40.0 (36.4-46.3) fL RDW Coeff of Sarah 11.8 (11.5-14.5) % Plt Count 151 (130-400) K/uL MPV 9.8 (9.4-12.4) fL Immature Gran % (Auto) 0.4 % Neut % (Auto) 90.6 % Lymph % (Auto) 3.7 % Bradford % (Auto) 4.9 % Eos % (Auto) 0.2 % Baso % (Auto) 0.2 % Neut # (Auto) 9.47 H (1.40-6.50) K/uL Lymph # (Auto) 0.39 L (1.20-3.40) K/uL Bradford # (Auto) 0.51 (0.11-0.59) K/uL Eos # (Auto) 0.02 (0.00-0.50) K/uL Baso # (Auto) 0.02 (0.00-0.20) K/uL Immature Gran # (Auto) 0.04 (0.01-0.20) K/uL Sodium 139 (136-145) mmol/L Potassium 3.6 (3.5-5.1) mmol/L Chloride 102 (98-107) mmol/L Carbon Dioxide 30 (21-32) mmol/L Anion Gap 7 (3-11) BUN 9 (6-23) mg/dl Creatinine 0.64 (0.6-1.2) mg/dl Est Cr Clr Drug Dosing 48.1 ml/min Est GFR ( Amer) 99.1 ml/min Est GFR (Non-Af Amer) 85.5 ml/min BUN/Creatinine Ratio 14.1 (10-20) Glucose 116 H (70-99(Fasting)) mg/dl Lactate 0.9 (0.4-2.0) mmol/L Calcium 9.1 (8.6-10.3) mg/dl Magnesium 2.1 (1.7-2.4) mg/dl Iron (35-150) mcg/dl TIBC (250-450) mcg/dl Unsaturated IBC (155-355) mcg/dl Transferrin % Sat (15-50) % Ferritin (8-388) ng/ml Total Bilirubin 1.1 H (0.2-1.0) mg/dl Direct Bilirubin 0.2 (0-0.2) mg/dl AST 12 L (13-39) U/L ALT 6 L (7-52) U/L Alkaline Phosphatase 58 (34-104) U/L Total Protein 6.3 (6.0-8.3) gm/dl Albumin 3.7 (3.4-5.0) gm/dl Procalcitonin 0.47 (0-0.5) ng/ml 03/13/24 Range/Units 05:06 WBC (4.8-10.8) K/ul RBC (4.20-5.40) M/uL Hgb (12.0-16.0) g/dl Hct (37.0-47.0) % MCV (80.0-100.0) fL MCH (25.0-34.0) pg MCHC (32.0-36.0) g/dL RDW Std Deviation (36.4-46.3) fL RDW Coeff of Sarah (11.5-14.5) % Plt Count (130-400) K/uL MPV (9.4-12.4) fL Immature Gran % (Auto) % Neut % (Auto) % Lymph % (Auto) % Bradford % (Auto) % Eos % (Auto) % Baso % (Auto) % Neut # (Auto) (1.40-6.50) K/uL Lymph # (Auto) (1.20-3.40) K/uL Bradford # (Auto) (0.11-0.59) K/uL Eos # (Auto) (0.00-0.50) K/uL Baso # (Auto) (0.00-0.20) K/uL Immature Gran # (Auto) (0.01-0.20) K/uL Sodium (136-145) mmol/L Potassium (3.5-5.1) mmol/L Chloride (98-107) mmol/L Carbon Dioxide (21-32) mmol/L Anion Gap (3-11) BUN (6-23) mg/dl Creatinine (0.6-1.2) mg/dl Est Cr Clr Drug Dosing ml/min Est GFR ( Amer) ml/min Est GFR (Non-Af Amer) ml/min BUN/Creatinine Ratio (10-20) Glucose (70-99(Fasting)) mg/dl Lactate (0.4-2.0) mmol/L Calcium (8.6-10.3) mg/dl Magnesium (1.7-2.4) mg/dl Iron 23 L (35-150) mcg/dl TIBC 347 (250-450) mcg/dl Unsaturated IBC 324 (155-355) mcg/dl Transferrin % Sat 7 L (15-50) % Ferritin 153.5 (8-388) ng/ml Total Bilirubin (0.2-1.0) mg/dl Direct Bilirubin (0-0.2) mg/dl AST (13-39) U/L ALT (7-52) U/L Alkaline Phosphatase (34-104) U/L Total Protein (6.0-8.3) gm/dl Albumin (3.4-5.0) gm/dl Procalcitonin (0-0.5) ng/ml PG Care Time/CCT Total # of Minutes Spent Total Time Spent with Patient: Total time spent is greater than 50% in coordination of care (as documented) at patient's floor/unit and/or counseling patient: Coding Diagnoses Bloody stool K92.1 Acute colitis K52.9 COPD (chronic obstructive pulmonary disease) J44.9 COPD type: unspecified COPD S/P TAVR (transcatheter aortic valve replacement) Z95.2 Hypertension I10 Hypertension type: unspecified History of adenocarcinoma of lung Z85.118 Hyperlipidemia E78.5 Constipation K59.00 (HFpEF) heart failure with preserved ejection fraction I50.30 (3) COPD (chronic obstructive pulmonary disease) COPD type: unspecified COPD Qualified Code(s): J44.9 - Chronic obstructive pulmonary disease, unspecified (5) Hypertension Hypertension type: unspecified Qualified Code(s): I10 - Essential (primary) hypertension
[2024-03-14] MEDS: VERAPAMIL HCL 180 MG TABCR PO SCH (08:51)
[2024-03-14] MEDS: PANTOprazole 40 MG in SYRINGE 0 ML IV SCH (08:51)
[2024-03-14 11:13] LABS: Adenovirus F 40/41 PCR Not Detected (NotDetected); Astrovirus PCR Not Detected (NotDetected); Campylobacter PCR Not Detected (NotDetected); Cryptosporidium PCR Not Detected (NotDetected); Cyclospora cayetanensis PCR Not Detected (NotDetected); Entamoeba histolytica PCR Not Detected (NotDetected); Enteroaggregative E.coli(EAEC) Not Detected (NotDetected); Enteropathogenic E.coli (EPEC) Not Detected (NotDetected); Enterotoxigenic E.coli (ETEC) Not Detected (NotDetected); Giardia lamblia PCR Not Detected (NotDetected); Norovirus GI/GII PCR Not Detected (NotDetected); Plesiomonas shigelloides PCR Not Detected (NotDetected); Rotavirus A PCR Not Detected (NotDetected); Salmonella PCR Not Detected (NotDetected); Sapovirus PCR Not Detected (NotDetected); Shiga-like Toxin E.coli (STEC) Not Detected (NotDetected); Shigella/Enteroinvasive E.coli Not Detected (NotDetected); Vibrio cholerae PCR Not Detected (NotDetected); Vibrio species PCR Not Detected (NotDetected); Yersinia enterocolitica PCR Not Detected (NotDetected)
--- NOTE | 2024-03-14 12:09 | Discharge Summary ---
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 Reported 2-3 episodes of bloody stools in the past 24 hours. No fever/chills but does have hx lung ca and colonic mass with hx of GI bleeding in the past. Most recent PCP note from 02/25 noting patient has refused colonoscopy multiple times but had stool test through [facility] in Nov 2021 and was negative in past (has hx adenomatous colon polyp). Eval in [facility], family in room. Sitting up in bed, doesn't feel that poorly. Had generalized abdominal pain and nausea yesterday not no significant abdominal pain today. No diarrhea/sick contacts. Does have constipation issues at baseline, takes some softeners. Bowel movements w/ more bright red blood in toilet bowel but did have some dark spots but no significant clotting. DENIES any NSAID use including ibuprofen, aleve, naproxen, etc. Only takes TYLENOL as needed for pains. Usually has good appetite but reports didn't yesterday. No fever/chills. Does have hx hemorrhoids. No hx allergy to PCN, will place on IV abx and plan for augmentin at dc if needed. She is very hungry, will order diet. Has not taken meds yet this morning, will order stat. HOlding her aspirin. On for carotid plaque. No SOB/cough, on room air. Takes verapamil and valsartan. Also on lasix, takes M-W-F with 20meq of potassium. No edema/swelling, on room air at present time. Does have stone on the L, known and told by Dr Garcia in the past. No L CVA tenderness or urinary/groin sx. Daughter/son updated at bedside. Full code discussed in event short term. Admission Exam Per Admitting Provider General: frail/thin 78 yo female sitting up in bed, family in room, NAD, hungry Head atraumatic, normocephalic, mm slightly dry, trachea midline resp: diminished in the bases but no obvious w/c/r, on room air 93% CV: rrr, no significant m/r/g, no pitting edema/calf tenderness GI: +BS, slight distension, no overt tenderness/guarding/rigidity : no santiago Rectal: numerous external hemorrhoids without evidence for active bleeding MSK/Neuro: non focal, no slurred speech/facial droop, able to follow commands, answering questions appropriately Psych: AOx3, cooperative with exam Principal Diagnosis Blood per rectum, colitis, hemorrhoids Discharge Exam General: frail/thin 78 yo female sitting up in bed, NAD, wanting to go home Head atraumatic, normocephalic, mm slightly dry, trachea midline resp: diminished in the bases but no obvious w/c/r, on room air 93% CV: rrr, no significant m/r/g, no pitting edema/calf tenderness GI: +BS, decreased distension, soft/nontender : no santiago Rectal: numerous external hemorrhoids without evidence for active bleeding MSK/Neuro: non focal, no slurred speech/facial droop, able to follow commands, answering questions appropriately Psych: AOx3, cooperative with exam Discharge Data Allergies Allergy/AdvReac Type Severity Reaction Status Date / Time watermelon Allergy Unknown Rash Verified 03/13/24 10:07 alendronate sodium AdvReac Intermediate Nausea Verified 03/13/24 10:07 pravastatin AdvReac Intermediate myalgia Verified 03/13/24 10:07 ibandronate sodium AdvReac Mild Gastrointestinal Verified 03/13/24 10:07 [From Boniva] Upset codeine AdvReac Unknown UPSET Verified 03/13/24 10:07 STOMACH morphine AdvReac Unknown Confusion Verified 03/13/24 10:07 atorvastatin AdvReac Nausea Verified 03/13/24 10:07 bupropion [From Wellbutrin] AdvReac Nausea Verified 03/13/24 10:07 doxycycline AdvReac Nausea Verified 03/13/24 10:07 simvastatin AdvReac Nausea Verified 03/13/24 10:07 Sulfa (Sulfonamide AdvReac Nausea Verified 03/13/24 10:07 Antibiotics) sulfamethoxazole AdvReac Nausea Verified 03/13/24 10:07 [From Bactrim] trimethoprim [From Bactrim] AdvReac Nausea Verified 03/13/24 10:07 Consultations 03/13/24 07:13 ED Decision to Admit Stat Ordered Studies Abdomen/Pelvis CT 03/13/24 05:25 CT OF THE ABDOMEN AND PELVIS WITHOUT CONTRAST CLINICAL HISTORY: GI bleed. Hx cancer. COMPARISON STUDY: CT of the abdomen and pelvis October 18, 2023. PET/CT February 14, 2024. TECHNIQUE: Axial images of the abdomen and pelvis were obtained without IV contrast. Images were reviewed in the axial, sagittal, and coronal planes. Automated exposure control was utilized for the study. A dose lowering technique was utilized adhering to the principles of ALARA. FINDINGS: Lung bases are unremarkable. No pneumatosis, free air or portal venous gas is present. There is a 3 mm left renal calculus. No ureteral calculi are present in is no hydronephrosis. Evaluation of the remainder of the abdomen and pelvis is suboptimal on this unenhanced exam. Liver, adrenal glands and pancreas are unremarkable. There are calcified granulomas within the spleen. Size of the spleen is normal. There is no evidence for a bowel obstruction. No evidence for acute appendicitis. Moderate wall thickening with pericolonic stranding of the descending colon and sigmoid colon is noted. There is no free air. There is no abscess. No additional sites of bowel wall thickening are evident on unenhanced exam. Old right pubic ring fractures are present. There are sacral Tarlov cysts. No acute fractures or suspicious lesions are identified within visualized skeletal structures. IMPRESSION: 1. Moderate wall thickening with pericolonic stranding of the descending colon and sigmoid colon. This represents a nonspecific colitis. No free air or abscess. 2. No bowel obstruction. 3. Left nephrolithiasis. ACT 112: Negative or not required by law. Electronically signed by: Jose Manuel Bhagat M.D. 03/13/2024 6:49 AM Chest X-Ray 03/13/24 08:12 XR chest 1V portable CLINICAL HISTORY: leukocytosis COMPARISON STUDY: Chest radiograph August 06, 2023. Chest CT October 18, 2023. FINDINGS: There is no pneumothorax or pleural effusion. Right apical opacity remains unchanged. This favors post therapy change. Aortic valve prosthesis is noted. Cardiomegaly is unchanged. There is no evidence for pulmonary edema. No consolidation is identified to suggest pneumonia.. IMPRESSION: No significant change in appearance of the chest. Stable right apical opacity which favors post therapy change. ACT 112: Negative or not required by law. Electronically signed by: Jose Manuel Bhagat M.D. 03/13/2024 8:28 AM Hospital Course (1) Bloody stool: 2-3 bowel movements with bright red blood in bowl and on toilet paper -does have several larger hemorrhoids on exam, not currently bleeding. Notes she did get IV venofer infusions in October with heme/onc, which made her constipation worse. -Not on PO iron at baseline or NSAIDs (only takes Tylenol) -Notable did get IV Venofer in October w/ heme/onc which she reports caused w orsening constipation and does have hx hemorrhoids and could be hemorrhoidal bleeding w/ her chronic constipation but is also due for c-scope (hx adenomatous polyp) which should be arranged but VSS and hgb stable on present without significant dehydration and do not suspect acute GIB at present but will admit for ongoing monitoring/evaluation Admit to medical with telemetry Hgb stable 12.9 at present. WBC elevated 12.7k w/ L shift -concerning for infectious etiology however no fever/chills or vomiting but did have associated nausea and generalized abdominal pain on 03/12 w/ reduction in appetite which she reports is usually pretty good CTAP w/ Moderate wall thickening with pericolonic stranding of the descending colon and sigmoid colon. This represents a nonspecific colitis. No free air or abscess (also noting L nephrolithiasis-but no CVA tenderness/urinary sx) Protonix IVP daily given stability in hgb for now and will monitor serial H&H, iron studies for completeness HOLD ASA 81mg (on for prevention w/ carotid plaque) Fecal occult blood POSITIVE Stool biofire/cdiff NEGATIVE Unasyn IV for colitis on imaging given procal 0.46, low concerns for ischemic colitis given normal lactic 0.9 (however did get 500cc NSS from ER on admission). No fever/chills at home, improvement in discomfort after having bowel movement w/ chronic constipation. Clear liquid diet advanced to regular without issues DVT proph w/ SCDs ordered, chemoproph deferred given concerns for bleeding 03/14 - On Unasyn, WBC wnl. Stool studies not obtained, bowel softeners ordered. Hgb is 11.5 from 12.9 on admission (however was provided 500cc NSS and repeat hgb last evening 12.2 in setting of MULTIPLE lab draws). Was seen in evening 03/13, sitting up at side of bed, no acute distress/no abdominal pain and tolerating diet without issue with stable vitals and doubtful any acute GIB. Aspirin remains on hold and would continue to hold at discharge at LEAST 1 week, to discuss w/ PCP prior to resuming as on for carotid plaque/prevention BM w/ brown stool, blood in toilet/toilet paper and decreased only on toilet paper w/ subsequent movement. Discussed CEA level 4.3 and need for outpt c-scope in follow up for eval (3.1 in 2021) Prior c-scope w/ Dr Borden, asked clerical secretary to arrange for f/u GI/[place] Discussion w/ heme/onc about alternative IV iron if becomes agreeable. To complete course augmentin at dc To return if any worsened/worrisome sx as discussed but doing well/tolerating diet, moved her bowels and less bright red blood w/ subsequent BMs and encouraged to continue colace at dc to prevent constipation. 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 lasix held on admission (takes --) BP stable in hospital setting and can continue home meds at dc (6) History of adenocarcinoma of lung: is s/p lobectomy follows with Dr Garcia, has been stable w/ radiation treatments. 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 remained on RA w/o increased LE edema and can continue home meds at [place]. If having wt gain over weekend could take dose as missed on sunday Plan discharged home on augmentin, holding asa and encouraged f/u with GI for c-scope iron studies also obtained which were low however deferred on PO supplementation given chronic constipation and can have f/u Dr Garcia for alternative IV replacement if agreeable in f/u Total Time Total Time Spent Total Time Spent (In Minutes): 45 Discharge Plan Discharge Items Patient Disposition: Home - Self-Care Reason For Visit: BRBPR, CONCERN FOR GIB Discharge Diagnosis: Blood from rectum, colitis Goals: You have been hospitalized for an acute medical problem. During your stay at [facility], we have made an effort to correct the problem that brought you to the hospital while keeping you as comfortable as possible. Medications were used to bring your condition under control and your discharge instructions will include directions for any medications you should take after leaving the hospital. Please make sure you see your Primary Care Provider as part of your follow up plan. Activity: As commented below Non-emergency contact: Primary Care Provider and [employer] Tally Clerk Call non-emergency contact if: you have any medication questions, your symptoms worsen, your pain is not controlled and you have a fever Follow-up/Referrals: Luigi Mercer DO [Physician] - 03/26/24 1:40 pm Shawn Garcia MD [Primary Care Provider] - 03/18/24 9:00 am Diet: Heart Healthy Addtl Attending Provider Instructions: You have been hospitalized for blood in your stool. Your stool was positive for blood however your hemoglobin levels have been stable despite multiple lab draws and kidney function and vitals have been stable with normal oxygen and no abdominal pain which weighs against acute bleeding. Your aspirin was HELD and you should continue to hold this at discharge until discussion with primary care. Biofire testing of stool as well as cdiff was NEGATIVE. Your imaging showed a colitis and lactic acid was negative which weighs AGAINST ischemic colitis and your white count was elevated which could be infectious and you were started on antibiotics and being sent on augmentin for another 5 days to cover. Please follow up with GASTROENTEROLOGY as discussed given concerns from prior polyp and while negative for malignancy, this can be worisome given your history and you should have repeat colonoscopy in next 6-8 weeks for evaluation. Please continue bowel softener to prevent constipation as this appears to be more from hemorrhoidal bleeding. You can get steroid cream in follow up if any further significant bleeding from hemorrhoids but prevention of constipation is best. You should follow up with heme/oncology as routine and discuss low iron. We would want to avoid oral to prevent constipation for now but can discuss alternative IV replacement if desires in follow up. Please follow up with primary care in the next week after hospitalization to monitor your progress. Please return to the ER with any increased bleeding, abdominal pain, chest pain/shortness of breath or for any other symptoms concerning for you. It has been a pleasure being a part of the medical team providing for you while you have been in the hospital. Take care! Pending Studies at Discharge: No Stand-Alone Forms: My [facility] GTx, Smoking Cessation Medications and DC Order Prescriptions: New docusate sodium 100 mg Capsule 100 mg PO BID Qty: 60 0RF polyethylene glycol 3350 [Miralax] 17 gram Powder In Packet 17 g PO DAILY PRN (Reason: constipation) Qty: 14 0RF amoxicillin-pot clavulanate 875-125 mg tablet 1 tab PO BID 6 Days Qty: 12 0RF Continued verapamil 180 mg tablet extended release 360 mg PO DAILY Qty: 180 3RF acetaminophen 325 mg tablet 650 mg PO Q6H PRN (Reason: pain) Patient Comments: CONFIRMED W/ PT AND ON [facility] DC SUMMARY 08/20/23 valsartan 160 mg tablet 160 mg PO BID Qty: 60 5RF albuterol sulfate [Ventolin HFA] 90 mcg/actuation HFA aerosol inhaler 2 puff INH Q6H PRN (Reason: shortness of breath or wheezing) Qty: 8.5 3RF potassium chloride 20 mEq tablet extended release 20 meq PO 3XWK Rx Instructions: Mon/Wed/Fri tiotropium bromide 18 mcg capsule, w/inhalation device 1 cap inhalation DAILY Qty: 30 5RF Hold Instructions: Home Medication placed on hold at Doctor's office ascorbic acid (vitamin C) 500 mg Tablet 500 mg PO DAILY cholecalciferol (vitamin D3) [Vitamin D3] 25 mcg (1,000 unit) Tablet 25 mcg PO DAILY furosemide 20 mg tablet 20 mg PO 3XWK Rx Instructions: Mon/Wed/Fri Held aspirin 81 mg tablet,delayed release (DR/EC) 81 mg PO DAILY Hold Instructions: at least 1 week or until instructed to resume by primary care provider Discharge Orders: Discharge Order (Routine); Ordered 03/14/24 Ordered By: Una Jain/Other Patient Handouts: Treating Hemorrhoids: Self-Care, Rectal Bleeding Tx, Understanding Rectal Bleeding, Understanding Hemorrhoids, Diagnosing Hemorrhoids, Understanding Colitis Admission Data Admit Date/Time: 03/13/24 08:51 Attending Provider: Hernando Agustin Admit Provider: Hernando Agustin Primary Care Provider: Shawn Garcia Other Providers: Bubba Dietrich; Una Beebe; Main Cheek; Hernando Agustin; Michael Santa; Kushal Hoffman; Noemy Jamil; Chantale Salcedo; Maggie Alfaro; Jose Kelly; Martir Tian; Antoinette Alves; Shawn Tracey; Main Kenyon; Kaiden Rick; Leelee Feng; Adriana Gupta E; Adriana Lau; Rosmery Barton; Benji Cooper; Narcisa Reid; Jonathan Rodríguez; Destin Chanel; Naty Kerns; Jovita Betancur; Kandace Wolff; Vance Siddiqui; Azul Reddy; Hernando Espinoza; Michael Sumner; Yas Head Other Interventions: Discharge Summary Assessment (RN) Last Done: 03/14/24 11:21 Supervising Physician Co-Signing Physician Notes The patient was not seen by me. The chart was reviewed. Case discussed with SANG Roque. Agree with assessment and plan Coding Level of Care Code 76423 INP/OBS DISCH >30 MIN Diagnoses Bloody stool K92.1 Acute colitis K52.9 COPD (chronic obstructive pulmonary disease) J44.9 COPD type: unspecified COPD S/P TAVR (transcatheter aortic valve replacement) Z95.2 Hypertension I10 Hypertension type: unspecified History of adenocarcinoma of lung Z85.118 Hyperlipidemia E78.5 Constipation K59.00 (HFpEF) heart failure with preserved ejection fraction I50.30
--- NOTE | 2024-05-02 07:48 | Coding Query ---
A supporting diagnosis is required for the test/procedure performed on this patient in order for us to be reimbursed by the patient's insurance. Please provide a supporting diagnosis for the following test/procedure listed below next to the test name along with your signature. *If there is no additional diagnosis for this patient that would support the following test/procedure please document that below next to the test/procedure. Test(s)/Procedure(s) that require a supporting diagnosis: lower GI bleeding * [address] G[address] Path DIAGNOSIS: she didnt have a scope or biopsy when I was taking care of her in the hospital She was referred to outpatient GI for colonoscopy at discharge Provider Signature: Date: Thank you Irasema Haynes [employer] Information Management Once completed, please kindly fax back to [phone] For questions please call [phone] [facility]
--- NOTE | 2024-05-21 13:42 | Coding Query ---
A supporting diagnosis is required for the test/procedure performed on this patient in order for us to be reimbursed by the patient's insurance. Please provide a supporting diagnosis for the following test/procedure listed below next to the test name along with your signature. *If there is no additional diagnosis for this patient that would support the following test/procedure please document that below next to the test/procedure. Test(s)/Procedure(s) that require a supporting diagnosis: * GI Gastrointestinal Panel/Stool GI PCR panel/IADNA-DNA/RNA Probe 09-24/CPT 15313 DIAGNOSIS: rule out infectious colitis as seen on imaging on admission Provider Signature: Date: Thank you Tatianna Mcdermott [employer] Once completed, please kindly fax back to [phone] For questions please call [phone] ANTHONY
== END 2024-03-14 14:00 | disposition home or self-care (01) ==
LOC: SUATTDRO → EDINP 04:39 → ED 04:39 → 2W 09:40

== ENCOUNTER 2025-06-04 04:54 | Observation (INO) ==
--- NOTE | 2025-06-04 05:17 | Emergency Department Note ---
Impression & Plan Hypoxia Admission ED Provider Note HPI: History obtained from patient. The patient is a 79-year-old female with history of COPD, adenocarcinoma of the lung, aortic stenosis, heart failure with preserved ejection fraction, non-small cell lung cancer of the right lung status post right upper lobectomy, who presents to the emergency department with a chief complaint of worsening shortness of breath over the past 3 days. Patient was hypoxic in the 70s at triage and was placed urgently in ED room and placed on a oxy mask with good improvement in her oxygenation. On my assessment the patient is alert and she is able to speak in full sentences. Patient denies any chest pain, she denies any recent fever or cough. Patient is otherwise afebrile on arrival, she is noted to be hypertensive at 207/114. ROS: - Per HPI Differential Diagnosis: COPD exacerbation, CHF exacerbation, pneumonia, pleural effusion, lung cancer/mass, pulmonary embolism, ACS, amongst other potential pathologies. *Outpatient medications and allergy history reviewed. PE: General: Alert, frail-appearing and cachectic HEENT: Normocephalic, trachea midline Eyes: Extraocular eye movement is intact, no scleral erythema Pulmonary: Diminished air movement bilaterally without wheezing or crackles Cardio: Regular rate and rhythm GI: Abdomen is soft to palpation : No suprapubic tenderness MSK: No evidence of trauma or malformation of the extremities, no edema Skin: No evidence of rash Neuro: Alert, no focal deficits Psychiatric: Cooperative INDEPENDENT INTERPRETATIONS: satellite project site monitor: (As interpreted by myself): - An order was placed for continuous cardiac monitoring - Patient was noted to be in sinus rhythm with a rate of 90 EKG: (As interpreted by myself): Rate: 91 Rhythm: Normal sinus rhythm Intervals: Within normal limits ST changes: No ST elevation Time: 0511 Chest x-ray: (As interpreted by myself): No focal infiltrate, status post right upper lobectomy Interventions provided in ED: - DuoNeb breathing treatment x 2, IV Solu-Medrol Medical Decision Making: IV was established and lab work obtained, patient was placed on monitoring tech, patient was initially maintained on oxygen mask at 15 L with good improvement in her saturations. She was weaned down to nasal cannula. Lab work shows a mild leukopenia at 4.71, hemoglobin stable 11.6, platelet count is normal, venous blood gas shows a mild acidosis with pH of 7.35, pCO2 is 62, CMP does not show any evidence of any critical findings. Troponin is mildly elevated at 52.4, BNP is elevated at 477. Following DuoNeb breathing treatments and IV Solu-Medrol the patient's breathing seems to be improved, she still has some mild tachypnea but states that her sensation of dyspnea is improved and her work of breathing does appear to be improved on my reassessment. I suspect that her symptoms are likely secondary to COPD exacerbation given findings on VBG. She does not clinically appear to be volume overloaded. Given the patient's hypoxia, I do feel she will require admission. Viral panel test is negative. Patient is in agreement to this plan, [facility] hospitalist service was paged for the admission, patient's case was discussed with Dr. Alfaro, and the patient was placed for admission in stable/improved condition. Consultants/Discussions held with other healthcare providers: - HospitalistDr. Alfaro Disposition discussion held by myself with: - Patient * CRITICAL CARE TIME: ( 45 ) minutes - Stabilization of patient with hypoxia requiring supplemental oxygen, time spent at the bedside, interpretation of diagnostic studies, discussion with other physicians and arrangement of admission. Diagnosis: 1. COPD exacerbation, acute, with hypoxia 2. Elevated troponin, acute, nonspecific 3. Dyspnea, acute Disposition: Admission Natalio Scott DO Emergency Medicine Past Med/Surg History Problem List (Updated 06/04/25 @ 06:42 by Natalio Scott DO) Hypoxia (Acute) History of colon polyps Acute colitis (Acute) Left upper lobe pulmonary nodule (Chronic) Ex-smoker Exertional shortness of breath Fracture of right inferior pubic ramus (08/06/23) from a fall Hypoxia (Acute) COPD (chronic obstructive pulmonary disease) (Acute) S/P TAVR (transcatheter aortic valve replacement) Statin myopathy Congestive heart failure (Acute) Hypoxia (Acute) Acute respiratory distress (Acute) Acute exacerbation of CHF (congestive heart failure) (HFpEF) heart failure with preserved ejection fraction Hypoxia Frailty Lower leg edema Primary adenocarcinoma of lower lobe of left lung (Chronic 08/21/22) COVID-19 (Acute) Mass of left lung (Acute) Low BMI Hypokalemia Elevated troponin Adenocarcinoma of left lung COVID-19 Anemia Lung mass Colonic mass NSCLC of right lung External hemorrhoid, thrombosed (Acute) Lower gastrointestinal hemorrhage (Acute) Antiplatelet or antithrombotic long-term use Normal left ventricular systolic function and wall motion Severe aortic stenosis (Acute) Carotid artery plaque Prediabetes Insomnia Depression Constipation Aortic stenosis due to bicuspid aortic valve (Acute) BMI less than 19,adult (Acute) History of adenocarcinoma of lung (Acute) Hyperlipidemia (Acute) Hypertension (Acute) Leukopenia (Acute) Mitral regurgitation (Acute) Nontoxic multinodular goiter (Acute) Tricuspid regurgitation (Acute) Vitamin D deficiency (Acute) Osteoporosis (Chronic) Medical History Aortic stenosis Colonic mass History of lower GI bleeding (2021) Hemorrhoids Colitis Tricuspid regurgitation Mitral regurgitation History of cardiac murmur Acute respiratory distress History of prediabetes History of pelvic fracture (08/2023) Osteoporosis Hyperlipidemia Hypertension Insomnia Carotid artery plaque Hx of colonic polyp History of anemia History of COVID-19 Lower leg edema Hx of congestive heart failure COPD (chronic obstructive pulmonary disease) Exertional shortness of breath Hx of cancer of lung Carotid bruit Surgical History Hx of cardiac cath History of esophagogastroduodenoscopy (EGD) Hx of colonoscopy S/P TAVR (transcatheter aortic valve replacement) History of tubal ligation S/P lobectomy of lung (2001) Family History Father Myocardial infarction Hypertension Mother Vascular disorder Mother of supranuclear palsy Hypertension Denies family history of Ovarian cancer Prostate cancer Diabetes Breast cancer Colorectal cancer Social History Smoking Status: Former smoker Tobacco Type: Cigarettes Age Started Using Tobacco: 21; Age Quit Using Tobacco: 55; packs per day: 1; Cigarettes Per Day: 20; Second Hand Exposure: Yes (hx many years ago); Do You Dip or Chew Tobacco: No; Hx Alcohol Use: Yes Alcohol type: hard liquor Alcohol Intake Frequency: Monthly or Less Alcohol Intake Frequency Comment: socially Hx Substance Use: No Preferred Language: Hungarian Communication Ability: Effective Visual Impairment: Partially Limited Hearing Ability: Normal Loading Unit Operator Seating Required: No Beliefs That Will Affect Care: None marital status: / Current Living Situation: Alone current occupational status: retired current occupation: 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 Feels Safe at Home: Yes Childhood Exposure to Second-Hand Smoke: No Diet: regular caffeine: No (Decaf Coffee ) Dental Care, Regularly: No Physical Activity Frequency: Does not Exercise Seatbelt Use: always Sunscreen Use: No Assistive Devices: Denture - Upper, Denture - Lower and Glasses Allergies Allergies Allergy/AdvReac Type Severity Reaction Status Date / Time watermelon Allergy Unknown Rash Verified 05/05/25 10:57 alendronate sodium AdvReac Unknown Nausea Verified 05/05/25 10:57 atorvastatin AdvReac Unknown Nausea Verified 05/05/25 10:57 bupropion [From Wellbutrin] AdvReac Unknown Nausea Verified 05/05/25 10:57 codeine AdvReac Unknown UPSET Verified 05/05/25 10:57 STOMACH doxycycline AdvReac Unknown Nausea Verified 05/05/25 10:57 ibandronate sodium AdvReac Unknown Gastrointestinal Verified 05/05/25 10:57 [From Boniva] Upset morphine AdvReac Unknown Confusion Verified 05/05/25 10:57 pravastatin AdvReac Unknown myalgia Verified 05/05/25 10:57 simvastatin AdvReac Unknown Nausea Verified 05/05/25 10:57 Sulfa (Sulfonamide AdvReac Unknown Nausea Verified 05/05/25 10:57 Antibiotics) sulfamethoxazole AdvReac Unknown Nausea Verified 05/05/25 10:57 [From Bactrim] trimethoprim [From Bactrim] AdvReac Unknown Nausea Verified 05/05/25 10:57 Home Meds Home Medications Medication Instructions Recorded Confirmed ascorbic acid (vitamin C) 500 mg 500 mg PO QAM 08/17/22 05/05/25 tablet cholecalciferol (vitamin D3) 25 25 mcg PO QAM 08/17/22 05/05/25 mcg (1,000 unit) tablet (Vitamin D3) acetaminophen 325 mg tablet 650 mg PO Q6H PRN pain 08/20/23 05/05/25 aspirin 81 mg capsule 81 mg PO QAM 04/09/24 05/05/25 Previous Rx's Medication Instructions Recorded polyethylene glycol 3350 17 gram 17 g PO DAILY PRN constipation #14 03/14/24 oral powder packet (Miralax) ea albuterol sulfate 90 mcg/actuation 2 puff inhalation Q6H PRN 07/23/24 aerosol inhaler (Ventolin HFA) shortness of breath or wheezing #6.7 grams potassium chloride 20 mEq 20 meq PO 3XWK #30 tabs 09/04/24 tablet,extended release valsartan 160 mg tablet 160 mg PO BID #180 tabs 01/05/25 tiotropium bromide 2.5 2 inh inhalation QAM #4 grams 04/22/25 mcg/actuation mist for inhalation (Spiriva Respimat) verapamil 180 mg tablet,extended 360 mg (2 x 180 mg) PO QAM #180 04/27/25 release tabs furosemide 20 mg tablet 20 mg PO 3XWK #60 tabs 05/26/25 Results & Data (ED) Vital Signs Vital Signs - 24 hr 06/04/25 05:04 06/04/25 05:04 06/04/25 05:04 Temperature 36.4 C L Temperature Source Temporal Artery Scan Pulse Rate 100 H Pulse Rate [Apical] Pulse Rhythm Regular Pulse Rhythm [Apical] Pulse Strength Normal Respiratory Rate 26 H Respiratory Effort / Characteristics Non-Labored Spontaneous Non-Labored Spontaneous Respiratory Depth Normal Normal Respiratory Pattern Regular Regular Blood Pressure 207/114 H Blood Pressure [Right Arm] Blood Pressure Mean 145 Blood Pressure Mean [Right Arm] Blood Pressure Position Sitting Pulse Oximetry 100 70 L Oxygen Delivery Method Oxymask Oxymask Room Air Oxymask Oxygen Flow Rate 6 4 0 Sepsis Recent Fever Within 48 Hours No Sepsis New/Unexplained Change in Mental Status N/A Sepsis Action Taken by Nursing No Action Required Oxygen Flow Rate - Titration 6 Pulse Oximetry Post Tiitration 100 06/04/25 05:11 06/04/25 05:15 06/04/25 05:21 Temperature Temperature Source Pulse Rate Pulse Rate [Apical] 89 Pulse Rhythm Pulse Rhythm [Apical] Regular Pulse Strength Respiratory Rate 22 Respiratory Effort / Characteristics Non-Labored Spontaneous Respiratory Depth Normal Respiratory Pattern Regular Blood Pressure Blood Pressure [Right Arm] 192/114 H Blood Pressure Mean Blood Pressure Mean [Right Arm] 140 Blood Pressure Position Pulse Oximetry 100 97 89 L Oxygen Delivery Method Oxymask Nasal Cannula Nasal Cannula Oxygen Flow Rate 4 2 0 Sepsis Recent Fever Within 48 Hours Sepsis New/Unexplained Change in Mental Status Sepsis Action Taken by Nursing Oxygen Flow Rate - Titration 2 Pulse Oximetry Post Tiitration 96 06/04/25 05:23 Temperature Temperature Source Pulse Rate 88 Pulse Rate [Apical] Pulse Rhythm Pulse Rhythm [Apical] Pulse Strength Respiratory Rate Respiratory Effort / Characteristics Respiratory Depth Respiratory Pattern Blood Pressure Blood Pressure [Right Arm] Blood Pressure Mean Blood Pressure Mean [Right Arm] Blood Pressure Position Pulse Oximetry Oxygen Delivery Method Oxygen Flow Rate Sepsis Recent Fever Within 48 Hours Sepsis New/Unexplained Change in Mental Status Sepsis Action Taken by Nursing Oxygen Flow Rate - Titration Pulse Oximetry Post Tiitration Laboratory Data 06/04/25 05:10 06/04/25 05:10 Lab Results 06/04/25 06/04/25 Range/Units 05:10 05:54 WBC 4.71 L (4.8-10.8) K/ul RBC 3.67 L (4.20-5.40) M/uL Hgb 11.6 L (12.0-16.0) g/dl Hct 36.9 L (37.0-47.0) % MCV 100.5 H (80.0-100.0) fL MCH 31.6 (25.0-34.0) pg MCHC 31.4 L (32.0-36.0) g/dL RDW Std Deviation 49.8 H (36.4-46.3) fL RDW Coeff of Sarah 13.4 (11.5-14.5) % Plt Count 252 (130-400) K/uL MPV 9.5 (9.4-12.4) fL Immature Gran % (Auto) 0.2 % Neut % (Auto) 78.1 % Lymph % (Auto) 10.2 % Callahan % (Auto) 10.0 % Eos % (Auto) 1.1 % Baso % (Auto) 0.4 % Neut # (Auto) 3.68 (1.40-6.50) K/uL Lymph # (Auto) 0.48 L (1.20-3.40) K/uL Callahan # (Auto) 0.47 (0.11-0.59) K/uL Eos # (Auto) 0.05 (0.00-0.50) K/uL Baso # (Auto) 0.02 (0.00-0.20) K/uL Immature Gran # (Auto) 0.01 (0.01-0.20) K/uL PT Cancelled INR Cancelled VBG pH 7.35 L (7.36-7.41) VBG pCO2 62 H (38-50) mmHg VBG pO2 36 mmHg VBG HCO3 34 mmol/L VBG O2 Saturation 60.3 % VBG Base Excess 6.5 mEq/L Sodium 138 (136-145) mmol/L Potassium 3.5 (3.5-5.1) mmol/L Chloride 99 (98-107) mmol/L Carbon Dioxide 31 (21-32) mmol/L Anion Gap 8 (3-11) BUN 13 (6-23) mg/dl Creatinine 0.57 L (0.6-1.2) mg/dl Est Cr Clr Drug Dosing 49.3 ml/min eGFR 92.38 BUN/Creatinine Ratio 22.8 H (10-20) Glucose 103 H (70-99(Fasting)) mg/dl Calcium 9.4 (8.6-10.3) mg/dl Total Bilirubin 0.7 (0.2-1.0) mg/dl AST 17 (13-39) U/L ALT 8 (7-52) U/L Alkaline Phosphatase 53 (34-104) U/L Troponin I High Sens 52.4 H* (0-14) pg/ml B-Natriuretic Peptide 477 H (0-100) pg/ml Total Protein 7.2 (6.0-8.3) gm/dl Albumin 4.1 (3.4-5.0) gm/dl Globulin 3.1 (2.5-4.0) gm/dl Albumin/Globulin Ratio 1.3 (0.9-2) Administered Medications Discontinued Medications Albuterol (Albut/Ipratrop 3mg/0.5mg Neb 3 Ml Vial) 3 ml INH NOW STA Stop: 06/04/25 05:11 Last Admin: 06/04/25 05:28 Dose: 3 ml Documented By: RACHAEL Albuterol (Albut/Ipratrop 3mg/0.5mg Neb 3 Ml Vial) 3 ml NEB NOW STA; Protocol Stop: 06/04/25 06:19 Last Admin: 06/04/25 06:31 Dose: 3 ml Documented By: TERI Methylprednisolone (Methylprednisolone 125 Mg/2 Ml Vial) 125 mg IV NOW STA Stop: 06/04/25 05:11 Last Admin: 06/04/25 05:29 Dose: 125 mg Documented By: RACHAEL Discharge Plan Visit Data Chief Complaint: Shortness of Breath/Dyspnea Stated Complaint: short of breath ED Provider: Natalio Scott Discharge Problem: Hypoxia Patient Disposition: Admitted As Inpatient Condition: Fair Forms Stand Alone Forms: My [facility] Prescriptions Prescriptions: No Action acetaminophen 325 mg tablet 650 mg PO Q6H PRN (Reason: pain) Patient Comments: CONFIRMED W/ PT AND ON [facility]ARE DC SUMMARY 08/20/23 potassium chloride 20 mEq tablet extended release 20 meq PO 3XWK Qty: 30 11RF Patient Comments: mon, wed , fri Rx Instructions: Mon/Wed/Fri valsartan 160 mg tablet 160 mg PO BID Qty: 180 1RF Spiriva Respimat 2.5 mcg/actuation mist 2 inh inhalation QAM Qty: 4 5RF verapamil 180 mg tablet extended release 360 mg PO QAM Qty: 180 3RF furosemide 20 mg tablet 20 mg PO 3XWK Qty: 60 0RF Patient Comments: mon, wed and fri Rx Instructions: Mon/Wed/Fri albuterol sulfate [Ventolin HFA] 90 mcg/actuation HFA aerosol inhaler 2 puff INH Q6H PRN (Reason: shortness of breath or wheezing) Qty: 6.7 5RF ascorbic acid (vitamin C) 500 mg Tablet 500 mg PO QAM cholecalciferol (vitamin D3) [Vitamin D3] 25 mcg (1,000 unit) Tablet 25 mcg PO QAM polyethylene glycol 3350 [Miralax] 17 gram Powder In Packet 17 g PO DAILY PRN (Reason: constipation) Qty: 14 0RF aspirin 81 mg Capsule 81 mg PO QAM Hold Instructions: until pcp say otherwise Referrals Referrals: Shawn Garcia MD [Primary Care Provider] -
[2025-06-04] MEDS: ALBUT/IPRATROP 3MG/0.5MG NEB 3 ML VIAL INH STA (05:28)
[2025-06-04 05:31] LABS: Hematocrit (blood only) 36.9 % (37.0-47.0); Hemoglobin 11.6 g/dl (12.0-16.0); Immature Granulocytes # (auto) 0.01 K/uL (0.01-0.20); Immature Granulocytes % (auto) 0.2 %; Mean Corpuscular Hemoglobin 31.6 pg (25.0-34.0); Mean Corpuscular Volume 100.5 fL (80.0-100.0); Platelet Count 252 K/uL (130-400); RDW Standard Deviation 49.8 fL (36.4-46.3); Red Blood Count 3.67 M/uL (4.20-5.40); White Blood Count 4.71 K/ul (4.8-10.8)
[2025-06-04 05:49] LABS: Alanine Aminotransferase 8.0 U/L (7-52); Albumin Globulin Ratio 1.3 (0.9-2); Alkaline Phosphatase 53.0 U/L (34-104); Anion Gap 8.0 (3-11); Bilirubin,Total 0.7 mg/dl (0.2-1.0); Blood Urea Nitrogen 13.0 mg/dl (6-23); Calcium 9.4 mg/dl (8.6-10.3); Carbon Dioxide 31.0 mmol/L (21-32); Chloride 99.0 mmol/L (98-107); Creatinine Clr Calc Pharmacy 49.3 ml/min; Globulin 3.1 gm/dl (2.5-4.0); Glucose 103.0 mg/dl (70-99(Fasting)); Potassium 3.5 mmol/L (3.5-5.1); Sodium 138.0 mmol/L (136-145); Total Protein 7.2 gm/dl (6.0-8.3)
[2025-06-04 06:02] LABS: Base Excess VBG 6.5 mEq/L; HCO3 VBG 34 mmol/L; Oxygen Saturation VBG 60.3 %; PCO2 VBG 62 mmHg (38-50); PO2 VBG 36 mmHg; pH VBG 7.35 (7.36-7.41)
[2025-06-04] MEDS: ALBUT/IPRATROP 3MG/0.5MG NEB 3 ML VIAL NEB STA (06:31)
[2025-06-04 06:36] LABS: Chlamydia pneumoniae PCR Not Detected (NotDetected); Coronavirus 229E PCR Not Detected (NotDetected); Coronavirus CoV-2 (COVID19)PCR Not Detected (NotDetected); Coronavirus HKU1 PCR Not Detected (NotDetected); Coronavirus NL63 PCR Not Detected (NotDetected); Coronavirus OC43PCR Not Detected (NotDetected); Human Metapneumovirus PCR Not Detected (NotDetected); Parainfluenza Virus 1 PCR Not Detected (NotDetected); Parainfluenza Virus 2 PCR Not Detected (NotDetected); Parainfluenza Virus 3 PCR Not Detected (NotDetected); Parainfluenza Virus 4 PCR Not Detected (NotDetected); Respiratory Syncytial VirusPCR Not Detected (NotDetected); Rhinovirus/Enterovirus PCR Not Detected (NotDetected)
--- NOTE | 2025-06-04 07:17 | XRay Report ---
EXAM: XR chest 1V portable CLINICAL HISTORY: Dyspnea TECHNIQUE: An X-ray image of the chest is obtained in AP projection. 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 FINDINGS: Diffuse emphysema noted in both lungs. Blunting of right costophrenic angle - suggest possibility of pleural thickening. Blunting of left costophrenic angle with adjacent inhomogeneous opacity - suggest possibility of left sided pleural effusion. Mild pleural thickening with adjacent calcification is noted involving right lung apices. The cardiomediastinal silhouette is within normal limits. No acute osseous abnormality. IMPRESSION: Diffuse emphysema noted in both lungs.-stable. Blunting of right costophrenic angle - suggest possibility of pleural thickening.-stable. Blunting of left costophrenic angle with adjacent inhomogeneous opacity - suggest possibility of left sided pleural effusion.-new finding. Mild pleural thickening with adjacent calcification is noted involving right lung apices.-stable. Electronically signed by Mitch Phan 06-04-2025 07:17 AM
[2025-06-04 07:32] LABS: INR 0.9 (0.9-1.1); Prothrombin Time 10.3 Seconds (9.0-12.0)
--- NOTE | 2025-06-04 08:23 | History & Physical Report ---
Date of Service June 04, 2025 Assessment & Plan (1) Acute hypoxic respiratory failure: (2) (HFpEF) heart failure with preserved ejection fraction: (3) COPD exacerbation: (4) Low BMI: (5) Hypertension: (6) S/P TAVR (transcatheter aortic valve replacement): Plan Pt is a 79 yo female with a past med hx of COPD and prior hx smoking quit in 2001 or so, s/p RUL lobectomy for adenocarcinoma and with recurrence in 2023 s/p SBRT of the LEFT upper lobe, aortic stenosis s/p TAVR, HFpEF, HTN, and low BMI who presents to the hospital on 06/04 for several days of SOB symptoms, admitted for COPD exac. #Acute hypoxic respiratory failure #COPD exac - overall mild, improved well with steroids and breathing treatments in the ED - CXR shows some LLL haziness but no white count or infection symptoms noted on admission - given solumedrol 125 mg in the ED, will be 40mg IV BID today and can consider decreasing to oral the next 24-48 hours if symptoms continue to improve well - will do azithromycin 500mg daily for 5 days, no further AB coverage at this time due to no infection symptoms but if she worsens would also add further coverage - scheduled duonebs for today, continue home long acting inhaler - oxygen as needed, tolerate as able - she is NOT on oxygen at baseline #HTN - BP quite high in the ED, will give home valsartan and verapamil - if continues to be >185/110 may need some IV medication to lower BP, but would generally not give IV doses if less than this goal #Low BMI - retail office associate consult placed #HFpEF not in exac #S/p TAVR for severe - last echo was 06/2024; EF >70% and some "trivial" pericardial effusion - no indication at this time to repeat in the hospital but certainly if her clinical status worsens could repeat this - continue home lasix - not in HF exac on admission VTE: lovenox (reduced dose for low weight) Dispo: Pt lives alone, independent with ADLs, daughter lives close by, goal is to go home on D/C History of Present Illness Chief Complaint: COPD exac Primary Care Provider: Shawn Garcia MD Pt is a 79 yo female with a past med hx of COPD and prior hx smoking quit in 2001 or so, s/p RUL lobectomy for adenocarcinoma and with recurrence in 2023 s/p SBRT of the LEFT upper lobe, aortic stenosis s/p TAVR, HFpEF, HTN, and low BMI who presents to the hospital on 06/04 for several days of SOB symptoms, admitted for COPD exac. Pt seen at bedside with family present. She states that the last 2 days or so she has been experiencing some SOB. No cough, fevers, chills. She did note her pulse ox at home showed saturations in the 60-70%s which prompted her to come in for further eval. She states she takes her weights at home sometimes and feels like it is down from her baseline. She states that she takes lasix 20 mg three times a week for leg swelling and she has not noticed any leg swelling the last few days. No pain anywhere. She states her symptoms now feel similar to when she had a COPD exac with COVID a few years ago. She states after being given steroids and a breathing treatment she is feeling well. She is optimistic about getting out of here before the [employer] game on sunday but agreeable to stay as long as needed. Allergies Allergy/AdvReac Type Severity Reaction Status Date / Time watermelon Allergy Unknown Rash Verified 05/05/25 10:57 alendronate sodium AdvReac Unknown Nausea Verified 05/05/25 10:57 atorvastatin AdvReac Unknown Nausea Verified 05/05/25 10:57 bupropion [From Wellbutrin] AdvReac Unknown Nausea Verified 05/05/25 10:57 codeine AdvReac Unknown UPSET Verified 05/05/25 10:57 STOMACH doxycycline AdvReac Unknown Nausea Verified 05/05/25 10:57 ibandronate sodium AdvReac Unknown Gastrointestinal Verified 05/05/25 10:57 [From Boniva] Upset morphine AdvReac Unknown Confusion Verified 05/05/25 10:57 pravastatin AdvReac Unknown myalgia Verified 05/05/25 10:57 simvastatin AdvReac Unknown Nausea Verified 05/05/25 10:57 Sulfa (Sulfonamide AdvReac Unknown Nausea Verified 05/05/25 10:57 Antibiotics) sulfamethoxazole AdvReac Unknown Nausea Verified 05/05/25 10:57 [From Bactrim] trimethoprim [From Bactrim] AdvReac Unknown Nausea Verified 05/05/25 10:57 Home Medications Medication Instructions Recorded Confirmed Type ascorbic acid (vitamin C) 500 mg 500 mg PO QAM 08/17/22 06/04/25 History tablet cholecalciferol (vitamin D3) 25 25 mcg PO QAM 08/17/22 06/04/25 History mcg (1,000 unit) tablet (Vitamin D3) acetaminophen 325 mg tablet 650 mg PO Q6H PRN pain 08/20/23 06/04/25 History polyethylene glycol 3350 17 gram 17 g PO DAILY PRN constipation #14 03/14/24 06/04/25 Rx oral powder packet (Miralax) ea aspirin 81 mg capsule 81 mg PO QAM 04/09/24 06/04/25 History albuterol sulfate 90 mcg/actuation 2 puff inhalation Q6H PRN 07/23/24 06/04/25 Rx aerosol inhaler (Ventolin HFA) shortness of breath or wheezing #6.7 grams potassium chloride 20 mEq 20 meq PO 3XWK #30 tabs 09/04/24 06/04/25 Rx tablet,extended release valsartan 160 mg tablet 160 mg PO BID #180 tabs 01/05/25 06/04/25 Rx tiotropium bromide 2.5 2 inh inhalation QAM #4 grams 04/22/25 06/04/25 Rx mcg/actuation mist for inhalation (Spiriva Respimat) verapamil 180 mg tablet,extended 360 mg (2 x 180 mg) PO QAM #180 04/27/25 06/04/25 Rx release tabs furosemide 20 mg tablet 20 mg PO 3XWK #60 tabs 05/26/25 06/04/25 Rx Past Med/Surg History Problem List (Updated 06/04/25 @ 09:51 by Kalyani Steiner DO) COPD exacerbation Acute hypoxic respiratory failure Hypoxia (Acute) History of colon polyps Acute colitis (Acute) Left upper lobe pulmonary nodule (Chronic) Ex-smoker Exertional shortness of breath Fracture of right inferior pubic ramus (08/06/23) from a fall Hypoxia (Acute) COPD (chronic obstructive pulmonary disease) (Acute) S/P TAVR (transcatheter aortic valve replacement) Statin myopathy Congestive heart failure (Acute) Hypoxia (Acute) Acute respiratory distress (Acute) Acute exacerbation of CHF (congestive heart failure) (HFpEF) heart failure with preserved ejection fraction Hypoxia Frailty Lower leg edema Primary adenocarcinoma of lower lobe of left lung (Chronic 08/21/22) COVID-19 (Acute) Mass of left lung (Acute) Low BMI Hypokalemia Elevated troponin Adenocarcinoma of left lung COVID-19 Anemia Lung mass Colonic mass NSCLC of right lung External hemorrhoid, thrombosed (Acute) Lower gastrointestinal hemorrhage (Acute) Antiplatelet or antithrombotic long-term use Normal left ventricular systolic function and wall motion Severe aortic stenosis (Acute) Carotid artery plaque Prediabetes Insomnia Depression Constipation Aortic stenosis due to bicuspid aortic valve (Acute) BMI less than 19,adult (Acute) History of adenocarcinoma of lung (Acute) Hyperlipidemia (Acute) Hypertension (Acute) Leukopenia (Acute) Mitral regurgitation (Acute) Nontoxic multinodular goiter (Acute) Tricuspid regurgitation (Acute) Vitamin D deficiency (Acute) Osteoporosis (Chronic) Medical History Aortic stenosis Colonic mass History of lower GI bleeding (2021) Hemorrhoids Colitis Tricuspid regurgitation Mitral regurgitation History of cardiac murmur Acute respiratory distress History of prediabetes History of pelvic fracture (08/2023) Osteoporosis Hyperlipidemia Hypertension Insomnia Carotid artery plaque Hx of colonic polyp History of anemia History of COVID-19 Lower leg edema Hx of congestive heart failure COPD (chronic obstructive pulmonary disease) Exertional shortness of breath Hx of cancer of lung Carotid bruit Surgical History Hx of cardiac cath History of esophagogastroduodenoscopy (EGD) Hx of colonoscopy S/P TAVR (transcatheter aortic valve replacement) History of tubal ligation S/P lobectomy of lung (2001) Family History Father Myocardial infarction Hypertension Mother Vascular disorder Mother of supranuclear palsy Hypertension Denies family history of Ovarian cancer Prostate cancer Diabetes Breast cancer Colorectal cancer Social History Smoking Status: Former smoker Tobacco Type: Cigarettes Age Started Using Tobacco: 21; Age Quit Using Tobacco: 55; packs per day: 1; Cigarettes Per Day: 20; Second Hand Exposure: Yes (hx many years ago); Do You Dip or Chew Tobacco: No; Hx Alcohol Use: Yes Alcohol type: hard liquor Alcohol Intake Frequency: Monthly or Less Alcohol Intake Frequency Comment: socially Hx Substance Use: No Preferred Language: Samoan Communication Ability: Effective Visual Impairment: Partially Limited Hearing Ability: Normal Automatic Lathe Setter Required: No Beliefs That Will Affect Care: None marital status: / Current Living Situation: Alone current occupational status: retired 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 Feels Safe at Home: Yes Childhood Exposure to Second-Hand Smoke: No Diet: regular caffeine: No (Decaf Coffee ) Dental Care, Regularly: No Physical Activity Frequency: Does not Exercise Seatbelt Use: always Sunscreen Use: No Assistive Devices: Denture - Upper, Denture - Lower and Glasses Review of Systems Review of Systems: Per HPI Physical Exam Physical Exam: General: Alert and oriented, no acute distress, well appearing and very pleasant HEENT: Normocephalic, moist oral mucosa, Cardio: Regular rate and rhythm, Resp: Air movement globally is subpar with some trace wheezing on exam GI: Soft and nontender, nondistended, bowel sounds active Skin: Warm, pink, dry, Results & Data Results & Data Vital Signs (Past 12 Hours) Vital Signs Temp Pulse Pulse Resp BP BP Pulse Ox 06/04/25 06:30 92 H 20 98 06/04/25 06:15 93 H 22 190/107 H 98 06/04/25 06:00 94 H 16 192/109 H 100 06/04/25 05:45 92 H 30 H 202/117 H 100 06/04/25 05:30 93 H 29 H 190/108 H 96 06/04/25 05:23 88 06/04/25 05:21 89 L 06/04/25 05:18 93 H 43 H 192/114 H 97 06/04/25 05:15 89 22 192/114 H 97 06/04/25 05:11 100 06/04/25 05:07 207/114 H 06/04/25 05:04 70 L 06/04/25 05:04 36.4 C L 100 H 26 H 207/114 H 100 06/04/25 05:04 O2 Del Method O2 Flow Rate 06/04/25 06:30 Nasal Cannula 2 06/04/25 06:15 Nasal Cannula 2 06/04/25 06:00 Nasal Cannula 2 06/04/25 05:45 06/04/25 05:30 06/04/25 05:23 06/04/25 05:21 Nasal Cannula 0 06/04/25 05:18 06/04/25 05:15 Nasal Cannula 2 06/04/25 05:11 Oxymask 4 06/04/25 05:07 06/04/25 05:04 Room Air, Oxymask 0 06/04/25 05:04 Oxymask 4 06/04/25 05:04 Oxymask 6 Supervising Physician Co-Signing Physician Notes ATTESTATION I also saw the patient and confirmed [place] portions of the history and exam. I agree with the impression and plan in the resident documentation, and as summarized below. Upon recheck this afternoon, the patient is seen in the C pod still awaiting a room upstairs. She tells me that she feels better overall - increased ease in breathing. Now that she has had her morning blood pressure medications, her blood pressure has also normalized. She is satting 95% on 2 L via nasal cannula. She is not on home oxygen, but she does tell me that she had home oxygen temporarily post a previous hospitalization (for COVID). EXAM 123/67, 91, 20, 36.7 C, 95% on nasal cannula pleasant and alert. She speaks in full complete sentences without pause. No observed dyspnea. Cardiovascular regular Lungs decreased breath sounds right apex; otherwise, globally decreased with prolonged expiratory phase; and expiratory wheeze. DATA Labs Hemoglobin 11.6, platelet 252 Sodium 138, potassium 3.5, BUN 13, creatinine 0.57 Imaging Chest x-ray completed upon admission shows changes consistent with diffuse emphysema, blunting of the right costophrenic angle which looks to be chronic, blunting of the left costophrenic angle which may be new. Overall, chronic with no significant acute changes Micro No cultures collected on admission IMPRESSION & PLAN Acute hypoxic respiratory failure HFpEF COPD exacerbation Hypertension Will continue to wean oxygen. Based on her exam this afternoon, we will switch her over to oral prednisone tomorrow morning. Hopefully able to discharge tomorrow. Additional per resident documentation Resident Activity Tracking Resident Involvement: Resident Care Provided Care Provided: Adult Hospital Medicine (5) Hypertension Hypertension type: unspecified Qualified Code(s): I10 - Essential (primary) hypertension
[2025-06-04] MEDS ORDERED: ACETAMINOPHEN 325 MG TAB PO PRN (09:48)
[2025-06-04] MEDS ORDERED: ONDANSETRON INJ 2 MG/ML 2 ML VIAL IV PRN (09:48)
[2025-06-04] MEDS ORDERED: POLYETHYLENE (MIRALAX) 17 GM PACK PO PRN (09:48)
[2025-06-04] MEDS: AZITHROMYCIN 250 MG TAB PO SCH (10:36)
[2025-06-04] MEDS: VALSARTAN 80 MG TAB PO SCH (10:36)
[2025-06-04] MEDS: VERAPAMIL HCL 180 MG TABCR PO SCH (10:37)
[2025-06-04] MEDS: ENOXAPARIN INJ 30 MG/0.3 ML SYR SQ SCH (10:46)
[2025-06-04] MEDS: ALBUT/IPRATROP 3MG/0.5MG NEB 3 ML VIAL INH SCH (12:06)
--- NOTE | 2025-06-04 12:29 | Electrocardiogram Report ---
Test Reason : Blood Pressure : */* mmHG Vent. Rate : 91 BPM Atrial Rate : 91 BPM P-R Int : 144 ms QRS Dur : 70 ms QT Int : 398 ms P-R-T Axes : 69 67 68 degrees QTcB Int : 489 ms Normal sinus rhythm with sinus arrhythmia Nonspecific ST abnormality Abnormal ECG When compared with ECG of 13-Mar-2024 05:19, No significant change was found Confirmed by Shawn Augustine ([id number]) on 06/04/2025 12:29:10 PM Referred By: REFERRED SELF Confirmed By: Shawn Augustine
[2025-06-04 16:35] LABS: Appearance Urine Clear (Clear); Bacteria Urine Automated None Seen (None Seen); Cast Urine Automated 0-2 /lpf (0-2); Epithelial Cell Urine Auto 0-2 /hpf (0-2); Glucose Urine UA Trace (Negative); RBC Urine Automated 0-2 /hpf (0-2); WBC Urine Automated 0-5 /hpf (0-5)
[2025-06-05 04:56] LABS: Hematocrit (blood only) 34.3 % (37.0-47.0); Hemoglobin 11.3 g/dl (12.0-16.0); Mean Corpuscular Hemoglobin 31.9 pg (25.0-34.0); Mean Corpuscular Volume 96.9 fL (80.0-100.0); Platelet Count 254 K/uL (130-400); RDW Standard Deviation 46.9 fL (36.4-46.3); Red Blood Count 3.54 M/uL (4.20-5.40); White Blood Count 6.51 K/ul (4.8-10.8)
[2025-06-05 05:14] LABS: Anion Gap 8.0 (3-11); Blood Urea Nitrogen 14.0 mg/dl (6-23); Calcium 9.6 mg/dl (8.6-10.3); Carbon Dioxide 32.0 mmol/L (21-32); Chloride 97.0 mmol/L (98-107); Creatinine Clr Calc Pharmacy 83.1 ml/min; Glucose 147.0 mg/dl (70-99(Fasting)); Potassium 3.9 mmol/L (3.5-5.1); Sodium 137.0 mmol/L (136-145)
[2025-06-05 05:16] LABS: Immature Granulocytes # (auto) 0.03 K/uL (0.01-0.20); Immature Granulocytes % (auto) 0.5 %
[2025-06-05] MEDS: UMECLIDINIUM BROMIDE 62.5MCG/BLISTER 7 PUFFS/INHALER INH SCH (08:24)
[2025-06-05] MEDS ORDERED: FUROSEMIDE 20 MG TAB PO SCH (09:00)
[2025-06-05] MEDS ORDERED: FUROSEMIDE 40 MG/4 ML VIAL IV SCH (09:00)
[2025-06-05] MEDS: POTASSIUM CHLORIDE CRTAB 20 MEQ TABCR PO SCH (10:27)
[2025-06-05] MEDS: FUROSEMIDE 40 MG/4 ML VIAL IV SCH (10:30)
--- NOTE | 2025-06-05 13:23 | Hospitalist Progress Note ---
Date of Service June 05, 2025 Assessment & Plan (1) Acute hypoxic respiratory failure: (2) (HFpEF) heart failure with preserved ejection fraction: (3) COPD exacerbation: (4) Low BMI: (5) Hypertension: (6) S/P TAVR (transcatheter aortic valve replacement): Plan Pt is a 79 yo female with a past med hx of COPD and prior hx smoking quit in 2001 or so, s/p RUL lobectomy for adenocarcinoma and with recurrence in 2023 s/p SBRT of the LEFT upper lobe, aortic stenosis s/p TAVR, HFpEF, HTN, and low BMI who presents to the hospital on 06/04 for several days of SOB symptoms, admitted for COPD exac. #Acute hypoxic respiratory failure/COPD exac CXR shows some LLL haziness but no white count or infection symptoms noted on admission Decrease Solumedrol to 40mg IV once dialy. Continue Azithromycin to complete 5 day course. duonebs switched to prn 2 step performed --> requires 3L w/ ambulation, room air at rest. #CHF last echo was 06/2024; EF >70% and some "trivial" pericardial effusion BNP above baseline at 477 s/p 40mg IV Lasix 06/05 --> reassess in AM prior to further diuresis. Home Lasix dose: 20mg three x per week. 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 Admission and Anticipated Discharge Date Admission Date: June 04, 2025 Supervising Physician Co-Signing Physician Notes The patient was not seen by me. The chart was reviewed. Case discussed with SANG Lopez. Agree with assessment and plan Subjective Helen was seen and examined this morning. She reports that she is feeling okay today. Denies any SOB. Was on nasal cannula at time of my encounter. denies any chest pain. States she wants to go home prior to the football game tomorrow morning. Physical Exam Constitutional: WD/WN, vitals as above Eyes: PERRL, conjunctivae normal, anicteric sclerae Respiratory: diminished, trace wheezing Cardiovascular: RRR, no murmur, no edema Skin: no rashes, warm and dry Neurologic: PERRL, EOMI, accommodation nl, no face palsy, no dysarthria Psychiatric: A+Ox3, euthymic affect Results & Data Results & Data Vital Signs (Past 12 Hours) Vital Signs Temp Pulse Pulse Pulse Pulse Pulse Pulse 06/05/25 12:59 06/05/25 12:45 107 H 104 H 102 H 109 H 100 H 06/05/25 10:41 36.7 C 06/05/25 10:37 06/05/25 07:46 36.8 C 06/05/25 07:31 97 H 06/05/25 07:00 06/05/25 03:41 36.8 C Pulse Resp Resp Resp Resp Resp Resp 06/05/25 12:59 100 H 20 06/05/25 12:45 22 22 20 23 17 06/05/25 10:41 06/05/25 10:37 103 H 20 06/05/25 07:46 103 H 20 06/05/25 07:31 06/05/25 07:00 104 H 19 06/05/25 03:41 102 H 20 BP Pulse Ox Pulse Ox Pulse Ox Pulse Ox Pulse Ox Pulse Ox 06/05/25 12:59 90 06/05/25 12:45 84 L 87 L 92 79 L 92 06/05/25 10:41 06/05/25 10:37 116/67 88 L 06/05/25 07:46 197/89 H 96 06/05/25 07:31 06/05/25 07:00 99 06/05/25 03:41 165/86 H 99 O2 Del Method O2 Flow Rate O2 Flow Rate O2 Flow Rate O2 Flow Rate 06/05/25 12:59 Room Air 06/05/25 12:45 1 2 3 06/05/25 10:41 06/05/25 10:37 Room Air 06/05/25 07:46 Nasal Cannula 1 06/05/25 07:31 06/05/25 07:00 Nasal Cannula 1 06/05/25 03:41 Nasal Cannula 1 PG Care Time/CCT Total # of Minutes Spent Total Time Spent with Patient: Total time spent is greater than 50% in coordination of care (as documented) at patient's floor/unit and/or counseling patient: Coding Level of Care Code 17770 SUB INP/OBS CARE 2/35MIN Diagnoses Acute hypoxic respiratory failure J96.01 (HFpEF) heart failure with preserved ejection fraction I50.30 COPD exacerbation J44.1 Low BMI Hypertension I10 Hypertension type: unspecified S/P TAVR (transcatheter aortic valve replacement) Z95.2 (5) Hypertension Hypertension type: unspecified Qualified Code(s): I10 - Essential (primary) hypertension
[2025-06-05] MEDS ORDERED: ALBUT/IPRATROP 3MG/0.5MG NEB 3 ML VIAL INH PRN (19:00)
[2025-06-06 07:12] LABS: Hematocrit (blood only) 36.2 % (37.0-47.0); Hemoglobin 11.8 g/dl (12.0-16.0); Immature Granulocytes # (auto) 0.02 K/uL (0.01-0.20); Immature Granulocytes % (auto) 0.2 %; Mean Corpuscular Hemoglobin 32.0 pg (25.0-34.0); Mean Corpuscular Volume 98.1 fL (80.0-100.0); Platelet Count 303 K/uL (130-400); RDW Standard Deviation 47.6 fL (36.4-46.3); Red Blood Count 3.69 M/uL (4.20-5.40); White Blood Count 9.44 K/ul (4.8-10.8)
[2025-06-06 07:34] LABS: Anion Gap 4.0 (3-11); Blood Urea Nitrogen 19.0 mg/dl (6-23); Calcium 9.8 mg/dl (8.6-10.3); Carbon Dioxide 36.0 mmol/L (21-32); Chloride 95.0 mmol/L (98-107); Creatinine Clr Calc Pharmacy 41.0 ml/min; Glucose 95.0 mg/dl (70-99(Fasting)); Potassium 4.4 mmol/L (3.5-5.1); Sodium 135.0 mmol/L (136-145)
[2025-06-06 07:40] VITALS: RESP 18
--- NOTE | 2025-06-06 09:14 | XRay Report ---
XR chest 2V PA/lateral CLINICAL HISTORY: suspected CHF, exac copd COMPARISON STUDY: Chest CT March 07, 2025. Chest radiograph June 04, 2025. FINDINGS: Aortic valve prosthesis is in place. Cardiomegaly is unchanged. There is no pneumothorax or pleural effusion. Pulmonary vascular congestion is similar to prior CT. Right apical density with vo lume loss remains unchanged. There is no consolidation to suggest pneumonia. IMPRESSION: 1. Cardiomegaly with pulmonary vascular congestion. No evidence for overt pulmonary edema. 2. Stable right apical density with volume loss. ACT 112: Negative or not required by law. Electronically signed by: Jose Manuel Bhagat M.D. 06/06/2025 9:13 AM
[2025-06-06] MEDS: FUROSEMIDE 40 MG/4 ML VIAL IV ONE (10:51)
--- NOTE | 2025-06-06 11:32 | Hospitalist Progress Note ---
Date of Service June 06, 2025 Assessment & Plan (1) Acute on chronic diastolic CHF (congestive heart failure): Plan: Continue parenteral Lasix diuresis. Monitor intake and output. Blood pressure control (2) Acute hypoxic respiratory failure: Plan: Oxygen per nasal cannula to maintain saturation of greater than 90%. Wean off as tolerated (3) COPD exacerbation: Plan: Due to underlying CHF. No audible wheezing. Parenteral steroid therapy has been discontinued (4) Low BMI: Plan: She appears to be cachectic consistent with severe protein calorie malnutrition. Adequate oral intake has been encouraged (5) Hypertension: Plan: Blood pressure seems to be running high. Verapamil and losartan have been discontinued and she has been started on metoprolol and hydralazine. Will titrate according to response (6) S/P TAVR (transcatheter aortic valve replacement): Plan: Most recent cardiac echo reveals normal function of TAVR Plan Hopeful discharge to home tomorrow, June 07 Admission and Anticipated Discharge Date Admission Date: June 04, 2025 Subjective Alert and oriented. Chest x-ray done today, June 06, continues to show pulmonary vascular congestion and she has underlying cardiomegaly. Blood pressure is significantly elevated. Will discontinue verapamil and losartan and start metoprolol and hydralazine. Parenteral Lasix ordered again today, June 06. Hopefully she can go home tomorrow. Solu-Medrol has been discontinued Review of Systems 2 Review of Systems: Constitutionalno fever or chills. Cachectic appearing ENTno blurred vision, no double vision, no epistaxis, no sore throat Respiratoryno cough, no wheezing, no shortness of breath at rest. She does have mild dyspnea on exertion Cardiacno palpitations, no chest pain, no syncope Dottie nausea, vomiting, diarrhea, melena, hematochezia GUno urinary retention, no urinary incontinence, no dysuria, no hematuria Musculoskeletalno joint pain, no muscle tenderness Skinno bruising, no rashes, no pruritus Neurono isolated weakness, no paresthesia, no weakness Psychno depression, no anxiety Physical Exam 2 Physical Exam: General-alert and oriented x3, no fever, no chills HEENT-head atraumatic and normocephalic, pupils equal and reactive to light, extraocular muscles intact Neck-no lymphadenopathy or thyromegaly, trachea midline Chest-diminished breath sounds bilaterally. No rales ,wheezing or rhonchi audible i Cardiac-regular rate and rhythm, normal S1 and S2 Abdomen-normal bowel sounds, no hepatosplenomegaly Extremities-no cyanosis, clubbing, or edema Neuro-cranial nerves II through XII intact, motor and sensory function within normal limits, strength symmetrical, no focal deficits Psych-normal affect, normal mood Results & Data Results & Data Vital Signs (Past 12 Hours) Vital Signs Temp Pulse Pulse Resp BP Pulse Ox O2 Del Method 06/06/25 07:39 37.0 C 96 H 18 193/105 H 87 L Room Air 06/06/25 05:53 90 06/06/25 03:36 36.5 C 84 16 170/93 H 88 L Room Air Laboratory Results 06/06/25 06:41 06/06/25 06:41 PG Care Time/CCT Total # of Minutes Spent Total Time Spent with Patient: Total time spent is greater than 50% in coordination of care (as documented) at patient's floor/unit and/or counseling patient: Coding Level of Care Code 84683 SUB INP/OBS CARE 3/50MIN Diagnoses Acute on chronic diastolic CHF (congestive heart failure) I50.33 Acute hypoxic respiratory failure J96.01 COPD exacerbation J44.1 Low BMI Hypertension I10 Hypertension type: unspecified S/P TAVR (transcatheter aortic valve replacement) Z95.2 (5) Hypertension Hypertension type: unspecified Qualified Code(s): I10 - Essential (primary) hypertension
[2025-06-06] MEDS: METOPROLOL TARTRATE 25 MG TAB PO STA (14:05)
[2025-06-06] MEDS: METOPROLOL TARTRATE 25 MG TAB PO SCH (20:29)
[2025-06-07 07:16] LABS: Anion Gap 9.0 (3-11); Blood Urea Nitrogen 23.0 mg/dl (6-23); Calcium 9.2 mg/dl (8.6-10.3); Carbon Dioxide 34.0 mmol/L (21-32); Chloride 90.0 mmol/L (98-107); Creatinine Clr Calc Pharmacy 41.0 ml/min; Glucose 87.0 mg/dl (70-99(Fasting)); Potassium 3.8 mmol/L (3.5-5.1); Sodium 133.0 mmol/L (136-145)
[2025-06-07 08:02] VITALS: O2SAT 89
--- NOTE | 2025-06-07 08:14 | XRay Report ---
XR chest 1V portable CLINICAL HISTORY: CHF COMPARISON STUDY: Chest CT March 07, 2025. Chest radiograph June 06, 2025. FINDINGS: Prosthetic aortic valve is in place. Cardiomegaly is unchanged. There is no pneumothorax or pleural effusion. Right apical density with volume loss remains unchanged. There is no radiographic evidence for pulmonary edema. IMPRESSION: 1. Cardiomegaly. No radiographic evidence for overt pulmonary edema. 2. No change in right apical opacity with volume loss. ACT 112: Negative or not required by law. Electronically signed by: Jose Manuel Bhagat M.D. 06/07/2025 8:13 AM
--- NOTE | 2025-06-07 10:02 | Discharge Summary ---
Discharge Summary Date of Service June 07, 2025 Principal Dx & Hospital Course #1 = Principal Diagnosis (1) Acute on chronic diastolic CHF (congestive heart failure): Treated while hospitalized and improved with parenteral Lasix diuresis. Lasix increased to 40 mg daily at the time of discharge. Monitor intake and output. Blood pressure control (2) Acute hypoxic respiratory failure: Resolved. She is on room air now. (3) COPD exacerbation: Due to underlying CHF. No audible wheezing. Parenteral steroid therapy has been discontinued (4) Low BMI: She appears to be cachectic consistent with severe protein calorie malnutrition. Adequate oral intake has been encouraged (5) Hypertension: Hydralazine uptitrated today, June 07. Verapamil and losartan have been discontinued. She has been started on metoprolol and hydralazine. (6) S/P TAVR (transcatheter aortic valve replacement): Most recent cardiac echo reveals normal function of TAVR Plan Home today, June 07. Follow-up with Dr. Rainey and Dr. 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 Pt seen at bedside with family present. She states that the last 2 days or so she has been experiencing some SOB. No cough, fevers, chills. She did note her pulse ox at home showed saturations in the 60-70%s which prompted her to come in for further eval. She states she takes her weights at home sometimes and feels like it is down from her baseline. She states that she takes lasix 20 mg three times a week for leg swelling and she has not noticed any leg swelling the last few days. No pain anywhere. She states her symptoms now feel similar to when she had a COPD exac with COVID a few years ago. She states after being given steroids and a breathing treatment she is feeling well. She is optimistic about getting out of here before the [employer] game on sunday but agreeable to stay as long as needed. Discharge Exam General-alert and oriented x3, no fever, no chills HEENT-head atraumatic and normocephalic, pupils equal and reactive to light, extraocular muscles intact Neck-no lymphadenopathy or thyromegaly, trachea midline Chest-diminished breath sounds bilaterally. No rales ,wheezing or rhonchi audible i Cardiac-regular rate and rhythm, normal S1 and S2 Abdomen-normal bowel sounds, no hepatosplenomegaly Extremities-no cyanosis, clubbing, or edema Neuro-cranial nerves II through XII intact, motor and sensory function within normal limits, strength symmetrical, no focal deficits Psych-normal affect, normal mood Discharge Plan Discharge Items Patient Disposition: Home - Self-Care Reason For Visit: COPD EXAC Discharge Diagnosis: Acute on chronic diastolic CHF, uncontrolled hypertension, acute exacerbation COPD, acute hypoxic respiratory failure Condition on Discharge: Good Activity: Resume your previous activity Non-emergency contact: Primary Care Provider Call non-emergency contact if: you have any medication questions and your symptoms worsen Follow-up/Referrals: Shawn Garcia MD [Primary Care Provider] - 06/15/25 2:00 pm Diet: Regular and Heart Healthy Addtl Attending Provider Instructions: Losartan and verapamil have been discontinued. Metoprolol and hydralazine are new. Take Lasix 40 mg daily in the early afternoon right after lunch. Prescriptions have been sent to [facility] pharmacy in [place]. See Dr. Garcia and Dr. Rainey as soon as possible. Pending Studies at Discharge: No Stand-Alone Forms: [facility] [employer], Smoking Cessation Medications and DC Order Prescriptions: New hydralazine 50 mg Tablet 50 mg PO TID Qty: 90 0RF metoprolol tartrate 25 mg Tablet 25 mg PO BID Qty: 60 0RF furosemide [Lasix] 40 mg tablet 40 mg PO DAILY Qty: 30 0RF Continued acetaminophen 325 mg tablet 650 mg PO Q6H PRN (Reason: pain) Patient Comments: CONFIRMED W/ PT AND ON [facility] DC SUMMARY 08/20/23 potassium chloride 20 mEq tablet extended release 20 meq PO 3XWK Qty: 30 11RF Patient Comments: mon, wed , fri Rx Instructions: Mon/Wed/Fri Spiriva Respimat 2.5 mcg/actuation mist 2 inh inhalation QAM Qty: 4 5RF albuterol sulfate [Ventolin HFA] 90 mcg/actuation HFA aerosol inhaler 2 puff INH Q6H PRN (Reason: shortness of breath or wheezing) Qty: 6.7 5RF ascorbic acid (vitamin C) 500 mg Tablet 500 mg PO QAM cholecalciferol (vitamin D3) [Vitamin D3] 25 mcg (1,000 unit) Tablet 25 mcg PO QAM polyethylene glycol 3350 [Miralax] 17 gram Powder In Packet 17 g PO DAILY PRN (Reason: constipation) Qty: 14 0RF aspirin 81 mg Capsule 81 mg PO QAM Hold Instructions: until pcp say otherwise Discontinued valsartan 160 mg tablet 160 mg PO BID Qty: 180 1RF verapamil 180 mg tablet extended release 360 mg PO QAM Qty: 180 3RF furosemide 20 mg tablet 20 mg PO 3XWK Qty: 60 0RF Patient Comments: mon, wed and fri Rx Instructions: Mon/Wed/Fri Discharge Orders: Discharge Order- CHF (Routine); Ordered 06/07/25 Ordered By: Hernando Agustin Admission Data Admit Date/Time: 06/04/25 08:17 Attending Provider: Hernando Agustin Admit Provider: Kalyani Steiner Primary Care Provider: Shawn Garcia Other Providers: Maggie Alfaro Hospital Stay Data Consultations 06/04/25 06:24 ED Decision to Admit Stat Pending Results Patient Have Any Pending Studies at Discharge: No Discharge Instructions Given to Patient (Per Discharging Provider) Losartan and verapamil have been discontinued. Metoprolol and hydralazine are new. Take Lasix 40 mg daily in the early afternoon right after lunch. Prescriptions have been sent to [facility] pharmacy in [place]. See Dr. Garcia and Dr. Rainey as soon as possible. Total Time Total Time Spent Total Time Spent (In Minutes): 45 minutes Coding Level of Care Code 41206 INP/OBS DISCH >30 MIN Diagnoses Acute on chronic diastolic CHF (congestive heart failure) I50.33 Acute hypoxic respiratory failure J96.01 COPD exacerbation J44.1 Low BMI Hypertension I10 Hypertension type: unspecified S/P TAVR (transcatheter aortic valve replacement) Z95.2
--- NOTE | 2025-06-07 10:40 | Electrocardiogram Report ---
Test Reason : Blood Pressure : */* mmHG Vent. Rate : 95 BPM Atrial Rate : 95 BPM P-R Int : 140 ms QRS Dur : 62 ms QT Int : 372 ms P-R-T Axes : 78 72 76 degrees QTcB Int : 467 ms Sinus rhythm with Premature atrial complexes Possible Left atrial enlargement Borderline ECG When compared with ECG of 04-Jun-2025 05:11, Premature atrial complexes are now Present Confirmed by Leonard Phillip ([id number]) on 06/07/2025 10:39:55 AM Referred By: REFERRED SELF Confirmed By: Leonard Phillip
[2025-06-07 11:55] VITALS: BP 136/72; PULSE 75; TEMP 98.1
--- NOTE | 2025-06-08 09:51 | Coding Query ---
BMI To promote full compliance with coding requirements relating to patient care, physician participation is requested in all cases of label coder uncertainty. Please assist us with the question(s) below: Please place an X within the parenthesis (x). If other, please document: "Low BMI" was documented in this record for this patient. If the BMI is significant, please check the box that provides a more specific associated diagnosis and enter BMI as I believe the wrong weight/BMI was entered on admission assessment: ( ) Overweight/Obese ( ) Obesity ( ) Morbid obesity ( ) Obesity Hypoventilation Syndrome (OHS) ( ) Heathy weight, not significant (x ) Underweight/Thin ( ) Other, please specify Thank you Franchesca CRUZ
== END 2025-06-07 13:35 | disposition home or self-care (01) | DRG 190 ==
LOC: ED 04:54 → EDINP 08:17 → INTOOBSV 08:17 → SUATTDRO 08:17 → 2N 09:45